=== PATIENT | male | born 1960 | race Caucasian/White ===

== ENCOUNTER 2017-05-19 07:07 | Emergency (ER) | payer OTHER ==
[~2017-05-19] VITALS: Ht 175.3 cm; Wt 87.1 kg
--- OUTSIDE RECORDS SUMMARY | ~2017-05-19 | XMS | Clinical Summary ---
Demographics + + + | Address | [address] | | | [place] [address] | + + + | Home Phone | | + + + | Preferred Language | Unknown | + + + | Marital Status | | + + + | Synagogue Affiliation | Unknown | + + + [address] | | #[place] | [address] | +------+ + + + +-------+ Care Team Providers + +------+-------+ | Care Roving Changer Name | Role | Phone | + +------+-------+ | Mila Majano | PP | tel | + +------+-------+ Source Comments JUANITA is fully live on both [facility] Amb[facility] and [facility] InPatient.[facility] Allergies Not on File Current [...]
--- OUTSIDE RECORDS SUMMARY | ~2017-05-19 | XMS | Clinical Summary ---
Demographics + + + | Address | [address] | | | [place] [address] | + + + | Home Phone | | + + + | Preferred Language | Unknown | + + + | Marital Status | | + + + | Orthodox Affiliation | Unknown | + + + [...] [address] | | #[place] | [address] | +------+ + + + +-------+ Care Team Providers + +------+-------+ | Care Jewel Bearing Facer Name | Role | Phone | + +------+-------+ | Mila Majano | PP | tel | + +------+-------+ Source Comments JUANITA is fully live on both [facility] Ambulatory and [facility] InPatient.[facility] Allergies Not on File Current Medications Not [...]
[~2017-05-19 07:07] MED LIST: AMBIEN10 MG PO; ASPIR 8181 MG PO; CLOPIDOGREL75 MG PO; CYCLOBENZAPRINE10 MG PO; CYMBALTA30 MG PO; DILAUDID4 MG PO; DOXAZOSIN MESYLA8 MG PO; ESCITALOPRAM OXA5 MG PO; FINASTERIDE5 MG PO; FLEXERIL10 MG PO; FLOMAX0.4 MG PO; GABAPENTIN600 MG PO; HYDROCODON-ACE1 EAC8 PO; LIPITOR40 MG PO; LISINOPRIL5 MG PO; MORPHINE SULFAT15 M1 PO; MORPHINE SULFAT15 MG PO; MS CONTIN15 MG PO; NORCO 10-325 T1 EACH PO; NORCO 5-325 TA1 EACH PO; OMEPRAZOLE MAGN20 MG PO; OMEPRAZOLE20 MG PO; OXYCODONE HCL5 MG PO; PERCOCET 5-3251 EACH PO; PHENAZOPYRIDIN200 MG PO; SENNA-DOCUSATE1 EAC1 PO; TAMSULOSIN HCL0.4 MG PO; TRAMADOL HCL50 MG PO; VOLTAREN100 GM TOP; ZOLPIDEM TARTRA10 MG PO
--- NOTE | 2017-05-23 17:04 | EKG ---
[facility] [address] [facility] [place] [address] Signed Normal sinus rhythm Left axis deviation Abnormal ECG When compared with ECG of 16-JUN-2016 08:02, No significant change was found Confirmed by MATT BAER MD ([id number]) on 05/23/2017 5:04:13 PM Electronically Signed By: MATT BAER MD 05/23/17 1704 PATIENT NAME: GUNNER TATE JR Electrocardiogram DATE OF : 60 PHYSICIAN: MATT BAER MD REPORT #: [id number] REPORT IS CONFIDENTIAL AND NOT TO BE RELEASED WITHOUT AUTHORIZATION
[2017-07-06] MEDS ORDERED: ROBAXIN-750750 MG PO (13:14)
[2017-07-06] MEDS ORDERED: LISINOPRIL10 MG PO (13:23)
== END 2017-05-19 13:00 | disposition home or self-care (01) ==
LOC: ED 07:07
DX: G45.9 Transient cerebral ischemic attack, unspecified (principal); E16.2 Hypoglycemia, unspecified; Z87.442 Personal history of urinary calculi; Z87.891 Personal history of nicotine dependence; Z90.49 Acquired absence of other specified parts of digestive tract; Z98.890 Other specified postprocedural states; Z98.84 Bariatric surgery status; Z88.0 Allergy status to penicillin; Z88.1 Allergy status to other antibiotic agents; Z79.899 Other long term (current) drug therapy
CPT/HCPCS: 70450; 70496; 70498; 80053; 85025; 85379; 85610; 93005; 93010; 99284; Q9967

== ENCOUNTER 2017-06-15 14:48 | Emergency (ER) | payer OTHER ==
[~2017-06-15] VITALS: Ht 175.3 cm; Wt 87.1 kg
[2017-06-15] MEDS ORDERED: ASPIRIN81 MG PO (15:54)
--- OUTSIDE RECORDS SUMMARY | 2017-06-15 16:51 | XMS | Clinical Summary ---
Demographics + + + | Address | [address] | | | [place] [address] | + + + | Home Phone | | + + + | Preferred Language | Unknown | + + + | Marital Status | | + + + | Scientologist Affiliation | Unknown | + + + | Race | White | + + + | Ethnic Group | Not or | + + + Author + + + | Author | [facility] | + + + | Organization | [facility] | + + + | Address | Unknown | + + + | Phone | Unavailable | + + + Support +------+ + + + +-------+ | Name | Relationship | Address | Phone | +------+ + + + +-------+ ECON | [address] | | #[place] | [address] | +------+ + + + +-------+ Care Team Providers + +------+ + | Care Sales And Marketing Engineer Name | Role | Phone | + +------+ + | Mila Majano PA | PP | | + +------+ + Source Comments JUANITA is fully live on both [facility] Ambulatory and [facility] InPatient.[facility] Allergies Not on File Current Medications Not on file Active Problems Not on file Social History + +-------+ +--------+------+ | Tobacco Use | Types | Packs/Day | Years | Date | | | | | Used | | + +-------+ +--------+------+ | Never Assessed | | | | | + +-------+ +--------+------+ + + + | Sex Assigned at | Date Recorded | | | | + + + | Not on file | | + + + Plan of Treatment + + + + + | Health Maintenance | Due Date | Last Done | Comments | + + + + + | INFLUENZA VACCINE | | | | | (FLU SHOT) | 7 | | | + + + + + Results Not on filefrom Last 3 Months"
--- OUTSIDE RECORDS SUMMARY | 2017-06-15 17:48 | XMS | Clinical Summary ---
Demographics + + + | Address | [address] | | | [place] [address] | + + + | Home Phone | | + + + | Preferred Language | Unknown | + + + | Marital Status | | + + + | Restorationism Affiliation | Unknown | + + + [...] [address] | | #[place] | [address] | +------+ + + + +-------+ Care Team Providers + +------+ + | Care Type Rolling Machine Operator Name | Role | Phone | + +------+ + | Mila Majano PA | PP | | + +------+ + Source Comments JUANITA is fully live on both [facility] Ambulatory and [facility] InPatient.[facility] & [facility] Allergies Not on File Current [...]
[2017-06-15] MEDS ORDERED: PHENERGAN12.5 MG PR (19:01)
[2017-07-06] MEDS ORDERED: ROBAXIN-750750 MG PO (13:14)
[2017-07-06] MEDS ORDERED: LISINOPRIL10 MG PO (13:23)
== END 2017-06-15 19:10 | disposition home or self-care (01) ==
LOC: ED 14:48
DX: N13.2 Hydronephrosis with renal and ureteral calculous obstruction (principal); I10 Essential (primary) hypertension; Z88.0 Allergy status to penicillin; Z88.1 Allergy status to other antibiotic agents; Z79.82 Long term (current) use of aspirin; Z79.899 Other long term (current) drug therapy
CPT/HCPCS: 74176; 80053; 81001; 85025; 96361; 96374; 96375; 99284; J1170; J1885; J2405; J3010; J7030

== ENCOUNTER 2019-01-24 07:25 | Day surgery (SDC) | payer OTHER ==
[~2019-01-24] VITALS: Ht 175.3 cm; Wt 66.2 kg
--- NOTE | ~2019-01-24 | OR ---
[facility] [address], [place] [address] Draft DATE OF OPERATION: 01/24/2019 SURGEON: Navneet Smtih MD PREOPERATIVE DIAGNOSES: 1. Chronic abdominal pain and chronic pain syndrome. 2. Last colonoscopy in 2008. POSTOPERATIVE DIAGNOSIS: Diverticular changes in sigmoid, otherwise normal. No evidence of polyps. PROCEDURE PERFORMED: Total colonoscopy to cecum. ANESTHESIA: Intravenous sedation, propofol infusion, Apoorva Bella CRNA. INDICATION: A 59-year-old white man is a patient of NITESH Wood. The patient underwent bariatric operation number of years ago and although he lost a fair amount of weight. He has had chronic pain problems for many years. This includes lumbar back pain problems as well as abdominal pain problems. He has undergone repair of an internal hernia associated with his bariatric operation in 2013. He last underwent colonoscopy in 2008 showed a hyperplastic polyp. As it has been 10 years since his last colonoscopy, he has been recommended to undergo colonoscopy at this point. The risk of bleeding, infection, and perforation were reviewed with him. He understands and wished to proceed with colonoscopy. FINDINGS: The prep was good. Complete colonoscopy was undertaken to the cecum. There were numerous diverticula of the sigmoid. No sign of polyps, colitis, or other abnormality. DESCRIPTION OF PROCEDURE: The patient was brought to the endoscopy suite and placed in lateral decubitus position given intravenous sedation with propofol infusional technique by the nurse complaints coordinator, Apoorva Bella CRNA. After satisfactory sedation, digital rectal examination was performed, which was normal. An Olympus video colonoscope was passed in the rectum and manipulated throughout the colon ultimately intubating the cecum itself. Ileocecal valve and appendiceal orifice were normal. Scope was withdrawn with examination throughout showed no sign of abnormality other than diverticular changes in the sigmoid. PATIENT NAME: GUNNER TATE JR OPERATIVE REPORT DATE OF : 60 REPORT #: [id number] PHYSICIAN: NAVNEET SMITH MD PCP: ASIA LOCKETT MD REPORT IS CONFIDENTIAL AND NOT TO BE RELEASED WITHOUT AUTHORIZATION [facility] [address], [place] [address] [address] Retroflexed view of the rectum was normal. Scope was removed and the patient was taken to recovery room in good condition. CONCLUDING DIAGNOSIS: Diverticular changes in the sigmoid and left colon. PLAN: Recommend repeat colonoscopy in 10 years, sooner if clinically indicated. He will return to the ongoing care of NITESH Wood. MD GOKUL Rapp/MODL /[id number] cc: NITESH Wood Copies: ~ PATIENT NAME: GUNNER TATE JR OPERATIVE REPORT DATE OF : 60 REPORT #: [id number] PHYSICIAN: NAVNEET SMITH MD PCP: ASIA LOCKETT MD REPORT IS CONFIDENTIAL AND NOT TO BE RELEASED WITHOUT AUTHORIZATION
[~2019-01-24 07:25] MED LIST changes: +ASPIRIN81 MG PO; +LISINOPRIL10 MG PO; +PHENERGAN12.5 MG PR; +ROBAXIN-750750 MG PO
[2019-01-24] MEDS ORDERED: BUSPIRONE HCL5 MG PO (07:46)
[2019-01-24] MEDS ORDERED: BACLOFEN10 MG PO (07:48)
--- NOTE | 2019-01-24 09:13 | NUR ---
01/24/19 09 Misti Villa 0901 PT ARRIVED IN PACU SLEEPY WITH NO C/O/S. ABD SOFT. 0913 RESTING. REU.
== END 2019-01-24 09:40 | disposition home or self-care (01) ==
LOC: OPS 07:25 → DS 07:25 → OPS 08:30
PROVIDERS: Surgery
PROC: 0DJD8ZZ Inspection of Lower Intestinal Tract, Via Natural or Artificial Opening Endoscopic (ICD-10-PCS; principal; 2019-01-24 08:30)
DX: K57.30 Diverticulosis of large intestine without perforation or abscess without bleeding (principal); R10.9 Unspecified abdominal pain; G89.4 Chronic pain syndrome; F11.20 Opioid dependence, uncomplicated; R63.4 Abnormal weight loss; K21.9 Gastro-esophageal reflux disease without esophagitis; Z90.49 Acquired absence of other specified parts of digestive tract; Z98.890 Other specified postprocedural states; Z98.84 Bariatric surgery status; Z87.442 Personal history of urinary calculi; Z88.0 Allergy status to penicillin; Z88.1 Allergy status to other antibiotic agents; Z79.899 Other long term (current) drug therapy; Z79.1 Long term (current) use of non-steroidal anti-inflammatories (NSAID)
CPT/HCPCS: J2250; J2704; J3010; J7120

== ENCOUNTER 2019-03-21 23:27 | Emergency (ER) | payer OTHER ==
[~2019-03-21] VITALS: Ht 175.3 cm; Wt 66.2 kg
--- OUTSIDE RECORDS SUMMARY | ~2019-03-21 | XMS | Encounter Summary ---
Demographics + + + | Address | [address] | | | [place] [address] | + + + | Home Phone | | + + + | Preferred Language | Unknown | + + + | Marital Status | | + + + | Pentecostalism Affiliation | Unknown | + + + | Race | Unknown | + + + | Ethnic Group | Unknown | + + + Author + + + | Author | [facility] | | | and [place] | + + + | Organization | [facility] | | | and [place] | + + + | Address | Unknown | + + + | Phone | Unavailable | + + + Support + + + + + | Name | Relationship | Address | Phone | + + + + + | Maeve Glass | ECON | [address] | | | | | [place] | | | | | [address] | | + + + + + Care Team Providers + +------+ + | Care Pathologist Name | Role | Phone | + +------+ + | Toi Leung MD | PCP | | + +------+ + Reason for Referral Evaluate & Treat (Routine) +--------+ + + + + + | Status | Reason | Specialty | Diagnoses / | Referred By | Referred To | | | | | Procedures | Contact | Contact | +--------+ + + + + + | Closed | Specialty | Gastroenterol | Diagnoses | | [facility], | | | Services | ogy / | Abnormal CT | [place], | [place], | | | Required | Radiology | of liver | [place], | STRATEGIC PLANNING SPECIALIST [address] | | | | | Narcotic | STRATEGIC PLANNING SPECIALIST [address] | [place], [place] | | | | | bowel | [place] | [address] [place] | | | | | syndrome due | [address] [place] | [place], [place] | | | | | to | [place], [place] | [address] Phone: | | | | | therapeutic | [address] | [phone] | | | | | use | Phone: | Fax: | | | | | Procedures | [phone] | [phone] | | | | | [place] BIOPSY | Fax: | | | | | | LIVER NEEDLE | [phone] | | | | | | | | | | | | | PERCUTANEOUS | | | | | | | VA SONO | | | | | | | GUIDE NEEDLE | | | | | | | BIOPSY US, | | | | | | | ABDOMEN | | | | | | | LIMITED | | | +--------+ + + + + + Reason for Visit + + + | Reason | Comments | + + + | Abdominal Pain | | + + + | Gastroesophageal | | | Reflux | | + + + Evaluate & Treat (Routine) +--------+--------+ + + + + | Status | Reason | Specialty | Diagnoses / | Referred By | Referred To | | | | | Procedures | Contact | Contact | +--------+--------+ + + + + | Closed | | Gastroenterol | Diagnoses | | [facility] | | | | ogy | POSSIBLE | [place], | Gastroenterol | | | | | DIVERTICULIT | Mila K, | ogy [address] | | | | | IS | PA-C [id number] | | | | | ABDOMINAL | [address] | [address] [place] | | | | | PAIN | [address] | [place], [place] | | | | | HEPATIC | [place], | [address] | | | | | [place] | [place] | Phone: | | | | | Procedures | [address] | [phone] | | | | | OFFICE | Phone: | Fax: | | | | | CONSULT | [phone] | [phone] | | | | | | Fax: | | | | | | | [phone] | | +--------+--------+ + + + + Encounter Details +--------+---------+ + + + | Date | Type | Department | Care Team | Description | +--------+---------+ + + + | 01/31/ | Office | [facility] | [facility], | Abnormal CT of liver | | 2014 | Visit | GASTROENTEROLOGY | SHANIQUA Osborne [address] | (Primary Dx); | | | | [address] | [place] [place] | Narcotic bowel | | | | [address] [place], [place] | [place] | syndrome due to | | | | [address] | [address] | therapeutic use | | | | [phone] | | | +--------+---------+ + + + Social History + + + +--------+ + | Tobacco Use | Types | Packs/Day | Years | Date | | | | | Used | | + + + +--------+ + | Former Smoker | Cigarettes | | | Quit: 01/30/1989 | + + + +--------+ + + +---+---+---+ | Smokeless Tobacco: | | | | | Never Used | | | | + +---+---+---+ + + +---------+ + | Alcohol Use | Drinks/Week | oz/Week | Comments | + + +---------+ + | Yes | | | Rare | + + +---------+ + + + + | Sex Assigned at | Date Recorded | | | | + + + | Not on file | | + + + + + + + | Job Start Date | Occupation | Industry | + + + + | Not on file | Not on file | Not on file | + + + + + + + + | Travel History | Travel Start | Travel End | + + + + + + | No recent travel history available. | + + documented as of this encounter Last Filed Vital Signs + + + + + | Vital Sign | Reading | Time Taken | Comments | + + + + + | Blood Pressure | 134/84 | 01/31/2014 7:56 AM | | | | | PDT | | + + + + + | Pulse | 80 | 01/31/2014 7:56 AM | | | | | PDT | | + + + + + | Temperature | 36.4 C (97.5 F) | 01/31/2014 7:56 AM | | | | | PDT | | + + + + + | Respiratory Rate | 16 | 01/31/2014 7:56 AM | | | | | PDT | | + + + + + | Oxygen Saturation | - | - | | + + + + + | Inhaled Oxygen | - | - | | | Concentration | | | | + + + + + | Weight | 87.1 kg (192 lb) | 01/31/2014 7:56 AM | | | | | PDT | | + + + + + | Height | 176.5 cm (5' 9.5") | 01/31/2014 7:56 AM | | | | | PDT | | + + + + + | Body Mass Index | 27.95 | 01/31/2014 7:56 AM | | | | | PDT | | + + + + + documented in this encounter Progress Notes [place] Cook ARNP - 01/31/2014 8:21 AM PDTFormatting of this note might be differe nt from the original. Jero Glass Jr. is a 54 y.o. male referred by Toi Leung for evaluation and treatment of abnormal liver imaging. History of present illness: Patient notes that 3 months ago he started to have pain in LLQ. Has history of diverticulit is. Was treated for diverticulitis with minimal improvement in LLQ pain. LLQ pain continues to come and go. Pain comes daily. Complains of bloating and gas. Takes stool softeners daily. He can still have days without BM. Denies straining with BM. Eileen cooley has also tried Miralax without significant relief in the bowel pattern. Complains of dysphagia. States his mouth and throat get dry and he has a difficult time swa llowing. Denies the sensation of food getting stuck in epigastric area. He has had to force food back up from throat. He has history of Raad-en-Y. Has a history of chronic kidney stones. He gets the sensation that there is a large kidney stone stuck in bladder. He is scheduled to see Dr Bassett on 02/08/2014. He admits to weight loss of about 40 lbs prior to bowel surgery 12/2013. Just traveled to [place], otherwise denies any travel for over 30 years. . Allergies Allergen Reactions Penicillins Hives and Rash Azithromycin Nausea And Vomiting Past Medical History Diagnosis Date Chronic pain Diverticulosis GERD (gastroesophageal reflux disease) Borderline glaucoma Renal calculi recurrent Anxiety stress induced Wu's esophagus chronic Diabetes (HCC) resolved after weight loss from gastric bypass Past Surgical History Procedure Date Laparotomy 12/26/2012 reduction and repair of internal hernia [facility] Dr. Lundberg Gastric bypass surgery Egd and colonoscopy 12/31/2010 Diagnosis: 1. 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 Sigmoid diverticulosis, mild with mild proctitis. [facility] Dr. 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 Nephrolithiasis [facility] [place] Colonoscopy Family History Problem Relation Age of Onset Heart disease Father History Social History Marital Status: Spouse Name: N/A Number of Children: 2 Years of Education: N/A Occupational History Not on file. Social History Main Topics Smoking status: Former Smoker Types: Cigarettes Quit date: 01/30/1989 Smokeless tobacco: Never Used Alcohol Use: Yes Comment: Rare Drug Use: No Sexually Active: Not on file Other Topics Concern Not on file Social History Narrative No narrative on file Review of systems: Constitutional: Complains of weight gain. Denies fevers, chills, or unintentional weight l oss. Eyes:Denies using glaucoma eye drops. Denies dry, burning, painful eyes Respiratory:Denies shortness of breath, cough or wheezing. Gastrointestinal: Complains of constipation, diarrhea, abdominal pain, and dysphagia. Jose es bloody or black stools, hematemesis, nausea or vomiting, hemorrhoids, or heartburn. Skin: Complains of skin rash. Neurological: Complains of numbness and tingling, and muscle weakness. Denies memory diffi culties, paralysis, seizures, or frequent bothersome headaches. ENT:Denies hearing loss, hearing aids, hearing ringing or buzzing in ears, constantly runny nose, nasal obstruction, hayfever, dentures, or hoarseness. Cardiovascular:Denies chest pain, palpitations, or swelling to legs : Complains of painful urination, urine incontinence, frequent nocturnal urination. Jose es bloody urine or impotence. Musculoskeletal: Complains of painful back and joints. Denies swollen joints. Psychiatric: Complains of depression. Denies anxiety. Endocrine:Denies enlarged thyroid Heme/lymph:Denies anemia or enlarged lymph glands. Physical exam: General: well developed, well nourished, in no acute distress. Head: normocephalic and atraumatic Eyes: Sclera clear Mouth: MMM Lungs: Clear to auscultate bilaterally and throughout Heart: regular rate and rhythm Abdomen: Soft, diffusely tender to palpation, non distended, bowel tones positive times 4 quadra nts, negative Suárez's sign, negative rebound tenderness, no guarding, no hepatosplenomegaly palpated. Msk: symmetrical with no deformity, with normal posture and gait, normal strength. Extremities: no clubbing, cyanosis, edema, or deformity noted Neurologic: no focal deficits, cranial nerves II-XII grossly intact Skin: intact without lesions or rashes. Psych: alert and cooperative; normal mood and affect; normal attention span and concentration. Abstract on 01/30/2014 Component Date Value Range Status Colonoscopy Impression, External 12/31/2010 Diagnosis: 1. Gastric pouch remnant with mo ld inflammation and mild distal esophagitis 2. Sigmoid diverticulosis, mild with mild procti tis. Final Creatinine, External 12/21/2013 0.77 0.7 - 1.33 Final eGFR, External 12/21/2013 >60 60 - 71240 Final ALT, External 12/21/2013 66* 7 - 52 Edited AST, External 12/21/2013 61* 13 - 39 Final WBC, External 12/21/2013 6.0 4.5 - 11 Final HGB, External 12/21/2013 13.8 13.5 - 18 Final HCT, External 12/21/2013 40.8* 41 - 50 Final PLT, External 12/21/2013 295 140 - 440 Final Hepatitis A IGM 12/21/2013 Negative Final Hepatitis B Surface Ag, External 12/21/2013 Negative Final HEP B CORE IgM 12/21/2013 Negative Final HCV Ab 12/21/2013 Negative Final RBC 12/21/2013 4.00* 4.30 - 5.70 10*6/uL Final MCV 12/21/2013 101.8* 81.0 - 99.0 fL Final RDW 12/21/2013 13.7 Final MCH 12/21/2013 35.0* 27.0 - 33.0 pg Final MCHC 12/21/2013 34.0 Final NEUTROPHILS % 12/21/2013 45.0 Final LYMPHOCYTES % 12/21/2013 33.0 Final MONOCYTES % 12/21/2013 4.0 Final EOSINOPHILS % 12/21/2013 17.0* 0.0 - 6.0 % Final BASOPHILS % 12/21/2013 1.0 Final 1,25 DIHYDROXY VITAMIN D 12/21/2013 30 Final NA 12/21/2013 142 Final K 12/21/2013 4.4 Final CL 12/21/2013 105 Final CO2 12/21/2013 30 Final ANION GAP 12/21/2013 11 Final GLUCOSE 12/21/2013 84 Final BUN 12/21/2013 13 Final BUN/Creatinine Ratio 12/21/2013 16.9 Final CALCIUM 12/21/2013 9.4 Final ALK PHOS 12/21/2013 67 Final BILIRUBIN TOTAL 12/21/2013 0.3 Final Total protein 12/21/2013 6.5 Final ALBUMIN 12/21/2013 4.5 Final Globulin 12/21/2013 2.0 Final Albumin/Globulin Ratio 12/21/2013 2.3 Final FOLATE INTERPRETATION 12/21/2013 16.24 Final VITAMIN B-12 12/21/2013 546 Final Abdominal ultrasound 12/29/2013: Impression: Liver granuloma but otherwise normal appearance. EGD and colonoscopy 01/01/2011: Postoperative diagnosis: 1. Gastric pouch remnant with mold inflammation and mild distal esophagitis. 2. Sigmoid diverticulosis, mild with mild proctitis. CT abdomen pelvis 12/16/2013: No evidence of obstructive uropathy. Many bilateral kidney stones are present, however, sm all amount of focal fluid in the left pelvis, without evident cause on the CT scan. Assessment: 1. 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 Ordering additional labs to check for possible cause for liver granuloma. Recommend TB skin test to be done by PCP or health department. 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 Will try Amitiza and help with bowel pattern. Patient may need EGD and colonoscopy for further evaluation of LLQ pain and dysphagia, Will discuss during follow up of liver biopsy. Spent approximately 60 minutes with patient with over half in patient education regarding p ossible causes of liver granuloma and plan to evaluate. Will follow up with results. Patient is to call with any question or concerns. Any fevers, chills, chest pain, SOB or other serious symptoms patient is to call the office or go to ER . Cc: Toi Leung This note was dictated using voice recognition software. Please contact me if there are a ny questions regarding its content. documented in t his encounter Plan of Treatment + + +--------+ + + | Name | Type | Priori | Associated Diagnoses | Order Schedule | | | | ty | | | + + +--------+ + + | Angiotensin I | Lab | Routin | Abnormal CT of | 1 Occurrences | | Converting Enzyme | | e | liver | starting 01/31/2014 | | | | | | until 01/31/2015 | + + +--------+ + + | HIV 1 AND 2 Ab | Lab | Routin | Abnormal CT of | 1 Occurrences | | Screen (Reflexive) | | e | liver | starting 01/31/2014 | | | | | | until 01/31/2015 | + + +--------+ + + | Rapid Plasma Reagin, | Lab | Routin | Abnormal CT of | 1 Occurrences | | Qual | | e | liver | starting 01/31/2014 | | | | | | until 01/31/2015 | + + +--------+ + + | Culture, Fungus, | Microbiolog | Routin | Abnormal CT of | 1 Occurrences | | Blood or Bone Marrow | y | e | liver | starting 01/31/2014 | | | | | | until 01/31/2015 | + + +--------+ + + | Culture, AFB, Blood | Microbiolog | Routin | Abnormal CT of | 1 Occurrences | | | y | e | liver | starting 01/31/2014 | | | | | | until 01/31/2015 | + + +--------+ + + | Siva-Gorman Virus | Lab | Routin | Abnormal CT of | 1 Occurrences | | Ab, IgG and IgM | | e | liver | starting 01/31/2014 | | | | | | until 01/31/2015 | + + +--------+ + + | Cytomegalovirus Ab, | Lab | Routin | Abnormal CT of | 1 Occurrences | | IgG and IgM | | e | liver | starting 01/31/2014 | | | | | | until 01/31/2015 | + + +--------+ + + | Toxoplasma gondii | Lab | Routin | Abnormal CT of | 1 Occurrences | | Ab, IgG, IgM | | e | liver | starting 01/31/2014 | | | | | | until 01/31/2015 | + + +--------+ + + | Antinuclear Ab, | Lab | Routin | Abnormal CT of | 1 Occurrences | | Titer + Pattern | | e | liver | starting 01/31/2014 | | | | | | until 05/31/2014 | + + +--------+ + + | Mitochondrial | Lab | Routin | Abnormal CT of | 1 Occurrences | | antibody | | e | liver | starting 01/31/2014 | | | | | | until 05/31/2014 | + + +--------+ + + | Smooth Muscle Ab | Lab | Routin | Abnormal CT of | 1 Occurrences | | | | e | liver | starting 01/31/2014 | | | | | | until 05/31/2014 | + + +--------+ + + | Protime INR | Lab | Routin | Abnormal CT of | 1 Occurrences | | | | e | liver | starting 01/31/2014 | | | | | | until 05/31/2014 | + + +--------+ + + | CBC with | Lab | Routin | Abnormal CT of | 1 Occurrences | | Differential | | e | liver | starting 01/31/2014 | | | | | | until 05/31/2014 | + + +--------+ + + | Comprehensive | Lab | Routin | Abnormal CT of | 1 Occurrences | | Metabolic Panel | | e | liver | starting 01/31/2014 | | | | | | until 05/31/2014 | + + +--------+ + + | Iron and Transferrin | Lab | Routin | Abnormal CT of | 1 Occurrences | | | | e | liver | starting 01/31/2014 | | | | | | until 05/31/2014 | + + +--------+ + + | Ferritin | Lab | Routin | Abnormal CT of | 1 Occurrences | | | | e | liver | starting 01/31/2014 | | | | | | until 05/31/2014 | + + +--------+ + + | Ceruloplasmin | Lab | Routin | Abnormal CT of | 1 Occurrences | | | | e | liver | starting 01/31/2014 | | | | | | until 05/31/2014 | + + +--------+ + + + + +--------+ + + | Name | Type | Priori | Associated Diagnoses | Order Schedule | | | | ty | | | + + +--------+ + + | Ambulatory referral | Outpatient | Routin | Abnormal CT of | Expected: 02/03/2014 | | to Gastroenterology | Referral | e | liver Narcotic | (Justin), | | ([facility]) | | | bowel syndrome due | Expires: 01/31/2015 | | | | | to therapeutic use | | + + +--------+ + + documented as of this encounter Results US Guided Liver Biopsy (02/17/2014 11:27 AM PDT) + + | Specimen | + + | | + + + + + | Narrative | Performed At | + + + | ULTRASOUND GUIDED RANDOM LIVER CORE BIOPSY WITH MODERATE SEDATION | [facility] | | 02/17/2014 9:00 AM CLINICAL HISTORY: Liver granuloma, elevated | LAB | | liver function tests COMPARISON: RIGHT UPPER QUADRANT ULTRASOUND | | | DECEMBER 29, 2013, CT ABDOMEN DECEMBER 16, 2013 PROCEDURE: After | | | explaining the potential risks and benefits of the procedure to the | | | patient, verbal and written consent were obtained. With the patient | | | in the supine position, moderate sedation was administered per | | | institutional protocol. Ultrasound was utilized to identify a | | | suitable site for percutaneous liver biopsy in the right upper, | | | lateral abdomen. The overlying skin was prepped and draped in | | | sterile fashion, and approximately 10 cc buffered 1% Xylocaine | | | utilized for local anesthesia with ultrasound guidance. A small skin | | | nestor was made to accommodate the 17-gauge introducer needle, which | | | was advanced into the liver without difficulty under direct | | | ultrasound visualization. Three 2-cm liver core biopsies were | | | performed through the introducer with an 18-gauge [employer] biopsy | | | gun. Two specimens were placed in formalin and sent for histologic | | | analysis, well a third specimen was placed in a sterile container for | | | microbiologic analysis requested by the attending provider. The | | | introducer was removed after ensuring absence of back bleeding, and | | | hemostasis achieved with manual compression. The patient tolerated | | | the procedure well, and there were no immediate complications. They | | | were transferred to recovery in stable condition. Follow-up | | | sonography of the liver approximately one hour after the procedure | | | demonstrated no new hepatic parenchymal abnormality or perihepatic | | | fluid to suggest the presence of biopsy-related hemorrhage. These | | | findings were communicated to the same day surgery nurse caring for | | | the patient. IMPRESSION - 1. ULTRASOUND GUIDED RANDOM LIVER | | | CORE BIOPSY WITH MODERATE SEDATION, DESCRIBED. Dictated and | | | Signed by: Sina Kraft MD Electronically signed: 02/17/2014 12:01 | | | PM | | + + + + + | Procedure Note | + + | Ubaldo, Rad Results In - 02/17/2014 12:05 PM PDT ULTRASOUND GUIDED RANDOM LIVER CORE | | BIOPSY WITH MODERATE SEDATION 02/17/20149:00 AMCLINICAL HISTORY: Liver granuloma, | | elevated liver function testsCOMPARISON: RIGHT UPPER QUADRANT ULTRASOUND DECEMBER 29, | | 2013, CT ABDOMEN 2013PROCEDURE: After explaining the potential risks and | | benefits of the procedure tothe patient, verbal and written consent were obtained. With | | the patient in thesupine position, moderate sedation was administered per institutional | | protocol. Ultrasound was utilized to identify a suitable site for percutaneous | | liverbiopsy in the right upper, lateral abdomen. The overlying skin was prepped | | anddraped in sterile fashion, and approximately 10 cc buffered 1% Xylocaineutilized for | | local anesthesia with ultrasound guidance. A small skin nestor wasmade to accommodate the | | 17-gauge introducer needle, which was advanced into theliver without difficulty under | | direct ultrasound visualization. Three 2-cmliver core biopsies were performed through | | the introducer with an 18-gaugeBi[employer]ince biopsy gun. Two specimens were placed in | | formalin and sent forhistologic analysis, well a third specimen was placed in a sterile | | container formicrobiologic analysis requested by the attending provider. The introducer | | wasremoved after ensuring absence of back bleeding, and hemostasis achieved withmanual | | compression. The patient tolerated the procedure well, and there were noimmediate | | complications. They were transferred to recovery in stable condition.Follow-up | | sonography of the liver approximately one hour after the proceduredemonstrated no new | | hepatic parenchymal abnormality or perihepatic fluid tosuggest the presence of | | biopsy-related hemorrhage. These findings werecommunicated to the same day surgery | | nurse caring for the patient.IMPRESSION -1. ULTRASOUND GUIDED RANDOM LIVER CORE BIOPSY | | WITH MODERATE SEDATION, ASDESCRIBED.Dictated and Signed by: Sina Kraft MD | | Electronically signed: 02/17/2014 12:01 PM | | | |Follow-up sonography of the liver approximately one hour after the procedure | |demonstrated no new hepatic parenchymal abnormality or perihepatic fluid to | |suggest the presence of biopsy-related hemorrhage. These findings were | |communicated to the same day surgery nurse caring for the patient. | | | |IMPRESSION - | |1. ULTRASOUND GUIDED RANDOM LIVER CORE BIOPSY WITH MODERATE SEDATION, | |DESCRIBED. | | | |Dictated and Signed by: Sina Kraft MD | | Electronically signed: 02/17/2014 12:01 PM | + + + +---------+ + + | Performing | Address | City/State/Zipcode | Phone Number | | Organization | | | | + +---------+ + + | [facility] | | | [phone] | + +---------+ + + | [facility] | | | [phone] | + +---------+ + + XR Chest PA and Lateral (01/31/2014 9:21 AM PDT) + + | Specimen | + + | | + + + + + | Narrative | Performed At | + + + | EXAM: XR CHEST PA AND LATERAL dated 01/31/2014 9:21 AM HISTORY: | [facility] | | liver granuloma, rule out pulmonary cause (such as TB) Comparison: | LAB | | None. TECHNIQUE: Frontal and lateral views of the chest. | | | FINDINGS: The lungs are symmetrically aerated. They are clear. | | | There are no pleural effusions. There is no pneumothorax. The | | | cardiac and mediastinal contours are not enlarged. The visible | | | osseous structures are unremarkable. Spine related catheter is | | | seen posteriorly. IMPRESSION - Negative two-view chest | | | radiograph. Dictated and Signed by: Fernie Cam MD | | | Electronically signed: 01/31/2014 10:20 AM | | + + + + + | Procedure Note | + + | Ubaldo, Rad Results In - 01/31/2014 10:23 AM PDT EXAM: XR CHEST PA AND LATERAL dated | | 01/31/2014 9:21 AMHISTORY: liver granuloma, rule out pulmonary cause (such as | | TB)Comparison: None.TECHNIQUE: Frontal and lateral views of the chest.FINDINGS:The lungs | | are symmetrically aerated. They are clear. There are no pleuraleffusions. There is | | no pneumothorax. The cardiac and mediastinal contours arenot enlarged. The visible | | osseous structures are unremarkable. Spine relatedcatheter is seen | | posteriorly.IMPRESSION -Negative two-view chest radiograph. Dictated and Signed by: | | Fernie Cam MD Electronically signed: 01/31/2014 10:20 AM | |FINDINGS: | |The lungs are symmetrically aerated. They are clear. There are no pleural | |effusions. There is no pneumothorax. The cardiac and mediastinal contours are | |not enlarged. The visible osseous structures are unremarkable. Spine related | |catheter is seen posteriorly. | | | |IMPRESSION - | | | |Negative two-view chest radiograph. 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
--- OUTSIDE RECORDS SUMMARY | ~2019-03-21 | XMS | Encounter Summary ---
Demographics + + + | Address | [address] | | | [place] [address] | + + + | Home Phone | | + + + | Preferred Language | Unknown | + + + | Marital Status | | + + + | Episcopal Affiliation | Unknown | + + + | Race | White | + + + | Ethnic Group | Not or | + + + Author + + + | Author | [facility] | + + + | Organization | [facility] | + + + | Address | Unknown | + + + | Phone | Unavailable | + + + Support + + + + + | Name | Relationship | Address | Phone | + + + + + | Maeve Glass | ECON | [address] | | | | | #[place] | | | | | [address] | | + + + + + Care Team Providers + +------+ + | Care Manager Oracle Retail Name | Role | Phone | + +------+ + | Mila Majano | PCP | | + +------+ + Encounter Details +--------+ + + + + | Date | Type | Department | Care Team | Description | +--------+ + + + + | 03/09/ | Document-Sc | UNKNOWN DEPARTMENT | Unknown . | | | 2012 | anned | [address] | | | | | | [address] | | | | | | [place], [place] | | | | | | [address] | | | +--------+ + + + + Social History + +-------+ +--------+------+ | Tobacco [...] + + documented as of this encounter Plan of Treatment Not on filedocumented as of this encounter Procedures + +--------+ + + + | Procedure Name | Priori | Date/Time | Associated Diagnosis | Comments | | | ty | | | | + +--------+ + + + | RADIOLOGY | | 03/09/2013 | | Results for this | | | | 12:00 AM | | procedure are in the | | | | PST | | results section. | + +--------+ + + + | RADIOLOGY | | 03/09/2013 | | Results for this | | | | 12:00 AM | | procedure are in the | | | | PST | | results section. | + +--------+ + + + documented in this encounter Results RADIOLOGY (03/09/2013 12:00 AM PST) + + + | Narrative | Performed At | + + + | | | | | | + + + + + | Procedure Note | + + | Pierce Parkinson - 05/09/2014 2:59 PM PST | + + RADIOLOGY (03/09/2013 12:00 AM PST) + + + | Narrative | Performed At | + + + | | | | | | + + + + + | Procedure Note | + + | Pierce Parkinson - 04/18/2014 10:00 AM PST | + + documented in this encounter Visit Diagnoses Not on filedocumented in this encounter"
--- OUTSIDE RECORDS SUMMARY | ~2019-03-21 | XMS | Encounter Summary ---
Demographics + + + | Address | [address] | | | [place] [address] | + + + | Home Phone | | + + + | Preferred Language | Unknown | + + + | Marital Status | | + + + | Spiritism Affiliation | Unknown | + + + | Race | Unknown | + + + | Ethnic Group | Unknown | + + + Author + + + | Author | [facility] | | | and [place] | + + + | Organization | [facility] | | | and [place] | + + + | Address | Unknown | + + + | Phone | Unavailable | + + + Support + + + + + | Name | Relationship | Address | Phone | + + + + + | Maeve Glass | ECON | [address] | | | | | [place] | | | | | [address] | | + + + + + Care Team Providers + +------+ + | Care Weave Room Supervisor Name | Role | Phone | + +------+ + | Mila Majano PA-C | PCP | | + +------+ + Encounter Details +--------+ + + + + | Date | Type | Department | Care Team | Description | +--------+ + + + + | 04/04/ | Hospital | [facility] | Cezar Salcido MD | Fever (Primary Dx) | | 2014 | Encounter | [facility] | [address] [facility] | | | | | [address] [place] | [place], [place] | | | | | [place], [place] | [address] | | | | | [address] | [phone] | | | | | [phone] | | | +--------+ + + + + Social History + + [...] + + documented as of this encounter Functional Status + + + + | Functional Status | Response | Date of Assessment | + + + + | Are you deaf or do you have serious | No | 03/25/2014 | | difficulty hearing? | | | + + + + | Are you blind or do you have serious | No | 03/25/2014 | | difficulty seeing, even when wearing | | | | glasses? | | | + + + + | Do you have serious difficulty walking or | No | 03/25/2014 | | climbing stairs? (5 years old or older) | | | + + + + | Do you have difficulty dressing or bathing? | No | 03/25/2014 | | (5 years old or older) | | | + + + + | Because of a physical, mental, or emotional | No | 03/25/2014 | | condition, do you have difficulty doing | | | | errands alone such as visiting a doctor's | | | | office or shopping? [15 years old or | | | | older)] | | | + + + + + + + + | Cognitive Status | Response | Date of Assessment | + + + + | Because of a physical, mental, or emotional | No | 03/25/2014 | | condition, do you have serious difficulty | | | | concentrating, remembering, or making | | | | decisions? (5 years old or older) | | | + + + + documented as of this encounter Medications at Time of Discharge + + + +---------+ + + | Medication | Sig | Dispensed | Refills | Start | End Date | | | | | | Date | | + + + +---------+ + + | B Complex-C (SUPER | Take 1 tablet by | | 0 | | | | B COMPLEX PO) | mouth Daily. | | | | | + + + +---------+ + + | Cholecalciferol | Take by mouth | | 0 | | | | (VITAMIN D3) 3000 | Daily. | | | | | | UNITS TABS | | | | | | + + + +---------+ + + | ferrous sulfate | Take 325 mg by mouth | | 0 | | | | 325 mg tablet | daily (with | | | | | | | breakfast). | | | | | + + + +---------+ + + | | Take 1-2 tablets by | 42 | 0 | 03/29/ | | | HYDROcodone-acetamin | mouth every 4 hours | tablet | | 14 | | | ophen (NORCO) 5-325 | as needed for Pain. | | | | | | mg per tablet | | | | | | + + + +---------+ + + | Multiple | Take 1 tablet by | | 0 | | | | Vitamins-Minerals | mouth Daily. | | | | | | (MULTIVITAMIN PO) | | | | | | + + + +---------+ + + | Potassium | Take 1 tablet by | | 0 | | | | Gluconate 595 MG | mouth Daily. | | | | | | CAPS | | | | | | + + + +---------+ + + | tamsulosin | Take 0.4 mg by mouth | | 0 | | | | (FLOMAX) 0.4 mg CAPS | daily (after | | | | | | | breakfast). | | | | | + + + +---------+ + + | tocopherol | Take 1,000 Units by | | 0 | | | | (VITAMIN E) 400 | mouth Daily. | | | | | | units capsule | | | | | | + + + +---------+ + + | zolpidem (AMBIEN) | Take 10 mg by mouth | | 0 | | | | 10 mg tablet | nightly as needed. | | | | | + + + +---------+ + + | aspirin 81 mg EC | Take 81 mg by mouth | | 0 | | | | tablet | Daily. | | | | 9 | + + + +---------+ + + | cyclobenzaprine | Take 10 mg by mouth | | 0 | | | | (FLEXERIL) 10 mg | 3 times daily as | | | | 9 | | tablet | needed. | | | | | + + + +---------+ + + | DULoxetine | Take 30 mg by mouth | | 0 | | | | (CYMBALTA) 30 mg | Daily. | | | | 9 | | capsule | | | | | | + + + +---------+ + + | morphine (MSIR) 30 | Take 30 mg by mouth | | 0 | | | | MG tablet | every 6 hours as | | | | 9 | | | needed. | | | | | + + + +---------+ + + | omeprazole | Take 20 mg by mouth | | 0 | | | | (PRILOSEC) 20 mg | every morning | | | | 9 | | capsule | (before breakfast). | | | | | + + + +---------+ + + documented as of this encounter Plan of Treatment Not on filedocumented as of this encounter Procedures + +--------+ + + + | Procedure Name | Priori | Date/Time | Associated Diagnosis | Comments | | | ty | | | | + +--------+ + + + | CBC WITH | Routin | 04/04/2014 | Fever | Results for this | | DIFFERENTIAL | e | 10:04 AM | | procedure are in the | | | | PST | | results section. | + +--------+ + + + documented in this encounter Results CBC with Differential (04/04/2014 10:04 AM PST) + + + + + + | Component | Value | Ref Range | Performed | Pathologist | | | | | At | Signature | + + + + + + | WBC | 13.3 (H) | 4.0 - 11.0 K/uL | [facility] | | | | | | [facility] | | | | | | [facility]ORY | | + + + + + + | RBC | 3.64 (L) | 4.30 - 5.70 | [facility] | | | | | M/uL | [facility] | | | | | | [facility] | | | | | | [facility] - | | | | | | LABORATORY | | + + + + + + | Hemoglobin | 12.4 (L) | 13.5 - 18.0 | [facility] | | | | | g/dL | [facility] | | | | | | [facility] | | | | | | [facility] - | | | | | | LABORATORY | | + + + + + + | Hematocrit | 36.4 (L) | 40.0 - 51.0 % | [facility] | | | | | | [facility] | | | | | | [facility] | | | | | [facility] - | | | | | | LAB[facility]ATORY | | + + + + + + | MCV | 99.9 | 83.0 - 101.0 fL | [facility] | | | | | | [facility] | | | [facility] | | [facility] | | | | [facility] - | | | | | | LABORATORY | | + + + + + + | MCH | 34.0 | 28.0 - 35.0 pg | [facility] | | | | | | [facility] | | | | | | [facility] | | | | | [facility] - | | | | | | LAB[facility]ATORY | | + + + + + + | MCHC | 34.0 | 32.0 - 36.0 | [facility] | | | | | g/dL | [facility] | | | | | | [facility] | | [facility] | | | [facility] - | | | | | | LAB[facility]ATORY | | + + + + + + | RDW-CV | 13.2 | <15.0 % | [facility] | | | | | | [facility] | [facility] | [facility] | | [facility] - | | | | | | LAB[facility]ATORY | | + + + + + + | Platelet | 287 | 140 - 440 K/uL | [facility] | | | Count | | | [facility] | | [facility] | | [facility] | | [facility] | [facility] - | | | | | | LAB[facility]ATORY | | + + + + + + | MPV | 6.8 | fL | [facility] | | | | | | [facility] | [facility] | [facility] | [facility] | | | | [facility] - | | | | | | LAB[facility]ATORY | | + + + + + + | % | 84.2 (H) | 45.0 - 82.0 % | [facility] | | | Neutrophils | | | [facility] | | | | | | [facility] | | | | | | [facility] - | | | | | | LABORATORY | | + + + + + + | % | 9.5 (L) | 20.0 - 45.0 % | [facility] | | | Lymphocytes | | | [facility] | | | | | | [facility] | | | | | | [facility] - | | | | | | LAB[facility]ATORY | | + + + + + + | % Monocytes | 4.7 | 4.0 - 12.0 % | [facility] | | | | | | [facility] | | | | | | [facility] | | | | | | [facility] - | | | | | | LABORATORY | | + + + + + + | % | 0.9 | 0.0 - 5.0 % | [facility] | | | Eosinophils | | | [facility] | | | | | | [facility] | | | | | | [facility] - | | | | | | LABORATORY | | + + + + + + | % Basophils | 0.7 | 0.0 - 1.0 % | [facility] | | | | | | [facility] | | | | | | [facility] | | | | | | [facility] - | | | | | | LABORATORY | | + + + + + + | Absolute | 11.20 (H) | 1.80 - 8.50 | [facility] | | | Neutrophils | | K/uL | [facility] | | | | | | [facility] | | | | | | [facility] - | | | | | | LABORATORY | | + + + + + + | Absolute | 1.30 | 0.60 - 3.20 | [facility] | | | Lymphocytes | | K/uL | [facility] | | | | | | [facility] | | | | | | [facility] - | | | | | | LABORATORY | | + + + + + + | Absolute | 0.60 | 0.00 - 1.00 | [facility] | | | Monocytes | | K/uL | [facility] | | | | | | [facility] | | | | | | [facility] - | | | | | | LABORATORY | | + + + + + + | Absolute | 0.10 | 0.00 - 0.40 | [facility] | | | Eosinophils | | K/uL | [facility] | | | | | | [facility] | | | | | | [facility] - | | | | | | LABORATORY | | + + + + + + | Absolute | 0.10 | 0.00 - 0.10 | [facility] | | | Basophils | | K/uL | [facility] | | | | | | [facility] | | | | | | [facility] - | | | | | | LABORATORY | | + + + + + + + + | Specimen | + + | Blood | + + + + + + + | Performing | Address | City/State/Zipcode | Phone Number | | Organization | | | | + + + + + | [facility] | [address] | [place], [place] | [phone] | | [facility] | | [address] | | | - LABORATORY | | | | + + + + + | [facility] | [address] | [place], [place] | | | [facility] | | [address] | | | - LABORATORY | | | | + + + + + documented in this encounter Visit Diagnoses + + | Diagnosis | + + | Fever - Primary Fever, unspecified | + + documented in this encounter"
--- OUTSIDE RECORDS SUMMARY | ~2019-03-21 | XMS | Clinical Summary ---
Demographics + + + | Address | [address] | | | [place] [address] | + + + | Home Phone | | + + + | Preferred Language | Unknown | + + + | Marital Status | | + + + | Catholic Affiliation | Unknown | + + + | Race | Unknown | + + + | Ethnic Group | Unknown | + + + Author + + + | Author | [facility] | | | and [place] | + + + | Organization | [facility] | | | and [place] | + + + | Address | Unknown | + + + | Phone | Unavailable | + + + Support + + + + + | Name | Relationship | Address | Phone | + + + + + | Maeve Glass | ECON | [address] | | | | | [place] | | | | | [address] | | + + + + + Care Team Providers + +------+ + | Care Head Inspector And Center Marker Name | Role | Phone | + +------+ + | Kenroy Escamilla PCP | | + +------+ + Allergies + + + + + + | Active Allergy | Reactions | Severity | Noted | Comments | | | | | Date | | + + + + + + | Adhesive & Tape | Other (See Comments) | Low | 02/17/20 | Burned skin | | | | | 14 | | + + + + + + | Azithromycin | Nausea And Vomiting | Low | 01/31/20 | | | | | | 14 | | + + + + + + | Erythromycin | Diarrhea | Low | 02/17/20 | | | | | | 14 | | + + + + + + | Penicillins | Hives, Rash | Medium | 01/31/20 | | | | | | 14 | | + + + + + + Medications + + + +---------+------+------+-------+ | Medication | Sig | Dispensed | Refills | Star | End | Statu | | | | | | t | Date | s | | | | | | Date | | | + + + +---------+------+------+-------+ | zolpidem (AMBIEN) | Take 10 mg by mouth | | 0 | | | Activ | | 10 mg tablet | nightly as needed. | | | | | e | + + + +---------+------+------+-------+ | tamsulosin | Take 0.4 mg by mouth | | 0 | | | Activ | | (FLOMAX) 0.4 mg CAPS | daily (after | | | | | e | | | breakfast). | | | | | | + + + +---------+------+------+-------+ | Multiple | Take 1 tablet by | | 0 | | | Activ | | Vitamins-Minerals | mouth Daily. | | | | | e | | (MULTIVITAMIN PO) | | | | | | | + + + +---------+------+------+-------+ | tocopherol | Take 1,000 Units by | | 0 | | | Activ | | (VITAMIN E) 400 | mouth Daily. | | | | | e | | units capsule | | | | | | | + + + +---------+------+------+-------+ | ferrous sulfate | Take 325 mg by mouth | | 0 | | | Activ | | 325 mg tablet | daily (with | | | | | e | | | breakfast). | | | | | | + + + +---------+------+------+-------+ | B Complex-C (SUPER | Take 1 tablet by | | 0 | | | Activ | | B COMPLEX PO) | mouth Daily. | | | | | e | + + + +---------+------+------+-------+ | Potassium | Take 1 tablet by | | 0 | | | Activ | | Gluconate 595 MG | mouth Daily. | | | | | e | | CAPS | | | | | | | + + + +---------+------+------+-------+ | Cholecalciferol | Take by mouth | | 0 | | | Activ | | (VITAMIN D3) 3000 | Daily. | | | | | e | | UNITS TABS | | | | | | | + + + +---------+------+------+-------+ | | Take 1-2 tablets by | 42 | 0 | 11/2 | | Activ | | HYDROcodone-acetamin | mouth every 4 hours | tablet | | 6/20 | | e | | ophen (NORCO) 5-325 | as needed for Pain. | | | 14 | | | | mg per tablet | | | | | | | + + + +---------+------+------+-------+ | | Take by mouth as | | 0 | | | Activ | | ASPIRIN-ACETAMINOPHE | needed. Excedrine | | | | | e | | N-CAFFEINE PO | | | | | | | + + + +---------+------+------+-------+ | baclofen | Take 10 mg by mouth | | 0 | | | Activ | | (LIORESAL) 10 mg | 3 times daily. | | | | | e | | tablet | | | | | | | + + + +---------+------+------+-------+ | | Take 1 tablet by | | 0 | | | Activ | | diphenhydrAMINE-acet | mouth Daily as | | | | | e | | aminophen (TYLENOL | needed. | | | | | | | PM) 25-500 MG TABS | | | | | | | + + + +---------+------+------+-------+ | docusate sodium | Take 100 mg by mouth | | 0 | | | Activ | | (COLACE) 100 mg | nightly. Two | | | | | e | | capsule | tablets daily | | | | | | + + + +---------+------+------+-------+ | fluticasone | 1 spray by Nasal | | 0 | | | Activ | | (FLONASE) 50 | route as needed. | | | | | e | | mcg/nasal spray | | | | | | | + + + +---------+------+------+-------+ | busPIRone (BUSPAR) | Take 5 mg by mouth 2 | | 0 | | | Activ | | 5 mg tablet | times daily. | | | | | e | + + + +---------+------+------+-------+ | omeprazole | Take 40 mg by mouth | | 0 | | | Activ | | (PRILOSEC) 40 MG | every morning | | | | | e | | capsule | (before breakfast). | | | | | | + + + +---------+------+------+-------+ | lisinopril | Take 10 mg by mouth | | 0 | | | Activ | | (PRINIVIL, ZESTRIL) | Daily. | | | | | e | | 20 mg tablet | | | | | | | + + + +---------+------+------+-------+ | gabapentin | Take 1,200 mg by | | 0 | | | Activ | | (NEURONTIN) 600 MG | mouth 2 times daily. | | | | | e | | tablet | | | | | | | + + + +---------+------+------+-------+ | morphine (MS | Take 15 mg by mouth | | 0 | | | Activ | | CONTIN) 15 mg ER | 2 times daily. | | | | | e | | tablet | | | | | | | + + + +---------+------+------+-------+ | Blood Glucose | | | 0 | 05/2 | | Activ | | Monitoring Suppl | | | | 0/20 | | e | | (FREESTYLE LITE) | | | | 19 | | | | KELIN | | | | | | | + + + +---------+------+------+-------+ | FREESTYLE LITE | | | 0 | 05/2 | | Activ | | strip | | | | 0/20 | | e | | | | | | 19 | | | + + + +---------+------+------+-------+ | FREEYLE LANCETS | | | 0 | 05/ | | Activ | | MISC | | | | 0/20 | | e | | | | | | 19 | | | + + + +---------+------+------+-------+ Active Problems + + + | Problem | Noted Date | + + + | Nausea | 07/01/2017 | + + + | Inguinal pain | 09/05/2016 | + + + | Essential hypertension with goal blood pressure less than 140/90 | 11/23/2015 | + + + | Postural dizziness with presyncope | 11/23/2015 | + + + | Precordial pain | 11/23/2015 | + + + | Vasovagal syncope | 11/20/2015 | + + + + + | Overview: Last Assessment & Plan: No syncopal events since | | last visitHe was admitted to [facility] for [facility]- underwent echo, | | stress test and monitoring- did not show any abnormalitiesHis | | symptoms appear vasovagal syncope/ POTSHis symptoms also could be | | related to polypharmacy- pain medications- he will discuss with | | his PMD regarding changing or adjusting his medications11/24/2015- | | Echo normal LV systolic functionEvent monitoring - no sig | | arrhythmias noted 11/24/2015- Stress MPI- no ischemiaDiscussed | | adequate hydration, salt tablets, BP monitoring at home, fall | | precautions, compression stockings, foot elevationAlso discussed | | diet, exercise, lifestyle changesDiscussed with him about CAD- | | risks factors for CAD- also discussed with him about role of | | stress test and coronary angiogram in management of CADHe will | | follow up in 6 months- | + + + + + | Wu's esophagus | 03/26/2014 | + + + | S/P gastric bypass | 03/26/2014 | + + + | Backache | 07/24/2005 | + + + | Depressive disorder, not elsewhere classified | 07/24/2005 | + + + | Morbid obesity | 07/24/2005 | + + + | Pure hypercholesterolemia | 07/24/2005 | + + + | Sleep apnea | 07/24/2005 | + + + + + | Overview: using CPAP | + + + + + | SOB (shortness of breath) on exertion | 07/24/2005 | + + + | Stress incontinence, male | 07/24/2005 | + + + | Type II or unspecified type diabetes mellitus without mention of | 07/24/2005 | | complication, not stated as uncontrolled | | + + + Encounters +--------+ + + + + | Date | Type | Specialty | Care Team | Description | +--------+ + + + + | 01/19/ | Office | Gastroenterology | [facility], | Abdominal pain, | | 2019 | Visit | | SHANIQUA Osborne | generalized (Primary | | | | | | Dx); S/P gastric | | | | | | bypass | +--------+ + + + + | 01/13/ | Abstract | Gastroenterology | Provider, | | | 2019 | | | Natty, | | +--------+ + + + + from Last 3 Months Family History + + +---------+ + | Medical History | Relation | Name | Comments | + + +---------+ + | Elevated lipids | Father | Jero | | + + +---------+ + | Heart disease | Father | Jero | | + + +---------+ + | Hypertension | Father | Jero | | + + +---------+ + | Obesity | Father | Jero | | + + +---------+ + | Stroke | Father | Jero | | + + +---------+ + | Heart attack | Paternal | | | | | Grandmoth | | | | | er | | | + + +---------+ + | Hypertension | Paternal | | | | | Grandmoth | | | | | er | | | + + +---------+ + + +---------+ + + | Relation | Name | Status | Comments | + +---------+ + + | Father | Jero | | | + +---------+ + + | Mother | | Alive | | + +---------+ + + | Paternal Grandmother | | | | + +---------+ + + Social History + + + +--------+ + | Tobacco Use | Types | Packs/Day | Years | Date | | | | | Used | | + + + +--------+ + | Former Smoker | Cigarettes | 1 | 15 | Quit: 01/30/1989 | + + + +--------+ + + +---+---+---+ | Smokeless Tobacco: | | | | | Never Used | | | | + +---+---+---+ + + +---------+ + | Alcohol Use | Drinks/Week | oz/Week | Comments | + + +---------+ + | Not Currently | | | | + + +---------+ + + + [...] recent travel history available. | + + Last Filed Vital Signs + + + + + | Vital Sign | Reading | Time Taken | Comments | + + + + + | Blood Pressure | 100/64 | 01/19/2019 8:34 AM | | | | | PDT | | + + + + + | Pulse | 105 | 01/19/2019 8:34 AM | | | | | PDT | | + + + + + | Temperature | 36.6 C (97.8 F) | 11/24/2015 12:35 PM | | | | | PDT | | + + + + + | Respiratory Rate | 6 | 01/19/2019 8:34 AM | | | | | PDT | | + + + + + | Oxygen Saturation | 96% | 03/29/2014 12:00 PM | | | | | PST | | + + + + + | Inhaled Oxygen | - | - | | | Concentration | | | | + + + + + | Weight | 69.8 kg (153 lb 14.1 | 01/19/2019 8:34 AM | | | | oz) | PDT | | + + + + + | Height | 175.3 cm (5' 9") | 01/19/2019 8:34 AM | | | | | PDT | | + + + + + | Body Mass Index | 22.72 | 01/19/2019 8:34 AM | | | | | PDT | | + + + + + Plan of Treatment + + + + + | Health Maintenance | Due Date | Last Done | Comments | + + + + + | Vaccine: | | | | | Pneumococcal 19-64 | 6 | | | | (1 of 1 - PPSV23) | | | | + + + + + | Diabetic Eye Exam | | | | | | 8 | | | + + + + + | Diabetic Foot Exam | | | | | | 8 | | | + + + + + | Hemoglobin A1c | | | | | Screening | 8 | | | + + + + + | Vaccine: Zoster (1 | | | | | of 2) | 0 | | | + + + + + | Statin Therapy | | | | | (optimal intensity) | 9 | | | + + + + + | Vaccine: Influenza | | 02/01/2018, 01/15/2018, | | | (#1) | 9 | 04/13/2017, Additional history | | | | | exists | | + + + + + | Colorectal Cancer | | 12/31/2010, 12/31/2010 | | | Screening | 1 | | | | (Colonoscopy) | | | | + + + + + | Vaccine: | | 04/13/2017 | | | Dtap/Tdap/Td (2 - | 7 | | | | Td) | | | | + + + + + | Hepatitis C | Completed | 12/21/2013 | | | Screening | | | | + + + + + Results Not on filefrom Last 3 Months Insurance +-------+--------+ +--------+ + +------+ | Payer | Benefi | Subscriber | Effect | Phone | Address | Type | | | t Plan | ID | michael | | | | | | / | | Dates | | | | | | Group | | | | | | +-------+--------+ +--------+ + +------+ | [employer] | [employer] | [id number] | | [phone] | [address] | PPO | | | [place] | | [phone] | | | | [place] | | esent | | [place], | | | | [place] | | | | [place] [address] | | +-------+--------+ +--------+ + +------+ + +--------+ +--------+ + + | Guarantor Name | Accoun | Relation to | Date | Phone | Billing Address | | | t Type | Patient | of | | | | | | | | | | + +--------+ +--------+ + + | QuanJero | Person | Self | [birth year] | [address] | | | al/[place] | | 1960 | [phone] | [address] [place], | | | gian | | | [address] (Home) | [place] [address] | | | | | | [phone] | | | | | | | 0 (Work) | | + +--------+ +--------+ + + Advance Directives + + + + + | Type | Date Recorded | Patient | Explanation | | | | Packer | | + + + + + | Power of | | | | | Personal Property Assessor | | | | + + + + + | Advance | 01/31/2014 9:04 | | | | Directive | AM | | | + + + + + + + + + + | Code Status | Date | Date | Comments | | | Activated | Inactivated | | + + + + + | Full Code | 03/25/2014 | 03/29/2014 | | | | 5:36 PM | 3:17 PM | | + + + + +
--- OUTSIDE RECORDS SUMMARY | ~2019-03-21 | XMS | Encounter Summary ---
Demographics + + + | Address | [address] | | | [place] [address] | + + + | Home Phone | | + + + | Preferred Language | Unknown | + + + | Marital Status | | + + + | Jewish Affiliation | Unknown | + + + | Race | Unknown | + + + | Ethnic Group | Unknown | + + + Author + + + | Author | [facility] | | | and [place] | + + + | Organization | [facility] | | | and [...] [place] | | | | | [id number] | | + + + + + Care Team Providers + +------+ + | Care Staff Electrical Engineer Name | Role | Phone | + +------+ + | Mila Majano PA-C PCP | | + +------+ + Encounter Details +--------+ + + + + | Date | Type | Department | Care Team | Description | +--------+ + + + + | 01/13/ | Abstract | [facility] | Provider, | | | 2019 | | GASTROENTEROLOGY | MD [address] | | | | | [address] | [place]. | | | | | [address] | [place] [address] | | | | | [phone] | | | | | | [phone] | | | +--------+ + + + + Social History + + + +--------+ + | Tobacco Use | Types | Packs/Day | Years | Date | | | | | Used | | + + + +--------+ + | Never Smoker | Cigarettes | | | Quit: [...] | + +--------+ + + + | EXTERNAL LAB: HUNG | Routin | 08/20/2018 | | Results for this | | | e | | | procedure are in the | | | | | | results section. | + +--------+ + + + | EXTERNAL LAB: | Routin | 08/20/2018 | | Results for this | | GLUCOSE | e | | | procedure are in the | | | | | | results section. | + +--------+ + + + | EXTERNAL LAB: ALT | Routin | 08/20/2018 | | Results for this | | | e | | | procedure are in the | | | | | | results section. | + +--------+ + + + | EXTERNAL LAB: AST | Routin | 08/20/2018 | | Results for this | | | e | | | procedure are in the | | | | | | results section. | + +--------+ + + + | EXTERNAL LAB: | Routin | 08/20/2018 | | Results for this | | ALKALINE PHOSPHATASE | e | | | procedure are in the | | | | | | results section. | + +--------+ + + + | EXTERNAL LAB: | Routin | 08/20/2018 | | Results for this | | BILIRUBIN, TOTAL | e | | | procedure are in the | | | | | | results section. | + +--------+ + + + | EXTERNAL LAB: | Routin | 08/20/2018 | | Results for this | | ALBUMIN | e | | | procedure are in the | | | | | | results section. | + +--------+ + + + | EXTERNAL LAB: | Routin | 08/20/2018 | | Results for this | | PROTEIN, TOTAL | e | | | procedure are in the | | | | | | results section. | + +--------+ + + + | EXTERNAL LAB: | Routin | 08/20/2018 | | Results for this | | CALCIUM | e | | | procedure are in the | | | | | | results section. | + +--------+ + + + | EXTERNAL LAB: CARBON | Routin | 08/20/2018 | | Results for this | | DIOXIDE | e | | | procedure are in the | | | | | | results section. | + +--------+ + + + | EXTERNAL LAB: | Routin | 08/20/2018 | | Results for this | | CHLORIDE | e | | | procedure are in the | | | | | | results section. | + +--------+ + + + | EXTERNAL LAB: | Routin | 08/20/2018 | | Results for this | | POTASSIUM | e | | | procedure are in the | | | | | | results section. | + +--------+ + + + | EXTERNAL LAB: SODIUM | Routin | 08/20/2018 | | Results for this | | | e | | | procedure are in the | | | | | | results section. | + +--------+ + + + | EXTERNAL LAB: | Routin | 08/20/2018 | | Results for this | | URINALYSIS | e | | | procedure are in the | | | | | | results section. | + +--------+ + + + | EXTERNAL LAB: CBC | Routin | 08/20/2018 | | Results for this | | | e | | | procedure are in the | | | | | | results section. | + +--------+ + + + | EXTERNAL LAB: TSH | Routin | 08/20/2018 | | Results for this | | | e | | | procedure are in the | | | | | | results section. | + +--------+ + + + | EXTERNAL LAB: | Routin | 08/20/2018 | | Results for this | | TRIGLYCERIDES | e | | | procedure are in the | | | | | | results section. | + +--------+ + + + | EXTERNAL LAB: | Routin | 08/20/2018 | | Results for this | | CHOLESTEROL, HDL | e | | | procedure are in the | | | | | | results section. | + +--------+ + + + | EXTERNAL LAB: | Routin | 08/20/2018 | | Results for this | | CHOLESTEROL, TOTAL | e | | | procedure are in the | | | | | | results section. | + +--------+ + + + | EXTERNAL LAB: | Routin | 08/20/2018 | | Results for this | | CHOLESTEROL, LDL | e | | | procedure are in the | | | | | | results section. | + +--------+ + + + | EXTERNAL LAB: EGFR | Routin | 08/20/2018 | | Results for this | | | e | | | procedure are in the | | | | | | results section. | + +--------+ + + + | EXTERNAL LAB: | Routin | 08/20/2018 | | Results for this | | CREATININE | e | | | procedure are in the | | | | | | results section. | + +--------+ + + + | LIPID PANEL | Routin | 08/20/2018 | | Results for this | | | e | | | procedure are in the | | | | | | results section. | + +--------+ + + + | URINALYSIS, REFLEX | Routin | 08/20/2018 | | Results for this | | MICROSCOPIC AND/OR | e | | | procedure are in the | | CULTURE | | | | results section. | + +--------+ + + + | CBC WITH | Routin | 08/20/2018 | | Results for this | | DIFFERENTIAL | e | | | procedure are in the | | | | | | results section. | + +--------+ + + + | COMPREHENSIVE | Routin | 08/20/2018 | | Results for this | | METABOLIC PANEL | e | | | procedure are in the | | | | | | results section. | + +--------+ + + + documented in this encounter Results Urinalysis, Reflex Microscopic and/or Culture (08/20/2018) + + + + + + | Component | Value | Ref Range | Performed | Pathologist | | | | | At | Signature | + + + + + + | COLLECTION | Clean Catch | | | | | METHOD 1 | | | | | + + + + + + | Color | Yellow | | | | + + + + + + | Clarity | Clear | | | | + + + + + + | Bilirubin, | Negative | Negative | | | | Urine | | | | | + + + + + + | Nitrite, | Negative | Negative | | | | Urine | | | | | + + + + + + | Urobilinoge | Normal | < 0.2 mg/dL, | | | | n, Urine | | 1.0 mg/dL, 4.0 | | | | | | mg/dL, Normal, | | | | | | 1.0 E.U./dL, | | | | | | 0.2 E.U./dL, | | | | | | 0.2 mg/dL, | | | | | | Negative, 1 | | | | | | mg/dL, <2.0 | | | | | | mg/dL | | | + + + + + + | CASTS | 1+ | | | | + + + + + + | WBC | 2 | 0 - 4 | | | + + + + + + | Squamous | 1+ | | | | | epithelial, | | | | | | UA, POC | | | | | + + + + + + | CRYSTAL UA | Negative | | | | + + + + + + | BACTERIA UA | Negative | Negative /HPF | | | + + + + + + + + | Specimen | + + | Urine | + + External Lab: Urinalysis (08/20/2018) + + + + + + | Component | Value | Ref Range | Performed | Pathologist | | | | | At | Signature | + + + + + + | UA Blood, | Negative | | EXTERNAL | | | External | | | LAB | | + + + + + + | UA Glucose, | Normal | | EXTERNAL | | | External | | | LAB | | + + + + + + | UA Ketones, | Trace | | EXTERNAL | | | External | | | LAB | | + + + + + + | UA Ph, | 5 | 5 - 9 | EXTERNAL | | | External | | | LAB | | + + + + + + | UA | Negative | | EXTERNAL | | | Proteins, | | | LAB | | | External | | | | | + + + + + + | UA RBC, | 2 | 0 - 4 | EXTERNAL | | | External | | | LAB | | + + + + + + | UA Specific | 1.020 | 1.005 - 1.03 | EXTERNAL | | | [place], | | | LAB | | | External | | | | | + + + + + + | UA | Negative | | EXTERNAL | | | Leukocyte | | | LAB | | | Esterase, | | | | | | External | | | | | + + + + + + + +---------+ + + | Performing | Address | City/State/Zipcode | Phone Number | | Organization | | | | + +---------+ + + | EXTERNAL LAB | | | | + +---------+ + + Lipid Panel (08/20/2018) + +---------+ + + + | Component | Value | Ref Range | Performed | Pathologist | | | | | At | Signature | + +---------+ + + + | VLDL | 45 (A) | 4 - 40 | | | | Cholesterol | | | | | | [place] | | | | | + +---------+ + + + | Chol/HDL | 4.0 | 0.0 - 5.0 | | | | Ratio | | | | | + +---------+ + + + | Non HDL | 136 (A) | 0 - 130 | | | | Chol. | | | | | | (LDL+VLDL) | | | | | + +---------+ + + + + + | Specimen | + + | Blood | + + External Lab: Triglycerides (08/20/2018) + +---------+ + + + | Component | Value | Ref Range | Performed | Pathologist | | | | | At | Signature | + +---------+ + + + | Triglycerid | 226 (A) | 30 - 150 | EXTERNAL | | | es, | | | LAB | | | External | | | | | + +---------+ + + + + + | Specimen | + + | Blood | + + + +---------+ + + | Performing | Address | City/State/Zipcode | Phone Number | | Organization | | | | + +---------+ + + | EXTERNAL LAB | | | | + +---------+ + + External Lab: Cholesterol, HDL (08/20/2018) + +-------+ + + + | Component | Value | Ref Range | Performed | Pathologist | | | | | At | Signature | + +-------+ + + + | HDL | 44.9 | 40 - 99,999 | EXTERNAL | | | Cholesterol | | mg/dl | LAB | | | , External | | | | | + +-------+ + + + + + | Specimen | + + | Blood | + + + +---------+ + + | Performing | Address | City/State/Zipcode | Phone Number | | Organization | | | | + +---------+ + + | EXTERNAL LAB | | | | + +---------+ + + External Lab: Cholesterol, Total (08/20/2018) + +-------+ + + + | Component | Value | Ref Range | Performed | Pathologist | | | | | At | Signature | + +-------+ + + + | Cholesterol | 181 | 0 - 200 mg/dl | EXTERNAL | | | , Total, | | | LAB | | | External | | | | | + +-------+ + + + + + | Specimen | + + | Blood | + + + +---------+ + + | Performing | Address | City/State/Zipcode | Phone Number | | Organization | | | | + +---------+ + + | EXTERNAL LAB | | | | + +---------+ + + External Lab: Cholesterol, LDL (08/20/2018) + +-------+ + + + | Component | Value | Ref Range | Performed | Pathologist | | | | | At | Signature | + +-------+ + + + | LDL | 91 | 0 - 100 | EXTERNAL | | | Cholesterol | | | LAB | | | , Direct, | | | | | | External | | | | | + +-------+ + + + + + | Specimen | + + | Blood | + + + +---------+ + + | Performing | Address | City/State/Zipcode | Phone Number | | Organization | | | | + +---------+ + + | EXTERNAL LAB | | | | + +---------+ + + CBC with Differential (08/20/2018) + +--------+ + + + | Component | Value | Ref Range | Performed | Pathologist | | | | | At | Signature | + +--------+ + + + | MCH | 38 (A) | 27 - 33 | | | + +--------+ + + + | MCHC | 34 | 30 - 36 | | | + +--------+ + + + | BF % | 0 | 0 - 2 % | | | | Basophils | | | | | + +--------+ + + + + + | Specimen | + + | Blood | + + External Lab: CBC (08/20/2018) + + + + + + | Component | Value | Ref Range | Performed | Pathologist | | | | | At | Signature | + + + + + + | WBC, | 4.9 | 4.5 - 11 | EXTERNAL | | | External | | | LAB | | + + + + + + | HGB, | 13.6 | 13.5 - 18 | EXTERNAL | | | External | | | LAB | | + + + + + + | HCT, | 40.4 (A) | 41 - 50 | EXTERNAL | | | External | | | LAB | | + + + + + + | PLT, | 300 | 140 - 440 | EXTERNAL | | | External | | | LAB | | + + + + + + | Neutrophils | 49.9 | 39 - 80 | EXTERNAL | | | %, | | | LAB | | | External | | | | | + + + + + + | Lymphocytes | 40 | 24 - 44 | EXTERNAL | | | %, | | | LAB | | | External | | | | | + + + + + + | Monocytes | 6.7 | 0 - 12 | EXTERNAL | | | %, External | | | LAB | | + + + + + + | Eosinophils | 3 | 0 - 6 | EXTERNAL | | | %, | | | LAB | | | External | | | | | + + + + + + | RBC, | 3.61 (A) | 4.3 - 5.7 | EXTERNAL | | | External | | | LAB | | + + + + + + | MCV, | 112 (A) | 81 - 99 | EXTERNAL | | | External | | | LAB | | + + + + + + | RDW, | 14.3 | 10.5 - 15 | EXTERNAL | | | External | | | LAB | | + + + + + + + +---------+ + + | Performing | Address | City/State/Zipcode | Phone Number | | Organization | | | | + +---------+ + + | EXTERNAL LAB | | | | + +---------+ + + External Lab: TSH (08/20/2018) + +-------+ + + + | Component | Value | Ref Range | Performed | Pathologist | | | | | At | Signature | + +-------+ + + + | TSH, | 1.13 | 0.27 - 4.2 | EXTERNAL | | | External | | | LAB | | + +-------+ + + + + + | Specimen | + + | Blood | + + + +---------+ + + | Performing | Address | City/State/Zipcode | Phone Number | | Organization | | | | + +---------+ + + | EXTERNAL LAB | | | | + +---------+ + + Comprehensive Metabolic Panel (08/20/2018) + +-------+ + + + | Component | Value | Ref Range | Performed | Pathologist | | | | | At | Signature | + +-------+ + + + | Anion Gap | 14 | 7 - 21 mmol/L | | | + +-------+ + + + | BUN/Creatin | 12.2 | 6 - 28.6 | | | | ine Ratio | | | | | + +-------+ + + + | Globulin | 2.3 | 1.8 - 3.5 | | | + +-------+ + + + | Albumin/Mary | 1.8 | 1.1 - 2.4 | | | | bulin Ratio | | | | | + +-------+ + + + + + | Specimen | + + | Blood | + + External Lab: BUN (08/20/2018) + +-------+ + + + | Component | Value | Ref Range | Performed | Pathologist | | | | | At | Signature | + +-------+ + + + | BUN, | 11 | 6 - 23 | EXTERNAL | | | External | | | LAB | | + +-------+ + + + + +---------+ + + | Performing | Address | City/State/Zipcode | Phone Number | | Organization | | | | + +---------+ + + | EXTERNAL LAB | | | | + +---------+ + + External Lab: Glucose (08/20/2018) + +-------+ + + + | Component | Value | Ref Range | Performed | Pathologist | | | | | At | Signature | + +-------+ + + + | Glucose, | 93 | 70 - 100 | EXTERNAL | | | External | | | LAB | | + +-------+ + + + + +---------+ + + | Performing | Address | City/State/Zipcode | Phone Number | | Organization | | | | + +---------+ + + | EXTERNAL LAB | | | | + +---------+ + + External Lab: ALT (08/20/2018) + +-------+ + + + | Component | Value | Ref Range | Performed | Pathologist | | | | | At | Signature | + +-------+ + + + | ALT, | 9 | 7 - 52 | EXTERNAL | | | External | | | LAB | | + +-------+ + + + + +---------+ + + | Performing | Address | City/State/Zipcode | Phone Number | | Organization | | | | + +---------+ + + | EXTERNAL LAB | | | | + +---------+ + + External Lab: AST (08/20/2018) + +--------+ + + + | Component | Value | Ref Range | Performed | Pathologist | | | | | At | Signature | + +--------+ + + + | [place], | 11 (A) | 13 - 39 | EXTERNAL | | | External | | | LAB | | + +--------+ + + + + +---------+ + + | Performing | Address | City/State/Zipcode | Phone Number | | Organization | | | | + +---------+ + + | EXTERNAL LAB | | | | + +---------+ + + External Lab: Alkaline Phosphatase (08/20/2018) + +-------+ + + + | Component | Value | Ref Range | Performed | Pathologist | | | | | At | Signature | + +-------+ + + + | ALP, | 65 | 31 - 120 | EXTERNAL | | | External | | | LAB | | + +-------+ + + + + +---------+ + + | Performing | Address | City/State/Zipcode | Phone Number | | Organization | | | | + +---------+ + + | EXTERNAL LAB | | | | + +---------+ + + External Lab: Bilirubin, Total (08/20/2018) + +-------+ + + + | Component | Value | Ref Range | Performed | Pathologist | | | | | At | Signature | + +-------+ + + + | Bilirubin, | 0.5 | 0 - 1.2 | EXTERNAL | | | Total, | | | LAB | | | External | | | | | + +-------+ + + + + +---------+ + + | Performing | Address | City/State/Zipcode | Phone Number | | Organization | | | | + +---------+ + + | EXTERNAL LAB | | | | + +---------+ + + External Lab: Albumin (08/20/2018) + +-------+ + + + | Component | Value | Ref Range | Performed | Pathologist | | | | | At | Signature | + +-------+ + + + | Albumin, | 4.2 | 3.5 - 5 | EXTERNAL | | | External | | | LAB | | + +-------+ + + + + +---------+ + + | Performing | Address | City/State/Zipcode | Phone Number | | Organization | | | | + +---------+ + + | EXTERNAL LAB | | | | + +---------+ + + External Lab: Protein, Total (08/20/2018) + +-------+ + + + | Component | Value | Ref Range | Performed | Pathologist | | | | | At | Signature | + +-------+ + + + | Protein, | 6.5 | 6 - 8.3 | EXTERNAL | | | Total, | | | LAB | | | External | | | | | + +-------+ + + + + +---------+ + + | Performing | Address | City/State/Zipcode | Phone Number | | Organization | | | | + +---------+ + + | EXTERNAL LAB | | | | + +---------+ + + External Lab: Calcium (08/20/2018) + +-------+ + + + | Component | Value | Ref Range | Performed | Pathologist | | | | | At | Signature | + +-------+ + + + | Calcium, | 9 | 8.5 - 10.3 | EXTERNAL | | | External | | | LAB | | + +-------+ + + + + +---------+ + + | Performing | Address | City/State/Zipcode | Phone Number | | Organization | | | | + +---------+ + + | EXTERNAL LAB | | | | + +---------+ + + External Lab: Carbon Dioxide (08/20/2018) + +-------+ + + + | Component | Value | Ref Range | Performed | Pathologist | | | | | At | Signature | + +-------+ + + + | Carbon | 22 | 19 - 31 | EXTERNAL | | | Dioxide, | | | LAB | | | External | | | | | + +-------+ + + + + +---------+ + + | Performing | Address | City/State/Zipcode | Phone Number | | Organization | | | | + +---------+ + + | EXTERNAL LAB | | | | + +---------+ + + External Lab: Chloride (08/20/2018) + +-------+ + + + | Component | Value | Ref Range | Performed | Pathologist | | | | | At | Signature | + +-------+ + + + | Chloride, | 108 | 95 - 112 | EXTERNAL | | | External | | | LAB | | + +-------+ + + + + +---------+ + + | Performing | Address | City/State/Zipcode | Phone Number | | Organization | | | | + +---------+ + + | EXTERNAL LAB | | | | + +---------+ + + External Lab: Potassium (08/20/2018) + +-------+ + + + | Component | Value | Ref Range | Performed | Pathologist | | | | | At | Signature | + +-------+ + + + | Potassium, | 4 | 3.6 - 5.1 | EXTERNAL | | | External | | | LAB | | + +-------+ + + + + +---------+ + + | Performing | Address | City/State/Zipcode | Phone Number | | Organization | | | | + +---------+ + + | EXTERNAL LAB | | | | + +---------+ + + External Lab: Sodium (08/20/2018) + +-------+ + + + | Component | Value | Ref Range | Performed | Pathologist | | | | | At | Signature | + +-------+ + + + | Sodium, | 140 | 132 - 143 | EXTERNAL | | | External | | | LAB | | + +-------+ + + + + +---------+ + + | Performing | Address | City/State/Zipcode | Phone Number | | Organization | | | | + +---------+ + + | EXTERNAL LAB | | | | + +---------+ + + External Lab: eGFR (08/20/2018) + +-------+ + + + | Component | Value | Ref Range | Performed | Pathologist | | | | | At | Signature | + +-------+ + + + | eGFR, | >60 | 60 - 99,999 | EXTERNAL | | | External | | | LAB | | + +-------+ + + + + + | Specimen | + + | Blood | + + + +---------+ + + | Performing | Address | City/State/Zipcode | Phone Number | | Organization | | | | + +---------+ + + | EXTERNAL LAB | | | | + +---------+ + + External Lab: Creatinine (08/20/2018) + +-------+ + + + | Component | Value | Ref Range | Performed | Pathologist | | | | | At | Signature | + +-------+ + + + | Creatinine, | 0.9 | 0.7 - 1.33 | EXTERNAL | | | External | | | LAB | | + +-------+ + + + + + | Specimen | + + | Blood | + + + +---------+ + + | Performing | Address | City/State/Zipcode | Phone Number | | Organization | | | | + +---------+ + + | EXTERNAL LAB | | | | + +---------+ + + documented in this encounter Visit Diagnoses Not on filedocumented in this encounter"
--- OUTSIDE RECORDS SUMMARY | ~2019-03-21 | XMS | Encounter Summary ---
Demographics + + + | Address | [address] | | | [place] [address] | + + + | Home Phone | | + + + | Preferred Language | Unknown | + + + | Marital Status | | + + + | Temple Affiliation | Unknown | + + + | Race | Unknown | + + + | Ethnic Group | Unknown | + + + Author + + + | Author | [facility] | | | and [place] | + + + | Organization | [facility] | | | and [...] [place] | | | | | [address] | | + + + + + Care Team Providers + +------+ + | Care Switch Repairer Name | Role | Phone | + +------+ + | Mila Majano PA-C | PCP | | + +------+ + Reason for Visit Auth/Cert +--------+--------+ + + + + | Status | Reason | Specialty | Diagnoses / | Referred By | Referred To | | | | | Procedures | Contact | Contact | +--------+--------+ + + + + | Closed | | | Diagnoses | | [facility] | | | | | SBO (small | | Surgical [address] | | | | | bowel | | [address] | | | | | obstruction) | | [place], | | | | | ([facility]) SBO | | [place] [address] | | | | | (small bowel | | Phone: | | | | | | | [phone] | | | | | obstruction) | | Fax: | | | | | ([facility]) | | [phone] | | | | | SBO (small | | | | | | | bowel | | | | | | | obstruction) | | | | | | | ([facility]) | | | | | | | [560.9] | | | | | | | Procedures | | | | | | | EXPLORATORY | | | | | | | LAPAROTOMY | | | +--------+--------+ + + + + Encounter Details +--------+ + + + + | Date | Type | Department | Care Team | Description | +--------+ + + + + | 03/26/ | Anesthesia | [facility] | Swapnil Casiano, | Wu's esophagus | | 2013 | Event | [facility] | MD [address] | (Primary Dx); S/P | | | | [address] | [place], [place] | gastric bypass | | | | [place], [place] | [address] | | | | | [address] | | | | | | [phone] | | | +--------+ + + + + Anesthesia Record + + + + + | Procedure Name | Responsible | Anesthesia Start | Anesthesia Stop Time | | | Anesthesiologist | Time | | + + + + + | EXPLORATORY | | 03/26/14 1004 | 03/26/14 1129 | | LAPAROTOMY [1197] w | | | | | lysis of adhesions | | | | | (N/A Abdomen) | | | | + + + + + +----+---+ + + | Da | T | Event | Comment | | te | i | | | | | m | | | | | e | | | +----+---+ + + | 11 | 0 | An Checkout | Pre-use anesthesia machine/equipment checkout. | | /2 | 9 | | | | 3/ | 5 | | | | 20 | 5 | | | | 14 | | | | +----+---+ + + | | 1 | An Start | Reassessment prior to anesthesia induction/procedure. | | | 0 | | | | | 0 | | | | | 4 | | | +----+---+ + + | | 1 | | | | | 0 | | | | | 0 | | | | | 5 | | | +----+---+ + + | | 1 | AN | Per surgeon request | | | 0 | Antibiotic | | | | 1 | declined | | | | 3 | | | +----+---+ + + | | 1 | Preoxygenat | | | | 0 | ed | | | | 1 | | | | | 5 | | | +----+---+ + + | | 1 | An | | | | 0 | Induction | | | | 1 | | | | | 7 | | | +----+---+ + + | | 1 | An RSI | | | | 0 | | | | | 1 | | | | | 7 | | | +----+---+ + + | | 1 | An | | | | 0 | Intubation | | | | 1 | | | | | 8 | | | +----+---+ + + | | 1 | Quick Note | NGT hooked up to low suction. | | | 0 | | | | | 2 | | | | | 4 | | | +----+---+ + + | | 1 | [place] | | | | 0 | 43-degrees | | | | 3 | | | | | 0 | | | +----+---+ + + | | 1 | [place] off | | | | 1 | | | | | 0 | | | | | 8 | | | +----+---+ + + | | 1 | Breathing | | | | 1 | Spontaneous | | | | 0 | ly | | | | 8 | | | +----+---+ + + | | 1 | Oropharynx | | | | 1 | Suctioned | | | | 0 | | | | | 8 | | | +----+---+ + + | | 1 | Moving | | | | 1 | Purposefull | | | | 2 | y | | | | 0 | | | +----+---+ + + | | 1 | Extubated | | | | 1 | Awake | | | | 2 | | | | | 0 | | | +----+---+ + + | | 1 | An Stop | Patient handed off to recovery nurse. | | | 2 | | | | | 9 | | | +----+---+ + + +------+ | Meds | +------+ + + + | Name | Total | + + + | midazolam | 2 mg | + + + | fentaNYL | 150 mcg | + + + | lidocaine 2% (PF) | 50 mg | + + + | propofol | 170 mg | + + + | dexamethasone | 10 mg | + + + | ondansetron | 4 mg | + + + | neostigmine | 4 mg | + + + | glycopyrrolate | 0.7 mg | + + + | rocuronium | 70 mg | + + + | clindamycin 900 mg | 900 mg | + + + | LR (Infusion) | 1,700 mL | + + + + + | Name | + + | N2O Flow Rate (L/Min) | + + | O2 Flow Rate (L/Min) | + + | Insp O2 | + + | Exp HÉCTOR | + + | Air Flow Rate (L/Min) | + + + + | No blood administrations on file. | + + +--------+ + + + | Type | Details | Placement | Removal | +--------+ + + + | [READ | 03/25/14; 1355; Hematology, | 03/25/14 1355 by | 07/26/181642 by | | ONLY] | Chemistry; 07/26/18 | Candida Dubon RN | User Epic | | | (Removed/Completed by utility); | | | | [facility] | 1643 (Removed/Completed by | | | | eral | utility) | | | | IV - | | | | | Single | | | | | Lumen | | | | | | | | | +--------+ + + + | NG/OG | 03/25/14; 1530; [place] sump, | 03/25/14 1530 by | 03/26/14 1107 by | | | nasoenteric decompression tube; | Candida Dubon RN | Swapnil Casiano MD | | | 14; right nostril; stomach; | | | | | gastric decompression, treatment | | | | | of obstruction; signs/symptoms of | | | | | discomfort, tubing intact, | | | | | physician notified; the initial | | | | | tube was not able to advance | | | | | through the sphincter of the | | | | | stomach, 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 Salcido | | | | | notificed, he ordered to keep the | | | | | tube in as far as it would | | | | | advance and connect to low | | | | | intermittent suction. This tube | | | | | was removed by Claudine, inserted | | | | | by Slim Rowe, S.N.; 03/26/14; | | | | | 1107 | | | +--------+ + + + | Airway | Placement Date: 03/26/14; | 03/26/14 1018 by | 03/26/14 1120 by | | | Placement Time: 1018; Mask | Swapnil Casiano MD | Swapnil Casiano MD | | | Ventilation: N/A (RSI w/ | | | | | Cricoid); Airway Grade: I; With: | | | | | CP; Successful Technique: Mac; | | | | | Laryngoscope Blade Size: 3; | | | | | Attempts: 1; Airway Type: | | | | | endotracheal, cuffed; Size: 6.5; | | | | | Position: Right; Airway Tube | | | | | Secured At: 0.23 m (9.06"); Tube | | | | | Reference Point: lip, secure and | | | | | patent; Trauma: none; Placement | | | | | Check: verified by capnography; | | | | | Placed By: Anesthesiologist; | | | | | Removal Date: 03/26/14; Removal | | | | | Time: 1120 | | | +--------+ + + + | Read | 03/26/14; 1039; abdomen; 07/27/18 | 03/26/14 1039 by | 07/27/18 1342 by | | only - | (Completed/Removed by Utility); | Matthew Daniel RN | User Epic | | | 1342 (Completed/Removed by | | | | [facility] | Utility) | | | | on | | | | +--------+ + + + documented in this encounter Social History + + + +--------+ + [...] Not on filedocumented as of this encounter Visit Diagnoses Not on filedocumented in this encounter Administered Medications + +--------+ +--------+------+------+ | Medication Order | MAR | Action | Dose | Rate | Site | | | Action | Date | | | | + +--------+ +--------+------+------+ | clindamycin in dextrose | Given | 03/26/20 | 900 mg | | | | (CLEOCIN) IVPB Intravenous, | | 14 10:27 | | | | | Administer over 60 Minutes, PRN, | | AM PST | | | | | Starting 03/26/14 at 1027, | | | | | | | Anesthesia Intra-op | | | | | | + +--------+ +--------+------+------+ +---+---+ | | | +---+---+ + +-------+ +-------+---+---+ | dexamethasone (DECADRON) 10 | Given | 03/26/20 | 10 mg | | | | mg/mL injection Intravenous, | | 14 10:27 | | | | | PRN, Starting 03/26/14 at | | AM PST | | | | | 1027, Anesthesia Intra-op | | | | | | + +-------+ +-------+---+---+ +---+---+ | | | +---+---+ + +-------+ +--------+---+---+ | fentaNYL injection PRN, Pain, | Given | 03/26/20 | 50 mcg | | | | Starting 03/26/14 at 1017, | | 14 10:38 | | | | | Anesthesia Intra-op | | AM PST | | | | + +-------+ +--------+---+---+ +-------+ +---------+---+---+ | Given | 03/26/20 | 100 mcg | | | | | 14 10:17 | | | | | | AM PST | | | | +-------+ +---------+---+---+ +---+---+ | | | +---+---+ + +-------+ +--------+---+---+ | glycopyrrolate (ROBALEKUL) | Given | 03/26/20 | 0.7 mg | | | | injection PRN, Secretions, | | 14 11:05 | | | | | Starting 03/26/14 at 1105, | | AM PST | | | | | Anesthesia Intra-op | | | | | | + +-------+ +--------+---+---+ +---+---+ | | | +---+---+ + +---------+ +----+---+---+ | lactated ringers (LR) infusion | New Bag | 03/26/20 | mL | | | | Intravenous, CONTINUOUS PRN, | | 14 10:52 | | | | | Starting 03/26/14 at 1009, | | AM PST | | | | | Anesthesia Intra-op | | | | | | + +---------+ +----+---+---+ +---------+ +----+---+---+ | New Bag | 03/26/20 | mL | | | | | 14 10:09 | | | | | | AM PST | | | | +---------+ +----+---+---+ +---+---+ | | | +---+---+ + +-------+ +-------+---+---+ | lidocaine (PF) 2% injection | Given | 03/26/20 | 50 mg | | | | PRN, Starting 03/26/14 at | | 14 10:17 | | | | | 1017, Anesthesia Intra-op | | AM PST | | | | + +-------+ +-------+---+---+ +---+---+ | | | +---+---+ + +-------+ +------+---+---+ | midazolam (VERSED) 1 mg/mL | Given | 03/26/20 | 2 mg | | | | injection Intravenous, PRN, | | 14 10:09 | | | | | Anxiety, Starting 03/26/14 at | | AM PST | | | | | 1009, Anesthesia Intra-op | | | | | | + +-------+ +------+---+---+ +---+---+ | | | +---+---+ + +-------+ +------+---+---+ | neostigmine (PROSTIGMIN) 1 | Given | 03/26/20 | 4 mg | | | | mg/mL injection PRN, Starting | | 14 11:05 | | | | | 03/26/14 at 1105, Anesthesia | | AM PST | | | | | Intra-op | | | | | | + +-------+ +------+---+---+ +---+---+ | | | +---+---+ + +-------+ +------+---+---+ | ondansetron (ZOFRAN) injection | Given | 03/26/20 | 4 mg | | | | PRN, Nausea, Vomiting, Starting | | 14 10:27 | | | | | 03/26/14 at 1027, Anesthesia | | AM PST | | | | | Intra-op | | | | | | + +-------+ +------+---+---+ +---+---+ | | | +---+---+ + +-------+ +--------+---+---+ | propofol (DIPRIVAN) injection | Given | 03/26/20 | 170 mg | | | | PRN, Starting 03/26/14 at | | 14 10:17 | | | | | 1017, Anesthesia Intra-op | | AM PST | | | | + +-------+ +--------+---+---+ +---+---+ | | | +---+---+ + +-------+ +-------+---+---+ | rocuronium (ZEMURON) injection | Given | 03/26/20 | 10 mg | | | | Intravenous, PRN, Starting Sun | | 14 10:37 | | | | | 03/26/14 at 1017, Anesthesia | | AM PST | | | | | Intra-op | | | | | | + +-------+ +-------+---+---+ +-------+ +-------+---+---+ | Given | 03/26/20 | 60 mg | | | | | 14 10:17 | | | | | | AM PST | | | | +-------+ +-------+---+---+ +---+---+ | | | +---+---+ documented in this encounter
--- OUTSIDE RECORDS SUMMARY | ~2019-03-21 | XMS | Encounter Summary ---
Demographics + + + | Address | [address] | | | [place] [address] | + + + | Home Phone | | + + + | Preferred Language | Unknown | + + + | Marital Status | | + + + | Yarsanism Affiliation | Unknown | + + + | Race | Unknown | + + + | Ethnic Group | Unknown | + + + Author + + + | Author | [facility] | | | and [place] | + + + | Organization | [facility] | | | and [place] | + + + | Address | Unknown | + + + | Phone | Unavailable | + + + Support + + + + + | Name | Relationship | Address | Phone | + + + + + | Maeve Quan | ECON | [address] | | | | | [place] | | | | | [address] | | + + + + + Care Team Providers + +------+ + | Care Router Setter Name | Role | Phone | + +------+ + | Mila Majano PA-C | PCP | | + +------+ + Reason for Visit + + + | Reason | Comments | + + + | Follow-up | liver biopsy | + + + Evaluate & Treat [...] | | | | | HEPATIC | [place], | [address] | | | | | [place] | [place] | Phone: | | | | | Procedures | [address] | [phone] | | | | | OFFICE | Phone: | Fax: | | | | | CONSULT | [phone] | [phone] | | | | | | Fax: | | | | | | | [phone] | | +--------+--------+ + + + + Encounter Details +--------+---------+ + + + | Date | Type | Department | Care Team | Description | +--------+---------+ + + + | 03/06/ | Office | [facility] [place] | [place], | Liver lesion | | 2013 | Visit | GASTROENTEROLOGY | [address] | (Primary Dx) | | | | [address] | [place] | | | | | [address] [place], [place] | [place], [place] | | | | | [address] | [address] | | | | | [phone] | | | +--------+---------+ + + + [...] + + + | Blood Pressure | 114/78 | 03/06/2014 9:40 AM | | | | | PST | | + + + + + | Pulse | 74 | 03/06/2014 9:40 AM | | | | | PST | | + + + + + | Temperature | 36.5 C (97.7 F) | 03/06/2014 9:40 AM | | | | | PST | | + + + + + | Respiratory Rate | 14 | 03/06/2014 9:40 AM | | | | | PST | | + + + + + | Oxygen Saturation | - | - | | + + + + + | Inhaled Oxygen | - | - | | | Concentration | | | | + + + + + | Weight | 85.3 kg (188 lb) | 03/06/2014 9:40 AM | | | | | PST | | + + + + + | Height | 175.3 cm (5' 9") | 03/06/2014 9:40 AM | | | | | PST | | + + + + + | Body Mass Index | 27.76 | 03/06/2014 9:40 AM | | | | | PST | | + + + + + documented in this encounter Progress Notes India Cook ARNP - 03/06/2014 10:17 AM PSTFormatting of this note might be differe nt from the original. Jero Glass Jr. is a 54 y.o. male here for followup liver biopsy and labs for pascual er granulomas. History of present illness: Complains of generalized soreness. He is here for the results of labs and pathology. Denies ascites, jaundice, hematemesis, peripheral edema, sleep changes, or confusion. Allergies Allergen Reactions Penicillins Hives and Rash Adhesive & Tape Other (See Comments) Burned skin Azithromycin Nausea And Vomiting Erythromycin Diarrhea Past Medical History Diagnosis Date Chronic pain Diverticulosis GERD (gastroesophageal reflux disease) Borderline glaucoma Renal calculi recurrent Anxiety stress induced Wu's esophagus chronic Diabetes (HCC) resolved after weight loss from gastric bypass Past Surgical History Procedure Date Laparotomy 12/26/2012 reduction and repair of internal hernia [facility] Dr. Lundberg Gastric bypass surgery Egd and colonoscopy 12/31/2010 Diagnosis: 1. 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 Sigmoid diverticulosis, mild with mild proctitis. [place] ~ Dr. 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 Nephrolithiasis [facility] ~ [place] Colonoscopy Liver biopsy 02/17/14 [facility] Family History Problem Relation Age of Onset [...] No narrative on file Review of systems: Constitutional:Denies any fevers, chills, or unintentional weight loss. Respiratory:Denies shortness of breath, cough or wheezing. Gastrointestinal:Negative except as stated above. Cardiovascular:Denies chest pain, palpitations, or swelling to legs Physical exam: General: Alert and oriented, NAD Eyes: Sclera clear Mouth: Mucous membranes moist Extremities: No clubbing or edema Skin: Warm, dry, intact. No rashes noted Neuro: Cranial nerves 2-12 grossly intact. Psych: Appropriate mood and affect. Laboratory 02/13/2014: Iron panel within normal limits Comprehensive metabolic panel within normal limits Toxoplasmosis IgG and IgM negative VALARIE 1:40 VALARIE <1:20 ASMA <1:20 EBV IgG >750 EBV IgM <10.0 CMV IgG > 6.0 CMV IgM 0.2 HIV nonreactive WBC 5.7 Hemoglobin 13.6 Hematocrit 39.4 Platelets 218,000 INR 1.0 Angiotensin converting enzyme 69 Plogy 02/17/2014 Liver biopsy: - Portal tracts with focal slight chronic inflammation without significant interface activi ty. - Negative for significantly increased portal fibrosis. - Negative for significant steatosis. - Negative for significant granuloma formation. - Focal slight reactive bile duct epithelium and focal slight portal bile duct proliferatio n. - Iron stain highlights trace stainable hepatocyte iron. Chest Xray 01/31/2014: IMPRESSION - Negative two-view chest radiograph. Assessment 1. Liver lesion Appears to be granuloma. Plan: Discussed results of liver biopsy and laboratory results. Advised there is no evidence of any infectious cause for liver granuloma. Recommend followup abdominal ultrasound in 12 months to re-evaluate granuloma found in live r. Patient is to call with any question or concerns. Any fevers, chills, chest pain, SOB or o ther serious symptoms patient is to call the office or go to ER Cc: Mila June This note was dictated using voice recognition software. Please contact me if there are an y questions regarding its content. documented in t his encounter Plan of Treatment Not on filedocumented as of this encounter Visit Diagnoses + + | Diagnosis | + + | Liver lesion - Primary Other specified disorders of liver | + + documented in this encounter
--- OUTSIDE RECORDS SUMMARY | ~2019-03-21 | XMS | Encounter Summary ---
Demographics + + + | Address | [address] | | | [place] [address] | + + + | Home Phone | | + + + | Preferred Language | Unknown | + + + | Marital Status | | + + + | Uatsdin Affiliation | Unknown | + + + | Race | Unknown | + + + | Ethnic Group | Unknown | + + + Author + + + | Author | [facility] | | | and [place] | + + + | Organization | [facility] | | | [...] [place] | | | | | [address] | | + + + + + Care Team Providers + +------+ + | Care Material Planning Analyst Name | Role | Phone | + [...] Specialty | Gastroenterol | Diagnoses | | [facility], | | | Services | ogy / | Abnormal CT | [place], | [place], | | | Required | Radiology | of liver | [place], | MANAGER CL[employer]ICAL [employer]ARCH [address] | | | | | Narcotic | MANAGER CL[employer]ICAL [employer]EARCH [address] | [place], [place] | | | | | bowel | [place] | [address] [place] | | | | | syndrome due | [address] [place] | [place], [place] | | | | | to | [place], [place] | [address] Phone: | | | | | therapeutic | [address] | [phone] | | | | | use | Phone: | Fax: | | | | | Procedures | [phone] | [phone] | | | | | ME BIOPSY | Fax: | | | | | | LIVER NEEDLE | [phone] | | | | | | | | | | | | | PERCUTANEOUS | | | | | | | [place] | | | | | | [...] | | | HEPATIC | [place], | [address] | | | | | [place] | [place] | Phone: | | | | | Procedures | [address] | [phone] | | | | | OFFICE | Phone: | Fax: | | | | | CONSULT | [phone] | [phone] | | | | | | Fax: | | | | | | | [phone] | | +--------+--------+ + + + + Encounter Details +--------+---------+ + + + | Date | Type | Department | Care Team | Description | +--------+---------+ + + + | 01/31/ | Office | [facility] | [facility], | Abnormal CT of liver | | 2014 | Visit | GASTROENTEROLOGY | [address] | (Primary Dx); | | | | [address] | [place] | Narcotic bowel | | | | [address] [place], [place] | [place] | syndrome due to | | | | [address] | [address] | therapeutic use | | | | [phone] | | | +--------+---------+ + + + [...] to bowel surgery 12/2013. Just traveled to [place], otherwise denies any travel for over 30 [...] 12/26/2012 reduction and repair of internal hernia [facility] Dr. Lundberg Gastric bypass surgery Egd and colonoscopy 12/31/2010 Diagnosis: 1. 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 Sigmoid diverticulosis, mild with mild proctitis. [facility] Dr. 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 Ordering additional labs to check for possible cause for liver granuloma. Recommend TB skin test to be done by PCP or health department. 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 Will try Amitiza and help with bowel [...] | liver Narcotic | (Justin), | | ([facility]) | | | bowel syndrome due [...] performed through the introducer with an 18-gauge [employer] biopsy | | | gun. 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
--- OUTSIDE RECORDS SUMMARY | ~2019-03-21 | XMS | Encounter Summary ---
Demographics + + + | Address | [address] | | | [place] [address] | + + + | Home Phone | | + + + | Preferred Language | Unknown | + + + | Marital Status | | + + + | Quaker Affiliation | Unknown | + + + | Race | White | + + + | Ethnic Group | Not or | + + + Author + + + | Author | [facility] | + + + | Organization | [facility] | + + + | Address | Unknown | + + + | Phone | Unavailable | + + + Support + + + + + | Name | Relationship | Address | Phone | + + + + + | Maeve Glass | ECON | [address] | | | | | #[place] | | | | | [address] | | + + + + + Care Team Providers + +------+ + | Care Power Screwdriver Operator Name | Role | Phone | + +------+ + | Mila Majano | PCP | | + +------+ + Encounter Details +--------+ + + + + | Date | Type | Department | Care Team | Description | +--------+ + + + + | 12/15/ | Document-Sc | UNKNOWN DEPARTMENT | Unknown . | | | 2012 | anned | [address] | | | | | | [address] | | | | | | [place], [place] | | | | | | [address] | | | +--------+ + + + [...] + + + | RADIOLOGY | | 12/15/2012 | | Results for this | | | | 12:00 AM | | procedure are in the | | | | PDT | | results section. | + +--------+ + + + | RADIOLOGY | | 12/15/2012 | | Results for this | | | | 12:00 AM | | procedure are in the | | | | PDT | | results section. | + +--------+ + + + documented in this encounter Results RADIOLOGY (12/15/2012 12:00 AM PDT) + + + | Narrative | Performed At | + + + | | | | | | + + + + + | Procedure Note | + + | Pierce Parkinson - 05/09/2014 2:59 PM PST | + + RADIOLOGY (12/15/2012 12:00 AM PDT) + + + | Narrative | Performed At | + + + | | | | | | + + + + + | Procedure Note | + + | Pierce Parkinson - 04/18/2014 10:00 AM PST | + + documented in this encounter Visit Diagnoses Not on filedocumented in this encounter"
--- OUTSIDE RECORDS SUMMARY | ~2019-03-21 | XMS | Clinical Summary ---
Demographics + + + | Address | [address] | | | [address] | | | [place] [address] | + + + | Home Phone | | + + + | Preferred Language | Unknown | + + + | Marital Status | | + + + | Restorationism Affiliation | Unknown | + + + | Race | Unknown | + + + | Ethnic Group | Unknown | + + + Author + + + | Author | [facility] (Historical as of | | | 12-18-18) | + + + | Organization | [facility] (Historical as of | | | 12-18-18) | + + + | Address | Unknown | + + + | Phone | Unavailable | + + + Support + + + + + | Name | Relationship | Address | Phone | + + + + + | Maeve Glass | ECON | [place] | | | | | [address] | | + + + + + | Aquiles Miranda | ECON | Unknown | + | + + + + + | Maeve Glass | ECON | Unknown | + | + + + + + Care Team Providers + +------+ + | Care Cold Food Packer Name | Role | Phone | + +------+ + | Mila Majano PA-C | PP | | + +------+ + Allergies + + + + + + | Active Allergy | Reactions | Severity | Noted | Comments | | | | | Date | | + + + + + + | Erythromycin | Diarrhea, Nausea and | Low | 11/20/19 | | | | Vomiting | | 16 | | + + + + + + | Erythromycin | Diarrhea | Low | 11/23/19 | | | | | | 16 | | + + + + + + | Penicillins | Hives, Rash | High | 11/20/19 | | | | | | 16 | | + + + + + + | Penicillins | Rash | Medium | 11/23/19 | | | | | | 16 | | + + + + + + Current Medications + + +-------+---------+------+------+-------+ | Prescription | Sig. | Disp. | Refills | Star | End | Statu | | | | | | t | Date | s | | | | | | Date | | | + + +-------+---------+------+------+-------+ | tamsulosin | Take 0.4 mg by mouth | | | | | Activ | | (FLOMAX) 0.4 MG | After dinner. | | | | | e | | capsule | | | | | | | + + +-------+---------+------+------+-------+ | omeprazole | Take 20 mg by mouth | | | | | Activ | | (PRILOSEC) 20 MG | every morning before | | | | | e | | capsule | breakfast. | | | | | | + + +-------+---------+------+------+-------+ | aspirin 81 MG | Take 81 mg by mouth | | | | | Activ | | tablet | daily. | | | | | e | + + +-------+---------+------+------+-------+ | zolpidem (AMBIEN) | Take 10 mg by mouth | | | | | Activ | | 10 MG tablet | nightly as needed | | | | | e | | | for Sleep. | | | | | | + + +-------+---------+------+------+-------+ | cyclobenzaprine | Take 10 mg by mouth | | | | | Activ | | (FLEXERIL) 10 MG | 3 (three) times | | | | | e | | tablet | daily as needed for | | | | | | | | Muscle spasms. | | | | | | + + +-------+---------+------+------+-------+ | morphine (MSIR) 15 | Take 15 mg by mouth | | | | | Activ | | MG tablet | 2 (two) times daily. | | | | | e | + + +-------+---------+------+------+-------+ | docusate sodium | Take 100 mg by mouth | | | | | Activ | | (COLACE) 100 MG | daily. | | | | | e | | capsule | | | | | | | + + +-------+---------+------+------+-------+ | acetaminophen | Take 500 mg by mouth | | | | | Activ | | (TYLENOL) 500 MG | every 6 (six) hours | | | | | e | | tablet | as needed for Pain. | | | | | | + + +-------+---------+------+------+-------+ | traMADol (ULTRAM) | Take 50 mg by mouth | | | | | Activ | | 50 MG tablet | as needed for Pain. | | | | | e | + + +-------+---------+------+------+-------+ | | Take 1 tablet by | | | | | Activ | | HYDROcodone-acetamin | mouth as needed for | | | | | e | | ophen (NORCO) 10-325 | Pain. | | | | | | | MG per tablet | | | | | | | + + +-------+---------+------+------+-------+ | gabapentin | Take 900 mg by mouth | | | | | Activ | | (NEURONTIN) 600 MG | daily. Indications: | | | | | e | | tabletIndications: | Neuropathic Pain | | | | | | | Neuropathic Pain | | | | | | | + + +-------+---------+------+------+-------+ Active Problems + + + | Problem | Noted Date | + + + | Precordial pain | 11/23/2015 | + + + | Postural dizziness with presyncope | 11/23/2015 | + + + | SOB (shortness of breath) on exertion | 11/23/2015 | + + + | Essential hypertension with goal blood pressure less than 140/90 | 11/23/2015 | + + + | Vasovagal syncope | 11/20/2015 | + + + + + | Last Assessment & Plan: No syncopal events since last visitHe | | was admitted to [facility] for chest pain- underwent echo, stress test | | and monitoring- did not show any abnormalitiesHis symptoms | | appear vasovagal syncope/ POTSHis symptoms also could be related | | to polypharmacy- pain medications- he will discuss with his PMD | | regarding changing or adjusting his medications11/24/2015- Echo | | normal LV systolic functionEvent monitoring - no sig arrhythmias | | noted 11/24/2015- Stress MPI- no ischemiaDiscussed adequate | | hydration, salt tablets, BP monitoring at home, fall precautions, | | compression stockings, foot elevationAlso discussed diet, | | exercise, lifestyle changesDiscussed with him about CAD- risks | | factors for CAD- also discussed with him about role of stress | | test and coronary angiogram in management of CADHe will follow up | | in 6 months- | + + Social History + +-------+ +--------+------+ | Tobacco Use | Types | Packs/Day | Years | Date | | | | | Used | | + +-------+ +--------+------+ | Never Smoker | | | | | + +-------+ +--------+------+ + +---+---+---+ | Smokeless Tobacco: | | | | | Never Used | | | | + +---+---+---+ + + +---------+ + | Alcohol Use | Drinks/We | oz/Week | Comments | | | ek | | | + + +---------+ + | No | 0 | 0.0 | | | | Standard | | | | | drinks or | | | | | | | | | | equivalen | | | | | t | | | + + +---------+ + + + + | Sex Assigned at | Date Recorded | | | | + + + | Not on file | | + + + Last Filed Vital Signs + + + + | Vital Sign | Reading | Time Taken | + + + + | Blood Pressure | 114/60 | 12/25/2015 3:27 PM PDT | + + + + | Pulse | 97 | 12/25/2015 3:27 PM PDT | + + + + | Temperature | 36.6 C (97.8 F) | 11/24/2015 7:31 AM PDT | + + + + | Respiratory Rate | 20 | 12/25/2015 3:27 PM PDT | + + + + | Oxygen Saturation | 98% | 12/25/2015 3:27 PM PDT | + + + + | Inhaled Oxygen | - | - | | Concentration | | | + + + + | Weight | 93.9 kg (207 lb) | 12/25/2015 3:27 PM PDT | + + + + | Height | 175.3 cm (5' 9") | 12/25/2015 3:27 PM PDT | + + + + | Body Mass Index | 30.57 | 12/25/2015 3:27 PM PDT | + + + + Plan of Treatment + + + + + | Health Maintenance | Due Date | Last Done | Comments | + + + + + | Vaccine: | | | | | Dtap/Tdap/Td (1 - | 9 | | | | Tdap) | | | | + + + + + | Colon Cancer | | | | | Screening | 0 | | | | (Colonoscopy) | | | | + + + + + | Vaccine: Zoster (1 | | | | | of 2) | 0 | | | + + + + + | Vaccine: Influenza | | | | | (#1) | 9 | | | + + + + + Results Not on filefrom Last 3 Months Insurance + +--------+ +------+-------+---------+ | Payer | Benefi | Subscriber | Type | Phone | Address | | | t Plan | ID | | | | | | / | | | | | | | Group | | | | | + +--------+ +------+-------+---------+ | [employer] | FC-NET | [id number] | | | | | | WORK | | | | | + +--------+ +------+-------+---------+ | [employer] | [employer]DS | [id number] | | | | | | HEALTH | | | | | | | PLAN | | | | | + +--------+ +------+-------+---------+ + +--------+ +--------+ + + | Guarantor Name | Accoun | Relation to | Date | Phone | Billing Address | | | t Type | Patient | of | | | | | | | | | | + +--------+ +--------+ + + | GUNNER GLASS | Person | Self [birth year] Home: | [address] | | | [place] | | 1960 | [phone] | [address] [place], | | | [place] | | | [phone] | [place] [address] | + +--------+ +--------+ + +
--- OUTSIDE RECORDS SUMMARY | ~2019-03-21 | XMS | Encounter Summary ---
Demographics + + + | Address | [address] | | | [place] [address] | + + + | Home Phone | | + + + | Preferred Language | Unknown | + + + | Marital Status | | + + + | Taoist Affiliation | Unknown | + + + | Race | White | + + + | Ethnic Group | Not or | + + + Author + + + | Author | [facility] | + + + | Organization | [facility] | + + + | Address | Unknown | + + + | Phone | Unavailable | + + + Support + + + + + | Name | Relationship | Address | Phone | + + + + + | Maeve Glass | ECON | [address] | | | | | #[place] | | | | | [address] | | + + + + + Care Team Providers + +------+ + | Care Complaint Evaluation Officer Name | Role | Phone | + +------+ + | Mila Majano | PCP | | + +------+ + Encounter Details +--------+ + + + + | Date | Type | Department | Care Team | Description | +--------+ + + + + | 03/09/ | Document-Sc | UNKNOWN DEPARTMENT | Unknown . | | | 2012 | anned | [address] | | | | | | [address] | | | | | | [place], [place] | | | | | | [address] | | | +--------+ + + + [...]
--- OUTSIDE RECORDS SUMMARY | ~2019-03-21 | XMS | Encounter Summary ---
Demographics + + + | Address | [address] | | | [place] [address] | + + + | Home Phone | | + + + | Preferred Language | Unknown | + + + | Marital Status | | + + + | Advent Affiliation | Unknown | + + + | Race | Unknown | + + + | Ethnic Group | Unknown | + + + Author + + + | Author | [facility] | | | and [place] | + + + | Organization | [facility] | | [...] [place] | | | | | [address] | | + + + + + Care Team Providers + +------+ + | Care Hand Embroiderer Name | Role | Phone | + +------+ + PCP | Unavailable | + +------+ + Encounter Details +--------+ + + + + | Date | Type | Department | Care Team | Description | +--------+ + + + + | 04/10/ | Hospital | [facility] | Jero Morales | | | 2005 | Encounter | MED CTR SLEEP | MD [address] | | | | | [address] | [address] [place] | | | | | [place], [place] | [place] [address] | | | | | [address] | [phone] | | | | | [phone] | | | +--------+ + + + [...]
--- OUTSIDE RECORDS SUMMARY | ~2019-03-21 | XMS | Encounter Summary ---
Demographics + + + | Address | [address] | | | [place] [address] | + + + | Home Phone | | + + + | Preferred Language | Unknown | + + + | Marital Status | | + + + | Presybeterian Affiliation | Unknown | + + + | Race | Unknown | + + + | Ethnic Group | Unknown | + + + Author + + + | Author | [facility] | | | and [place] | + + + | Organization | [facility] | | | [...] [place] | | | | | [address] | | + + + + + Care Team Providers + +------+ + | Care Llama Farmer Name | Role | Phone | + +------+ + | Mila Majano PA-C | PCP | | + +------+ + Reason for Visit +--------+ + | Reason | Comments | +--------+ + | Other | | +--------+ + Encounter Details +--------+ + + + + | Date | Type | Department | Care Team | Description | +--------+ + + + + | 03/21/ | Telephone | [facility] | [place], | Other | | 2015 | | GASTROENTEROLOGY | [address] | | | | | [address] | [place], [address] | | | | | [address], [place] | [place], [place] | | | | | [address] | [address] | | | | | [phone] | | | +--------+ + + + [...] as of this encounter Plan of Treatment + +---------+--------+ + + | Name | Type | Priori | Associated Diagnoses | Order Schedule | | | | ty | | | + +---------+--------+ + + | US Abdomen Limited | Imaging | Routin | Liver lesion | Expected: | | | | e | | 03/21/2015, Expires: | | | | | | 03/20/2016 | + +---------+--------+ + + documented as of this encounter Visit Diagnoses + + | Diagnosis | + + | Liver lesion - Primary Other specified disorders of liver | + + documented in this encounter"
--- OUTSIDE RECORDS SUMMARY | ~2019-03-21 | XMS | Encounter Summary ---
Demographics + + + | Address | [address] | | | [place] [address] | + + + | Home Phone | | + + + | Preferred Language | Unknown | + + + | Marital Status | | + + + | Uatsdin Affiliation | Unknown | + + + | Race | Unknown | + + + | Ethnic Group | Unknown | + + + Author + + + | Author | [facility] | | | and [place] | + + + | Organization | [facility] | | | and [...] [place] | | | | | [address] | | + + + + + Care Team Providers + +------+ + | Care Sales Floor Team Member Name | Role | Phone | + +------+ + PCP | Unavailable | + +------+ + Encounter Details +--------+ + + + + | Date | Type | Department | Care Team | Description | +--------+ + + + + | 04/09/ | Hospital | [facility] | Mani Banks | | | 2009 | Encounter | MED CTR XRAY [address] | | | | | [place] | [address] [place] | | | | | [place] [address] | [address] | | | | | [phone] | | | +--------+ + + + [...]
--- OUTSIDE RECORDS SUMMARY | ~2019-03-21 | XMS | Encounter Summary ---
Demographics + + + | Address | [address] | | | [place] [address] | + + + | Home Phone | | + + + | Preferred Language | Unknown | + + + | Marital Status | | + + + | Hindu Affiliation | Unknown | + + + | Race | Unknown | + + + | Ethnic Group | Unknown | + + + Author + + + | Author | [facility] | | | and [place] | + + + | Organization | [facility] | | [...] [place] | | | | | [address] | | + + + + + Care Team Providers + +------+ + | Care Casting Machine Operator Name | Role | Phone | + +------+ + | Mila Majano PA-C PCP | | + +------+ + Encounter Details +--------+ + + + + | Date | Type | Department | Care Team | Description | +--------+ + + + + | 06/16/ | Orders Only | [facility] | Ivan Savanah Bhakta, | | | 2016 | | CONVERSION 888 | MD [address] | | | | | [address] | [address] [place], [place] | | | | | [place], [place] | [address] | | | | | [address] | | | | | | [phone] | | | +--------+ + + + [...] | + +--------+ + + + | ECHO INTERPRETATION | Routin | 06/16/2016 | | Results for this | | OF OUTSIDE FILMS | e | 5:05 PM | | procedure are in the | | | | PST | | results section. | + +--------+ + + + documented in this encounter Results ECHO Interpretation of Outside Films (06/16/2016 5:05 PM PST) + + | Specimen | + + | | + + + + + | Impressions | Performed At | + + + | 1. Overall left ventricular systolic function is normal with, an EF | | | between 60 - 65 %. 2. The right ventricle is normal in size and | | | function. 3. No significant valvular abnormality. | | + + + + + + | Narrative | Performed At | + + + | Patient Name: GUNNER GLASS Date of : 1960 | | | Performing Physician: ISRAEL BENEDICT MD | | | | | | INDICATIONS TIA CONCLUSIONS 1. Overall | | | left ventricular systolic function is normal with, an EF between 60 - | | | 65 %. 2. The right ventricle is normal in size and function. 3. No | | | significant valvular abnormality. FINDINGS -------- ECG rhythm: | | | Sinus rhythm. Study: A 2-dimensional transthoracic echocardiogram | | | with m-mode, spectral and color flow Doppler with strain imaging was | | | perfomed. Study: This was a technically adequate study. Left | | | Ventricle: Overall left ventricular systolic function is normal with, | | | an EF between 60 - 65 %. Left Ventricle: The left ventricle cavity | | | size is normal. Left Ventricle: Left ventricular wall thickness is | | | normal. Left Ventricle: The diastolic filling pattern is normal for | | | the age of the patient. Right Ventricle: The right ventricle is | | | normal in size and function. Left Atrium: The left atrium is normal | | | in size. Right Atrium: The right atrium is normal in size. Aortic | | | Valve: The aortic valve is trileaflet, and appears anatomically | | | normal. No aortic stenosis or regurgitation. Aortic Valve: There is | | | mild aortic valve sclerosis without stenosis. 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 Mitral Valve: Mild | | | mitral regurgitation is present. Mitral Valve: Mild prolapse of the | | | posterior mitral valve leaflet. Tricuspid Valve: The tricuspid valve | | | appears structurally normal. Tricuspid Valve: Mild tricuspid | | | regurgitation present. Tricuspid Valve: There is no evidence of | | | pulmonary hypertension. Tricuspid Valve: The right ventricular | | | systolic pressure (pulmonary artery systolic pressure), as measured by | | | Doppler, is 27.50mmHg. Pulmonic Valve: Pulmonic valve appears | | | structurally normal. Pulmonic Valve: Trace pulmonic regurgitation. | | | Pericardium: There is no pericardial effusion. IVC/Hepatic Veins: | | | The inferior vena cava is normal in size and collapses > 50 % with | | | sniff, indicating normal central venous pressures. Aorta: The aortic | | | root, ascending aorta and aortic arch are normal. MEASUREMENTS | | | Ao asc: 3.12 cm Ao Diam: 3.09 cm Ao sinus: | | | 3.[address] junct: 3.06 cm LA Diam: 3.70 cm EDV(Teich): | | | 113.79 ml IVSd: 0.83 cm LVIDd: 4.91 cm LVPWd: 0.94 cm | | | LVOT Area: 4.21 cm2 LVOT Diam: 2.31 cm %FS: 38.09 % | | | EF(Teich): 68.11 % ESV(Teich): 36.28 ml LVIDs: 3.04 cm | | | SV(Teich): 77.51 ml RVIDd: 2.43 cm LVEF MOD A2C: 57.92 % | | | SV MOD A2C: 43.52 ml LVEF MOD A4C: 57.38 % SV MOD A4C: | | | 64.92 ml EF Biplane: 57.50 % LVEDV MOD BP: 92.57 ml LVESV MOD | | | BP: 39.33 ml LVEDV MOD A2C: 75.12 ml LVLd A2C: 8.27 cm | | | LVEDV MOD A4C: 113.14 ml LVLd A4C: 8.49 cm LVESV MOD A2C: | | | 31.60 ml LVLs A2C: 6.73 cm LVESV MOD A4C: 48.21 ml LVLs A4C: | | | 6.93 cm LAESV(A-L): 49.59 ml LAESV Index (A-L): 23.96 ml/m2 | | | LAAs A2C: 19.09 cm2 LAESV A-L A2C: 63.58 ml LALs A2C: | | | 4.86 cm LAAs A4C: 14.87 cm2 LAESV A-L A4C: 38.64 ml LALs A4C: | | | 4.86 cm RAAs: 11.54 cm2 RAESV A-L: 24.72 ml RAESV MOD: | | | 23.48 ml RALs: 4.57 cm Ao Diam: 3.09 cm LA Diam: 3.87 cm | | | LA/Ao: 1.25 AV maxP.13 mmHg AV meanP.15 mmHg AV | | | Vmax: 1.23 m/s AV Vmean: 0.83 m/s AV VTI: 28.28 cm KARRI | | | Vmax: 3.19 cm2 KARRI (VTI): 2.91 cm2 AVAI Vmax: 0.00 cm2/m2 | | | AVAI (VTI): 0.00 cm2/m2 LVOT maxP.52 mmHg LVOT meanPG: | | | 1.73 mmHg LVSI Dopp: 39.87 ml/m2 LVSV Dopp: 82.54 ml LVOT | | | Vmax: 0.93 m/s LVOT Vmean: 0.61 m/s LVOT VTI: 19.56 cm MV | | | A Jaydon: 0.87 m/s MV DecT: 151.89 ms MV E Jaydon: 1.16 m/s MV | | | E/A Ratio: 1.33 MV PHT: 44.05 ms MVA By PHT: 4.99 cm2 | | | Septal e': 0.09 m/s Septal E/e': 12.60 Lateral e': 0.10 m/s | | | Lateral E/e': 11.23 RAP: 5 mmHg RVSP: 27.49 mmHg TR | | | maxP.49 mmHg TR Vmax: 2.37 m/s Environmental Educator: | | | Authenticated by: ISRAEL BENEDICT MD Report Date/Time: 06-16-2016 | | | 21:17:56 | | + + + + ----+ | Procedure Note | + ----+ | [facility] Rad Conversion - 12/23/2018 5:43 PM PDT Patient Name: Prosper GLASS of | | : 1960 Performing Physician: ISRAEL BENEDICT, | | INDICATIONS T | | [place] CONCLUSIONS 1. Overall left ventricular systolic function is normal with, | | an EF between 60 - 65 %.2. The right ventricle is normal in size and function. 3. No | | significant valvular abnormality. FINDINGS--------ECG rhythm: Sinus rhythm.Study: A | | 2-dimensional transthoracic echocardiogram with m-mode, spectral and color flow Doppler | | with strain imaging was perfomed.Study: This was a technically adequate study.Left | | Ventricle: Overall left ventricular systolic function is normal with, an EF between 60 - | | 65 %.Left Ventricle: The left ventricle cavity size is normal.Left Ventricle: Left | | ventricular wall thickness is normal.Left Ventricle: The diastolic filling pattern is | | normal for the age of the patient.Right Ventricle: The right ventricle is normal in size | | and function.Left Atrium: The left atrium is normal in size.Right Atrium: The right | | atrium is normal in size.Aortic Valve: The aortic valve is trileaflet, and appears | | anatomically normal. No aortic stenosis or regurgitation.Aortic Valve: There is mild | | aortic valve sclerosis without stenosis.Mitral Valve: Mitral valve is thickened with | | myxomatous degeneration.Mitral Valve: Mild mitral regurgitation is present.Mitral Valve: | | Mild prolapse of the posterior mitral valve leaflet.Tricuspid Valve: The tricuspid | | valve appears structurally normal.Tricuspid Valve: Mild tricuspid regurgitation | | present.Tricuspid Valve: There is no evidence of pulmonary hypertension.Tricuspid Valve: | | The right ventricular systolic pressure (pulmonary artery systolic pressure), as | | measured by Doppler, is 27.50mmHg.Pulmonic Valve: Pulmonic valve appears structurally | | normal.Pulmonic Valve: Trace pulmonic regurgitation.Pericardium: There is no | | pericardial effusion.IVC/Hepatic Veins: The inferior vena cava is normal in size and | | collapses > 50 % with sniff, indicating normal central venous pressures.Aorta: The | | aortic root, ascending aorta and aortic arch are normal. MEASUREMENTS Ao | | asc: 3.12 cmAo Diam: 3.09 cmAo sinus: 3.[address] junct: 3.06 cmLA Diam: 3.70 | | cmEDV(Teich): 113.79 mlIVSd: 0.83 cmLVIDd: 4.91 cmLVPWd: 0.94 cmLVOT Area: | | 4.21 [id number] Diam: 2.31 cm%FS: 38.09 %EF(Teich): 68.11 %ESV(Teich): 36.28 | | mlLVIDs: 3.04 cmSV(Teich): 77.51 mlRVIDd: 2.43 cmLVEF MOD A2C: 57.92 %SV MOD | | A2C: 43.52 mlLVEF MOD A4C: 57.38 %SV MOD A4C: 64.92 mlEF Biplane: 57.50 %LVEDV | | MOD BP: 92.57 mlLVESV MOD BP: 39.33 mlLVEDV MOD A2C: 75.12 mlLVLd A2C: 8.27 | | cmLVEDV MOD A4C: 113.14 mlLVLd A4C: 8.49 cmLVESV MOD A2C: 31.60 mlLVLs A2C: 6.73 | | cmLVESV MOD A4C: 48.21 mlLVLs A4C: 6.93 cmLAESV(A-L): 49.59 mlLAESV Index (A-L): | | 23.96 ml/m2LAAs A2C: 19.09 [id number] A-L A2C: 63.58 mlLALs A2C: 4.86 cmLAAs A4C: | | 14.87 [id number] A-L A4C: 38.64 mlLALs A4C: 4.86 cmRAAs: 11.54 [id number] A-L: | | 24.72 mlRAESV MOD: 23.48 mlRALs: 4.57 cmAo Diam: 3.09 cmLA Diam: 3.87 cmLA/Ao: | | 1.25AV maxP.13 mmHgAV meanP.15 mmHgAV Vmax: 1.23 m/Leo Vmean: 0.83 | | m/Leo VTI: 28.28 cmAVA Vmax: 3.19 cm2AVA (VTI): 2.91 [id number] Vmax: 0.00 | | cm2/m2AVAI (VTI): 0.00 cm2/m2LVOT maxP.52 mmHgLVOT meanP.73 mmHgLVSI Dopp: | | 39.87 ml/m2LVSV Dopp: 82.54 mlLVOT Vmax: 0.93 m/sLVOT Vmean: 0.61 m/sLVOT VTI: | | 19.56 cmMV A Jaydon: 0.87 m/sMV DecT: 151.89 msMV E Jaydon: 1.16 m/sMV E/A Ratio: | | 1.33MV PHT: 44.05 msMVA By PHT: 4.99 ry3Hruddh e': 0.09 m/sSeptal E/e': | | 12.60Lateral e': 0.10 m/sLateral E/e': 11.23RAP: 5 mmHgRVSP: 27.49 mmHgTR maxPG: | | 22.49 mmHgTR Vmax: 2.37 m/s Environmental Educator: DHAuthenticated by: ISRAEL BENEDICT, | | MDReport Date/Time: 06-16-2016 21:17:56 IMPRESSION: 1. Overall left ventricular systolic | | function is normal with, an EF between 60 - 65 %.2. The right ventricle is normal in | | size and function. 3. No significant valvular abnormality. | |Ao sinus: 3.37 cm | |Ao st junct: 3.06 cm | |LA Diam: 3.70 cm | |EDV(Teich): 113.79 ml | |IVSd: 0.83 cm | |LVIDd: 4.91 cm | |LVPWd: 0.94 cm | |LVOT Area: 4.21 cm2 | |LVOT Diam: 2.31 cm | |%FS: 38.09 % | |EF(Teich): 68.11 % | |ESV(Teich): 36.28 ml | |LVIDs: 3.04 cm | |SV(Teich): 77.51 ml | |RVIDd: 2.43 cm | |LVEF MOD A2C: 57.92 % | |SV MOD A2C: 43.52 ml | |LVEF MOD A4C: 57.38 % | |SV MOD A4C: 64.92 ml | |EF Biplane: 57.50 % | |LVEDV MOD BP: 92.57 ml | |LVESV MOD BP: 39.33 ml | |LVEDV MOD A2C: 75.12 ml | |LVLd A2C: 8.27 cm | |LVEDV MOD A4C: 113.14 ml | |LVLd A4C: 8.49 cm | |LVESV MOD A2C: 31.60 ml | |LVLs A2C: 6.73 cm | |LVESV MOD A4C: 48.21 ml | |LVLs A4C: 6.93 cm | |LAESV(A-L): 49.59 ml | |LAESV Index (A-L): 23.96 ml/m2 | |LAAs A2C: 19.09 cm2 | |LAESV A-L A2C: 63.58 ml | |LALs A2C: 4.86 cm | |LAAs A4C: 14.87 cm2 | |LAESV A-L A4C: 38.64 ml | |LALs A4C: 4.86 cm | |RAAs: 11.54 cm2 | |RAESV A-L: 24.72 ml | |RAESV MOD: 23.48 ml | |RALs: 4.57 cm | |Ao Diam: 3.09 cm | |LA Diam: 3.87 cm | |LA/Ao: 1.25 | |AV maxP.13 mmHg | |AV meanP.15 mmHg | |AV Vmax: 1.23 m/s | |AV Vmean: 0.83 m/s | |AV VTI: 28.28 cm | |KARRI Vmax: 3.19 cm2 | |KARRI (VTI): 2.91 cm2 | |AVAI Vmax: 0.00 cm2/m2 | |AVAI (VTI): 0.00 cm2/m2 | |LVOT maxP.52 mmHg | |LVOT meanP.73 mmHg | |LVSI Dopp: 39.87 ml/m2 | |LVSV Dopp: 82.54 ml | |LVOT Vmax: 0.93 m/s | |LVOT Vmean: 0.61 m/s | |LVOT VTI: 19.56 cm | |MV A Jaydon: 0.87 m/s | |MV DecT: 151.89 ms | |MV E Jaydon: 1.16 m/s | |MV E/A Ratio: 1.33 | |MV PHT: 44.05 ms | |MVA By PHT: 4.99 cm2 | |Septal e': 0.09 m/s | |Septal E/e': 12.60 | |Lateral e': 0.10 m/s | |Lateral E/e': 11.23 | |RAP: 5 mmHg | |RVSP: 27.49 mmHg | |TR maxP.49 mmHg | |TR Vmax: 2.37 m/s | | | |Environmental Educator: | |Authenticated by: ISRAEL BENEDICT MD | |Report Date/Time: 06-16-2016 21:17:56 | | | |IMPRESSION: | |1. Overall left ventricular systolic function is normal with, an EF between 60 - 65 %. | |2. The right ventricle is normal in size and function. 3. No significant valvular abnormali ty. | + ----+ documented in this encounter Visit Diagnoses Not on filedocumented in this encounter"
--- OUTSIDE RECORDS SUMMARY | ~2019-03-21 | XMS | Encounter Summary ---
Demographics + + + | Address | [address] | | | [place] [address] | + + + | Home Phone | | + + + | Preferred Language | Unknown | + + + | Marital Status | | + + + | Yazdanism Affiliation | Unknown | + + + | Race | Unknown | + + + | Ethnic Group | Unknown | + + + Author + + + | Author | [facility] | | | and [place] | + + + | Organization | [facility] | | | [...] [place] | | | | | [address] | | + + + + + Care Team Providers + +------+ + | Care Mission Systems Engineer Name | Role | Phone | [...] | | | | | HEPATIC | [place], | [address] | | | | | [place] | [place] | Phone: | | | | | Procedures | [id number] | [phone] | | | | | OFFICE | Phone: | Fax: | | | | | CONSULT | [phone] | [phone] | | | | | | Fax: | | | | | | | [phone] | | +--------+--------+ + + + + [...] | [address] | [place] | | | | | [address] [place], [place] | [place], [place] | | | | | [address] | [address] | | | | | [phone] | | | +--------+---------+ + + + [...] reduction and repair of internal hernia [facility] Dr. Lundberg Gastric bypass surgery Egd and colonoscopy 12/31/2010 Diagnosis: 1. 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 Sigmoid diverticulosis, mild with mild proctitis. [place] ~ Dr. 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 Nephrolithiasis [facility] ~ June Colonoscopy Liver biopsy 02/17/14 [facility] Family History Problem Relation Age of Onset [...]
--- OUTSIDE RECORDS SUMMARY | ~2019-03-21 | XMS | Encounter Summary ---
Demographics + + + | Address | [address] | | | [place] [address] | + + + | Home Phone | | + + + | Preferred Language | Unknown | + + + | Marital Status | | + + + | Sabianism Affiliation | Unknown | + + + | Race | Unknown | + + + | Ethnic Group | Unknown | + + + Author + + + | Author | [facility] | | | and [place] | + + + | Organization | [facility] | | | [...] [place] | | | | | [address] | | + + + + + Care Team Providers + +------+ + | Care Ems Instructor Name | Role | Phone | + [...] + + + + | 04/09/ | Telephone | [facility] [place] | [place], | Other | | 2015 | | GASTROENTEROLOGY | SH[address]QUA [address] | | | | | [address] | [place], [address] | | | | | [address] [place], [place] | [place], [place] | | | | | [address] | [address] | | | | | [phone] | | | +--------+ + + + [...]
--- OUTSIDE RECORDS SUMMARY | ~2019-03-21 | XMS | Encounter Summary ---
Demographics + + + | Address | [address] | | | [place] [address] | + + + | Home Phone | | + + + | Preferred Language | Unknown | + + + | Marital Status | | + + + | Taoism Affiliation | Unknown | + + + | Race | Unknown | + + + | Ethnic Group | Unknown | + + + Author + + + | Author | [facility] | | | and [place] | + + + | Organization | [facility] | | | [...] [place] | | | | | [address] | | + + + + + Care Team Providers + +------+ + | Care Middleware Solutions Architect Name | Role | Phone | + [...] | | | bowel | | [address] | | | | | obstruction) | | [place], | | | | | ([facility]) SBO | | [place] [address] | | | | | (small bowel | | Phone: | | | | | | | [phone] | | | | | obstruction) | | Fax: | | | | | ([facility]) | | [phone] | | | | | SBO (small | | | | | | | bowel | | | | | | | obstruction) | | | | | | | ([facility]) | | | | | | | [...] S/P | | | | [address] | [place], [place] | gastric bypass | | | | [place], [place] | [address] | | | | | [address] | | | | | | [phone] | | | +--------+ + + + [...] +----+---+ + + | | 1 | [place] | | | | 0 | 43-degrees | | | | 3 | | | | | 0 | | | +----+---+ + + | | 1 | [place] off | | | | 1 | [...] (Removed/Completed by utility); | | | | [facility] | 1643 (Removed/Completed by | | | | eral | utility) | | | | IV - | | | | | Single | | | | | Lumen | | | | | | | | | +--------+ + + + | NG/OG | 03/25/14; 1530; [place] sump, | 03/25/14 1530 by | 03/26/14 [...]
--- OUTSIDE RECORDS SUMMARY | ~2019-03-21 | XMS | Encounter Summary ---
Demographics + + + | Address | [address] | | | [place] [address] | + + + | Home Phone | | + + + | Preferred Language | Unknown | + + + | Marital Status | | + + + | Gnosticist Affiliation | Unknown | + + + [...] [place] | | | | | [address] | | + + + + + Care Team Providers + +------+ + | Care Folder Machine Name | Role | Phone | + [...] | [address] | [place], [address] | | | | | [address] [place], [place] | [place], [place] | | | | | [address] | [address] | | | | | [phone] | | | +--------+ + + + [...]
--- OUTSIDE RECORDS SUMMARY | ~2019-03-21 | XMS | Encounter Summary ---
Demographics + + + | Address | [address] | | | [place] [address] | + + + | Home Phone | | + + + | Preferred Language | Unknown | + + + | Marital Status | | + + + | Buddhist Affiliation | Unknown | + + + | Race | Unknown | + + + | Ethnic Group | Unknown | + + + Author + + + | Author | [facility] | | | and [place] | + + + | Organization | [facility] | | [...] [place] | | | | | [address] | | + + + + + Care Team Providers + +------+ + | Care Service Technician Copier Name | Role | Phone | + +------+ + | Mila Majano PA-C | PCP | | + +------+ + Encounter Details +--------+ + + + + | Date | Type | Department | Care Team | Description | +--------+ + + + + | 11/22/ | Hospital | [facility] | Justine Samuel MD | Chest pain radiating | | 2016 - | Encounter | [facility] | [address] | to jaw | | | | CLINICAL DECISION | [place] [address] | | | 11/23/ | | [address] | [phone] | | | 2015 | | [place], [place] | | | | | | [address] | | | | | | [phone] | | | +--------+ + + + [...] + + + | Blood Pressure | 130/77 | 11/24/2015 12:35 PM | | | | | PDT | | + + + + + | Pulse | 68 | 11/24/2015 12:35 PM | | | | | PDT | | + + + + + | Temperature | 36.6 C (97.8 F) | 11/24/2015 12:35 PM | | | | | PDT | | + + + + + | Respiratory Rate | 16 | 11/24/2015 12:35 PM | | | | | PDT | | + + + + + | Oxygen Saturation | - | - | | + + + + + | Inhaled Oxygen | - | - | | | Concentration | | | | + + + + + | Weight | 93 kg (205 lb) | 11/24/2015 12:35 PM | | | | | PDT | | + + + + + | Height | 175.3 cm (5' 9") | 11/24/2015 12:35 PM | | | | | PDT | | + + + + + | Body Mass Index | 30.27 | 11/24/2015 12:35 PM | | | | | PDT | | + + + + + documented in this encounter Functional Status + + + [...] + + documented as of this encounter Discharge Summaries Ajit Hidalgo MD - 11/24/2015 12:59 PM PDTFormatting of this note might be different fr om the original. Discharge Summaries by Ajit Hidalgo MD at 11/24/15 8233 Author: Ajit Hidalgo MD Service: Hospitalist Author Type: Physician Filed: 11/24/15 0277 Date of Service: 11/24/15 0675 Status: Signed Coconut Candy Maker: Ajit Hidalgo MD (Physician) Related Notes: Original Note by Ajit Hidalgo MD (Physician) filed at 11/24/15 1311 [facility] Service: Hospitalist Discharge Summary Date of Admission: 11/23/2015 Date of Discharge: 11/24/15 Discharge Provider: Ajit Hidalgo MD Treatment Team: Consulting Physician: Laury Ibrahim MD Admitting Provider: Justine Samuel MD Discharge Diagnoses: Principal Problem: Precordial pain Active Problems: Postural dizziness with presyncope SOB (shortness of breath) on exertion Essential hypertension with goal blood pressure less than 140/90 Resolved Problems: * No resolved hospital problems. * Final Diagnoses: Chest pain ruled out for acute coronary syndrome Procedures: * No surgery found * Significant Diagnostic Studies: Xr Chest Pa And Lateral 11/23/2015 1. Intraspinal neurostimulator lead in the lower thoracic spinal canal. 2. T he remainder of the examination is unremarkable. Nm Myocardial Perfusion Spect (stress And Rest) 11/24/2015 1. No evidence of reversible ischemia seen. 2. No wall motion abnormality not ed. 3. Left ventricular volume, ejection fraction and study quality parameters as noted in the findings. Echo Cardiac Adult Complete 11/24/2015 1. Essentially normal study. BRIEF HISTORY OF PRESENTATION: DISCHARGE DIAGNOSES 1. Chest pain, ruled out for acute coronary syndrome. 2. History of presyncope, normal transthoracic echocardiogram. 3. History of chronic pain, on chronic opioids. HOSPITAL COURSE Mr. Glass is a 55-year-old male with a past medical history of gastric bypass, chronic filippo n, chronic opioids. He has a prior history of presyncope and has been followed by Dr. Fuad rodarte and scheduled for outpatient Holter monitor and transthoracic echocardiogram. He present ed to the emergency department on November 22 with complaints of chest discomfort, substernal, accompanied with some dizziness. He was admitted. Initial EKG did not show any ischemic aura nges. Cardiac enzymes were within normal limits. He was monitored then underwent nuclear med icine stress test which did not show any evidence of reversible ischemia nor did it show any wall motion abnormalities. Further workup did include a transthoracic echocardiogram with no structural heart disease noted. The rest of his hospitalization was uneventful. He was chest pain free and it was fel t the patient could be discharged home. It is unclear the causes of his discomfort though if the patient was ruled out for acute coronary syndrome with serial cardiac enzymes, EKG and nuclear medicine stress test. He is scheduled to follow up with Dr. Dash early next week for Holter monitor which he is encouraged to do so. He was instructed to return back to the emergency department if he develops worsening chest pain, shortness of breath, or dyspnea. Jero Glass is a 55 y.o. male who Past Medical History Diagnosis Date Kidney stones Past Surgical History Procedure Laterality Date Cholecystectomy Stomach surgery Appendectomy Gastric bypass Back surgery Allergies Allergen Reactions Penicillins Rash Erythromycin Diarrhea Prescriptions prior to admission Medication Sig Dispense Refill Last Dose acetaminophen (TYLENOL) 500 MG tablet Take 500 mg by mouth every 6 (six) hours as neede d for Pain. 11/22/2015 at Unknown time aspirin 81 MG tablet Take 81 mg by mouth daily. 11/23/2015 at 0500 cyclobenzaprine (FLEXERIL) 10 MG tablet Take 10 mg by mouth daily. 11/22/2015 at Unkno wn time docusate sodium (COLACE) 100 MG capsule Take 100 mg by mouth 2 (two) times daily. 11/02 at Unknown time gabapentin (NEURONTIN) 600 MG tablet Take 900 mg by mouth daily. Indications: Neuropath ic Pain 11/23/2015 at 0500 HYDROcodone-acetaminophen (NORCO) 10-325 MG per tablet Take 2 tablets by mouth every 6 (six) hours as needed for Pain. 2-3 tab 11/22/2015 at Unknown time lisinopril (ZESTRIL) 10 MG tablet Take 10 mg by mouth daily. 11/23/2015 at 0500 morphine (MS CONTIN) 15 MG 12 hr tablet Take 15 mg by mouth 2 (two) times daily. 11/22 at 0500 omeprazole (PRILOSEC) 20 MG capsule Take 20 mg by mouth every morning before breakfast. 11/23/2015 at 0500 tamsulosin (FLOMAX) 0.4 MG capsule Take 0.4 mg by mouth After dinner. 11/23/2015 at 5 00 traMADol (ULTRAM) 50 MG tablet Take 50 mg by mouth every 8 (eight) hours as needed for Pain. 1-2 tab 11/22/2015 at Unknown time zolpidem (AMBIEN) 10 MG tablet Take 10 mg by mouth nightly as needed for Sleep. 2015 at Unknown time DISCHARGE EXAM Vital Signs: BP 130/77 mmHg | Pulse 68 | Temp(Src) 97.8 F (36.6 C) (Oral) | Resp 16 | Ht 1.753 m (5' 9") | Wt 92.987 kg (205 lb) | BMI 30.26 kg/m2 | SpO2 96% Temp: [97.7 F (36.5 C)-97.9 F (36.6 C)] 97.8 F (36.6 C) (11/23 730) BP: (116-130)/(67-79) 130/77 mmHg (11/23 730) Heart Rate: [57-72] 68 (11/23 730) Resp: [16] 16 (11/23 730) SpO2: [95 %-98 %] 96 % (11/23 730) Height: [175.3 cm (5' 9")] 175.3 cm (5' 9") (11/22 1520) Weight: [92.987 kg (205 lb)] 92.987 kg (205 lb) (11/22 1520) BMI (Calculated): [30.3] 30.3 (11/22 1520) Physical Exam Constitutional: He is oriented to person, place, and time. He appears well-developed and we ll-nourished. No distress. Patient awake, alert, nontoxic-appearing Neck: No JVD present. No carotid bruits Cardiovascular: Normal rate and regular rhythm. No murmur heard. Pulmonary/Chest: Effort normal and breath sounds normal. Abdomina/Gl: Soft. He exhibits no distension. Neurological: He is alert and oriented to person, place, and time. Skin: He is not diaphoretic. Psychiatric: He has a normal mood and affect. His behavior is normal. Nursing note and vitals reviewed. DATA CBC: Lab Results Component Value Date WBC 5.05 11/24/2015 RBC 3.89* 11/24/2015 HGB 13.7 11/24/2015 HCT 40.8 11/24/2015 MCV 104.9* 11/24/2015 MCH 35.3* 11/24/2015 MCHC 33.7 11/24/2015 RDW 49.0 11/24/2015 PLT 190 11/24/2015 MPV 7.6 11/24/2015 DIFFTYPE AUTOMATED 11/24/2015 Platelets: Lab Results Component Value Date PLT 190 11/24/2015 Hemoglobin/Hematocrit: Lab Results Component Value Date HGB 13.7 11/24/2015 HCT 40.8 11/24/2015 Last 3 Troponin: Lab Results Component Value Date TROPONINI <0.020 11/23/2015 TROPONINI <0.020 11/23/2015 Disposition: Home Condition: Stable Code Status: Full Code No discharge procedures on file. Follow up: Pepe Dash MD [address] [place] [id number] In 1 week Follow-up echocardiogram, nuclear medicine stress test, syncope Medication List CONTINUE taking these medications acetaminophen 500 MG tablet Refills: 0 Commonly known as: TYLENOL aspirin 81 MG tablet Refills: 0 cyclobenzaprine 10 MG tablet Refills: 0 Commonly known as: FLEXERIL docusate sodium 100 MG capsule Refills: 0 Commonly known as: COLACE gabapentin 600 MG tablet Refills: 0 Commonly known as: NEURONTIN HYDROcodone-acetaminophen 10-325 MG per tablet Refills: 0 Commonly known as: NORCO lisinopril 10 MG tablet Refills: 0 Commonly known as: ZESTRIL morphine 15 MG 12 hr tablet Refills: 0 Commonly known as: MS CONTIN omeprazole 20 MG capsule Refills: 0 Commonly known as: PRILOSEC tamsulosin 0.4 MG capsule Refills: 0 Commonly known as: FLOMAX traMADol 50 MG tablet Refills: 0 Commonly known as: ULTRAM zolpidem 10 MG tablet Refills: 0 Commonly known as: AMBIEN Discharge took 35 minutes, to include final examination, discussion of admission, and prep aration of prescriptions, instructions for on-going care, follow-up and documentation of dis charge summary. Ajit Hidalgo MD 11/24/2015 documented in this encounter Medications at Time of Discharge [...] tablets by | 42 | 0 | 03/29/20 | | | HYDROcodone-acetamin | mouth every [...] + + documented as of this encounter Progress Notes Conversion Transaction, Provider Unknown - 11/24/2015 2:25 PM PDTFormatting of this note m ight be different from the original. Nurse Progress Note by Shanita Burch RN at 11/24/15 1425 Author: Shanita Burch RN Service: (none) Author Type: Registered Nurse Filed: 11/24/15 1428 Date of Service: 11/24/151424 Status: Signed Coconut Candy Maker: Shanita Burch RN (Registered Nurse) Discharge instructions given to the patient. Advised to follow up with PCP. No new Rx given at this time. All belongings went home with the patient, refused wheelchair out. onver alberto Transaction, Provider Unknown - 11/24/2015 12:37 PM PDT Nurse Progress Note by Shanita Burch RN at 11/24/15 1237 Author: Shanita Burch RN Service: (none) Author Type: Registered Nurse Filed: 11/24/15 1238 Date of Service: 11/24/15 1237 Status: Signed Coconut Candy Maker: Shanita Burch RN (Registered Nurse) Patient back from stress test, clear tray ordered. Patient complaining of a headache, pain medication given per the MAR. onver alberto Transaction, Provider Unknown - 11/24/2015 11:42 AM PDT Nurse Progress Note by Shanita Burch RN at 11/24/15 1142 Author: Shanita Burch RN Service: (none) Author Type: Registered Nurse Filed: 11/24/15 1143 Date of Service: 11/24/15 1142 Status: Signed Coconut Candy Maker: Shanita Burch RN (Registered Nurse) Patient still down at stress test at this time. onver alberto Transaction, Provider Unknown - 11/24/2015 9:39 AM PDT Nurse Progress Note by Shanita Burch RN at 11/24/1539 Author: Shanita Burch RN Service: (none) Author Type: Registered Nurse Filed: 11/24/15939 Date of Service: 11/24/15938 Status: Signed Coconut Candy Maker: Shanita Burch RN (Registered Nurse) Patient resting in bed at this time, denies chest pain.Onlt complaining of his chronic back pain and a headache at this time. Will continue to monitor. onver alberto Transaction, Provider Unknown - 11/23/2015 3:45 PM PDT Nurse Progress Note by Sally Hester RN at 11/23/15 1542 Author: Sally Hester RN Service: (none) Author Type: Registered Nurse Filed: 11/23/15 1547 Date of Service: 11/23/151544 Status: Signed Coconut Candy Maker: Sally Hester RN (Registered Nurse) Dr Lizzie rubiod with return call. Informed him that the DEHYDROGENATION CONVERTER HELPER list was inaccurate and that pt takes 900mg of gabapentin 1x daily in the morning. He declined to increase dose to pt's norm al dose. Stated that he didn't feel that it was a good dose for pt. Pt aware. onver alberto Transaction, Provider Unknown - 11/23/2015 3:10 PM PDT Nurse Progress Note by Sally Hester RN at 11/23/15 5880 Author: Sally Hester RN Service: (none) Author Type: Registered Nurse Filed: 11/23/15 1516 Date of Service: 11/23/151509 Status: Signed Coconut Candy Maker: Sally Hester RN (Registered Nurse) Pt transferred from ED 106 to CDU 1120 via w/c per this RN. Bedside report received from Sony chavira ED RN. Family member at bedside. Call light within reach. docume nted in this encounter Plan of Treatment Not on filedocumented as of this encounter Procedures + +--------+ + + + | Procedure Name | Priori | Date/Time | Associated Diagnosis | Comments | | | ty | | | | + +--------+ + + + | NM MYOCARDIAL | Routin | 11/24/2015 | | Results for this | | PERFUSION MULT SPECT | e | 12:19 PM | | procedure are in the | | | | PDT | | results section. | + +--------+ + + + | ECHO COMPLETE | Routin | 11/24/2015 | | Results for this | | | e | 9:00 AM | | procedure are in the | | | | PDT | | results section. | + +--------+ + + + | EXTERNAL LAB: CBC | Routin | 11/24/2015 | | Results for this | | | e | 5:43 AM | | procedure are in the | | | | PDT | | results section. | + +--------+ + + + | TSH | Routin | 11/24/2015 | | Results for this | | | e | 5:43 AM | | procedure are in the | | | | PDT | | results section. | + +--------+ + + + | PHOSPHORUS | Routin | 11/24/2015 | | Results for this | | | e | 5:43 AM | | procedure are in the | | | | PDT | | results section. | + +--------+ + + + | MAGNESIUM | Routin | 11/24/2015 | | Results for this | | | e | 5:43 AM | | procedure are in the | | | | PDT | | results section. | + +--------+ + + + | BASIC METABOLIC | Routin | 11/24/2015 | | Results for this | | PANEL | e | 5:43 AM | | procedure are in the | | | | PDT | | results section. | + +--------+ + + + | TROPONIN I | Routin | 11/23/2015 | | Results for this | | | e | 11:55 PM | | procedure are in the | | | | PDT | | results section. | + +--------+ + + + | CK-MB | Routin | 11/23/2015 | | Results for this | | | e | 11:55 PM | | procedure are in the | | | | PDT | | results section. | + +--------+ + + + | CK TOTAL | Routin | 11/23/2015 | | Results for this | | | e | 11:55 PM | | procedure are in the | | | | PDT | | results section. | + +--------+ + + + | TROPONIN I | Routin | 11/23/2015 | | Results for this | | | e | 5:42 PM | | procedure are in the | | | | PDT | | results section. | + +--------+ + + + | CK-MB | Routin | 11/23/2015 | | Results for this | | | e | 5:42 PM | | procedure are in the | | | | PDT | | results section. | + +--------+ + + + | CK TOTAL | Routin | 11/23/2015 | | Results for this | | | e | 5:42 PM | | procedure are in the | | | | PDT | | results section. | + +--------+ + + + | XR CHEST 2 VIEWS | Routin | 11/23/2015 | | Results for this | | | e | 11:54 AM | | procedure are in the | | | | PDT | | results section. | + +--------+ + + + | HISTORICAL LAB PANEL | Routin | 11/23/2015 | | Results for this | | RESULT | e | 11:44 AM | | procedure are in the | | | | PDT | | results section. | + +--------+ + + + documented in this encounter Results NM Myocardial Perfusion Mult SPECT (11/24/2015 12:19 PM PDT) + + | Specimen | + + | | + + + + + | Impressions | Performed At | + + + | 1. No evidence of reversible ischemia seen. 2. No wall motion | | | abnormality noted. 3. Left ventricular volume, ejection fraction | | | and study quality parameters as noted in the findings. | | | | | + + + + + + | Narrative | Performed At | + + + | [facility] MS MYOCARDIAL PERFUSION SPECT - STRESS AND | | | REST 11/24/2015 12:19 PM History: 55 years. Male. Chest | | | pain. Comparison: None. Technique: Rest imaging performed | | | after intravenous injection of 10.3 mCi of technetium 99m Cardiolite. | | | Subsequently 0.4 mg of Lexiscan was administered intravenously. Stress | | | imaging was then performed after intravenous injection of 42 mCi of | | | technetium 99m Cardiolite. Resting heart rate 59 bpm. Maximal heart | | | rate 105 bpm. 63% of the maximal age predicted heart rate achieved | | | STRESS TEST RESPONSES: Work level of maximum METS was 1.00. Resting | | | blood pressure was 102/65 mmHg. Peak exercise blood pressure was | | | 118/59 mmHg. Arrhythmia: None. Chest pain: None. ST changes: None. | | | LEFT VENTRICULAR PERFUSION: No significant reversible perfusion | | | defect seen to suggest reversible ischemia. LEFT VENTRICULAR WALL | | | MOTION: No wall motion abnormality seen. LEFT VENTRICULAR | | | VOLUMES: The stress end-diastolic volume is 99 ml. The stress | | | end-systolic volume is 39 ml. The stress ejection fraction is 60%. | | | The rest end-diastolic volume is 87 ml. The rest end-systolic volume | | | is 39 ml. The rest ejection fraction is 55%. Transient ischemic | | | dilatation ( TID.): 1.1. | | + + + + + | Procedure Note | + + | Ubaldo, Rad Conversion - 12/16/2018 12:27 PM PDT [facility] MYOCARDIAL | | PERFUSION SPECT - STRESS AND REST11/24/2015 12:19 PM History: 55 years. Male. Chest | | pain. Comparison: None. Technique: Rest imaging performed after intravenous injection of | | 10.3 mCi of technetium 99m Cardiolite. Subsequently 0.4 mg of Lexiscan was administered | | intravenously. Stress imaging was then performed after intravenous injection of 42 mCi | | of technetium 99m Cardiolite. Resting heart rate 59 bpm. Maximal heart rate 105 bpm. 63% | | of the maximal age predicted heart rate achieved STRESS TEST RESPONSES:Work level of | | maximum METS was 1.00.Resting blood pressure was 102/65 mmHg.Peak exercise blood | | pressure was 118/59 mmHg.Arrhythmia: None.Chest pain: None.ST changes: None. LEFT | | VENTRICULAR PERFUSION: No significant reversible perfusion defect seen to suggest | | reversible ischemia. LEFT VENTRICULAR WALL MOTION: No wall motion abnormality seen. LEFT | | VENTRICULAR VOLUMES:The stress end-diastolic volume is 99 ml.The stress end-systolic | | volume is 39 ml.The stress ejection fraction is 60%.The rest end-diastolic volume is 87 | | ml.The rest end-systolic volume is 39 ml.The rest ejection fraction is 55%. Transient | | ischemic dilatation ( TID.): 1.1. IMPRESSION: 1. No evidence of reversible ischemia | | seen.2. No wall motion abnormality noted.3. Left ventricular volume, ejection fraction | | and study quality parameters as noted in the findings. | |ST changes: None. | | | | | |LEFT VENTRICULAR PERFUSION: No significant reversible perfusion defect seen to suggest reve rsible ischemia. | | | |LEFT VENTRICULAR WALL MOTION: No wall motion abnormality seen. | | | |LEFT VENTRICULAR VOLUMES: | |The stress end-diastolic volume is 99 ml. | |The stress end-systolic volume is 39 ml. | |The stress ejection fraction is 60%. | |The rest end-diastolic volume is 87 ml. | |The rest end-systolic volume is 39 ml. | |The rest ejection fraction is 55%. | | | |Transient ischemic dilatation ( TID.): 1.1. | | | | | |IMPRESSION: | |1. No evidence of reversible ischemia seen. | |2. No wall motion abnormality noted. | |3. Left ventricular volume, ejection fraction and study quality parameters as noted in th e findings. | | | | | + + ECHO Complete (11/24/2015 9:00 AM PDT) + + | Specimen | + + | | + + + + + | Impressions | Performed At | + + + | 1. Essentially normal study. | | + + + + + + | Narrative | Performed At | + + + | Patient Name: JERO GLASS Date of : 1960 | | | Performing Physician: Abiodun Howell | | | MD | | | ------REPORT ADDENDED------ INDICATIONS Chest pain | | | CONCLUSIONS 1. Essentially normal study. FINDINGS | | | -------- ECG rhythm: Sinus rhythm. Study: A 2-dimensional | | | transthoracic echocardiogram with m-mode, spectral and color flow | | | Doppler was perfomed. Study: This was a technically adequate study. | | | Left Ventricle: Overall left ventricular systolic function is normal | | | with, an EF between 60 - 65 %. Left Ventricle: There is mild | | | concentric left ventricular hypertrophy. Left Ventricle: No regional | | | wall motion abnormalities. Left Ventricle: Pseudonormal LV diastolic | | | filling pattern, consistent with elevated LA pressure and moderate | | | dysfunction (Grade II). Right Ventricle: The right ventricle is | | | normal in size and function. Left Atrium: The left atrium is normal | | | in size. Right Atrium: The right atrium is normal in size. Aortic | | | Valve: The aortic valve is trileaflet, and appears anatomically | | | normal. No aortic stenosis or regurgitation. Mitral Valve: The mitral | | | valve is normal. Mitral Valve: Mild mitral regurgitation is present. | | | Tricuspid Valve: The tricuspid valve appears structurally normal. | | | Tricuspid Valve: Mild tricuspid regurgitation present. Tricuspid | | | Valve: The right ventricular systolic pressure (pulmonary artery | | | systolic pressure), as measured by Doppler, is 24.03mmHg. Pulmonic | | | Valve: The pulmonic valve is normal. Pulmonic Valve: Trace pulmonic | | | regurgitation. Pericardium: There is no pericardial effusion. | | | IVC/Hepatic Veins: The inferior vena cava is normal in size and | | | collapses > 50 % with sniff, indicating normal central venous | | | pressures. Aorta: The aortic root, ascending aorta and aortic arch | | | are normal. MEASUREMENTS Ao asc: 3.34 cm Ao | | | Diam: 3.11 cm IVC: 1.29 cm LA Diam: 3.75 cm LA Major: | | | 4.21 cm EDV(Teich): 89.12 ml IVSd: 1.12 cm LVIDd: 4.43 cm | | | LVPWd: 1.15 cm LVOT Diam: 2.15 cm %FS: 32.45 % EF(Teich): | | | 60.96 % ESV(Teich): 34.79 ml IVSs: 1.49 cm LVIDs: 2.99 | | | cm LVPWs: 1.52 cm SV(Teich): 54.33 ml RA Major: 4.79 cm | | | RVIDd: 2.39 cm LAESV(A-L): 37.67 ml LAESV Index (A-L): | | | 18.02 ml/m2 LAAs A2C: 11.02 cm2 LAESV MOD A2C: 29.21 ml LALs | | | A2C: 3.40 cm LAAs A4C: 13.71 cm2 LAESV MOD A4C: 33.93 ml | | | LALs A4C: 4.34 cm HR: 68 BPM AV maxP.89 mmHg AV | | | meanP.15 mmHg AV Vmax: 1.10 m/s AV Vmean: 0.85 m/s AV | | | VTI: 24.62 cm KARRI Vmax: 2.66 cm2 KARRI (VTI): 2.45 cm2 AVAI | | | Vmax: 0.00 cm2/m2 AVAI (VTI): 0.00 cm2/m2 LVCI Dopp: 1.84 | | | l/minm2 LVCO Dopp: 3.84 l/min HR: 63.75 BPM LVOT maxPG: | | | 2.60 mmHg LVOT meanP.19 mmHg LVSI Dopp: 28.88 ml/m2 LVSV | | | Dopp: 60.37 ml LVOT Vmax: 0.80 m/s LVOT Vmean: 0.50 m/s | | | LVOT VTI: 16.53 cm MV A Jaydon: 0.61 m/s MV DecT: 226.65 ms | | | MV E Jaydon: 0.89 m/s MV E/A Ratio: 1.45 E/E' Av.30 E' | | | Av.07 m/s E/E' Lat: 10.13 E/E' Sept: 12.77 E' Lat: | | | 0.08 m/s E' Sept: 0.07 m/s MV PHT: 69.00 ms MVA By PHT: | | | 3.18 cm2 MV A Dur: 173.01 ms P Vein A: 0.23 m/s P Vein A Dur: | | | 103.80 ms P Vein D: 0.48 m/s P Vein S/D Ratio: 1.10 P | | | Vein S: 0.53 m/s HR: 61.92 BPM PV maxP.89 mmHg PV | | | meanP.23 mmHg PV Vmax: 0.68 m/s PV Vmean: 0.53 m/s PV | | | VTI: 17.38 cm PV maxP.45 mmHg PV Vmax: 1.36 m/s RAP: | | | 5 mmHg RVSP: 24.03 mmHg TR maxP.03 mmHg TR Vmax: | | | 2.18 m/s TV A Jaydon: 0.44 m/s TV Dec Parke: 2.25 m/s2 TV Dec | | | Time: 263.18 ms TV E Jaydon: 0.59 m/s TV E/A Ratio: 1.34 | | | Heat Treat Furnace Operator: Authenticated by: Abiodun Howell MD Report | | | Date/Time: 11-24-2015 10:47:53 | | + + + + + | Procedure Note | + + | Jae Conner Conversion - 12/16/2018 12:27 PM PDT Patient Name: Prosper GLASS of | | : 1960 Performing Physician: Abiodun Howell | | MD ------REPORT | | ADDENDED------INDICATIONS Chest pain CONCLUSIONS 1. Essentially | | normal study. FINDINGS--------ECG rhythm: Sinus rhythm.Study: A 2-dimensional | | transthoracic echocardiogram with m-mode, spectral and color flow Doppler was | | perfomed.Study: This was a technically adequate study.Left Ventricle: Overall left | | ventricular systolic function is normal with, an EF between 60 - 65 %.Left Ventricle: | | There is mild concentric left ventricular hypertrophy.Left Ventricle: No regional wall | | motion abnormalities.Left Ventricle: Pseudonormal LV diastolic filling pattern, | | consistent with elevated LA pressure and moderate dysfunction (Grade II).Right | | Ventricle: The right ventricle is normal in size and function.Left Atrium: The left | | atrium is normal in size.Right Atrium: The right atrium is normal in size.Aortic Valve: | | The aortic valve is trileaflet, and appears anatomically normal. No aortic stenosis or | | regurgitation.Mitral Valve: The mitral valve is normal.Mitral Valve: Mild mitral | | regurgitation is present.Tricuspid Valve: The tricuspid valve appears structurally | | normal.Tricuspid Valve: Mild tricuspid regurgitation present.Tricuspid Valve: The right | | ventricular systolic pressure (pulmonary artery systolic pressure), as measured by | | Doppler, is 24.03mmHg.Pulmonic Valve: The pulmonic valve is normal.Pulmonic Valve: Trace | | pulmonic regurgitation.Pericardium: There is no pericardial effusion.IVC/Hepatic | | Veins: The inferior vena cava is normal in size and collapses > 50 % with sniff, | | indicating normal central venous pressures.Aorta: The aortic root, ascending aorta and | | aortic arch are normal. MEASUREMENTS Ao asc: 3.34 cmAo Diam: 3.11 cmIVC: | | 1.29 cmLA Diam: 3.75 cmLA Major: 4.21 cmEDV(Teich): 89.12 mlIVSd: 1.12 | | cmLVIDd: 4.43 cmLVPWd: 1.15 cmLVOT Diam: 2.15 cm%FS: 32.45 %EF(Teich): 60.96 | | %ESV(Teich): 34.79 mlIVSs: 1.49 cmLVIDs: 2.99 cmLVPWs: 1.52 cmSV(Teich): 54.33 | | mlRA Major: 4.79 cmRVIDd: 2.39 cmLAESV(A-L): 37.67 mlLAESV Index (A-L): 18.02 | | ml/m2LAAs A2C: 11.02 [id number] MOD A2C: 29.21 mlLALs A2C: 3.40 cmLAAs A4C: 13.71 | | [id number] MOD A4C: 33.93 mlLALs A4C: 4.34 cmHR: 68 BPMAV maxP.89 mmHgAV | | meanP.15 mmHgAV Vmax: 1.10 m/Leo Vmean: 0.85 m/Leo VTI: 24.62 cmAVA Vmax: | | 2.66 cm2AVA (VTI): 2.45 [id number] Vmax: 0.00 cm2/m2AVAI (VTI): 0.00 cm2/m2LVCI Dopp: | | 1.84 l/[id number] Dopp: 3.84 l/minHR: 63.75 BPMLVOT maxP.60 mmHgLVOT meanPG: | | 1.19 mmHgLVSI Dopp: 28.88 ml/m2LVSV Dopp: 60.37 mlLVOT Vmax: 0.80 m/sLVOT | | Vmean: 0.50 m/sLVOT VTI: 16.53 cmMV A Jaydon: 0.61 m/sMV DecT: 226.65 msMV E Jaydon: | | 0.89 m/sMV E/A Ratio: 1.45E/E' Av.30E' Av.07 m/sE/E' Lat: 10.13E/E' | | Sept: 12.77E' Lat: 0.08 m/sE' Sept: 0.07 m/sMV PHT: 69.00 msMVA By PHT: 3.18 | | cm2MV A Dur: 173.01 msP Vein A: 0.23 m/sP Vein A Dur: 103.80 msP Vein D: 0.48 | | m/sP Vein S/D Ratio: 1.10P Vein S: 0.53 m/sHR: 61.92 BPMPV maxP.89 mmHgPV | | meanP.23 mmHgPV Vmax: 0.68 m/sPV Vmean: 0.53 m/sPV VTI: 17.38 cmPV maxPG: | | 7.45 mmHgPV Vmax: 1.36 m/sRAP: 5 mmHgRVSP: 24.03 mmHgTR maxP.03 mmHgTR | | Vmax: 2.18 m/sTV A Jaydon: 0.44 m/sTV Dec Parke: 2.25 m/s2TV Dec Time: 263.18 msTV | | E Jaydon: 0.59 m/sTV E/A Ratio: 1.34 Heat Treat Furnace Operator: Eulalioticated by: Abiodun | | Dante MDReport Date/Time: 11-24-2015 10:47:53 IMPRESSION: 1. Essentially normal study. | | | |Ao asc: 3.34 cm | |Ao Diam: 3.11 cm | |IVC: 1.29 cm | |LA Diam: 3.75 cm | |LA Major: 4.21 cm | |EDV(Teich): 89.12 ml | |IVSd: 1.12 cm | |LVIDd: 4.43 cm | |LVPWd: 1.15 cm | |LVOT Diam: 2.15 cm | |%FS: 32.45 % | |EF(Teich): 60.96 % | |ESV(Teich): 34.79 ml | |IVSs: 1.49 cm | |LVIDs: 2.99 cm | |LVPWs: 1.52 cm | |SV(Teich): 54.33 ml | |RA Major: 4.79 cm | |RVIDd: 2.39 cm | |LAESV(A-L): 37.67 ml | |LAESV Index (A-L): 18.02 ml/m2 | |LAAs A2C: 11.02 cm2 | |LAESV MOD A2C: 29.21 ml | |LALs A2C: 3.40 cm | |LAAs A4C: 13.71 cm2 | |LAESV MOD A4C: 33.93 ml | |LALs A4C: 4.34 cm | |HR: 68 BPM | |AV maxP.89 mmHg | |AV meanP.15 mmHg | |AV Vmax: 1.10 m/s | |AV Vmean: 0.85 m/s | |AV VTI: 24.62 cm | |KARRI Vmax: 2.66 cm2 | |KARRI (VTI): 2.45 cm2 | |AVAI Vmax: 0.00 cm2/m2 | |AVAI (VTI): 0.00 cm2/m2 | |LVCI Dopp: 1.84 l/minm2 | |LVCO Dopp: 3.84 l/min | |HR: 63.75 BPM | |LVOT maxP.60 mmHg | |LVOT meanP.19 mmHg | |LVSI Dopp: 28.88 ml/m2 | |LVSV Dopp: 60.37 ml | |LVOT Vmax: 0.80 m/s | |LVOT Vmean: 0.50 m/s | |LVOT VTI: 16.53 cm | |MV A Jaydon: 0.61 m/s | |MV DecT: 226.65 ms | |MV E Jaydon: 0.89 m/s | |MV E/A Ratio: 1.45 | |E/E' Av.30 | |E' Av.07 m/s | |E/E' Lat: 10.13 | |E/E' Sept: 12.77 | |E' Lat: 0.08 m/s | |E' Sept: 0.07 m/s | |MV PHT: 69.00 ms | |MVA By PHT: 3.18 cm2 | |MV A Dur: 173.01 ms | |P Vein A: 0.23 m/s | |P Vein A Dur: 103.80 ms | |P Vein D: 0.48 m/s | |P Vein S/D Ratio: 1.10 | |P Vein S: 0.53 m/s | |HR: 61.92 BPM | |PV maxP.89 mmHg | |PV meanP.23 mmHg | |PV Vmax: 0.68 m/s | |PV Vmean: 0.53 m/s | |PV VTI: 17.38 cm | |PV maxP.45 mmHg | |PV Vmax: 1.36 m/s | |RAP: 5 mmHg | |RVSP: 24.03 mmHg | |TR maxP.03 mmHg | |TR Vmax: 2.18 m/s | |TV A Jaydon: 0.44 m/s | |TV Dec Parke: 2.25 m/s2 | |TV Dec Time: 263.18 ms | |TV E Jaydon: 0.59 m/s | |TV E/A Ratio: 1.34 | | | |Heat Treat Furnace Operator: | |Authenticated by: Abiodun Howell MD | |Report Date/Time: 11-24-2015 10:47:53 | | | |IMPRESSION: | |1. Essentially normal study. | + + External Lab: [facility] (11/24/2015 5:43 AM PDT) + + + + + + | Component | Value | Ref Range | Performed | Pathologist | | | | | At | Signature | + + + + + + | WBC | 5.05Comment: Testing | 3.80 - 11.00 | EXTERNAL | | | | performed at [facility], [address] | K/uL | LAB | | | | [address], | | | | | | [place] [address] | | | | + + + + + + | RED CELL | 3.89 (L)Comment: Testing | 4.20 - 5.70 | EXTERNAL | | | COUNT | performed at [facility], [address] | M/uL | LAB | | | | [address], | | | | | | [place] [address] | | | | + + + + + + | Hgb | 13.7Comment: Testing | 13.2 - 17.0 | EXTERNAL | | | | performed at [facility], [address] | g/dL | LAB | | | | [address], | | | | | | [place] [address] | | | | + + + + + + | Hematocrit, | 40.8Comment: Testing | 39.0 - 50.0 % | EXTERNAL | | | POC | performed at [facility], [address] | | LAB | | | | [address], | | | | | | [place] [address] | | | | + + + + + + | MCV | 104.9 (H)Comment: | 80.0 - 100.0 fl | EXTERNAL | | | | Testing performed at | | LAB | | | | [facility], [address] | | | | | | [place] | | | | | | [address] | | | | + + + + + + | MCH | 35.3 (H)Comment: Testing | 27.0 - 34.0 pg | EXTERNAL | | | | performed at [facility], [address] | | LAB | | | | [address], | | | | | | [place] [address] | | | | + + + + + + | MCHC | 33.7Comment: Testing | 32.0 - 35.5 | EXTERNAL | | | | performed at [facility], [address] | g/dL | LAB | | | | [address], | | | | | | [place] [address] | | | | + + + + + + | RDW-CV | 49.0Comment: Testing | 37 - 53 fl | EXTERNAL | | | | performed at [facility], [address] | | LAB | | | | [address], | | | | | | [place] [address] | | | | + + + + + + | Platelet | 190Comment: Testing | 150 - 400 K/uL | EXTERNAL | | | Count | performed at [facility], [address] | | LAB | | | Plasma | [address], | | | | | | [place] [address] | | | | + + + + + + | MPV | 7.6Comment: Testing | fl | EXTERNAL | | | | performed at [facility], [address] | | LAB | | | | [address], | | | | | | [place] [address] | | | | + + + + + + | Differentia | AUTOMATEDComment: | | EXTERNAL | | | l Type | Testing performed at | | LAB | | | | [facility], [address] | | | | | | [place] | | | | | | [address] | | | | + + + + + + | % Segmented | 68.32Comment: Testing | % | EXTERNAL | | | | performed at [facility], [address] | | LAB | | | Neutrophils | [address], | | | | | | [place] [address] | | | | + + + + + + | % | 21.91Comment: Testing | % | EXTERNAL | | | Lymphocytes | performed at [facility], [address] | | LAB | | | | [address], | | | | | | [place] [address] | | | | + + + + + + | % Monocytes | 6.74Comment: Testing | % | EXTERNAL | | | | performed at [facility], [address] | | LAB | | | | [address], | | | | | | [place] [address] | | | | + + + + + + | % | 2.76Comment: Testing | % | EXTERNAL | | | Eosinophils | performed at [facility], [address] | | LAB | | | [address], | | | | | | [place] [address] | | | | + + + + + + | % Basophils | 0.27Comment: Testing | % | EXTERNAL | | | | performed at [facility], [address] | | LAB | | | | [address], | | | | | | [place] [address] | | | | + + + + + + | Absolute | 3.45Comment: Testing | 1.90 - 7.40 | EXTERNAL | | | Segmented | performed at [facility], [address] | K/uL | LAB | | | Neutrophils | [address], | | | | | | [place] [address] | | | | + + + + + + | Absolute | 1.11Comment: Testing | 1.00 - 3.90 | EXTERNAL | | | Lymphocytes | performed at [facility], [address] | K/uL | LAB | | | | [address], | | | | | | [place] [address] | | | | + + + + + + | Absolute | 0.34Comment: Testing | 0.00 - 0.80 | EXTERNAL | | | Monocytes | performed at [facility], [address] | K/uL | LAB | | | | [address], | | | | | | [place] [address] | | | | + + + + + + | Absolute | 0.14Comment: Testing | 0.00 - 0.50 | EXTERNAL | | | Eosinophils | performed at [facility], [address] | K/uL | LAB | | | | [address], | | | | | | [place] [address] | | | | + + + + + + | Absolute | 0.01Comment: Testing | 0.00 - 0.10 | EXTERNAL | | | Basophils | performed at [facility], [address] | K/uL | LAB | | | | [address], | | | | | | [place] [address] | | | | + + + + + + + + | Specimen | + + | Blood specimen | | (specimen) | + + + +---------+ + + | Performing | Address | City/State/Zipcode | Phone Number | | Organization | | | | + +---------+ + + | EXTERNAL LAB | | | | + +---------+ + + TSH (11/24/2015 5:43 AM PDT) + + + + + + | Component | Value | Ref Range | Performed | Pathologist | | | | | At | Signature | + + + + + + | TSI | 1.00Comment: Testing | 0.45 - 5.10 | EXTERNAL | | | | performed at [facility], [address] | uIU/mL | LAB | | | | [address], | | | | | | [place] [address] | | | | + + + + + + + + | Specimen | + + | Blood specimen | | (specimen) | + + + +---------+ + + | Performing | Address | City/State/Zipcode | Phone Number | | Organization | | | | + +---------+ + + | EXTERNAL LAB | | | | + +---------+ + + Phosphorus (11/24/2015 5:43 AM PDT) + + + + + + | Component | Value | Ref Range | Performed | Pathologist | | | | | At | Signature | + + + + + + | PHOSPHORUS | 2.4Comment: Testing | 2.3 - 4.8 mg/dL | EXTERNAL | | | | performed at [facility], [address] | | LAB | | | | [address], | | | | | | [place] [address] | | | | + + + + + + + + | Specimen | + + | Blood specimen | | (specimen) | + + + +---------+ + + | Performing | Address | City/State/Zipcode | Phone Number | | Organization | | | | + +---------+ + + | EXTERNAL LAB | | | | + +---------+ + + Magnesium (11/24/2015 5:43 AM PDT) + + + + + + | Component | Value | Ref Range | Performed | Pathologist | | | | | At | Signature | + + + + + + | Magnesium | 1.8Comment: Testing | 1.7 - 2.4 mg/dL | EXTERNAL | | | | performed at [facility], [address] | | LAB | | | | [address], | | | | | | [place] [address] | | | | + + + + + + + + | Specimen | + + | Blood specimen | | (specimen) | + + + +---------+ + + | Performing | Address | City/State/Zipcode | Phone Number | | Organization | | | | + +---------+ + + | EXTERNAL LAB | | | | + +---------+ + + Basic Metabolic Panel (11/24/2015 5:43 AM PDT) + + + + + + | Component | Value | Ref Range | Performed | Pathologist | | | | | At | Signature | + + + + + + | Na | 141Comment: Testing | 135 - 145 | EXTERNAL | | | | performed at [facility], [address] | mmol/L | LAB | | | | [address], | | | | | | [place] [address] | | | | + + + + + + | K | 3.9Comment: Testing | 3.5 - 4.9 | EXTERNAL | | | | performed at [facility], [address] | mmol/L | LAB | | | | [address], | | | | | | [place] [address] | | | | + + + + + + | Cl | 108Comment: Testing | 99 - 109 mmol/L | EXTERNAL | | | | performed at [facility], [address] | | LAB | | | | [address], | | | | | | [place] [address] | | | | + + + + + + | CO2 | 26Comment: Testing | 23 - 32 mmol/L | EXTERNAL | | | | performed at [facility], [address] | | LAB | | | | [address], | | | | | | [place] [address] | | | | + + + + + + | Anion Gap | 11Comment: Testing | 5 - 20 mmol/L | EXTERNAL | | | | performed at [facility], [address] | | LAB | | | | [address], | | | | | | [place] [address] | | | | + + + + + + | Glucose, | 94Comment: Testing | 65 - 99 mg/dL | EXTERNAL | | | Fasting | performed at [facility], [address] | | LAB | | | | [address], | | | | | | [place] [address] | | | | + + + + + + | BUN | 13Comment: Testing | 8 - 25 mg/dL | EXTERNAL | | | | performed at [facility], [address] | | LAB | | | | [address], | | | | | | [place] [address] | | | | + + + + + + | Creatinine | 0.7Comment: Testing | 0.70 - 1.30 | EXTERNAL | | | | performed at [facility], [address] | mg/dL | LAB | | | | [address], | | | | | | [place] [address] | | | | + + + + + + | BUN/Creatin | 19Comment: Testing | | EXTERNAL | | | ine Ratio | performed at [facility], [address] | | LAB | | | | [address], | | | | | | [place] [address] | | | | + + + + + + | Calcium | 9.3Comment: Testing | 8.5 - 10.5 | EXTERNAL | | | | performed at [facility], [address] | mg/dL | LAB | | | | [address], | | | | | | [place] [address] | | | | + + + + + + | Estimated | >60Comment: GFR <60: | mL/min/1.73m2 | EXTERNAL | | | GFR | CHRONIC KIDNEY DISEASE, | | LAB | | | | IF FOUND OVER A 3 MONTH | | | | | | PERIOD.GFR <15: KIDNEY | | | | | | FAILURE.FOR | | | | | | AMERICANS, MULTIPLY THE | | | | | | CALCULATED GFR BY | | | | | | 1.210.Testing performed | | | | | | at [facility], [address] | | | | | | [address], | | | | | | [place] [address] | | | | + + + + + + + + | Specimen | + + | Blood specimen | | (specimen) | + + + +---------+ + + | Performing | Address | City/State/Zipcode | Phone Number | | Organization | | | | + +---------+ + + | EXTERNAL LAB | | | | + +---------+ + + CK-MB (11/23/2015 11:55 PM PDT) + + + + + -+ | Component | Value | Ref Range | Performed | Pathologist | | | | | At | Signature | + + + + + -+ | CK-MB | 0.8Comment: Testing | 0.5 - 3.6 ng/mL | EXTERNAL | | | | performed at [facility] | | [place] | | | | [address];[place], [place] | | | | | | [address] | | | | + + + + + -+ | CK-MB Index | 1.0Comment: CK INDEX | | EXTERNAL | | | | INTERPRETATION: | | LAB | | | | MMB ng/mL | | | | | | | | | | | |CK INDEX INTERPRETATION: | | | | | | MMB ng/mL | | | | | | | | | | + + + + + -+ + + | Specimen | + + | | + + + +---------+ + + | Performing | Address | City/State/Zipcode | Phone Number | | Organization | | | | + +---------+ + + | EXTERNAL LAB | | | | + +---------+ + + Troponin I (11/23/2015 11:55 PM PDT) + + + + + + | Component | Value | Ref Range | Performed | Pathologist | | | | | At | Signature | + + + + + + | Troponin I, | <0.020Comment: 0.00 to | 0.00 - 0.10 | EXTERNAL | | | Qual | 0.10 CONSISTENT WITH | ng/mL | LAB | | | | NORMAL POPULATION0.11 | | | | | | to 0.60 CONSISTENT | | | | | | WITH INCREASED RISK FOR | | | | | | ADVERSE OUTCOMES> 0.60 | | | | | | CONSISTENT | | | | | | WITH WHO CRITERIA FOR | | | | | | ACUTE [place] Testing | | | | | | performed at [facility] | | | | | | [facility];[place], [place] | | | | | | [address] | | | | + + + + + + + + | Specimen | + + | Blood specimen | | (specimen) | + + + +---------+ + + | Performing | Address | City/State/Zipcode | Phone Number | | Organization | | | | + +---------+ + + | EXTERNAL LAB | | | | + +---------+ + + CK Total (11/23/2015 11:55 PM PDT) + + + + + + | Component | Value | Ref Range | Performed | Pathologist | | | | | At | Signature | + + + + + + | CK, Total | 80Comment: Testing | 55 - 400 U/L | EXTERNAL | | | | performed at [facility] | | LAB | | | | [address];[place], [place] | | | | | | [address] | | | | + + + + + + + + | Specimen | + + | Blood specimen | | (specimen) | + + + +---------+ + + | Performing | Address | City/State/Zipcode | Phone Number | | Organization | | | | + +---------+ + + | EXTERNAL LAB | | | | + +---------+ + + CK-MB (11/23/2015 5:42 PM PDT) + + + + + -+ | Component | Value | Ref Range | Performed | Pathologist | | | | | At | Signature | + + + + + -+ | CK-MB | 0.7Comment: Testing | 0.5 - 3.6 ng/mL | EXTERNAL | | | | performed at [facility] | | LAB | | | | [address];[place], [place] | | | | | | [address] | | | | + + + + + -+ | CK-MB Index | 0.8Comment: CK INDEX | | EXTERNAL | | | | INTERPRETATION: | | LAB | | | | MMB ng/mL | | | | | | | | | | | |CK INDEX INTERPRETATION: | | | | | | MMB ng/mL | | | | | | | | | | + + + + + -+ + + | Specimen | + + | | + + + +---------+ + + | Performing | Address | City/State/Zipcode | Phone Number | | Organization | | | | + +---------+ + + | EXTERNAL LAB | | | | + +---------+ + + Troponin I (11/23/2015 5:42 PM PDT) + + + + + + | Component | Value | Ref Range | Performed | Pathologist | | | | | At | Signature | + + + + + + | Troponin I, | <0.020Comment: 0.00 to | 0.00 - 0.10 | EXTERNAL | | | Qual | 0.10 CONSISTENT WITH | ng/mL | LAB | | | | NORMAL POPULATION0.11 | | | | | | to 0.60 CONSISTENT | | | | | | WITH INCREASED RISK FOR | | | | | | ADVERSE OUTCOMES> 0.60 | | | | | | CONSISTENT | | | | | | WITH WHO CRITERIA FOR | | | | | | ACUTE [place] Testing | | | | | | performed at [facility] | | | | | | [address] [facility];[place], [place] | | | | | | [address] | | | | + + + + + + + + | Specimen | + + | Blood specimen | | (specimen) | + + + +---------+ + + | Performing | Address | City/State/Zipcode | Phone Number | | Organization | | | | + +---------+ + + | EXTERNAL LAB | | | | + +---------+ + + CK Total (11/23/2015 5:42 PM PDT) + + + + + + | Component | Value | Ref Range | Performed | Pathologist | | | | | At | Signature | + + + + + + | CK, Total | 92Comment: Testing | 55 - 400 U/L | EXTERNAL | | | | performed at [facility] | | LAB | | | | [address];[place], [place] | | | | | | [address] | | | | + + + + + + + + | Specimen | + + | Blood specimen | | (specimen) | + + + +---------+ + + | Performing | Address | City/State/Zipcode | Phone Number | | Organization | | | | + +---------+ + + | EXTERNAL LAB | | | | + +---------+ + + XR Chest 2 Vws (11/23/2015 11:54 AM PDT) + + | Specimen | + + | | + + + + + | Impressions | Performed At | + + + | 1. Intraspinal neurostimulator lead in the lower thoracic spinal | | | canal. 2. The remainder of the examination is unremarkable. | | | | | + + + + + + | Narrative | Performed At | + + + | JERO SPANN CHEST 2 VIEW FRONTAL AND LATERAL 11/23/2015 | | | 11:54 AM History: 55 years. Male. Acute chest pain, | | | presenting to the emergency room. Technique: PA and lateral views | | | of the chest. Comparison: No prior chest radiography at this | | | facility.. Findings: The lung kearney and pleural spaces are clear. | | | The cardiac volume is normal. The pulmonary vasculature is | | | unremarkable. Lungs are fully inflated. No hilar or mediastinal | | | abnormalities. The thoracic aorta is normal, without dilatation or | | | calcification. An intraspinal metallic stimulator lead is | | | visualized in the lower thoracic spinal canal,. The thoracic | | | vertebral bodies are normal in height, without compression fracture or | | | degenerative changes. The overall bone density is normal. No | | | focal osteolytic or osteoblastic defect visualized. | | + + + + + | Procedure Note | + + | Ubaldo, Rad Conversion - 12/16/2018 12:27 PM PDT JERO JERONIMO CHEST 2 VIEW | | FRONTAL AND LATERAL11/23/2015 11:54 AM History: 55 years. Male. Acute chest pain, | | presenting to the emergency room. Technique: PA and lateral views of the | | chest.Comparison: No prior chest radiography at this facility.. Findings: The lung | | kearney and pleural spaces are clear. The cardiac volume is normal. The pulmonary | | vasculature is unremarkable. Lungs are fully inflated. No hilar or mediastinal | | abnormalities. The thoracic aorta is normal, without dilatation or calcification. An | | intraspinal metallic stimulator lead is visualized in the lower thoracic spinal canal,. | | The thoracic vertebral bodies are normal in height, without compression fracture or | | degenerative changes. The overall bone density is normal. No focal osteolytic or | | osteoblastic defect visualized. IMPRESSION: 1. Intraspinal neurostimulator lead in the | | lower thoracic spinal canal.2. The remainder of the examination is unremarkable. | | | |osteolytic or osteoblastic defect visualized. | | | |IMPRESSION: | |1. Intraspinal neurostimulator lead in the lower thoracic spinal canal. | |2. The remainder of the examination is unremarkable. | | | | | + + HISTORICAL LAB PANEL RESULT (11/23/2015 11:44 AM PDT) + + + + + -+ | Component | Value | Ref Range | Performed | Pathologist | | | | | At | Signature | + + + + + -+ | WBC | 5.98Comment: Testing | 3.80 - 11.00 | EXTERNAL | | | | performed at [facility] | [address] | LAB | | | | [address];[place] | | | | | | [address] | | | | + + + + + -+ | RED CELL | 3.81 (L)Comment: Testing | 4.20 - 5.70 | EXTERNAL | | | COUNT | performed at [facility] | M/uL | LAB | | | | [address];[place] | | | | | | [address] | | | | + + + + + -+ | Hgb | 13.6Comment: Testing | 13.2 - 17.0 | EXTERNAL | | | | performed at [facility] | g/dL | LAB | | | | [address];[place] | | | | | | [address] | | | | + + + + + -+ | Hematocrit, | 39.3Comment: Testing | 39.0 - 50.0 % | EXTERNAL | | | POC | performed at [facility] | | LAB | | | | [address];[place] | | | | | | [address] | | | | + + + + + -+ | MCV | 103.0 (H)Comment: | 80.0 - 100.0 fl | EXTERNAL | | | | Testing performed at | | LAB | | | | [facility] | | | | | | [address];[place] [address] | | | | + + + + + -+ | MCH | 35.6 (H)Comment: Testing | 27.0 - 34.0 pg | EXTERNAL | | | | performed at [facility] [place] | | LAB | | | | [address];[place] | | | | | | [address] | | | | + + + + + -+ | MCHC | 34.6Comment: Testing | 32.0 - 35.5 | EXTERNAL | | | | performed at [facility] | g/dL | LAB | | | | [address];[place] | | | | | | [address] | | | | + + + + + -+ | RDW-CV | 49.0Comment: Testing | 37 - 53 fl | EXTERNAL | | | | performed at [facility] [place] | | LAB | | | | [address];[place] | | | | | | [address] | | | | + + + + + -+ | Platelet | 202Comment: Testing | 150 - 400 K/uL | EXTERNAL | | | Count | performed at [facility] | | LAB | | | Plasma | [address];[place] | | | | | | [address] | | | | + + + + + -+ | MPV | 7.1Comment: Testing | fl | EXTERNAL | | | | performed at [facility] [place] | | LAB | | | | [address];[place] | | | | | | [address] | | | | + + + + + -+ | Differentia | AUTOMATEDComment: | | EXTERNAL | | | l Type | Testing performed at | | LAB | | | | [facility] [place];[place] [address] | | | | + + + + + -+ | % Segmented | 55.17Comment: Testing | % | EXTERNAL | | | | performed at [facility] [place] | | LAB | | | Neutrophils | [address];[place] | | | | | | [address] | | | | + + + + + -+ | % | 32.89Comment: Testing | % | EXTERNAL | | | Lymphocytes | performed at [facility] [place] | | LAB | | | | [address];[place] | | | | | | [address] | | | | + + + + + -+ | % Monocytes | 8.55Comment: Testing | % | EXTERNAL | | | | performed at [facility] [place] | | LAB | | | | [address];[place] | | | | | | [address] | | | | + + + + + -+ | % | 3.04Comment: Testing | % | EXTERNAL | | | Eosinophils | performed at [facility] [place] | | LAB | | | | [address];[place] | | | | | | [address] | | | | + + + + + -+ | % Basophils | 0.35Comment: Testing | % | EXTERNAL | | | | performed at [facility] [place] | | LAB | | | | [address];[place] | | | | | | [address] | | | | + + + + + -+ | Absolute | 3.30Comment: Testing | 1.90 - 7.40 | EXTERNAL | | | Segmented | performed at [facility] [place] | K/uL | LAB | | | Neutrophils | [address];[place] | | | | | | [address] | | | | + + + + + -+ | Absolute | 1.97Comment: Testing | 1.00 - 3.90 | EXTERNAL | | | Lymphocytes | performed at [facility] [place] | K/uL | LAB | | | | [address];[place] | | | | | | [address] | | | | + + + + + -+ | Absolute | 0.51Comment: Testing | 0.00 - 0.80 | EXTERNAL | | | Monocytes | performed at [facility] | K/uL | LAB | | | | [address];[place] | | | | | | [address] | | | | + + + + + -+ | Absolute | 0.18Comment: Testing | 0.00 - 0.50 | EXTERNAL | | | Eosinophils | performed at [facility] | K/uL | LAB | | | | [address];[place] | | | | | | [address] | | | | + + + + + -+ | Absolute | 0.02Comment: Testing | 0.00 - 0.10 | EXTERNAL | | | Basophils | performed at [facility] | K/uL | LAB | | | | [address];[place] | | | | | | [address] | | | | + + + + + -+ | Na | 141Comment: Testing | 135 - 145 | EXTERNAL | | | | performed at [facility] | mmol/L | LAB | | | | [address];[place] | | | | | | [address] | | | | + + + + + -+ | K | 3.8Comment: Testing | 3.5 - 4.9 | EXTERNAL | | | | performed at [facility] | mmol/L | LAB | | | | [address];[place] | | | | | | [address] | | | | + + + + + -+ | Cl | 110 (H)Comment: Testing | 99 - 109 mmol/L | EXTERNAL | | | | performed at [facility] | | LAB | | | | [address];[place] | | | | | | [address] | | | | + + + + + -+ | CO2 | 26Comment: Testing | 23 - 32 mmol/L | EXTERNAL | | | | performed at [facility] | | LAB | | | | [address];[place] | | | | | | [address] | | | | + + + + + -+ | Anion Gap | 9Comment: Testing | 5 - 20 mmol/L | EXTERNAL | | | | performed at [facility] | | LAB | | | | [address];[place] | | | | | | [address] | | | | + + + + + -+ | Glucose, | 120 (H)Comment: Testing | 65 - 99 mg/dL | EXTERNAL | | | Fasting | performed at [facility] | | LAB | | | | [address];[place] | | | | | | [address] | | | | + + + + + -+ | BUN | 14Comment: Testing | 8 - 25 mg/dL | EXTERNAL | | | | performed at [facility] | | LAB | | | | [address];[place] | | | | | | [address] | | | | + + + + + -+ | Creatinine | 0.79Comment: Testing | 0.70 - 1.30 | EXTERNAL | | | | performed at [facility] | mg/dL | LAB | | | | [address];[place] | | | | | | [address] | | | | + + + + + -+ | BUN/Creatin | 18Comment: Testing | | EXTERNAL | | | ine Ratio | performed at [facility] | | LAB | | | | [address];[place] | | | | | | [address] | | | | + + + + + -+ | Calcium | 8.5Comment: Testing | 8.5 - 10.5 | EXTERNAL | | | | performed at [facility] | mg/dL | LAB | | | | [address];[place] | | | | | | [address] | | | | + + + + + -+ | Protein, | 6.6Comment: Testing | 6.3 - 8.2 g/dL | EXTERNAL | | | Total | performed at [facility] | | LAB | | | | [address];[place] | | | | | | [address] | | | | + + + + + -+ | Albumin | 3.8Comment: Testing | 3.6 - 5.0 g/dL | EXTERNAL | | | | performed at [facility];[address] | | LAB | | | | [address];[place] | | | | | | [address] | | | | + + + + + -+ | Globulin | 2.8Comment: Testing | 1.3 - 4.9 g/dL | EXTERNAL | | | | performed at [facility] | | LAB | | | | [address];[place] | | | | | | [address] | | | | + + + + + -+ | A/G Ratio | 1.4Comment: Testing | 1.0 - 2.4 | EXTERNAL | | | | performed at [facility] | | LAB | | | | [address];[place] | | | | | | [address] | | | | + + + + + -+ | Bilirubin | 0.6Comment: Testing | 0.1 - 1.5 mg/dL | EXTERNAL | | | Total | performed at [facility] | | LAB | | | | [address];[place] | | | | | | [address] | | | | + + + + + -+ | ALP, | 75Comment: Testing | 35 - 115 U/L | EXTERNAL | | | External | performed at [facility] | | LAB | | | | [address];[place] | | | | | | [address] | | | | + + + + + -+ | AST | 10Comment: Testing | 10 - 45 U/L | EXTERNAL | | | | performed at [facility] | | LAB | | | | [address];[place] | | | | | | [address] | | | | + + + + + -+ | ALT | 15Comment: Testing | 10 - 65 U/L | EXTERNAL | | | | performed at [facility] | | LAB | | | | [address];[place] | | | | | | [address] | | | | + + + + + -+ | Estimated | >60Comment: GFR <60: | mL/min/1.73m2 | EXTERNAL | | | GFR | CHRONIC KIDNEY DISEASE, | | LAB | | | | IF FOUND OVER A 3 MONTH | | | | | | PERIOD.GFR <15: KIDNEY | | | | | | FAILURE.FOR | | | | | | AMERICANS, MULTIPLY THE | | | | | | CALCULATED GFR BY | | | | | | 1.210.Testing performed | | | | | | at [facility] | | | | | [address];[place] [address] | | | | + + + + + -+ | CK, Total | 110Comment: Testing | 55 - 400 U/L | EXTERNAL | | | | performed at [facility] | | LAB | | | | [address];[place] | | | | | | [address] | | | | + + + + + -+ | INR | 1.0Comment: REFERENCE | | EXTERNAL | | | | RANGE:0.9 - 1.2 | | LAB | | | | NON-ANTICOAGULATED2.0 | | | | | | - 3.0 ALL OTHER | | | | | | THERAPEUTIC | | | | | | INDICATIONS2.5 - 3.5 | | | | | | MECHANICAL HEART VALVES, | | | | | | RECURRENT OR SYSTEMIC | | | | | | EMBOLISMTesting | | | | | | performed at [facility] | | | | | | [address];[place] | | | | | | [address] | | | | + + + + + -+ | aPTT, | 27Comment: Testing | 23 - 32 seconds | EXTERNAL | | | Patient | performed at [facility] | | LAB | | | | [address];[place] | | | | | | [address] | | | | + + + + + -+ | CK-MB | 0.8Comment: Testing | 0.5 - 3.6 ng/mL | EXTERNAL | | | | performed at [facility];[address] | | LAB | | | | [address];[place] | | | | | | [address] | | | | + + + + + -+ | CK-MB Index | 0.7Comment: CK INDEX | | EXTERNAL | | | | INTERPRETATION: | | LAB | | | | MMB ng/mL | | | | | | | | | | | |CK INDEX INTERPRETATION: | | | | | | MMB ng/mL | | | | | | | | | | + + + + + -+ + + | Specimen | + + | | + + + +---------+ + + | Performing | Address | City/State/Zipcode | Phone Number | | Organization | | | | + +---------+ + + | EXTERNAL LAB | | | | + +---------+ + + documented in this encounter Visit Diagnoses + + | Diagnosis | + + | Chest pain radiating to jaw Chest pain, unspecified | + + documented in this encounter
--- OUTSIDE RECORDS SUMMARY | ~2019-03-21 | XMS | Encounter Summary ---
Demographics + + + | Address | [address] | | | [place] [address] | + + + | Home Phone | | + + + | Preferred Language | Unknown | + + + | Marital Status | | + + + | Methodist Affiliation | Unknown | + + + | Race | Unknown | + + + | Ethnic Group | Unknown | + + + Author + + + | Author | [facility] | | | and [place] | + + + | Organization | [facility] | | [...] [place] | | | | | [address] | | + + + + + Care Team Providers + +------+ + | Care Bar Useful Or Busser Name | Role | Phone | + +------+ + | Mila Majano PA-C | PCP | | + +------+ + Reason for Visit +--------+ + | Reason | Comments | +--------+ + | Other | | +--------+ + Encounter Details +--------+ + + + + | Date | Type | Department | Care Team | Description | +--------+ + + + + | 02/21/ | Telephone | [facility] | [place], | Other | | 2013 | | GASTROENTEROLOGY | [address] | | | | | [address] | [place] | | | | | [address] [place], [place] | [place], [place] | | | | | [address] | [address] | | | | | [phone] | | | +--------+ + + + [...]
--- OUTSIDE RECORDS SUMMARY | ~2019-03-21 | XMS | Encounter Summary ---
Demographics + + + | Address | [address] | | | [place] [address] | + + + | Home Phone | | + + + | Preferred Language | Unknown | + + + | Marital Status | | + + + | Hindu Affiliation | Unknown | + + + | Race | White | + + + | Ethnic Group | Not or | + + + Author + + + | Author | [facility] | + + + | Organization | [facility] | + + + | Address | Unknown | + + + | Phone | Unavailable | + + + Support + + + + + | Name | Relationship | Address | Phone | + + + + + | Maeve Glass | ECON | [address] | | | | | #[place] | | | | | [address] | | + + + + + Care Team Providers + +------+ + | Care Boardinghouse Keeper Name | Role | Phone | + +------+ + | Mila Majano | PCP | | + +------+ + Encounter Details +--------+ + + + + | Date | Type | Department | Care Team | Description | +--------+ + + + + | 12/15/ | Document-Sc | UNKNOWN DEPARTMENT | Unknown . | | | 2012 | anned | [address] | | | | | | [address] | | | | | | [place], [place] | | | | | | [address] | | | +--------+ + + + [...]
--- OUTSIDE RECORDS SUMMARY | ~2019-03-21 | XMS | Encounter Summary ---
Demographics + + + | Address | [address] | | | [place] [address] | + + + | Home Phone | | + + + | Preferred Language | Unknown | + + + | Marital Status | | + + + | Jain Affiliation | Unknown | + + + | Race | Unknown | + + + | Ethnic Group | Unknown | + + + Author + + + | Author | [facility] | | | and [place] | + + + | Organization | [facility] | | | [...] [place] | | | | | [address] | | + + + + + Care Team Providers + +------+ + | Care Kickboxing Instructor Name | Role | Phone | + +------+ + PCP | Unavailable | + +------+ + Encounter Details +--------+ + + + + | Date | Type | Department | Care Team | Description | +--------+ + + + + | 06/06/ | Hospital | [facility] | | | | 2005 | Encounter | [facility] | | | | | | [address] | | | | | | [place] | | | | | | [address] | | | | | | [phone] | | | +--------+ + + + [...]
--- OUTSIDE RECORDS SUMMARY | ~2019-03-21 | XMS | Encounter Summary ---
Demographics + + + | Address | [address] | | | [place] [address] | + + + | Home Phone | | + + + | Preferred Language | Unknown | + + + | Marital Status | | + + + | Sikhism Affiliation | Unknown | + + + | Race | Unknown | + + + | Ethnic Group | Unknown | + + + Author + + + | Author | [facility] | | | and [place] | + + + | Organization | [facility] | | | and [place] | + [...] [place] | | | | | [address] | | + + + + + Care Team Providers + +------+ + | Care Mechanical Engineering Officer Name | Role | Phone | [...] | | | | [address] [facility] | [place]. | | | | | [address] | [place] [address] | | | | | [address] | | | | | | [phone] | | | +--------+ + + + [...] - 1.03 | EXTERNAL | | | [place], | | | LAB | | | [...]
--- OUTSIDE RECORDS SUMMARY | ~2019-03-21 | XMS | Encounter Summary ---
Demographics + + + | Address | [address] | | | [place] [address] | + + + | Home Phone | | + + + | Preferred Language | Unknown | + + + | Marital Status | | + + + | Church Affiliation | Unknown | + + + | Race | Unknown | + + + | Ethnic Group | Unknown | + + + Author + + + | Author | [facility] | | | and [place] | + + + | Organization | [facility] | | | [...] [place] | | | | | [address] | | + + + + + Care Team Providers + +------+ + | Care Stone Carver Name | Role | Phone | + +------+ + PCP | Unavailable | + +------+ + Encounter Details +--------+ + + + + | Date | Type | Department | Care Team | Description | +--------+ + + + + | 04/10/ | Hospital | [facility] | Jero Morales | | | 2005 | Encounter | MED CTR SLEEP | [place] [address] | | | | | [place] [address] | [address] [place] | | | | | [place], [place] | [place] [address] | | | | | [address] | [phone] | | | | | [phone] | | | +--------+ + + + [...]
--- OUTSIDE RECORDS SUMMARY | ~2019-03-21 | XMS | Encounter Summary ---
Demographics + + + | Address | [address] | | | [place] [address] | + + + | Home Phone | | + + + | Preferred Language | Unknown | + + + | Marital Status | | + + + | Quaker Affiliation | Unknown | + + + | Race | Unknown | + + + | Ethnic Group | Unknown | + + + Author + + + | Author | [facility] | | | and [place] | + + + | Organization | [facility] | | | and [...] [place] | | | | | [address] | | + + + + + Care Team Providers + +------+ + | Care Intern Brand Name | Role | Phone | + [...] | | | [address] | [address] [place], [place] | | | | | [place], [place] | [address] | | | | | [address] | | | | | | [phone] | | | +--------+ + + + [...] | maxP.49 mmHg TR Vmax: 2.37 m/s Industry Consultant: | | | Authenticated by: ISRAEL BENEDICT [...] cmLVPWd: 0.94 cmLVOT Area: | | 4.21 am5UFBY Diam: 2.31 cm%FS: 38.09 %EF(Teich): 68.11 %ESV(Teich): [...] (A-L): | | 23.96 ml/m2LAAs A2C: 19.09 vc0GBCPF A-L A2C: 63.58 mlLALs A2C: 4.86 cmLAAs A4C: | | 14.87 fs0HXNRT A-L A4C: 38.64 mlLALs A4C: 4.86 cmRAAs: 11.54 ch2OGQSZ A-L: | | 24.72 mlRAESV MOD: 23.48 mlRALs: 4.57 cmAo Diam: 3.09 cmLA Diam: 3.87 cmLA/Ao: | | 1.25AV maxP.13 mmHgAV meanP.15 mmHgAV Vmax: 1.23 m/Leo Vmean: 0.83 | | m/Leo VTI: 28.28 cmAVA Vmax: 3.19 cm2AVA (VTI): 2.91 tp4SYGO Vmax: 0.00 | | cm2/m2AVAI (VTI): 0.00 cm2/m2LVOT maxP.52 mmHgLVOT meanP.73 mmHgLVSI Dopp: | | 39.87 ml/m2LVSV Dopp: 82.54 mlLVOT Vmax: 0.93 m/sLVOT Vmean: 0.61 m/sLVOT VTI: | | 19.56 cmMV A Jay[place]: 0.87 m/sMV DecT: 151.89 msMV E [place]: 1.16 m/sMV E/A Ratio: | | 1.33MV PHT: 44.05 msMVA By PHT: 4.99 tu5Njlghr e': 0.09 m/sSeptal E/e': | | 12.60Lateral e': 0.10 m/sLateral E/e': 11.23RAP: 5 mmHgRVSP: 27.49 mmHgTR maxPG: | | 22.49 mmHgTR Vmax: 2.37 m/s Industry Consultant: DHAuthenticated by: ISRAEL BENEDICT, | | MDReport [...] |TR Vmax: 2.37 m/s | | | |Industry Consultant: | |Authenticated by: ISRAEL BENEDICT MD | [...]
--- OUTSIDE RECORDS SUMMARY | ~2019-03-21 | XMS | Encounter Summary ---
Demographics + + + | Address | [address] | | | [place] [address] | + + + | Home Phone | | + + + | Preferred Language | Unknown | + + + | Marital Status | | + + + | Uatsdin Affiliation | Unknown | + + + | Race | Unknown | + + + | Ethnic Group | Unknown | + + + Author + + + | Author | [facility] | | | and [place] | + + + | Organization | [facility] | | | [...] [place] | | | | | [address] | | + + + + + Care Team Providers + +------+ + | Care Talent Acquisition Director Name | Role | Phone | + [...] Closed | | | Diagnoses | | | | | | | U/S LIVER | | | | | | | BIOPSY | | | | | | | Procedures | | | | | | | DI: OTHER | | | +--------+--------+ + + + + Encounter Details +--------+ + + + + | Date | Type | Department | Care Team | Description | +--------+ + + + + | 02/17/ | Hospital | [facility] | Sina Kraft MD | Abnormal CT of liver | | 2013 | Encounter | MED CTR [facility] PRE OP | [address] | | | | | [address] | [place] | | | | | [place] [address] | [address] | | | | | [phone] | [phone] | | | | | | | [...] + + + | Blood Pressure | 112/82 | 02/17/2014 11:30 AM | | | | | PDT | | + + + + + | Pulse | 73 | 02/17/2014 11:30 AM | | | | | PDT | | + + + + + | Temperature | 36.9 C (98.4 F) | 02/17/2014 8:09 AM | | | | | PDT | | + + + + + | Respiratory Rate | 15 | 02/17/2014 11:30 AM | | | | | PDT | | + + + + + | Oxygen Saturation | 95% | 02/17/2014 11:30 AM | | | | | PDT | | + + + + + | Inhaled Oxygen | - | - | | | Concentration | | | | + + + + + | Weight | 83.5 kg (184 lb) | 02/17/2014 8:09 AM | | | | | PDT | | + + + + + | Height | 175.3 cm (5' 9") | 02/17/2014 8:09 AM | | | | | PDT | | + + + + + | Body Mass Index | 27.17 | 02/17/2014 8:09 AM | | | | | PDT | | + + + + + documented in this encounter Discharge Instructions Instructions Sabrina Haque RN - 02/17/2014 Liver Biopsy Beforeyour liver biopsy, ask your doctor any questions you have. During a liver biopsy, your doctor inserts a needle throughyour skin (percutaneous) and i nto your liver. He or she removes asmall sample of liver tissue and sends itto a lab to be examined. Your health care provider will give you an ultrasound of your lower chest and upper abdomin al area to help find the best site for your biopsy. Getting Ready Be sure to have any blood tests that your doctor orders. Stop taking aspirin and other medications as directed. Do not eat or drink anything after midnight before your biopsy. Arrange for someone to drive you home after your biopsy. During the Procedure After changing into a hospital gown, you lie on your back or your left side. Part of you r body is draped. Your health care provider checks your blood pressure, pulse, breathing, and temperature. Your health care provider may give youa sedative through an IV (intravenous) line, but usually he or she will give you a local anesthetic in the skin around the biopsy site. He or she inserts a small syringe through a tiny incision in your abdominal wall. A small sample of liver tissue is taken out. While this is done, you will be told to hol d your breath. The needle is removed. A health care provider placesa bandage over the incision site. He or she may ask you t o lie for a while on your right side. A pillow or special sandbag may be used to apply press ure to the incision site. You will be monitored for a few hours after your biopsy. When to Call Your Doctor Call your doctor right away if you have any of the following: Severe pain near the biopsy site or in your abdomen or chest Fainting or feeling lightheaded Trouble breathing Fever Bleeding from the incision site Rectal bleeding After the Procedure Have someone drive you home after your liver biopsy. You may feel some pain near the biopsy site or in your right shoulder (as a result of referral pain). Get plenty of rest. Avoid al cohol, aspirin, heavy lifting, and exercise for a few days. Follow your doctor s advice. Getting Your Results Getting your biopsy results may take a few days. When the results are ready, your doctorw ill discuss them with you. [id number] [facility], [address] [place] [address], [place] [address]. All rights reserve d. This information is not intended as a substitute for professional medical care. Always fo llow your healthcare professional's instructions. documented in this encounter Medications at Time of Discharge + + + +---------+--------+ + | Medication | Sig | Dispensed | Refills | Start | End Date | | | | | | Date | | + + + +---------+--------+ + | B Complex-C (SUPER | Take 1 tablet by | | 0 | | | | B COMPLEX PO) | mouth Daily. | | | | | + + + +---------+--------+ + | Cholecalciferol | Take by mouth | | 0 | | | | (VITAMIN D3) 3000 | Daily. | | | | | | UNITS TABS | | | | | | + + + +---------+--------+ + | ferrous sulfate | Take 325 mg by mouth | | 0 | | | | 325 mg tablet | daily (with | | | | | | | breakfast). | | | | | + + + +---------+--------+ + | Multiple | Take 1 tablet by | | 0 | | | | Vitamins-Minerals | mouth Daily. | | | | | | (MULTIVITAMIN PO) | | | | | | + + + +---------+--------+ + | Potassium | Take 1 tablet by | | 0 | | | | Gluconate 595 MG | mouth Daily. | | | | | | CAPS | | | | | | + + + +---------+--------+ + | tamsulosin | Take 0.4 mg by mouth | | 0 | | | | (FLOMAX) 0.4 mg CAPS | daily (after | | | | | | | breakfast). | | | | | + + + +---------+--------+ + | tocopherol | Take 1,000 Units by | | 0 | | | | (VITAMIN E) 400 | mouth Daily. | | | | | | units capsule | | | | | | + + + +---------+--------+ + | zolpidem (AMBIEN) | Take 10 mg by mouth | | 0 | | | | 10 mg tablet | nightly as needed. | | | | | + + + +---------+--------+ + | aspirin 81 mg EC | Take 81 mg by mouth | | 0 | | | | tablet | Daily. | | | | 9 | + + + +---------+--------+ + | cyclobenzaprine | Take 10 mg by mouth | | 0 | | | | (FLEXERIL) 10 mg | 3 times daily as | | | | 9 | | tablet | needed. | | | | | + + + +---------+--------+ + | DULoxetine | Take 30 mg by mouth | | 0 | | | | (CYMBALTA) 30 mg | Daily. | | | | 9 | | capsule | | | | | | + + + +---------+--------+ + | morphine (MSIR) 30 | Take 30 mg by mouth | | 0 | | | | MG tablet | every 6 hours as | | | | 9 | | | needed. | | | | | + + + +---------+--------+ + | omeprazole | Take 20 mg by mouth | | 0 | | | | (PRILOSEC) 20 mg | every morning | | | | 9 | | capsule | (before breakfast). | | | | | + + + +---------+--------+ + documented as of this encounter Plan of Treatment Not on filedocumented as of this encounter Procedures + +--------+ + + + | Procedure Name | Priori | Date/Time | Associated Diagnosis | Comments | | | ty | | | | + +--------+ + + + | DI: OTHER | | 02/17/2014 | U/S LIVER BIOPSY | | | | | 5:00 PM | | | | | | PDT | | | + +--------+ + + + | US GUIDED LIVER | Routin | 02/17/2014 | Abnormal CT of | Results for this | | BIOPSY | e | 11:27 AM | liver | procedure are in the | | | | PDT | | results section. | + +--------+ + + + | CULTURE, FUNGUS, | Routin | 02/17/2014 | | Results for this | | SMEAR | e | 10:19 AM | | procedure are in the | | | | PDT | | results section. | + +--------+ + + + | CULTURE, AFB SMEAR | Routin | 02/17/2014 | | Results for this | | | e | 10:19 AM | | procedure are in the | | | | PDT | | results section. | + +--------+ + + + documented in this encounter Results US Guided Liver Biopsy [...] performed through the introducer with an 18-gauge Biopince biopsy | | | gun. Two specimens [...] function testsCOMPARISON: RIGHT UPPER QUADRANT ULTRASOUND DECEMBER 29 | | 2013, CT ABDOMEN 2013PROCEDURE: After [...] through | | the introducer with an 18-gaugeScicastspince biopsy gun. Two specimens were placed in [...] + | MISCELLANEOUS LAB | | | [phone] | + +---------+ + + | MISCELANIOUS LAB | | | [phone] | + +---------+ + + Culture, Fungus, Smear (02/17/2014 10:19 AM PDT) + + + + + + | Component | Value | Ref Range | Performed | Pathologist | | | | | At | Signature | + + + + + + | FUNGAL | See CommentsComment: | | REFERENCE | | | CULTURE | Accession No. | | [facility] | | | RESULT | | | | | | | [id number] | | | | | | Source | | | | | | LiverFungus | | | | | | Stain | | | | | | No Yeast or | | | | | | Fungus seenResult | | | | | | | | | | | | No Yeast or | | | | | | Fungus isolated | | | | + + + + + + | Report | Report Status | | REFERENCE | | | Status | Final | | [facility] | | | | 03/20/2014Comment: | | | | | | Testing Performed: | | | | | | [facility] | | | | | | [facility], [address] | | | | | | [address] [place] [address] | | | | + + + + + + + + | Specimen | + + | Soft tissue sample | | (specimen) - Liver | + + + + + | Narrative | Performed At | + + + | Please specify site/laterality >Random liver biopsy | REFERENCE LAB | | | [facility] | + + + + + + + + | Performing | Address | City/State/Zipcode | Phone Number | | Organization | | | | + + + + + | [facility] | [address] | [place] [address] | [phone] | + + + + + Culture, AFB Smear (02/17/2014 10:19 AM PDT) + + + + + + | Component | Value | Ref Range | Performed | Pathologist | | | | | At | Signature | + + + + + + | Culture | No Acid Fast Bacilli | | [facility] | | | | isolated. | | [facility] | | | | | | MEDICAL | | | | | | CENTER - | | | | | | LABORATORY | | + + + + + + | AFB Stain | No Acid Fast Bacilli | | [facility] | | | | seen on direct | | [facility] | | | | smear.Comment: Both | | MEDICAL | | | | Fluorescent and [facility] | | CENTER - | | | | stains. | | LABORATORY | | + + + + + + + + | Specimen | + + | Tissue - Specimen | | from liver | | (specimen) | + + + + + | Narrative | Performed At | + + + | 04/17 No AFB at 8 weeks. [place] | [facility] | | | [facility] | | | [facility] | | | - LABORATORY | + + + + + + + + | Performing | Address | City/State/Zipcode | Phone Number | | Organization | | | | + + + + + | [facility] | [address] | [place] | [phone] | | [facility] | | [address] | | | - LABORATORY | | | | + + + + + | [facility] | [address] | [place] | | | [facility] | | [address] | | | - LABORATORY | | | | + + + + + documented in this encounter Visit Diagnoses + + | Diagnosis | + + | Abnormal CT of liver Nonspecific abnormal results of liver function study | + + documented in this encounter Administered Medications + +--------+ +---------+------+------+ | Medication Order | MAR | Action | Dose | Rate | Site | | | Action | Date | | | | + +--------+ +---------+------+------+ | fentaNYL injection PRN, Pain, | Given | 02/18/20 | 100 mcg | | | | Starting 02/17/14 at 0939 | | 14 9:39 | | | | | | | AM PDT | | | | + +--------+ +---------+------+------+ +---+---+ | | | +---+---+ + +-------+ +------+---+---+ | midazolam (VERSED) 1 mg/mL | Given | 02/18/20 | 1 mg | | | | injection PRN, Anxiety, Starting | | 14 9:45 | | | | | 02/17/14 at 0939 | | AM PDT | | | | + +-------+ +------+---+---+ +-------+ +------+---+---+ | Given | 02/18/20 | 1 mg | | | | | 14 9:39 | | | | | | AM PDT | | | | +-------+ +------+---+---+ +---+---+ | | | +---+---+ + +---------+ +---+ +---+ | sodium chloride 0.9% (NS) | New Bag | 02/18/20 | | 50 mL/hr | | | infusion at 50 mL/hr, | | 14 9:00 | | | | | Intravenous, CONTINUOUS, Starting | | AM PDT | | | | | 02/17/14 at 0845, OK to use | | | | | | | implantable port., Pre-op | | | | | | + +---------+ +---+ +---+ +---+---+ | | | +---+---+ documented in this encounter
--- OUTSIDE RECORDS SUMMARY | ~2019-03-21 | XMS | Encounter Summary ---
Demographics + + + | Address | [address] | | | [place] [address] | + + + | Home Phone | | + + + | Preferred Language | Unknown | + + + | Marital Status | | + + + | Latter Day Affiliation | Unknown | + + + | Race | Unknown | + + + | Ethnic Group | Unknown | + + + Author + + + | Author | [facility] | | | and [place] | + + + | Organization | [facility] | | | [...] [place] | | | | | [address] | | + + + + + Care Team Providers + +------+ + | Care Web Production Manager Name | Role | Phone | + +------+ + PCP | Unavailable | + +------+ + Encounter Details +--------+ + + + + | Date | Type | Department | Care Team | Description | +--------+ + + + + | 04/11/ | Hospital | [facility] | Jero Morales | | | 2005 | Encounter | MED CTR SLEEP | [place] [address] | | | | | [place] [address] | [address] [place] | | | | | [place], [place] | [place] [address] | | | | | [address] | [phone] | | | | | [phone] | | | +--------+ + + + [...]
--- OUTSIDE RECORDS SUMMARY | ~2019-03-21 | XMS | Encounter Summary ---
Demographics + + + | Address | [address] | | | [place] [address] | + + + | Home Phone | | + + + | Preferred Language | Unknown | + + + | Marital Status | | + + + | Sabianist Affiliation | Unknown | + + + | Race | Unknown | + + + | Ethnic Group | Unknown | + + + Author + + + | Author | [facility] | | | and [place] | + + + | Organization | [facility] | | | [...] [place] | | | | | [address] | | + + + + + Care Team Providers + +------+ + | Care Commercial Real Estate Attorney Name | Role | Phone | + [...] | [address] | [place] | | | | | [address] [place], [place] | [place], [place] | | | | | [address] | [address] | | | | | [phone] | | | +--------+ + + + [...]
--- OUTSIDE RECORDS SUMMARY | ~2019-03-21 | XMS | Encounter Summary ---
Demographics + + + | Address | [address] | | | [place] [address] | + + + | Home Phone | | + + + | Preferred Language | Unknown | + + + | Marital Status | | + + + | Presybeterian Affiliation | Unknown | + + + | Race | Unknown | + + + | Ethnic Group | Unknown | + + + Author + + + | Author | [facility] | | | and [place] | + + + | Organization | [facility] | | | and [place] | + + + | Address | Unknown | + + + | Phone | Unavailable | + + + Support + + + + + | Name | Relationship | Address | Phone | + + + + + | Maeve Glass | ECON | [address] | | | | | [place] | | | | | [address] | | + + + + + Care Team Providers + +------+ + | Care Machine Ii Cutter Name | Role | Phone | + +------+ + | Toi Leung MD | PCP | | + +------+ + Encounter Details +--------+ + + + + | Date | Type | Department | Care Team | Description | +--------+ + + + + | 01/31/ | Hospital | [facility] | [facility], | Abnormal CT of liver | | 2014 | Encounter | MED CTR XRAY [address] | [place], EQUIPMENT SPECIALIST [address] | | | | | [place] | [place] | | | | | [place] [address] | [place], [place] | | | | | [phone] | [address] | | | | | | | [...] | + + + +---------+--------+ + | gabapentin | Take 1,200 mg by | | 0 | | | | (NEURONTIN) 600 MG | mouth 3 times daily. | | | | 4 | | tablet | | | | | | + + + +---------+--------+ + | | Take 1 tablet by | | 0 | | | | HYDROcodone-acetamin | mouth every 6 hours | | | | 4 | | ophen (NORCO) 5-325 | as needed. | | | | | | mg [...] | + + + +---------+--------+ + | oxyCODONE | Take 5 mg by mouth | | 0 | | | | (ROXICODONE) 5 mg | every 8 hours as | | | | 4 | | tablet | needed. | | [...] +--------+ + + + | XR CHEST PA AND | Routin | 01/31/2014 | Abnormal CT of | Results for this | | LATERAL | e | 9:21 AM | liver | procedure are in the | | | | PDT | | results section. | + +--------+ + + + documented in this encounter Results XR Chest PA and Lateral (01/31/2014 9:21 [...] + | MISCELLANEOUS LAB | | | [phone] | + +---------+ + + | MISCELANIOUS LAB | | | [phone] | + +---------+ + + documented in this encounter Visit Diagnoses + + | Diagnosis | + + | Abnormal CT of liver Nonspecific abnormal results of liver function study | + + documented in this encounter"
--- OUTSIDE RECORDS SUMMARY | ~2019-03-21 | XMS | Encounter Summary ---
Demographics + + + | Address | [address] | | | [place] [address] | + + + | Home Phone | | + + + | Preferred Language | Unknown | + + + | Marital Status | | + + + | Voodoo Affiliation | Unknown | + + + [...] [address] | | | | | [place] | | | | | [address] | | + + + + + Care Team Providers + +------+ + | Care Academic Support Specialist Name | Role | Phone | + +------+ + | Kenroy Escamilla PCP | | + +------+ + Reason for Visit + + + | Reason | Comments | + + + | New Patient | | + + + | Dysphagia | | + + + | Weight Loss | | + + + Evaluate & Treat (Routine) +--------+--------+ + + + + | Status | Reason | Specialty | Diagnoses / | Referred By | Referred To | | | | | Procedures | Contact | Contact | +--------+--------+ + + + + | Closed | | Gastroenterol | Diagnoses | Andi, | [facility] | | | | ogy | Dysphagia, | Kenroy G | Gastroenterol | | | | | unspecified | [address] | [address] | | | | | | [address] | [address] | | | | | | [place], | [address] | | | | | | [place] [address] | [place] | | | | | | Phone: | [phone] | | | | | | [phone] | Phone: | | | | | | Fax: | [phone] | | | | | | [phone] | Fax: | | | | | | | [phone] | +--------+--------+ + + + + Encounter Details +--------+---------+ + + + | Date | Type | Department | Care Team | Description | +--------+---------+ + + + | 01/19/ | Office | [facility] | [place], | Abdominal pain, | | 2019 | Visit | GASTROENTEROLOGY | SHANIQUA Osborne [address] | generalized (Primary | | | | [address] | [place], [address] | Dx); S/P gastric | | | | [address] [place], [place] | [place], [place] | bypass | | | | [address] | [id number] | | | | | [phone] | | | +--------+---------+ + + + [...] + + + + | Temperature | - | - | | + [...] + documented as of this encounter [employer] [place] Smith ARNP - 01/19/2019 9:00 AM PDTFormatting of this note might be differe nt from the original. PATIENT NAME: Jero Glass Jr. : 1960: AGE: 59 y.o. REFERRED BY: In System Provider Not PRIMARY CARE: Kenroy Escamilla Subjective: CHIEF COMPLAINT: Jero Glass Jr. is a 59 y.o. male referred by Kenroy Escamilla for evaluation and treatment of abdominal discomfort. HISTORY OF PRESENT ILLNESS: Patient states that he has an issue of chronic kidney stones. Patient states that about 1 month ago. He states that he felt like his esophagus tightened up and he was not able to eat. It has been an intolerable pain 2 times. He went to the ED du ring these times. He states that after he eats, he can have episodes where he About 5 years ago, he states that he was in increased pain. He was found to have a "twisted intestines." He has history of fermín en y in 2005. It was done in [place]. He has not been seen back the since. He has had EGD done by surgeon and is scheduled for colonoscopy in [facility], [place] MEDICAL, SURGICAL, AND PERSONAL HISTORY: BP 100/64 | Pulse 105 | Resp (!) 6 | Ht 1.753 m (5' 9") | Wt 69.8 kg (153 lb 14.1 oz) | BMI 22.72 kg/m Allergies Allergen Reactions Penicillins Hives and Rash Adhesive & Tape Other (See Comments) Burned skin Azithromycin Nausea And Vomiting Erythromycin Diarrhea Past Medical History: Diagnosis Date Abdominal pain Anxiety stress induced Backache 07/24/2005 Wu's esophagus chronic Borderline glaucoma Chronic pain Depressive disorder, not elsewhere classified 07/24/2005 Diabetes (HCC) resolved after weight loss from gastric bypass Diverticulosis Dysphagia Enthesopathy Essential hypertension with goal blood pressure less than 140/90 11/23/2015 GERD (gastroesophageal reflux disease) H/O gastric bypass Heart murmur All the time Herniated lumbar intervertebral disc History of diabetes mellitus resolved since weight loss Hx of sinus tachycardia Kidney stones Morbid obesity (HCC) 07/24/2005 Narcolepsy Nephrolithiasis Osteoporosis Osteoporosis Postural dizziness with presyncope 11/23/2015 Precordial pain 11/23/2015 Pure hypercholesterolemia 07/24/2005 Renal calculi recurrent S/P gastric bypass 03/26/2014 Sleep apnea 07/24/2005 using CPAP Small bowel obstruction (HCC) x2 SOB (shortness of breath) on exertion 07/24/2005 Spondylolisthesis, lumbosacral region Stress incontinence, male 07/24/2005 Tendonitis Transient ischemic attack Tremor Type II or unspecified type diabetes mellitus without mention of complication, not stat ed as uncontrolled 07/24/2005 Vasovagal syncope 11/20/2015 Last Assessment & Plan: No syncopal events since last visit He was admitted to [facility] for c hest pain- underwent echo, stress test and monitoring- did not show any abnormalities His sy mptoms appear vasovagal syncope/ POTS His symptoms also could be related to polypharmacy- pa in medications- he will discuss with his PMD regarding changing or adjusting his medications 11/24/2015- Echo normal LV systoli Past Surgical History: Procedure Laterality Date APPENDECTOMY 1988 BACK SURGERY x2 CHOLECYSTECTOMY 2005 COLON SURGERY 2012 COLONOSCOPY EGD AND COLONOSCOPY 12/31/2010 Diagnosis: 1. 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 Sigmoid diverticulosis, mild with mild proctitis. [facility] Dr. Torrez GASTRIC BYPASS SURGERY 2006 Implantation nerve stimulator 10/2013 LAPAROTOMY 12/26/2012 reduction and repair of internal hernia [facility] Dr. Lundberg LAPAROTOMY 03/26/2014 EXPLORATORY LAPAROTOMY [1197] w lysis of adhesions; Laterality: N/A; Surgeon: Cezar coates MD; Location: [facility] MAIN OR LIVER BIOPSY 02/17/14 [facility] OTHER SURGICAL HISTORY EXPLORATORY LAPAROTOMY W/ BOWEL RESECTION - x2 bowel obstruction OTHER SURGICAL HISTORY SPINAL CORD STIMULATOR IMPLANT POLYPECTOMY Diverticulosis ROTATOR CUFF REPAIR Left x2 SMALL INTESTINE SURGERY 2013 SPINAL FUSION 06/2012 with hardware placement STOMACH SURGERY TONSILLECTOMY AND ADENOIDECTOMY 1986 TUMOR EXCISION Right inferior abdominal wall tumor US abdominal Limited 12/29/2013 Impression: Liver granuloma but otherwise normal appearance. Nephrolithiasis [facility] ~ June Family History Problem Relation Age of Onset Heart disease Father Hypertension Father Elevated lipids Father Obesity Father Stroke Father Heart attack Paternal Grandmother Hypertension Paternal Grandmother Social History Socioeconomic History Marital status: Spouse name: Not on file Number of children: 2 Years of education: Not on file Highest education level: Not on file Social Needs Financial resource strain: Not on file Food insecurity - worry: Not on file Food insecurity - inability: Not on file Transportation needs - medical: Not on file Transportation needs - non-medical: Not on file Occupational History Not on file Tobacco Use Smoking status: Former Smoker Packs/day: 1.00 Years: 15.00 Pack years: 15.00 Types: Cigarettes Last attempt to quit: 01/30/1989 Years since quittin.9 Smokeless tobacco: Never Used Substance and Sexual Activity Alcohol use: Not Currently Drug use: Never Comment: Drug use: No Sexual activity: Not on file Other Topics Concern Not on file Social History Narrative Merged History Encounter Review of Systems Constitutional: Negative for diaphoresis, fatigue, fever and unexpected weight change. HENT: Negative for congestion, hearing loss, mouth sores, rhinorrhea and trouble swallowing . Eyes: Negative for redness and visual disturbance. Respiratory: Negative for cough, choking, chest tightness, shortness of breath and wheezing . Cardiovascular: Negative for chest pain, palpitations and leg swelling. Gastrointestinal: Positive for abdominal pain and constipation. Negative for abdominal dist ention, anal bleeding, blood in stool, diarrhea, nausea, rectal pain and vomiting. Complains of hemorrhoids and heartburn. Endocrine: Denies enlarged thyroid Genitourinary: Negative for dysuria, flank pain and frequency. Musculoskeletal: Negative for arthralgias, back pain and joint swelling. Skin: Negative for color change and rash. Neurological: Negative for seizures, syncope, weakness, numbness and headaches. Hematological: Does not bruise/bleed easily. Denies anemia or enlarged lymph glands. Psychiatric/Behavioral: Negative for dysphoric mood. The patient is not nervous/anxious. Objective: Physical Exam Constitutional: He is oriented to person, place, and time. He appears well-developed and we ll-nourished. No distress. HENT: Head: Normocephalic and atraumatic. Eyes: No scleral icterus. Musculoskeletal: Normal range of motion. He exhibits no edema or deformity. Neurological: He is alert and oriented to person, place, and time. Skin: Skin is warm and dry. No rash noted. Psychiatric: He has a normal mood and affect. His speech is normal and behavior is normal. Nursing note and vitals reviewed. Abstract on 01/13/2019 Component Date Value Ref Range Status Creatinine, External 08/20/2018 0.9 0.7 - 1.33 Final eGFR, External 08/20/2018 >60 60 - 99,999 Final Sodium, External 08/20/2018 140 132 - 143 Final Potassium, External 08/20/2018 4 3.6 - 5.1 Final Chloride, External 08/20/2018 108 95 - 112 Final Carbon Dioxide, External 08/20/2018 22 19 - 31 Final Calcium, External 08/20/2018 9 8.5 - 10.3 Final Protein, Total, External 08/20/2018 6.5 6 - 8.3 Final Albumin, External 08/20/2018 4.2 3.5 - 5 Final Bilirubin, Total, External 08/20/2018 0.5 0 - 1.2 Final ALP, External 08/20/2018 65 31 - 120 Final AST, External 08/20/2018 11* 13 - 39 Final ALT, External 08/20/2018 9 7 - 52 Final Glucose, External 08/20/2018 93 70 - 100 Final BUN, External 08/20/2018 11 6 - 23 Final Anion Gap 08/20/2018 14 7 - 21 mmol/L Final BUN/Creatinine Ratio 08/20/2018 12.2 6 - 28.6 Final Globulin 08/20/2018 2.3 1.8 - 3.5 Final Albumin/Globulin Ratio 08/20/2018 1.8 1.1 - 2.4 Final TSH, External 08/20/2018 1.13 0.27 - 4.2 Final WBC, External 08/20/2018 4.9 4.5 - 11 Final HGB, External 08/20/2018 13.6 13.5 - 18 Final HCT, External 08/20/2018 40.4* 41 - 50 Final PLT, External 08/20/2018 300 140 - 440 Final Neutrophils %, External 08/20/2018 49.9 39 - 80 Final Lymphocytes %, External 08/20/2018 40 24 - 44 Final Monocytes %, External 08/20/2018 6.7 0 - 12 Final Eosinophils %, External 08/20/2018 3 0 - 6 Final RBC, External 08/20/2018 3.61* 4.3 - 5.7 Final MCV, External 08/20/2018 112* 81 - 99 Final RDW, External 08/20/2018 14.3 10.5 - 15 Final MCH 08/20/2018 38* 27 - 33 Final MCHC 08/20/2018 34 30 - 36 Final BF % Basophils 08/20/2018 0 0 - 2 % Final LDL Cholesterol, Direct, External 08/20/2018 91 0 - 100 Final Cholesterol, Total, External 08/20/2018 181 0 - 200 mg/dl Final HDL Cholesterol, External 08/20/2018 44.9 40 - 99,999 mg/dl Final Triglycerides, External 08/20/2018 226* 30 - 150 Final VLDL Cholesterol Bennett 08/20/2018 45* 4 - 40 Final Chol/HDL Ratio 08/20/2018 4.0 0.0 - 5.0 Final Non HDL Chol. (LDL+VLDL) 08/20/2018 136* 0 - 130 Final UA Blood, External 08/20/2018 Negative Final UA Glucose, External 08/20/2018 Normal Final UA Ketones, External 08/20/2018 Trace Final UA Ph, External 08/20/2018 5 5 - 9 Final UA Proteins, External 08/20/2018 Negative Final UA RBC, External 08/20/2018 2 0 - 4 Final UA Specific [place], External 08/20/2018 1.020 1.005 - 1.03 Final UA Leukocyte Esterase, External 08/20/2018 Negative Final COLLECTION METHOD 1 08/20/2018 Clean Catch Final Color 08/20/2018 Yellow Final Clarity 08/20/2018 Clear Final Bilirubin, Urine 08/20/2018 Negative Negative Final Nitrite, Urine 08/20/2018 Negative Negative Final Urobilinogen, Urine 08/20/2018 Normal < 0.2 mg/dL, 1.0 mg/dL, 4.0 mg/dL, Normal, 1.0 E .U./dL, 0.2 E.U./dL, 0.2 mg/dL, Negative, 1 mg/dL, <2.0 mg/dL Final CASTS 08/20/2018 1+ Final WBC 08/20/2018 2 0 - 4 Final Squamous epithelial, UA, POC 08/20/2018 1+ Final CRYSTAL UA 08/20/2018 Negative Final BACTERIA UA 08/20/2018 Negative Negative /HPF Final Assessment: 1. Abdominal pain, generalized 2. S/P gastric bypass Plan: Encouraged patient to follow up in [place] where he had his bariatric surgery. Patient and agree to plan. Referral will need to come from Kenroy Escamilla. Patient is to call with any question or concerns. Any fevers, chills, chest pain, SOB or o ther serious symptoms patient is to call the office or go to ER CC: Kenroy Escamilla This note was dictated using voice recognition software. Please contact me if there are an y questions regarding its content.Electronically signed by SHANIQUA Barrios at 01/19 7:37 PM PDTdocumented in this encounter Plan of Treatment Not on filedocumented as of this encounter Visit Diagnoses + + | Diagnosis | + + | Abdominal pain, generalized - Primary | + + | S/P gastric bypass Bariatric surgery status | + + documented in this encounter
--- OUTSIDE RECORDS SUMMARY | ~2019-03-21 | XMS | Encounter Summary ---
Demographics + + + | Address | [address] | | | [place] [address] | + + + | Home Phone | | + + + | Preferred Language | Unknown | + + + | Marital Status | | + + + | Zoroastrianism Affiliation | Unknown | + + + | Race | Unknown | + + + | Ethnic Group | Unknown | + + + Author + + + | Author | [facility] | | | and [place] | + + + | Organization | [facility] | | | [...] [place] | | | | | [id number] | | + + + + + Care Team Providers + +------+ + | Care Direct Marketing Analyst Name | Role | Phone | + +------+ + | Mila Majano PA-C | PCP | | + +------+ + Reason for Visit + + + | Reason | Comments | + + + | Abdominal Pain | | | (Severe) | | + + + Auth/Cert +--------+--------+ + + + + | [...] | | | bowel | | [address] | | | | | obstruction) | | [place], | | | | | ([facility]) SBO | | [place] [address] | | | | | (small bowel | | Phone: | | | | | | | [phone] | | | | | obstruction) | | Fax: | | | | | ([facility]) | | [phone] | | | | | SBO (small | | | | | | | bowel | | | | | | | obstruction) | | | | | | | (HCC) | | | | | | | [...] | +--------+ + + + + | 03/25/ | Hospital | [facility] | Kenroy Anthony | SBO (small bowel | | 2014 - | Encounter | [facility] | Jaya Alanis MD | obstruction) (HCC) | | | | [address] | [address] | (Primary Dx) | | 03/29/ | | [place] [address] | [place] | | | 2013 | | [phone] | [address] | | | | | | | | | | | | Cezar Salcido MD | | | | | | [address] | | | | | | [place], [place] | | | | | | [address] | | | | | | [phone] | | | | | | | [...] + + + | Blood Pressure | 140/83 | 03/29/2014 12:00 PM | | | | | PST | | + + + + + | Pulse | 83 | 03/29/2014 12:00 PM | | | | | PST | | + + + + + | Temperature | 35.7 C (96.3 F) | 03/29/2014 12:00 PM | | | | | PST | | + + + + + | Respiratory Rate | 18 | 03/29/2014 12:00 PM | | | | | PST | | + + + + + | Oxygen Saturation | 96% | 03/29/2014 12:00 PM | | | | | PST | | + + + + + | Inhaled Oxygen | - | - | | | Concentration | | | | + + + + + | Weight | 84.9 kg (187 lb 2.7 | 03/25/2014 5:37 PM | | | | oz) | PST | | + + + + + | Height | 175.3 cm (5' 9") | 03/25/2014 5:37 PM | | | | | PST | | + + + + + | Body Mass Index | 27.64 | 03/25/2014 5:37 PM | | | | | PST [...] documented as of this encounter Discharge Summaries Cezar Salcido MD - 03/29/2014 7:22 AM PST Physician Discharge Summary Patient ID: Jero Glass Jr. [id number] 54 y.o. 1960 Admit date: 03/25/2014 Discharge date and time: No discharge date for patient encounter. Admitting Physician: Cezar Salcido MD Discharge Physician: Same Admission Diagnoses: SBO (small bowel obstruction) (HCC) [560.9] SBO (small bowel obstruction) (HCC) [560.9] (SBO (small bowel obstruction) (HCC) [560.9]) Discharge Diagnoses: Same Admission Condition: fair Discharged Condition: good Indication for Admission: SBO Hospital Course: The patient was admitted from the ER with an NG tube and IV fluids. Overni ght his pain did not resolve and was taken to the OR on hospital day #1. Post-op he had an N GT for one day and removed. He was started on Clear liquids on POD #2, advanced to fulls on POD #3. He had no fevers during his stay. Pain controlled with a dilaudid BRACELET FORM COVERER then home MS Cuong gaona regimen. Consults: none Significant Diagnostic Studies: Treatments: surgery: Ex lap, DARLIN Disposition: home Patient Instructions: Discharge Medications As of 03/29/2014 7:22 New Medications Details HYDROcodone-acetaminophen 5-325 mg per tablet Take 1-2 tablets by mouth every 4 hours as needed for Pain. aka: NORCO Unchanged Medications Details aspirin 81 mg EC tablet Take 81 mg by mouth Daily. cyclobenzaprine 10 mg tablet Take 10 mg by mouth 3 times daily as needed. aka: FLEXERIL CYMBALTA 30 mg capsule Generic drug: DULoxetine Take 30 mg by mouth Daily. ferrous sulfate 325 mg tablet Take 325 mg by mouth daily (with breakfast). FLOMAX 0.4 mg Caps Generic drug: tamsulosin Take 0.4 mg by mouth as needed. morphine 30 MG tablet Take 30 mg by mouth every 6 hours as needed. aka: MSIR MULTIVITAMIN PO Take 1 tablet by mouth Daily. omeprazole 20 mg capsule Take 20 mg by mouth every morning (before breakfast). aka: priLOSEC Potassium Gluconate 595 MG Caps Take 1 tablet by mouth Daily. SUPER B COMPLEX PO Take 1 tablet by mouth Daily. tocopherol 400 units capsule Take 1,000 Units by mouth Daily. aka: VITAMIN E Vitamin D3 3000 UNITS Tabs Take 1,000 tablets by mouth Daily. zolpidem 10 mg tablet Take 10 mg by mouth nightly as needed. aka: AMBIEN Activity: activity as tolerated, no lifting, Driving, or Strenuous exercise for 4 weeks and no driving while on analgesics Diet: regular diet Wound Care: keep wound clean and dry Follow-up with Dr. Salcido in 10 days. Signed: Cezar Salcido MD 03/29/2014 7:22 documented in this enco unter Discharge Instructions Instructions Cezar Salcido MD - 03/29/2014Keep incision clean and dry You may shower. NO baths/swimming/hot tubs No lifting more than 20 lbs for 4 weeks No driving while on pain meds Use a stool softener while on pain meds documented in this encounter Medications at Time [...] tablets by | 42 | 0 | //20 | | | HYDROcodone-acetamin | mouth every [...] by mouth | | 0 | | 09/18/201 | | (CYMBALTA) 30 mg | Daily. [...] documented as of this encounter Progress Notes Patricia Samaniego RN - 03/29/2014 9:27 AM PSTPt requested to be dis-connected from PC A whole he took a shower, Abd incision and IV site was covered. Patient REFUSED to be recon nected to BRACELET FORM COVERER after shower, stating " I am going home today, I already talked to the doctor, and that thing didn't work anyway". Pt did request MS contin and 2 NORCO PO for pain manag ement. Pt denies nausea, states abd tender R>L. BT+ x4, catarino intact no drainage noted. HRR, LS clear, pt shallow breathes, IS encouraged, splinting education given....Electronica lly signed by Patricia Samaniego RN at 03/29/2014 9:32 AM Cezar Campbell MD - 014 7:25 AM PST [facility] General Surgery Hospital Day: 5 DATE/TIME: 03/29/2014 7:25 54 y.o. year old male POD #3 ASSESSMENT AND PLAN: 1. Tolerated clears, advance to fulls 2. Hydrocodone for breakthrough pain 3. D/C home SUBJECTIVE/ROS: Jero Glass Jr. is now Hospital Day: 5 for SBO. Pain is adequately controlled. P atient is passing flatus. He does not complain of nausea. Currently tolerating a clear li quid diet. CURRENT INFUSIONS HYDROmorphone in saline 30 mg (03/27/14 194) sodium chloride 0.9% with KCl 20 mEq/L 125 mL/hr at 03/29/14 0100 CURRENT MEDICATIONS clindamycin (CLEOCIN) IV 900 mg Intravenous Prior to Incision DULoxetine 60 mg Oral Daily finasteride 5 mg Oral Daily morphine 30 mg Oral Q12H pantoprazole 40 mg Intravenous Daily tamsulosin 0.4 mg Oral Daily I personally reviewed the above medications. OBJECTIVE: Temp: 36.9 C (98.4 F) BP: 131/81 mmHg Pulse: 91 Resp: 16 SpO2: 96 % on Min/Max Temp past 24 hours:Temp Av.5 C (97.7 F) Min: 36.3 C (97.3 F) Max: 3 6.9 C (98.4 F) Intake/Output Summary (Last 24 hours) at 03/29/14 3908 Last data filed at 03/29/14 0455 Gross per 24 hour Intake 3588 ml Output 4125 ml Net -537 ml Wt. Admission: Weight: 83.915 kg (185 lb) Wt. Current: Weight: 84.9 kg (187 lb 2.7 oz) General: alert, appears stated age, cooperative and no distress Heart: Regular rate and rhythm, S1S2 present or without murmur or extra heart sounds Lungs: clear Abdomen: Soft, non-distended. Mild incisional tenderness Incision: C/D/I, no erythema Chemistry: Hematology: Electronically Signed by: Cezar Salcido MD, 03/29/2014 7:25 [facility] Katelyn Smith RN - 03/05 8:50 AM PSTDiet was changed to clear liquid diet. Ambulated in hallway with SB Mark. He also took shower. Back in bed and BRACELET FORM COVERER restarted. Electronically signed by: Katelyn Cardoso RN 03/28/2014 14:26 Cezar Campbell MD - 03/05 8:34 AM PST [facility] General Surgery Hospital Day: 4 DATE/TIME: 03/28/2014 8:34 54 y.o. year old male POD #2 ASSESSMENT AND PLAN: 1. Clear liquids 2. On home MS Contin and dilaudid for breakthrough 3. Ambulate 4. Pulmonary hygiene 5. Potential D/C home tomorrow if pain controlled orally and tolerates diet SUBJECTIVE/ROS: Jero Glass . is now POD #2 s/p Ex Lap, DARLIN. Pain is adequately controlled. Donald woodall is passing flatus. He does not complain of nausea. Denies SOB/CP. CURRENT INFUSIONS HYDROmorphone in saline 30 mg (03/27/141943) sodium chloride 0.9% with KCl 20 mEq/L 125 mL/hr at 03/27/140 CURRENT MEDICATIONS clindamycin (CLEOCIN) IV 900 mg Intravenous Prior to Incision DULoxetine 60 mg Oral Daily finasteride 5 mg Oral Daily morphine 30 mg Oral Q12H pantoprazole 40 mg Intravenous Daily tamsulosin 0.4 mg Oral Daily I personally reviewed the above medications. OBJECTIVE: Temp: 36.5 C (97.7 F) BP: 140/82 mmHg Pulse: 72 Resp: 16 SpO2: 95 % on Min/Max Temp past 24 hours:Temp Av.4 C (97.6 F) Min: 36.1 C (97 F) Max: 36. 9 C (98.4 F) Intake/Output Summary (Last 24 hours) at 03/28/14 0834 Last data filed at 03/28/14 0508 Gross per 24 hour Intake 1392 ml Output 2450 ml Net -1058 ml Wt. Admission: Weight: 83.915 kg (185 lb) Wt. Current: Weight: 84.9 kg (187 lb 2.7 oz) General: alert, appears stated age, cooperative and no distress Heart: Regular rate and rhythm, S1S2 present or without murmur or extra heart sounds Lungs: clear Abdomen: Soft, non-distended. Incisional and RLQ tenderness to moderate palpation Incision: C/D/I, no erythema. Chemistry: Hematology: Electronically Signed by: Cezar Salcido MD, 03/28/2014 8:34 [facility] eidCezar MD - 8:54 AM PST [facility] General Surgery Hospital Day: 3 POD #1 DATE/TIME: 03/27/2014 8:54 54 y.o. year old male hospitalized with SBO which is gradually improving ASSESSMENT AND PLAN: 1. Await return of bowel function 2. Pain control with BRACELET FORM COVERER 3. Ambulate 4. Pulmonary hygiene SUBJECTIVE/ROS: Jero Glass Jr. is now POD #1. Pain is adequately controlled with a dilaudid BRACELET FORM COVERER. Patient is not passing flatus. He does not complain of nausea. CURRENT INFUSIONS HYDROmorphone in saline 0.4 mg (03/26/14 1417) sodium chloride 0.9% with KCl 20 mEq/L 125 mL/hr at 03/27/14 0548 CURRENT MEDICATIONS clindamycin (CLEOCIN) IV 900 mg Intravenous Prior to Incision DULoxetine 60 mg Oral Daily finasteride 5 mg Oral Daily pantoprazole 40 mg Intravenous Daily tamsulosin 0.4 mg Oral Daily I personally reviewed the above medications. OBJECTIVE: Temp: 36.3 C (97.3 F) BP: 140/79 mmHg Pulse: 73 Resp: 16 SpO2: 99 % on Min/Max Temp past 24 hours:Temp Av.3 C (97.3 F) Min: 35.8 C (96.4 F) Max: 3 6.6 C (97.9 F) Intake/Output Summary (Last 24 hours) at 03/27/14 0854 Last data filed at 03/27/14 0546 Gross per 24 hour Intake 3254 ml Output 1860 ml Net 1394 ml Wt. Admission: Weight: 83.915 kg (185 lb) Wt. Current: Weight: 84.9 kg (187 lb 2.7 oz) General: alert, appears stated age, cooperative and no distress Heart: Regular rate and rhythm, S1S2 present or without murmur or extra heart sounds Lungs: clear Abdomen: Very soft, non-distended. Appropriate incisional tenderness Incision: dressing in place, no soilage Chemistry: Hematology: Electronically Signed by: Cezar Salcido MD, 03/27/2014 8:54 [facility] eid, Cezar Flores MD - 9:30 AM PST [facility] General Surgery Hospital Day: 2 DATE/TIME: 03/26/2014 9:30 54 y.o. year old male hospitalized with SBO which is unchanged ASSESSMENT AND PLAN: 1. SBO. Pain persists and no flatus. No resolution of symptoms with trial bowel rest and NG T. Recommended Ex Lap with DARLIN. He agrees 2. Risks discussed: bleeding, infection, possible bowel resection, anastomotic leak, injury to other abdominal organs, MO, DVT or . 3. Surgery this morning. SUBJECTIVE/ROS: Jero Glass Jr. is now Hospital Day: 2 for SBO. Pain is not adequately controlled . 6-02/10 with IV dilaudid. Still in the RLQ. Patient is not passing flatus. He does not c omplain of nausea. NGT is painful. CURRENT INFUSIONS sodium chloride 0.9% with KCl 20 mEq/L 125 mL/hr at 03/26/14 0112 CURRENT MEDICATIONS DULoxetine 30 mg Oral Daily [COMPLETED] HYDROmorphone (DILAUDID) injection 1 mg Intravenous Once [COMPLETED] ondansetron 4 mg Intravenous Once pantoprazole 40 mg Intravenous Daily [COMPLETED] sodium chloride 0.9% 500 mL Intravenous Once tamsulosin 0.4 mg Oral Daily I personally reviewed the above medications. OBJECTIVE: Temp: 35.7 C (96.3 F) BP: 131/83 mmHg Pulse: 68 Resp: 16 SpO2: 95 % on Min/Max Temp past 24 hours:Temp Av.2 C (97.2 F) Min: 35.5 C (95.9 F) Max: 3 7 C (98.6 F) Intake/Output Summary (Last 24 hours) at 03/26/14 0930 Last data filed at 03/26/14 0700 Gross per 24 hour Intake 1577 ml Output 1057 ml Net 520 ml Wt. Admission: Weight: 83.915 kg (185 lb) Wt. Current: Weight: 84.9 kg (187 lb 2.7 oz) General: alert, appears stated age, cooperative and no distress Heart: Regular rate and rhythm, S1S2 present or without murmur or extra heart sounds Lungs: clear Abdomen: Soft, mildly distended. RLQ focal pain without peritoneal signs. Chemistry: Lab Results Component Value Date NA 141 03/26/2014 K 4.2 03/26/2014 CO2 31 03/26/2014 BUN 10 03/26/2014 CREA 0.62 03/26/2014 GLU 88 03/26/2014 Hematology: Lab Results Component Value Date HGB 12.6 03/26/2014 HCT 36.4 03/26/2014 WBC 6.7 03/26/2014 Electronically Signed by: Cezar Salcido MD, 03/26/2014 9:30 [facility] Dawn Bernabe RN - 8:21 AM PSTPt insistent on having NG tube removed. Dr Salcido contacted, discussed p t's wishes and amount of drainage obtained from NG since admit. Orders rec'd for abd xrays. Pt notified of 's orders A M PSTdocumented in this encounter Plan of Treatment Not on filedocumented as of this encounter Procedures + +--------+ + + + | Procedure Name | Priori | Date/Time | Associated Diagnosis | Comments | | | ty | | | | + +--------+ + + + | EXPLORATORY | | 03/26/2014 | SBO (small bowel | | | LAPAROTOMY | | 9:56 AM | obstruction) (HCC) | | | | | PST | | | + +--------+ + + + | CBC WITH | Routin | 03/26/2014 | | Results for this | | DIFFERENTIAL | e | 6:43 AM | | procedure are in the | | | | PST | | results section. | + +--------+ + + + | BASIC METABOLIC | Routin | 03/26/2014 | | Results for this | | PANEL | e | 6:43 AM | | procedure are in the | | | | PST | | results section. | + +--------+ + + + | XR ABDOMEN AP | STAT | 03/25/2014 | | Results for this | | | | 4:06 PM | | procedure are in the | | | | PST | | results section. | + +--------+ + + + | CT ABDOMEN PELVIS W | STAT | 03/25/2014 | | Results for this | | CONTRAST | | 2:26 PM | | procedure are in the | | | | PST | | results section. | + +--------+ + + + | CBC WITH | STAT | 03/25/2014 | | Results for this | | DIFFERENTIAL | | 2:01 PM | | procedure are in the | | | | PST | | results section. | + +--------+ + + + | LIPASE | STAT | 03/25/2014 | | Results for this | | | | 2:01 PM | | procedure are in the | | | | PST | | results section. | + +--------+ + + + | COMPREHENSIVE | STAT | 03/25/2014 | | Results for this | | METABOLIC PANEL | | 2:01 PM | | procedure are in the | | | | PST | | results section. | + +--------+ + + + documented in this encounter Results CBC with Differential (03/26/2014 6:43 AM PST) + + + + + + | Component | Value | Ref Range | Performed | Pathologist | | | | | At | Signature | + + + + + + | WBC | 6.7 | 4.0 - 11.0 K/uL | [facility] | | | | | | [facility] | | [facility] | [facility] | | | | | [facility] - | | | | | | [facility]ATORY | | + + + + + + | RBC | 3.66 (L) | 4.30 - 5.70 | [facility] | | | | | M/uL | [facility] | | | | | [facility] | | | | | | [facility] - | | | | | | LABORATORY | | + + + + + + | Hemoglobin | 12.6 (L) | 13.5 - 18.0 | [facility] | | | | | g/dL | [facility] | | | | | | [facility] - | | | | | | [facility]ATORY | | + + + + + + | Hematocrit | 36.4 (L) | 40.0 - 51.0 % | [facility] | | | | | | [facility] | | | | | | [facility] | | | | | | [facility] - | | | | | | LAB[facility]ATORY | | + + + + + + | MCV | 99.6 | 83.0 - 101.0 fL | [facility] | | | | | | [facility] | | | | | | [facility] | | | | | | [facility] - | | | | | | LAB[facility]ATORY | | + + + + + + | MCH | 34.5 | 28.0 - 35.0 pg | [facility] | | | | | | [facility] | | | | | | [facility] | | | | | | [facility] - | | | | | | LABORATORY | | + + + + + + | MCHC | 34.6 | 32.0 - 36.0 | [facility] | | | | | g/dL | [facility] | | | | | | [facility] | | | | | | [facility] - | | | | | | LABORATORY | | + + + + + + | RDW-CV | 13.3 | <15.0 % | [facility] | | | | | | [facility] | | | | | | [facility] | | | | | | [facility] - | | | | | | LABORATORY | | + + + + + + | Platelet | 233 | 140 - 440 K/uL | [facility] | | | Count | | | [facility] | | | | | | [facility] | | | | | | [facility] - | | | | | | LABORATORY | | + + + + + + | MPV | 6.5 | fL | [facility] | | | | | | [facility] | | | | | | [facility] | | | | | | [facility] - | | | | | | LAB[facility]ATORY | | + + + + + + | % | 63.1 | 45.0 - 82.0 % | [facility] | | | Neutrophils | | | [facility] | | | | | | [facility] | | | | | | [facility] - | | | | | | LABORATORY | | + + + + + + | % | 25.4 | 20.0 - 45.0 % | [facility] | | | Lymphocytes | | | [facility] | | | | | | [facility] | | | | | | [facility] - | | | | | | LABORATORY | | + + + + + + | % Monocytes | 7.7 | 4.0 - 12.0 % | [facility] | | | | | | [facility] | | | | | | [facility] | | | | | | [facility] - | | | | | | LABORATORY | | + + + + + + | % | 3.2 | 0.0 - 5.0 % | [facility] | | | Eosinophils | | | [facility] | | | | | | [facility] | | | | | | [facility] - | | | | | | LABORATORY | | + + + + + + | % Basophils | 0.6 | 0.0 - 1.0 % | [facility] | | | | | | [facility] | | | | | | [facility] | | | | | | [facility] - | | | | | | LABORATORY | | + + + + + + | Absolute | 4.20 | 1.80 - 8.50 | [facility] | | | Neutrophils | | K/uL | [facility] | | | | | | [facility] | | | | | | [facility] - | | | | | | LABORATORY | | + + + + + + | Absolute | 1.70 | 0.60 - 3.20 | [facility] | | | Lymphocytes | | K/uL | [facility] | | | | | | [facility] | | | | | | [facility] - | | | | | | LABORATORY | | + + + + + + | Absolute | 0.50 | 0.00 - 1.00 | [facility] | | | Monocytes | | K/uL | [facility] | | | | | | [facility] | | | | | | [facility] - | | | | | | LABORATORY | | + + + + + + | Absolute | 0.20 | 0.00 - 0.40 | [facility] | | | Eosinophils | | K/uL | [facility] | | | | | | [facility] | | | | | | [facility] - | | | | | | LABORATORY | | + + + + + + | Absolute | 0.00 | 0.00 - 0.10 | [facility] | | | Basophils | | K/uL | [facility] | | | | | | [facility] [...] | + + + + + | [facility] | [address] | [place] | [phone] | | [facility] | | [address] | | | - LABORATORY | | | | + + + + + | [facility] | [address] | [place] | | | [facility] | | [address] | | | - LABORATORY | | | | + + + + + Basic Metabolic Panel (03/26/2014 6:43 AM PST) + + + + + + | Component | Value | Ref Range | Performed | Pathologist | | | | | At | Signature | + + + + + + | Na | 141 | 136 - 149 | [facility] | | | | | mmol/L | [facility] | | | | | | [facility] | | | | | | [facility] - | | | | | | LABORATORY | | + + + + + + | K | 4.2 | 3.5 - 5.1 | [facility] | | | | | mmol/L | [facility] | | | | | | [facility] | | | | | | [facility] - | | | | | | LABORATORY | | + + + + + + | Cl | 107 | 98 - 109 mmol/L | [facility] | | | | | | [facility] | | | | | | [facility] | | | | | | [facility] - | | | | | | LABORATORY | | + + + + + + | CO2 | 31 | 24 - 31 mmol/L | [facility] | | | | | | [facility] | | | | | | [facility] | | | | | | [facility] - | | | | | | LABORATORY | | + + + + + + | Anion Gap | 3 | 3 - 16 mmol/L | [facility] | | | | | | [facility] | | | [facility] | | [facility] | | | | | | [facility] - | | | | | | LABORATORY | | + + + + + + | Glucose | 88 | 70 - 109 mg/dL | [facility] | | | | | | [facility] | | | | | | [facility] | | | | | | [facility] - | | | | | | LABORATORY | | + + + + + + | BUN | 10 | 7 - 18 mg/dL | [facility] | | | | | | [facility] | | | | | | [facility] | | | | | | CENTER - | | | | | | LABORATORY | | + + + + + + | Creatinine | 0.62 | 0.60 - 1.30 | [facility] | | | | | mg/dL | [facility] | | | | | | [facility]ICAL | | | | | | CENTER - | | | | | | LABORATORY | | + + + + + + | eGFR if not | >60Comment: GLOMERULAR | >=60 | [facility] | | | | FILTRATION | mL/min/1.73m2 | [facility] | | | [facility]INEAN | RATE,ESTIMATED | | MEDICAL | | | | mL/min/1.33f6Ggea than | | CENTER - | | | | 60 Chronic kidney | | LABORATORY | | | | disease,if found over a | | | | | | 3-month period.Less than | | | | | | 15 Kidney failureFor | | | | | | | | | | | | Americans,multiply the | | | | | | calculated GFR by 1.21. | | | | | | | | | | + + + + + + | Calcium | 8.4 | 8.3 - 10.5 | [facility] | | | | | mg/dL | [facility] | | | | | | MEDICAL | | | | | | CENTER - | | | | | | LABORATORY | | + + + + + + | BUN/Creatin | 16.1 | | [facility] | | | ine Ratio | | | [facility] | | | | | | MEDICAL [...] | + + + + + | [facility] | [address] | [place], [place] | [phone] | | [facility] | | [address] | | | - LABORATORY | | | | + + + + + | [facility] | [address] | [place], [place] | | | [facility] | | [address] | | | - LABORATORY | | | | + + + + + XR Abdomen AP (03/25/2014 4:06 PM PST) + + | Specimen | + + | | + + + + + | Narrative | Performed At | + + + | ONE VIEW ABDOMEN: 03/25/2014 4:05 PM CLINICAL HISTORY: tube | [facility] | | placement COMPARISON: None FINDINGS: AP view of the upper | LAB | | abdomen shows a nasogastric tube with its tip at the gastroesophageal | | | junction. Surgical clips are present in the left upper quadrant and | | | also in the gallbladder fossa. Multiple mildly dilated gas-filled | | | loops of bowel in the left upper quadrant. Right colonic gas is also | | | seen. No free air. Spinal neurostimulator is present with power | | | pack on the right. Multiple calcifications over the right renal | | | shadow. Lumbar fusion surgery. IMPRESSION - 1. Nasogastric tube | | | has its tip at the gastroesophageal junction. 2. Abnormal but | | | nonspecific bowel gas pattern, with multiple mildly dilated loops of | | | gas-filled bowel in the left abdomen and normal colonic stool gas | | | pattern. Dictated and Signed by: Ben Escamilla MD | | | Electronically signed: 03/26/2014 2:07 PM | | + + + + + | Procedure Note | + + | Ubaldo, Rad Results In - 03/26/2014 2:10 PM PST ONE VIEW ABDOMEN: 03/25/2014 4:05 PM | | | | CLINICAL HISTORY: tube placement | | | | COMPARISON: None | | | | FINDINGS: AP view of the upper abdomen shows a nasogastric tube with its tip at | | the gastroesophageal junction. Surgical clips are present in the left upper | | quadrant and also in the gallbladder fossa. Multiple mildly dilated gas-filled | | loops of bowel in the left upper quadrant. Right colonic gas is also seen. No | | free air. | | | | Spinal neurostimulator is present with power pack on the right. Multiple | | calcifications over the right renal shadow. Lumbar fusion surgery. | | | | IMPRESSION - | | 1. Nasogastric tube has its tip at the gastroesophageal junction. | | | | 2. Abnormal but nonspecific bowel gas pattern, with multiple mildly dilated | | loops of gas-filled bowel in the left abdomen and normal colonic stool gas | | pattern. | | | | Dictated and Signed by: Ben Escamilla MD | | Electronically signed: 03/26/2014 2:07 PM | + + + +---------+ + + | Performing | Address | City/State/Zipcode | Phone Number | | Organization | | | | + +---------+ + + | [facility] | | | [phone] | + +---------+ + + | [facility] | | | [phone] | + +---------+ + + CT Abdomen Pelvis w Contrast (03/25/2014 2:26 PM PST) + + | Specimen | + + | | + + + + + | Narrative | Performed At | + + + | CT ABDOMEN AND PELVIS WITH CONTRAST: 03/25/2014 2:17 PM | [facility] | | CLINICAL HISTORY: ABDOMINAL PAIN (SEVERE) COMPARISON: | LAB | | 12/16/2013 TECHNIQUE: Axial images are performed through the | | | abdomen and pelvis following the uneventful intravenous | | | administration of 90 mL Omnipaque 350 contrast. No oral contrast. | | | Coronal and sagittal reformations are also performed. FINDINGS: | | | No abnormalities in the lung bases. No pleural effusion. Small | | | calcification in the mid right lobe of the liver. No other hepatic | | | abnormality. Gallbladder is surgically absent. Pancreas spleen and | | | adrenal glands are normal. Kidneys are normal in size and contour. | | | No enhancing renal mass. No hydronephrosis. Multiple bilateral renal | | | stones. Largest in the right lower pole at 15 mm. These are similar | | | to prior. No hydronephrosis. Aorta and inferior vena cava are within | | | normal limits. Multiple surgical clips at the gastric fundus level | | | suggesting prior gastric bypass. Proximal small bowel is of normal | | | caliber. In the mid small bowel multiple mildly dilated (up to 2.8 | | | cm) loops of predominantly gas-filled small bowel. Gradual transition | | | to more normal distal ileal loops and a normal ileocecal junction. | | | This is actually a stable pattern for this patient, with similar | | | appearance on prior exam. Colon shows normal caliber and stool | | | content. No appendix is seen. No mesenteric inflammatory change. No | | | abdominal or pelvic free fluid or free air. No pneumatosis. | | | Urinary bladder is normal. Prostate and seminal vesicles are within | | | normal limits. Right paramedian upper abdominal ventral hernia. The | | | sidewall of the transverse colon is adjacent to this shallow hernia. | | | No sign of obstruction. Prior L4-S1 posterior pedicle screw and | | | interbody fusion. No acute bony abnormality. Intraspinous neural | | | stimulator entering at T9. IMPRESSION - 1. Postop gastric | | | bypass surgery, with mildly dilated mid small bowel loops. Bowel | | | proximal and distal to this region is within normal limits and this is | | | a similar appearance to a prior study from 12/16/2013. This suggests | | | that this may be a normal pattern for this patient rather than active | | | obstruction 2. Multiple bilateral nonobstructing renal stones | | | including a 15 mm stone in the right lower pole. 3. Prior | | | cholecystectomy and lumbar fusion surgeries. Intraspinous neural | | | stimulator. Comment: Results of this exam, without significant | | | discordance, were provided by the after-hours radiology service on | | | completion of the study. Study results were also discussed with the | | | patient's attending clinical staff after final interpretation. | | | Dictated and Signed by: Ben Escamilla MD Electronically signed: | | | 03/26/2014 1:04 PM | | + + + + + | Procedure Note | + + | Ubaldo, Rad Results In - 03/26/2014 1:[address] ABDOMEN AND PELVIS WITH CONTRAST: | | 03/25/2014 2:17 PM CLINICAL HISTORY: ABDOMINAL PAIN (SEVERE) COMPARISON: 12/16/2013 | | TECHNIQUE: Axial images are performed through the abdomen and pelvis followingthe | | uneventful intravenous administration of 90 mL Omnipaque 350 contrast. Nooral contrast. | | Coronal and sagittal reformations are also performed. FINDINGS: No abnormalities in | | the lung bases. No pleural effusion.Small calcification in the mid right lobe of the | | liver. No other hepaticabnormality. Gallbladder is surgically absent. Pancreas spleen | | and adrenalglands are normal.Kidneys are normal in size and contour. No enhancing renal | | mass. Nohydronephrosis. Multiple bilateral renal stones. Largest in the right lower | | poleat 15 mm. These are similar to prior. No hydronephrosis.Aorta and inferior vena cava | | are within normal limits.Multiple surgical clips at the gastric fundus level suggesting | | prior gastricbypass. Proximal small bowel is of normal caliber. In the mid small | | bowelmultiple mildly dilated (up to 2.8 cm) loops of predominantly gas-filled | | smallbowel. Gradual transition to more normal distal ileal loops and a normalileocecal | | junction. This is actually a stable pattern for this patient, withsimilar appearance on | | prior exam. Colon shows normal caliber and stool content.No appendix is seen. No | | mesenteric inflammatory change. No abdominal or pelvicfree fluid or free air. No | | pneumatosis.Urinary bladder is normal. Prostate and seminal vesicles are within | | normallimits. Right paramedian upper abdominal ventral hernia. The sidewall of | | thetransverse colon is adjacent to this shallow hernia. No sign of obstruction.Prior | | L4-S1 posterior pedicle screw and interbody fusion. No acute bonyabnormality. | | Intraspinous neural stimulator entering at T9. IMPRESSION - 1. Postop gastric bypass | | surgery, with mildly dilated mid small bowel loops.Bowel proximal and distal to this | | region is within normal limits and this is asimilar appearance to a prior study from | | 12/16/2013. This suggests that this maybe a normal pattern for this patient rather than | | active obstruction2. Multiple bilateral nonobstructing renal stones including a 15 mm | | stone in theright lower pole.3. Prior cholecystectomy and lumbar fusion surgeries. | | Intraspinous neuralstimulator.Comment: Results of this exam, without significant | | discordance, were provided bythe after-hours radiology service on completion of the | | study. Study results werealso discussed with the patient's attending clinical staff | | after finalinterpretation.Dictated and Signed by: Ben Escamilla MD Electronically | | signed: 03/26/2014 1:04 PM | | | |Prior L4-S1 posterior pedicle screw and interbody fusion. No acute bony | |abnormality. Intraspinous neural stimulator entering at T9. | | | | | |IMPRESSION - | |1. Postop gastric bypass surgery, with mildly dilated mid small bowel loops. | |Bowel proximal and distal to this region is within normal limits and this is a | |similar appearance to a prior study from 12/16/2013. This suggests that this may | |be a normal pattern for this patient rather than active obstruction | | | |2. Multiple bilateral nonobstructing renal stones including a 15 mm stone in the | |right lower pole. | | | |3. Prior cholecystectomy and lumbar fusion surgeries. Intraspinous neural | |stimulator. | | | |Comment: Results of this exam, without significant discordance, were provided by | |the after-hours radiology service on completion of the study. Study results were | |also discussed with the patient's attending clinical staff after final | |interpretation. | | | |Dictated and Signed by: Ben Escamilla MD | | Electronically signed: 03/26/2014 1:04 PM | + + + +---------+ + + | Performing | Address | City/State/Zipcode | Phone Number | | Organization | | | | + +---------+ + + | [facility] | | | [phone] | + +---------+ + + | [facility] | | | [phone] | + +---------+ + + Lipase (03/25/2014 2:01 PM PST) + +-------+ + + + | Component | Value | Ref Range | Performed | Pathologist | | | | | At | Signature | + +-------+ + + + | Lipase | 20 | 0 - 60 U/L | [facility] | | | | | [facility] | | [facility] | | | | | [facility] - | | | | | | LAB[facility]ATORY | | + +-------+ + + + + + | Specimen | + + | Blood | + + + + + + + | Performing | Address | City/State/Zipcode | Phone Number | | Organization | | | | + + + + + | [facility] | [address] | [place], [place] | [phone] | | [facility] | | [address] | | | - LABORATORY | | | | + + + + + | [facility] | [address] | [place], [place] | | | [facility] | | [address] | | | - LABORATORY | | | | + + + + + Comprehensive Metabolic Panel (03/25/2014 2:01 PM PST) + + + + + + | Component | Value | Ref Range | Performed | Pathologist | | | | | At | Signature | + + + + + + | Na | 140 | 136 - 149 | [facility] | | | | | mmol/L | [facility] | | | | | | [facility] | | | | | | [facility] - | | | | | | LABORATORY | | + + + + + + | K | 3.7 | 3.5 - 5.1 | [facility] | | | | | mmol/L | [facility] | | | | | | [facility] | | | | | | [facility] - | | | | | | LABORATORY | | + + + + + + | Cl | 106 | 98 - 109 mmol/L | [facility] | | | | [facility] | | | | | | [facility] - | | | | | | LAB[facility]ATORY | | + + + + + + | CO2 | 28 | 24 - 31 mmol/L | [facility] | | | | | [facility] | | | | | | [facility] | | | | | | [facility] - | | | | | | LABORATORY | | + + + + + + | Anion Gap | 6 | 3 - 16 mmol/L | [facility] | | | | | | [facility] | | | | | | [facility] | | | | | | [facility] - | | | | | | LABORATORY | | + + + + + + | Glucose | 89 | 70 - 109 mg/dL | [facility] | | | | | | [facility] | | | | | | [facility] | | | | | | [facility] - | | | | | | LABORATORY | | + + + + + + | BUN | 12 | 7 - 18 mg/dL | [facility] | | | | | | [facility] | | | | | | [facility] | | | | | | [facility] - | | | | | | LABORATORY | | + + + + + + | Creatinine | 0.64 | 0.60 - 1.30 | [facility] | | | | | mg/dL | [facility] | | | | | | [facility] | | | | | | C[facility] - | | | | | | LABORATORY | | + + + + + + | eGFR if not | >60Comment: GLOMERULAR | >=60 | [facility] | | | | FILTRATION | mL/min/1.73m2 | [facility] | | | GUINEAN | RATE,ESTIMATED | | MEDICAL | | | | mL/min/1.43e3Kagi than | | CENTER - | | | | 60 Chronic kidney | | LABORATORY | | | | disease,if found over a | | | | | | 3-month period.Less than | | | | | | 15 Kidney failureFor | | | | | | | | | | | | Americans,multiply the | | | | | | calculated GFR by 1.21. | | | | | | | | | | + + + + + + | Calcium | 8.7 | 8.3 - 10.5 | [facility] | | | | | mg/dL | [facility] | | | | | | [facility] | | | | | | [facility] - | | | | | | LABORATORY | | + + + + + + | Albumin | 3.8 | 3.2 - 5.0 g/dL | [facility] | | | | | | [facility] | | | | | | [facility] | | | | | | [facility] - | | | | | | LABORATORY | | + + + + + + | Bilirubin | 0.4 | 0.1 - 1.5 mg/dL | [facility] | | | Total | | | [facility] | | | | | | [facility] | | | | | | [facility] - | | | | | | LABORATORY | | + + + + + + | Total | 5.9 (L) | 6.0 - 7.8 g/dL | [facility] | | | Protein | | | [facility] | | | | | | [facility] | | | | | | [facility] - | | | | | | LABORATORY | | + + + + + + | AST | 18 | 10 - 42 U/L | [facility] | | | | | | [facility] | | | | | | [facility] | | | | | | [facility] - | | | | | | LABORATORY | | + + + + + + | ALT | 19 | 6 - 45 U/L | [facility] | | | | | | [facility] | | | | | | [facility] | | | | | | [facility] - | | | | | | LABORATORY | | + + + + + + | Alkaline | 49 | 40 - 110 U/L | [facility] | | | Phosphatase | | | [facility] | | | | | | [facility] | | | | | | C[facility] - | | | | | | LABORATORY | | + + + + + + | Globulin | 2.1 | g/dL | [facility] | | | | | | [facility] | | | | | | [facility] | | | | | | [facility] - | | | | | | LABORATORY | | + + + + + + | Albumin/Mary | 1.8 | | [facility] | | | bulin Ratio | | | [facility] | | | | | | [facility] | | | | | | C[facility] - | | | | | | LABORATORY | | + + + + + + | BUN/Creatin | 18.8 | | [facility] | | | ine Ratio | | | [facility] | | | | | | [facility] [...] | + + + + + | [facility] | [address] | [place], [place] | [phone] | | [facility] | | [address] | | | - LABORATORY | | | | + + + + + | [facility] | [address] | [place], [place] | | | [facility] | | [address] | | | - LABORATORY | | | | + + + + + CBC with Differential (03/25/2014 2:01 PM PST) + + + + + + | Component | Value | Ref Range | Performed | Pathologist | | | | | At | Signature | + + + + + + | WBC | 6.2 | 4.0 - 11.0 K/uL | [facility] | | | | | [facility] | | | | | | [facility] | | | | | | [facility] - | | | | | | LABORATORY | | + + + + + + | RBC | 3.81 (L) | 4.30 - 5.70 | [facility] | | | | | M/uL | [facility] | | | | | | [facility] | | | | | | [facility] - | | | | | | LABORATORY | | + + + + + + | Hemoglobin | 12.9 (L) | 13.5 - 18.0 | [facility] | | | | | g/dL | [facility] | | | | | | [facility] | | | | | | [facility] - | | | | | | LABORATORY | | + + + + + + | Hematocrit | 38.0 (L) | 40.0 - 51.0 % | [facility] | | | | | | [facility] | | | | | | [facility] | | | | | | [facility] - | | | | | | LABORATORY | | + + + + + + | MCV | 99.8 | 83.0 - 101.0 fL | [facility] | | | | | | [facility] | [facility] | | | | | | [facility] - | | | | | | LABORATORY | | + + + + + + | MCH | 34.0 | 28.0 - 35.0 pg | [facility] | | | | | | [facility] | | | | | | [facility] | | | | | | [facility] - | | | | | | LABORATORY | | + + + + + + | MCHC | 34.1 | 32.0 - 36.0 | [facility] | | | | | g/dL | [facility] | | | | | | [facility] | | | | | | [facility] - | | | | | | LABORATORY | | + + + + + + | RDW-CV | 13.5 | <15.0 % | [facility] | | | | | | [facility] | | | | | | [facility] | | | | | | [facility] - | | | | | | LABORATORY | | + + + + + + | Platelet | 258 | 140 - 440 K/uL | [facility] | | | Count | | | [facility] | | | | | | [facility] | | | | | | [facility] - | | | | | | LABORATORY | | + + + + + + | MPV | 6.9 | fL | [facility] | | | | | | [facility] | | | | | | [facility] | | | | | | [facility] - | | | | | | LABORATORY | | + + + + + + | % | 53.5 | 45.0 - 82.0 % | [facility] | | | Neutrophils | | | [facility] | | | | | | [facility] | | | | | | [facility] - | | | | | | LABORATORY | | + + + + + + | % | 33.2 | 20.0 - 45.0 % | [facility] | | | Lymphocytes | | | [facility] | | | | | | [facility] | | | | | | C[facility] - | | | | | | LABORATORY | | + + + + + + | % Monocytes | 9.2 | 4.0 - 12.0 % | [facility] | | | | | | [facility] | | | | | | [facility] | | | | | | [facility] - | | | | | | LABORATORY | | + + + + + + | % | 2.9 | 0.0 - 5.0 % | [facility] | | | Eosinophils | | | [facility] | | | | | | [facility] | | | | | | C[facility] - | | | | | | LABORATORY | | + + + + + + | % Basophils | 1.2 (H) | 0.0 - 1.0 % | [facility] | | | | | | [facility] | | | | | | [facility] | | | | | | [facility] - | | | | | | LABORATORY | | + + + + + + | Absolute | 3.30 | 1.80 - 8.50 | [facility] | | | Neutrophils | | K/uL | [facility] | [facility] | | [facility] | | | | | | [facility] - | | | | | | LABORATORY | | + + + + + + | Absolute | 2.10 | 0.60 - 3.20 | [facility] | | | Lymphocytes | | K/uL | [facility] | [...] + + + + | Absolute | 0.20 | 0.00 - 0.40 | [facility] | | | Eosinophils | | K/uL | [facility] | | | | | | [facility] | | | | | | C[facility] - | | | | | | LABORATORY | | + + + + + + | Absolute | 0.10 | 0.00 - 0.10 | [facility] | | | Basophils | | K/uL | [facility] | | | | | | MEDICAL [...] | + + + + + | [facility] | [address] | [place] | [phone] | | [facility] | | [address] | | | - LABORATORY | | | | + + + + + | [facility] | [address] | [place] | | | [facility] | | [address] | | | - LABORATORY | | | | + + + + + documented in this encounter Visit Diagnoses + + | Diagnosis | + + | SBO (small bowel obstruction) (HCC) - Primary Unspecified intestinal obstruction | + + documented in this encounter Administered Medications + +--------+ +-------+------+------+ | Medication Order | MAR | Action | Dose | Rate | Site | | | Action | Date | | | | + +--------+ +-------+------+------+ | cyclobenzaprine (FLEXERIL) | Given | 03/29/20 | 10 mg | | | | tablet 10 mg 10 mg, Oral, 3 | | 14 12:54 | | | | | TIMES DAILY PRN, Muscle spasms, | | AM PST | | | | | Starting 03/25/14 at 1736 | | | | | | + +--------+ +-------+------+------+ +-------+ +-------+---+---+ | Given | 03/28/20 | 10 mg | | | | | 14 4:29 | | | | | | PM PST | | | | +-------+ +-------+---+---+ | Given | 03/25/20 | 10 mg | | | | | 14 8:46 | | | | | | PM PST | | | | +-------+ +-------+---+---+ +---+---+ | | | +---+---+ + +-------+ +-------+---+---+ | DULoxetine (CYMBALTA) DR | Given | 03/29/20 | 60 mg | | | | capsule 60 mg 60 mg, Oral, | | 14 9:18 | | | | | DAILY, First dose (after last | | AM PST | | | | | modification) on 03/27/14 at | | | | | | | 0900, Do not open capsule., | | | | | | + +-------+ +-------+---+---+ +-------+ +-------+---+---+ | Given | 03/28/20 | 60 mg | | | | | 14 8:43 | | | | | | AM PST | | | | +-------+ +-------+---+---+ | Given | 03/27/20 | 60 mg | | | | | 14 8:32 | | | | | | AM PST | | | | +-------+ +-------+---+---+ +---+---+ | | | +---+---+ + +-------+ +--------+---+---+ | fentaNYL injection 25 mcg 25 | Given | 03/26/20 | 25 mcg | | | | mcg, Intravenous, EVERY 5 MIN | | 14 12:20 | | | | | PRN, Pain, Starting 03/26/14 | | PM PST | | | | | at 1122, Maximum total dose 200 | | | | | | | mcg. PACU IV Narcotic Priority: | | | | | | | Only use fentanyl for immediate | | | | | | | post-op pain (one dose) or | | | | | | | breakthrough pain when any other | | | | | | | IV narcotics ordered have been | | | | | | | ineffective (if ordered). If | | | | | | | both morphine and hydromorphone | | | | | | | are ordered, use morphine first, | | | | | | | and use hydromporphone if | | | | | | | morphine ineffective., | | | | | | | Recovery/Phase I | | | | | | + +-------+ +--------+---+---+ +-------+ +--------+---+---+ | Given | 03/26/20 | 25 mcg | | | | | 14 12:15 | | | | | | PM PST | | | | +-------+ +--------+---+---+ | Given | 03/26/20 | 25 mcg | | | | | 14 12:10 | | | | | | PM PST | | | | +-------+ +--------+---+---+ +---+---+ | | | +---+---+ + +-------+ +------+---+---+ | finasteride (PROSCAR) tablet 5 | Given | 03/29/20 | 5 mg | | | | mg 5 mg, Oral, DAILY, First dose | | 14 9:19 | | | | | on 03/26/14 at 1800, | | AM PST | | | | | Hazardous agent: Use appropriate | | | | | | | precautions for handling and | | | | | | | disposal. Women of childbearing | | | | | | | age should not handle broken | | | | | | | tablets., | | | | | | + +-------+ +------+---+---+ +-------+ +------+---+---+ | Given | 03/28/20 | 5 mg | | | | | 14 8:43 | | | | | | AM PST | | | | +-------+ +------+---+---+ | Given | 03/27/20 | 5 mg | | | | | 14 8:32 | | | | | | AM PST | | | | +-------+ +------+---+---+ +---+---+ | | | +---+---+ + +-------+ +---------+---+---+ | HYDROcodone-acetaminophen | Given | 03/29/20 | 2 | | | | (NORCO) 5-325 mg per tablet 1-2 | | 14 1:02 | tablets | | | | tablet 1-2 tablet, Oral, EVERY 4 | | PM PST | | | | | HOURS PRN, Pain, Starting Wed | | | | | | | 03/29/14 at 0719 | | | | | | + +-------+ +---------+---+---+ +-------+ +---------+---+---+ | Given | 03/29/20 | 2 | | | | | 14 9:18 | tablets | | | | | AM PST | | | | +-------+ +---------+---+---+ +---+---+ | | | +---+---+ + +-------+ +--------+---+---+ | HYDROmorphone (DILAUDID) | Given | 03/26/20 | 0.5 mg | | | | injection 0.2-0.5 mg 0.2-0.5 mg, | | 14 12:17 | | | | | Intravenous, EVERY 10 MIN PRN, | | PM PST | | | | | Pain, Starting 03/26/14 at | | | | | | | 1122, Maximum total dose 4 mg. | | | | | | | PACU IV Narcotic Priority: Only | | | | | | | use fentanyl for immediate | | | | | | | post-op pain (one dose) or | | | | | | | breakthrough pain when any other | | | | | | | IV narcotics ordered have been | | | | | | | ineffective (if ordered). If | | | | | | | both morphine and hydromorphone | | | | | | | are ordered, use morphine first, | | | | | | | and use hydromporphone if | | | | | | | morphine ineffective., | | | | | | | Recovery/Phase I | | | | | | + +-------+ +--------+---+---+ +-------+ +--------+---+---+ | Given | 03/26/20 | 0.5 mg | | | | | 14 12:07 | | | | | | PM PST | | | | +-------+ +--------+---+---+ | Given | 03/26/20 | 0.5 mg | | | | | 14 11:57 | | | | | | AM PST | | | | +-------+ +--------+---+---+ +---+---+ | | | +---+---+ + +-------+ +------+---+---+ | HYDROmorphone (DILAUDID) | Given | 03/26/20 | 1 mg | | | | injection 0.25-1 mg 0.25-1 mg, | | 14 9:25 | | | | | Intravenous, EVERY 2 HOURS PRN, | | AM PST | | | | | Pain, Starting 03/25/14 at | | | | | | | 1736, Slow IV push, not faster | | | | | | | than 0.3 mg/minute. If | | | | | | | ineffective or not tolerated and | | | | | | | unable to take oral opioid - | | | | | | | contact ordering provider, | | | | | | + +-------+ +------+---+---+ +-------+ +------+---+---+ | Given | 03/26/20 | 1 mg | | | | | 14 7:11 | | | | | | AM PST | | | | +-------+ +------+---+---+ | Given | 03/26/20 | 1 mg | | | | | 14 3:22 | | | | | | AM PST | | | | +-------+ +------+---+---+ +---+---+ | | | +---+---+ + +-------+ +------+---+---+ | HYDROmorphone (PF) (DILAUDID) 1 | Given | 03/25/20 | 1 mg | | | | mg/mL injection 1 mg 1 mg, | | 14 1:55 | | | | | Intravenous, ONCE, 03/25/14 | | PM PST | | | | | at 1400, For 1 dose | | | | | | + +-------+ +------+---+---+ +---+---+ | | | +---+---+ + +------+ +------+---+---+ | HYDROmorphone (PF) (DILAUDID) 1 | Push | 03/25/20 | 1 mg | | | | mg/mL injection 1 mg 1 mg, | | 14 4:34 | | | | | Intravenous, EVERY 1 HOUR PRN, | | PM PST | | | | | Pain, Starting 03/25/14 at | | | | | | | 1515 | | | | | | + +------+ +------+---+---+ +-------+ +------+---+---+ | Given | 03/25/20 | 1 mg | | | | | 14 3:30 | | | | | | PM PST | | | | +-------+ +------+---+---+ +---+---+ | | | +---+---+ + +---------+ +-------+---+---+ | HYDROmorphone in saline | New Bag | 03/27/20 | 30 mg | | | | (DILAUDID) 1 mg/mL [employer] | | 14 7:44 | | | | | Intravenous, CONTINUOUS, Starting | | PM PST | | | | | 03/26/14 at 1145, for | | | | | | | adult patients LESS than 65 years | | | | | | | old and NO risk of sleep | | | | | | | apnea, Loading Dose(mg): 1, | | | | | | | Starting [employer]ER Dose(mg): 0.3, | | | | | | | Incremental Increase [employer] | | | | | | | Dose(mg): 0.1, Maximum [employer] | | | | | | | Dose(mg): 0.4, Lockout | | | | | | | Interval(min): 6, One Hour | | | | | | | Limit(mg): 3 | | | | | | + +---------+ +-------+---+---+ + + +--------+---+---+ | Rate/Dose Change | 03/26/20 | 0.4 mg | | | | | 14 2:17 | | | | | | PM PST | | | | + + +--------+---+---+ | New Bag | 03/26/20 | 30 mg | | | | | 14 1:07 | | | | | | PM PST | | | | + + +--------+---+---+ +---+---+ | | | +---+---+ + +-------+ +--------+---+---+ | iohexol (OMNIPAQUE 350) 350 | Given | 03/25/20 | 90 mLs | | | | mg/mL injection 90 mL 90 mL, | | 14 2:20 | | | | | Intravenous, ONCE PRN, Other, | | PM PST | | | | | Starting 03/25/14 at 1417, | | | | | | | For 1 dose, Cat Scanner | | | | | | + +-------+ +--------+---+---+ +---+---+ | | | +---+---+ + + + +-------+---+---+ | metoclopramide (REGLAN) 5 mg/mL | Given by | 03/26/20 | 10 mg | | | | injection 10 mg 10 mg, | Other | 14 1:15 | | | | | Intravenous, ONCE, 03/26/14 | | PM PST | | | | | at 1145, For 1 dose, | | | | | | | Recovery/Phase I | | | | | | + + + +-------+---+---+ +---+---+ | | | +---+---+ + +-------+ +-------+---+---+ | metoclopramide (REGLAN) 5 mg/mL | Given | 03/26/20 | 10 mg | | | | injection 10 mg 10 mg, | | 14 8:12 | | | | | Intravenous, EVERY 4 HOURS PRN, | | PM PST | | | | | Nausea, Vomiting, Starting Sun | | | | | | | 03/26/14 at 1119, Use if | | | | | | | ondansetron and prochlorperazine | | | | | | | ineffective after 30 minutes or | | | | | | | not ordered, | | | | | | + +-------+ +-------+---+---+ +---+---+ | | | +---+---+ + +-------+ +-------+---+---+ | morphine (MS CONTIN) ER tablet | Given | 03/29/20 | 30 mg | | | | 30 mg 30 mg, Oral, EVERY 12 | | 14 9:18 | | | | | HOURS (2 times per day), First | | AM PST | | | | | dose (after last reorder) on Mon | | | | | | | 03/27/14 at 1730, Do not cut or | | | | | | | crush., | | | | | | + +-------+ +-------+---+---+ +-------+ +-------+---+---+ | Given | 03/28/20 | 30 mg | | | | | 14 8:34 | | | | | | PM PST | | | | +-------+ +-------+---+---+ | Given | 03/28/20 | 30 mg | | | | | 14 8:43 | | | | | | AM PST | | | | +-------+ +-------+---+---+ +---+---+ | | | +---+---+ + +-------+ +------+---+---+ | ondansetron (ZOFRAN) injection | Given | 03/25/20 | 4 mg | | | | 4 mg 4 mg, Intravenous, ONCE, | | 14 1:54 | | | | | 03/25/14 at 1400, For 1 dose | | PM PST | | | | + +-------+ +------+---+---+ +---+---+ | | | +---+---+ + +-------+ +------+---+---+ | ondansetron (ZOFRAN) injection | Given | 03/26/20 | 4 mg | | | | 4 mg 4 mg, Intravenous, ONCE | | 14 11:49 | | | | | PRN, Nausea, Starting Sun | | AM PST | | | | | 03/26/14 at 1122, For 1 dose, | | | | | | | Recovery/Phase I | | | | | | + +-------+ +------+---+---+ +---+---+ | | | +---+---+ + +-------+ +-------+---+---+ | pantoprazole (PROTONIX) | Given | 03/29/20 | 40 mg | | | | injection 40 mg 40 mg, | | 14 9:19 | | | | | Intravenous, DAILY, First dose on | | AM PST | | | | | 03/26/14 at 0900, Mix each | | | | | | | 40mg vial with 10 mL NS to make 4 | | | | | | | mg/mL., | | | | | | + +-------+ +-------+---+---+ +-------+ +-------+---+---+ | Given | 03/28/20 | 40 mg | | | | | 14 8:44 | | | | | | AM PST | | | | +-------+ +-------+---+---+ | Given | 03/27/20 | 40 mg | | | | | 14 8:32 | | | | | | AM PST | | | | +-------+ +-------+---+---+ +---+---+ | | | +---+---+ + +---------+ +---------+-------+---+ | sodium chloride 0.9% (NS) bolus | New Bag | 03/25/20 | 500 mLs | 500 | | | 500 mL 500 mL, Intravenous, | | 14 2:30 | | mL/hr | | | Administer over 1 Hours, ONCE, | | PM PST | | | | | 03/25/14 at 1400, For 1 dose | | | | | | + +---------+ +---------+-------+---+ +---+---+ | | | +---+---+ + +---------+ +---+-------+---+ | sodium chloride 0.9% with KCl | New Bag | 03/29/20 | | 125 | | | 20 mEq/L (NS + KCL 20) infusion | | 14 1:00 | | mL/hr | | | at 40 mL/hr, Intravenous, | | AM PST | | | | | CONTINUOUS, Starting 03/25/14 | | | | | | | at 1800 | | | | | | + +---------+ +---+-------+---+ +---------+ +---+-------+---+ | New Bag | 03/28/20 | | 125 | | | | 14 4:28 | | mL/hr | | | | PM PST | | | | +---------+ +---+-------+---+ | New Bag | 03/27/20 | | 125 | | | | 14 10:50 | | mL/hr | | | | PM PST | | | | +---------+ +---+-------+---+ +---+---+ | | | +---+---+ + +-------+ +--------+---+---+ | tamsulosin (FLOMAX) capsule 0.4 | Given | 03/29/20 | 0.4 mg | | | | mg 0.4 mg, Oral, DAILY, First | | 14 9:19 | | | | | dose on 03/26/14 at 0900, Do | | AM PST | | | | | not open capsule., | | | | | | + +-------+ +--------+---+---+ +-------+ +--------+---+---+ | Given | 03/28/20 | 0.4 mg | | | | | 14 8:43 | | | | | | AM PST | | | | +-------+ +--------+---+---+ | Given | 03/27/20 | 0.4 mg | | | | | 14 8:32 | | | | | | AM PST | | | | +-------+ +--------+---+---+ +---+---+ | | | +---+---+ + +-------+ +-------+---+---+ | zolpidem (AMBIEN) tablet 10 mg | Given | 03/28/20 | 10 mg | | | | 10 mg, Oral, NIGHTLY PRN, | | 14 8:35 | | | | | Insomnia, Starting 03/25/14 | | PM PST | | | | | at 1736 | | | | | | + +-------+ +-------+---+---+ +-------+ +-------+---+---+ | Given | 11/20 | 10 mg | | | | | 14 7:46 | | | | | | PM PST | | | | +-------+ +-------+---+---+ | Given | 03/26/20 | 10 mg | | | | | 14 8:01 | | | | | | PM PST | | | | +-------+ +-------+---+---+ +---+---+ | | | +---+---+ documented in this encounter
--- OUTSIDE RECORDS SUMMARY | ~2019-03-21 | XMS | Encounter Summary ---
Demographics + + + | Address | [address] | | | [place] [address] | + + + | Home Phone | | + + + | Preferred Language | Unknown | + + + | Marital Status | | + + + | Sikh Affiliation | Unknown | + + + | Race | Unknown | + + + | Ethnic Group | Unknown | + + + Author + + + | Author | [facility] | | | and [place] | + + + | Organization | [facility] | | [...] [place] | | | | | [place] | | | | | [address] | | + + + + + Care Team Providers + +------+ + | Care Therapy Site Coordinator Name | Role | Phone | + +------+ + PCP | Unavailable | + +------+ + Encounter Details +--------+ + + + + | Date | Type | Department | Care Team | Description | +--------+ + + + + | 03/02/ | Hospital | [facility] | Ken Renny | Sprain Rotator Cuff | | 2006 | Encounter | CONVERSION [address] | MD Charles [address] | | | | | [place] | [place] | | | | | [place], [place] | [place], [place] | | | | | [address] | [address] | | | | | [phone] | [phone] | | | | | | | [...] + | Diagnosis | + + | Sprain rotator cuff Rotator cuff (capsule) sprain | + + documented in this encounter"
--- OUTSIDE RECORDS SUMMARY | ~2019-03-21 | XMS | Encounter Summary ---
Demographics + + + | Address | [address] | | | [place] [address] | + + + | Home Phone | | + + + | Preferred Language | Unknown | + + + | Marital Status | | + + + | Temple Affiliation | Unknown | + + + | Race | Unknown | + + + | Ethnic Group | Unknown | + + + Author + + + | Author | [facility] | | | and [place] | + + + | Organization | [facility] | | | [...] [place] | | | | | [address] | | + + + + + Care Team Providers + +------+ + | Care Corporate Director Talent Assessment Name | Role | Phone | + +------+ + PCP | Unavailable | + +------+ + Encounter Details +--------+ + + + + | Date | Type | Department | Care Team | Description | +--------+ + + + + | 06/06/ | Hospital | [facility] | | | | 2005 | Encounter | MED CTR EMERGENCY | | | | | | [address] | | | | | | [place] | | | | | | [address] | | | | | | [phone] | | | +--------+ + + + [...]
--- OUTSIDE RECORDS SUMMARY | ~2019-03-21 | XMS | Encounter Summary ---
Demographics + + + | Address | [address] | | | [place] [address] | + + + | Home Phone | | + + + | Preferred Language | Unknown | + + + | Marital Status | | + + + | Denominational Affiliation | Unknown | + + + | Race | Unknown | + + + | Ethnic Group | Unknown | + + + Author + + + | Author | [facility] | | | and [...] [place] | | | | | [address] | | + + + + + Care Team Providers + +------+ + | Care Steam And Power Superintendent Name | Role | Phone | + [...] | | | bowel | | [address] | | | | | obstruction) | | [place], | | | | | ([facility]) SBO | | [place] [address] | | | | | (small bowel | | Phone: | | | | | | | [phone] | | | | | obstruction) | | Fax: | | | | | ([facility]) | | [phone] | | | | | SBO (small [...] Description | +--------+---------+ + + + | 03/26/ | Surgery | [facility] | Cezar Salcido MD | EXPLORATORY | | 2013 | | MED CTR OR INTRA OP | [address] | LAPAROTOMY [[id number]] w | | | | [address] | [place], [place] | lysis of adhesions | | | | [place], [place] | [address] | | | | | [address] | [phone] | | | | | [phone] | | | +--------+---------+ + + + [...] Discharge Summary Patient ID: Jero Glass Jr. [id number] 54 y.o. 1960 Admit date: 03/25/2014 Discharge [...] his stay. Pain controlled with a dilaudid SERVICES MGR then home MS Cuong gaona regimen. Consults: [...] mg by mouth nightly as needed. aka: GRABIEL Activity: activity as tolerated, no lifting, Driving, [...] Patient REFUSED to be recon nected to SERVICES MGR after shower, stating " I am going [...] Campbell MD - 014 7:25 AM PST [facility] General Surgery Hospital Day: 5 DATE/TIME: 03/29/2014 [...] INFUSIONS HYDROmorphone in saline 30 mg (03/27/14 1944) sodium chloride 0.9% with KCl 20 mEq/L [...] Intake/Output Summary (Last 24 hours) at 03/29/14 0707 Last data filed at 03/29/14 0455 Gross [...] Signed by: Cezar Salcido MD, 03/29/2014 7:25 [facility] Katelyn Smith RN - 03/05 8:50 AM PSTDiet was changed to clear liquid diet. Ambulated in hallway with SB Mark. He also took shower. Back in bed and SERVICES MGR restarted. Electronically signed by: Katelyn Cardoso RN 03/28/2014 14:26 Cezar Campbell MD - 03/05 8:34 AM PST [facility] Surgery Hospital Day: 4 DATE/TIME: 03/28/2014 8:34 54 y.o. year old male POD #2 ASSESSMENT AND PLAN: 1. Clear liquids 2. On home MS Contin and dilaudid for breakthrough 3. Ambulate 4. Pulmonary hygiene 5. Potential D/C home tomorrow if pain controlled orally and tolerates diet SUBJECTIVE/ROS: Jero Glass Jr. is now POD #2 s/p Ex Lap, DARLIN. Pain is adequately controlled. Donald mariamtodd is passing flatus. He does not complain of nausea. Denies SOB/CP. CURRENT INFUSIONS HYDROmorphone in saline 30 mg (03/27/141943) sodium chloride 0.9% with KCl 20 mEq/L 125 mL/hr at 03/27/14 2250 CURRENT MEDICATIONS clindamycin (CLEOCIN) IV 900 mg [...] by: Cezar Salcido MD, 03/28/2014 8:34 [facility] eid, Cezar Flores MD - 8:54 AM PST [facility] General Surgery Hospital Day: 3 POD #1 DATE/TIME: 03/27/2014 8:54 54 y.o. year old male hospitalized with SBO which is gradually improving ASSESSMENT AND PLAN: 1. Await return of bowel function 2. Pain control with SERVICES MGR 3. Ambulate 4. Pulmonary hygiene SUBJECTIVE/ROS: Jero Bullock Quan Pearce. is now POD #1. Pain is adequately controlled with a dilaudid SERVICES MGR. Patient is not passing flatus. He does not complain of nausea. CURRENT INFUSIONS HYDROmorphone in saline 0.4 mg (03/26/14 8927) sodium chloride 0.9% with KCl 20 mEq/L [...] Intake/Output Summary (Last 24 hours) at 03/27/14 0660 Last data filed at 03/27/14 0546 Gross [...] by: Cezar Salcido MD, 03/27/2014 8:54 [facility] eCezar coates MD - 9:30 AM PST [facility] General Surgery Hospital Day: 2 DATE/TIME: 03/26/2014 9:30 54 y.o. year old male hospitalized with SBO which is unchanged ASSESSMENT AND PLAN: 1. SBO. Pain persists and no flatus. No resolution of symptoms with trial bowel rest and NG T. Recommended Ex Lap with DARLIN. He agrees 2. Risks discussed: bleeding, infection, possible bowel resection, anastomotic leak, injury to other abdominal organs, AL, DVT or . 3. Surgery this morning. SUBJECTIVE/ROS: Jero Bullock Quan Pearce. is now Hospital Day: 2 for SBO. Pain is not adequately controlled . 6-10 with IV dilaudid. Still in the RLQ. [...] Signed by: Cezar Salcido MD, 03/26/2014 9:30 [facility] Dawn Bernabe RN - 8:21 AM PSTPt [...] 6.7 | 4.0 - 11.0 K/uL | [facility] | | | | | | [facility] [...] + | [facility] | [address] | [place], [place] | [phone] | | [facility] | | [address] | | | - LABORATORY | | | | + + + + + | [facility] | [address] | [place], [place] | | | [facility] | | [address] | | | - LABORATORY | | [...] | | | | mmol/L | [facility] | | | | | | MEDICAL | | | | | | CENTER - | | | | | | LABORATORY | | + + + + + + | K | 4.2 | 3.5 - 5.1 | [facility] | | | | | mmol/L | [facility] | | | | [...] 10 | 7 - 18 mg/dL | [facility] | | | | | | [facility] | | | | | | MEDICAL | | | | | | CENTER - | | | | | | LABORATORY | | + + + + + + | Creatinine | 0.62 | 0.60 - 1.30 | [facility] | | | | | [...] mL/min/1.73m2 | [facility] | | | [place] | RATE,ESTIMATED | | MEDICAL | | | | mL/min/1.33b7Wimo than | | CENTER - | | [...] + | [facility] | [address] | [place] | [phone] | | [facility] | | [address] | | | - LABORATORY | | | | + + + + + | [facility] | [address] | [place], [place] | | | [facility] | | [address] | | | - LABORATORY | | [...] + | [facility] | | | [phone] | + +---------+ + + | [facility] | | | [phone] | + +---------+ + + CT Abdomen [...] + | [facility] | | | [phone] | + +---------+ + + | [facility] | | | [phone] | + +---------+ + + Lipase (03/25/2014 2:01 PM PST) + +-------+ + + + | Component | Value | Ref Range | Performed | Pathologist | | | | | At | Signature | + +-------+ + + + | Lipase | 20 | 0 - 60 U/L | [facility] | | | | | | [facility] | | | | | | [...] + | [facility] | [address] | [place] | [phone] | | [facility] | | [address] | | | - LABORATORY | | | | + + + + + | [facility] | [address] | [place] | | | [facility] | | [address] | | | - LABORATORY | | [...] | | | | mmol/L | [facility] | | | | | | MEDICAL | | | | | | CENTER - | | | | | | LABORATORY | | + + + + + + | K | 3.7 | 3.5 - 5.1 | [facility] | | | | | mmol/L | [facility] | | | | [...] 12 | 7 - 18 mg/dL | [facility] | | | | | | [facility] | | | | | | MEDICAL | | | | | | CENTER - | | | | | | LABORATORY | | + + + + + + | Creatinine | 0.64 | 0.60 - 1.30 | [facility] | | | | | mg/dL | [facility] | | | | | | MEDICAL | | | | | | CENTER - | | | | | | LABORATORY | | + + + + + + | eGFR if not | >60Comment: GLOMERULAR | >=60 | [facility] | | | | FILTRATION | mL/min/1.73m2 | [facility] | | | [place] | RATE,ESTIMATED | | MEDICAL | | | | mL/min/1.38x5Dngl than | | CENTER - | | [...] | | | | | mg/dL | [facility] | | | | | | MEDICAL [...] + | [facility] | [address] | [place] | [phone] | | [facility] | | [address] | | | - LABORATORY | | | | + + + + + | [facility] | [address] | [place] | | | [facility] | | [address] | | | - LABORATORY | | [...] | | | | M/uL | [facility] | | | | [...] + | [facility] | [address] | [place] | [phone] | | [facility] | | [address] | | | - LABORATORY | | | | + + + + + | [facility] | [address] | [place] | | | [facility] | | [address] | | | - LABORATORY | | | | + + + + + documented in this encounter Visit Diagnoses + + | Diagnosis | + + | SBO (small bowel obstruction) (HCC) Unspecified intestinal obstruction | + + documented in this encounter Administered Medications + +--------+ +------+------+ + | Medication Order | MAR | Action | Dose | Rate | Site | | | Action | Date | | | | + +--------+ +------+------+ + | ketamine 30 mg, morphine (PF) | Given | 03/26/20 | | | Surgical | | 10 mg, ketorolac (TORADOL) 30 mg | | 14 10:37 | | | Site | | in bupivacaine 0.25%-epinephrine | | AM PST | | | | | 1:200,000 70 mL OpTesia mixture | | | | | | | PRN, Starting 03/26/14 at | | | | | | | 1037, Intra-op | | | | | | + +--------+ +------+------+ + +---+---+ | | | +---+---+ documented in this encounter
--- OUTSIDE RECORDS SUMMARY | ~2019-03-21 | XMS | Encounter Summary ---
Demographics + + + | Address | [address] | | | [place] [address] | + + + | Home Phone | | + + + | Preferred Language | Unknown | + + + | Marital Status | | + + + | Latter Day Affiliation | Unknown | + + + | Race | Unknown | + + + | Ethnic Group | Unknown | + + + Author + + + | Author | [facility] | | | and [place] | + + + | Organization | [facility] | | | [...] [place] | | | | | [address] | | + + + + + Care Team Providers + +------+ + | Care Recreation Superintendent Name | Role | Phone | + +------+ + | Toi Leung MD | PCP | | + +------+ + Reason for Visit + + + | Reason | Comments | + + + | Appointment | liver biopsy | + + + Encounter Details +--------+ + + + + | Date | Type | Department | Care Team | Description | +--------+ + + + + | 01/31/ | Telephone | [facility] [place] | [facility], | Appointment (liver | | 2013 | | GASTROENTEROLOGY | [address] | biopsy) | | | | [address] | [place], [address] | | | | | [address] [place], [place] | [place] | | | | | [address] | [id number] | | | | | [phone] | | | +--------+ + + + [...]
--- OUTSIDE RECORDS SUMMARY | ~2019-03-21 | XMS | Encounter Summary ---
Demographics + + + | Address | [address] | | | [place] [address] | + + + | Home Phone | | + + + | Preferred Language | Unknown | + + + | Marital Status | | + + + | Confucianism Affiliation | Unknown | + + + | Race | Unknown | + + + | Ethnic Group | Unknown | + + + Author + + + | Author | [facility] | | | and [place] | + + + | Organization | [facility] | | | [...] [place] | | | | | [address] | | + + + + + Care Team Providers + +------+ + | Care Hand Leather Trimmer Name | Role | Phone | + +------+ + | Mila Majano PA-C PCP | | + +------+ + Encounter Details +--------+ + + + + | Date | Type | Department | Care Team | Description | +--------+ + + + + | 04/04/ | Hospital | [facility] | Cezar Salcido MD | Cough | | 2013 | Encounter | MED CTR XRAY [address] | [address] [facility] | | | | | [place] | [place], [place] | | | | | [place] [address] | [address] | | | | | [phone] | | | | | | | [...] tablets by | 42 | 0 | // | | | HYDROcodone-acetamin | mouth every [...] XR CHEST PA AND | Routin | 04/04/2014 | Cough | Results for this | | LATERAL | e | 10:19 AM | | procedure are in the | | | | PST | | results section. | + +--------+ + + + documented in this encounter Results XR Chest PA and Lateral (04/04/2014 10:19 AM PST) + + | Specimen | + + | | + + + + -------+ | Narrative | Performed At | + + -------+ | XR CHEST PA | [facility] | | AND LATERAL 04/04/2014 10:18 AM HISTORY: chest xray. COMPARISON: | LAB | | 01/31/2014, 06/06/2004. Findings:Heart size is within normal limits. | | | Aorta is normal. Mediastinum isunremarkable. Central pulmonary | | | vasculature is normal. The bilateral lungs areclear with no evidence | | | for pleural effusion or pneumothorax. There are no acuteosseous | | | abnormalities. There is a thoracic spinal stimulator device. | | | IMPRESSION -No acute findings. Dictated and Signed by: Calvin Lemus | | | Electronically signed: 04/04/2014 1:24 PM | | |clear with no evidence for pleural effusion or pneumothorax. There are no acute | | |osseous abnormalities. There is a thoracic spinal stimulator device. | | | | | |IMPRESSION - | | |No acute findings. | | | | | | | | |Dictated and Signed by: Calvin Lemus MD | | | Electronically signed: 04/04/2014 1:24 PM | | | | | + + -------+ + + | Procedure Note | + + | Ubaldo, Rad Results In - 04/04/2014 1:27 PM PST XR CHEST PA AND LATERAL 04/04/2014 10:18 | | AMHISTORY: chest xray.COMPARISON: 01/31/2014, 06/06/2004.Findings:Heart size is within | | normal limits. Aorta is normal. Mediastinum isunremarkable. Central pulmonary | | vasculature is normal. The bilateral lungs areclear with no evidence for pleural | | effusion or pneumothorax. There are no acuteosseous abnormalities. There is a thoracic | | spinal stimulator device.IMPRESSION -No acute findings. Dictated and Signed by: Calvin | | MD Allan Electronically signed: 04/04/2014 1:24 PM | |Heart size is within normal limits. Aorta is normal. Mediastinum is | |unremarkable. Central pulmonary vasculature is normal. The bilateral lungs are | |clear with no evidence for pleural effusion or pneumothorax. There are no acute | |osseous abnormalities. There is a thoracic spinal stimulator device. | | | |IMPRESSION - | |No acute findings. | | | | | |Dictated and Signed by: Calvin Lemus MD | | Electronically signed: 04/04/2014 1:24 PM | + + + +---------+ + + | Performing | Address | City/State/Zipcode | Phone Number | | Organization | | | | + +---------+ + + | [facility] | | | [phone] | + +---------+ + + | [facility] | | | [phone] | + +---------+ + + documented in this encounter Visit Diagnoses + + | Diagnosis | + + | Cough | + + documented in this encounter"
--- OUTSIDE RECORDS SUMMARY | ~2019-03-21 | XMS | Encounter Summary ---
Demographics + + + | Address | [address] | | | [place] [address] | + + + | Home Phone | | + + + | Preferred Language | Unknown | + + + | Marital Status | | + + + | Adventism Affiliation | Unknown | + + + | Race | Unknown | + + + | Ethnic Group | Unknown | + + + Author + + + | Author | [facility] | | | and [place] | + + + | Organization | [facility] | | | [...] [place] | | | | | [address] | | + + + + + Care Team Providers + +------+ + | Care Braille Duplicating Machine Operator Name | Role | Phone | + +------+ + PCP | Unavailable | + +------+ + Encounter Details +--------+ + + + + | Date | Type | Department | Care Team | Description | +--------+ + + + + | 04/09/ | Hospital | [facility] | Mani Banks | | | 2009 | Encounter | MED CTR XRAY [address] | [address] | | | | | [place] | [place] | | | | | [place] [address] | [address] | | | | | [phone] | | | +--------+ + + + [...]
--- OUTSIDE RECORDS SUMMARY | ~2019-03-21 | XMS | Encounter Summary ---
Demographics + + + | Address | [address] | | | [place] [address] | + + + | Home Phone | | + + + | Preferred Language | Unknown | + + + | Marital Status | | + + + | Synagogue Affiliation | Unknown | + + + | Race | Unknown | + + + | Ethnic Group | Unknown | + + + Author + + + | Author | [facility] | | | and [place] | + + + | Organization | [facility] | | | [...] [place] | | | | | [address] | | + + + + + Care Team Providers + +------+ + | Care Golf Club Head Inspector Name | Role | Phone | + [...] | [address] | [place], [address] | | | | | [address] [place], [place] | [place], [place] | | | | | [address] | [address] | | | | | [phone] | | | +--------+ + + + [...]
--- OUTSIDE RECORDS SUMMARY | ~2019-03-21 | XMS | Clinical Summary ---
Demographics + + + | Address | [address] | | | [place] [address] | + + + | Home Phone | | + + + | Preferred Language | Unknown | + + + | Marital Status | | + + + | Anabaptism Affiliation | Unknown | + + + [...] #[place] | | | | | [address] | | + + + + + Care Team Providers + +------+ + | Care Security Police Name | Role | Phone | + +------+ + | Mila Majano | PCP | | + +------+ + Source Comments JUANITA is fully live on both [facility] Ambulatory and [facility] InPatient.[facility] Allergies Not on File Medications Not on file Active Problems Not [...] | + + Last Filed Vital Signs Not on file Plan of Treatment + + + + + | Health Maintenance | Due Date | Last Done | Comments | + + + + + | Influenza (Flu) | | | | | vaccination (#1) | 9 | | | + + + + + | Pneumococcal | Aged Out | | No longer eligible | | vaccination | | | based on patient's | | | | | age to complete this | | | | | topic | + + + + + Results Not on filefrom Last 3 Months Insurance + +--------+ +--------+ + +------+ | Payer | Benefi | Subscriber | Effect | Phone | Address | Type | | | t Plan | ID | michael | | | | | | / | | Dates | | | | | | Group | | | | | | + +--------+ +--------+ + +------+ | [facility] | PHP | [phone] | 05/04/19 | [phone] | [address] | PPO | | | [address] | | 13-Pre | 0 | [address] | | | [address] | | sent | | [place], | | | | [place] | | | | [place] [address] | | + +--------+ +--------+ + +------+ + +--------+ +--------+ + + | Guarantor Name | Accoun | Relation to | Date | Phone | Billing Address | | | t Type | Patient | of | | | | | | | | | | + +--------+ +--------+ + + | Jero Glass | Person | Self | [birth year] | [address] | | | al/[place] | | 1960 | [phone] | #[place] | | | [place]ian | | | 1 (Home) | [address] | | | | | | [phone] | | | | | | | 0 (Work) | | + +--------+ +--------+ + +"
--- OUTSIDE RECORDS SUMMARY | ~2019-03-21 | XMS | Encounter Summary ---
Demographics + + + | Address | [address] | | | [place] [address] | + + + | Home Phone | | + + + | Preferred Language | Unknown | + + + | Marital Status | | + + + | Quaker Affiliation | Unknown | + + + | Race | Unknown | + + + | Ethnic Group | Unknown | + + + Author + + + | Author | [facility] | | | and [place] | + + + | Organization | [facility] | | [...] [place] | | | | | [address] | | + + + + + Care Team Providers + +------+ + | Care Assistant Clinical Nurse Manager Name | Role | Phone | + +------+ + | Mila Majano PA-C PCP | | + +------+ + Encounter Details +--------+ + + + + | Date | Type | Department | Care Team | Description | +--------+ + + + + | 04/04/ | Hospital | [facility] | Cezar Salcido MD | Cough | | 2013 | Encounter | MED CTR XRAY [address] | [address] [facility] | | | | | [place] | [place], [place] | | | | | [place] [address] | [address] | | | | | [phone] | [phone] | | | | | | | [...] + | MISCELLANEOUS LAB | | | [phone] | + +---------+ + + | MISCELANIOUS LAB | | | [phone] | + +---------+ + + documented in this encounter Visit Diagnoses + + | Diagnosis | + + | Cough | + + documented in this encounter"
--- OUTSIDE RECORDS SUMMARY | ~2019-03-21 | XMS | Clinical Summary ---
Demographics + + + | Address | [address] | | | [place] [address] | + + + | Home Phone [...] [place] | | | | | [address] | | + + + + + Care Team Providers + +------+ + | Care Electronics Manufacturer Name | Role | Phone | + [...] | | last visitHe was [facility]- underwent echo, | | [...] | 01/19/ | Office | Gastroenterology | [facility], | Abdominal pain, | | 2019 | [...] + +------+ | MODA | MODA | [id number] | | [phone] | [address] | [address] | | | [address] | | [phone] | [phone] | | | | [place] | | esent | | [place], | | | | [place] | | | | [place] [address] | | +-------+--------+ +--------+ + +------+ + [...] | | al/Aramis | | 1960 | [phone] | [address] [place], | | | gian | | | 5 (Home) | [place] [address] | | | | | | [phone] | | | | | | | 0 (Work) | | + +--------+ +--------+ + + Advance Directives + + + + + | Type | Date Recorded | Patient | Explanation | | | | Paper Cone Machine Tender | | + + + + + | Power of | | | | | Tax Examiner | | | | + + + [...]
--- OUTSIDE RECORDS SUMMARY | ~2019-03-21 | XMS | Encounter Summary ---
Demographics + + + | Address | [address] | | | [place] [address] | + + + | Home Phone | | + + + | Preferred Language | Unknown | + + + | Marital Status | | + + + | Scientology Affiliation | Unknown | + + + | Race | Unknown | + + + | Ethnic Group | Unknown | + + + Author + + + | Author | [facility] | | | and [place] | + + + | Organization | [facility] | | | [...] [place] | | | | | [address] | | + + + + + Care Team Providers + +------+ + | Care Data Entry Associate Name | Role | Phone | + [...] | | | | | | [place] [address] | [place] | | | | | | Phone: | [address] | | | | | | [phone] | Phone: | | | | | | Fax: | [phone] | | | | | | [phone] | Fax: | | | | | | | [phone] | +--------+--------+ + + + + Encounter [...] | [address] | [place], [address] | Dx); S/P gastric | | | | [address] [place], [place] | [place], [place] | bypass | | | | [address] | [id number] | | | | | [phone] | | | +--------+---------+ + + + [...] y in 2005. It was done in [place]. He has not been seen back the since. He has had EGD done by surgeon and is scheduled for colonoscopy in [facility], [place] MEDICAL, SURGICAL, AND PERSONAL HISTORY: BP [...] since last visit [facility]- underwent echo, stress [...] 2. Sigmoid diverticulosis, mild with mild proctitis. [facility] Dr. Torrez GASTRIC BYPASS SURGERY 2006 Implantation nerve stimulator 10/2013 LAPAROTOMY 12/26/2012 reduction and repair of internal hernia [facility] Dr. 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 Nephrolithiasis [facility] ~ June Family History Problem Relation [...] 2 0 - 4 Final UA Specific [place], External 08/20/2018 1.020 1.005 - 1.03 Final [...] Plan: Encouraged patient to follow up in [place] where he had his bariatric surgery. Patient [...]
--- OUTSIDE RECORDS SUMMARY | ~2019-03-21 | XMS | Encounter Summary ---
Demographics + + + | Address | [address] | | | [place] [address] | + + + | Home Phone | | + + + | Preferred Language | Unknown | + + + | Marital Status | | + + + | Episcopal Affiliation | Unknown | + + + | Race | Unknown | + + + | Ethnic Group | Unknown | + + + Author + + + | Author | [facility] | | | and [place] | + + + | Organization | [facility] | | | [...] [place] | | | | | [address] | | + + + + + Care Team Providers + +------+ + | Care Space Scheduler Name | Role | Phone | + [...] Description | +--------+---------+ + + + | 02/17/ | Surgery | [facility] | Sina Kraft MD | U/S LIVER BIOPSY | | 2013 | | MED CTR IR INTRA OP | [address] | | | | | [address] | [place] | | | | | [place] | [address] | | | | | [address] | [phone] | | | | | [phone] | | | +--------+---------+ + + + [...] your doctorw ill discuss them with you. 4652-8063 [facility], [address] [place] [address], [place] [address]. All rights reserve d. This information is [...] | + +--------+ + + + | HA BRYAN, | Routin | 02/17/2014 | | Results for this | | SMEAR | e | 10:19 AM | | procedure are in the | | | | PDT | | results section. | + +--------+ + + + | HUSSEIN BRYAN SMEAR | Routin | 02/17/2014 | | [...] through | | the introducer with an 18-gaugeJewel TonedpinIris Experience biopsy gun. Two specimens were placed in [...] + | MISCELLANEOUS LAB | | | [phone] | + +---------+ + + | MISCELANIOUS LAB | | | [phone] | + +---------+ + + Culture, Ha, Smear (02/17/2014 10:19 AM PDT) + + [...] | | | | | | | [id number] | | | | | | Source [...] Performed: | | | | | | [facility] | | | | | | [facility], [address] | | | | | | [address] [place], [place] [address] [address] | | | | + + + [...] PAML | [address] | [place] [address] | [phone] | + + + + + Culture, [...] Performed At | + + + | 12/15 No AFB at 8 weeks. [place] | [facility] | | | [facility] | | | [facility] | | | - LABORATORY | + + + + + + + + | Performing | Address | City/State/Zipcode | Phone Number | | Organization | | | | + + + + + | [facility] | [address] | [place] | [phone] | | [facility] | | [address] | | | - LABORATORY | | | | + + + + + | [facility] | [address] | [place] | | | [facility] | | [address] | | | - LABORATORY | | [...]
--- OUTSIDE RECORDS SUMMARY | ~2019-03-21 | XMS | Encounter Summary ---
Demographics + + + | Address | [address] | | | [place] [address] | + + + | Home Phone | | + + + | Preferred Language | Unknown | + + + | Marital Status | | + + + | Presybeterian Affiliation | Unknown | + + + | Race | Unknown | + + + | Ethnic Group | Unknown | + + + Author + + + | Author | [facility] | | | and [place] | + + + | Organization | [facility] | | | and [...] [place] | | | | | [address] | | + + + + + Care Team Providers + +------+ + | Care Senior Accounting Specialist Name | Role | Phone | [...] | Telephone | [facility] [place] | [facility], | Appointment (liver | | 2013 | | GASTROENTEROLOGY | SH[address]QUA [address] | biopsy) | | | | [address] | [place], [address] | | | | | [address] [place], [place] | [place] | | | | | [address] | [id number] | | | | | [phone] | | | +--------+ + + + [...]
--- OUTSIDE RECORDS SUMMARY | ~2019-03-21 | XMS | Encounter Summary ---
Demographics + + + | Address | [address] | | | [place] [address] | + + + | Home Phone | | + + + | Preferred Language | Unknown | + + + | Marital Status | | + + + | Mormonism Affiliation | Unknown | + + + | Race | Unknown | + + + | Ethnic Group | Unknown | + + + Author + + + | Author | [facility] | | | and [place] | + + + | Organization | [facility] | | | [...] [place] | | | | | [address] | | + + + + + Care Team Providers + +------+ + | Care It Communications Specialist Name | Role | Phone | + +------+ + | Toi Leung MD | PCP | | + +------+ + Encounter Details +--------+ + + + + | Date | Type | Department | Care Team | Description | +--------+ + + + + | 01/31/ | Hospital | [facility] | [facility], | Abnormal CT of liver | | 2014 | Encounter | MED CTR XRAY [address] | [place], [address] | | | | | [place] | [place] | | | | | [place] [address] | [place], [place] | | | | | [phone] | [address] | | | | | | | [...] + | MISCELLANEOUS LAB | | | [phone] | + +---------+ + + | MISCELANIOUS LAB | | | [phone] | + +---------+ + + documented in this encounter Visit Diagnoses + + | Diagnosis | + + | Abnormal CT of liver Nonspecific abnormal results of liver function study | + + documented in this encounter"
--- OUTSIDE RECORDS SUMMARY | ~2019-03-21 | XMS | Encounter Summary ---
Demographics + + + | Address | [address] | | | [place] [address] | + + + | Home Phone | | + + + | Preferred Language | Unknown | + + + | Marital Status | | + + + | Rastafari Affiliation | Unknown | + + + | Race | Unknown | + + + | Ethnic Group | Unknown | + + + Author + + + | Author | [facility] | | | and [place] | + + + | Organization | [facility] | | [...] [address] | | | | | [place] | | | | | [address] | | + + + + + Care Team Providers + +------+ + | Care Millwright Supervisor Name | Role | Phone | + +------+ + | Toi Leung MD | PCP | | + +------+ + Encounter Details +--------+ + + + + | Date | Type | Department | Care Team | Description | +--------+ + + + + | 01/30/ | Abstract | [facility] [place] | [facility], | | | 2013 | | GASTROENTEROLOGY | [address] | | | | | [address] | [place], [address] | | | | | [address] [place], [place] | [place], [place] | | | | | [address] | [address] | | | | | [phone] | | | +--------+ + + + + Social History + + + +--------+ + | Tobacco Use | Types | Packs/Day | Years | Date | | | | | Used | | + + + +--------+ + | Former Smoker | Cigarettes | | | Quit: 01/30/1989 | + + + +--------+ + + + +---------+ + | Alcohol Use [...] | + +--------+ + + + | METHYLMALONIC ACID, | Routin | 01/30/2014 | | Results for this | | QUANT | e | 11:44 AM | | procedure are in the | | | | PDT | | results section. | + +--------+ + + + | EXTERNAL LAB: VALERIE | Routin | 12/21/2013 | | Results for this | | | e | 1:00 AM | | procedure are in the | | | | PDT | | results section. | + +--------+ + + + | EXTERNAL LAB: AST | Routin | 12/21/2013 | | Results for this | | | e | 1:00 AM | | procedure are in the | | | | PDT | | results section. | + +--------+ + + + | EXTERNAL LAB: ALT | Routin | 12/21/2013 | | Results for this | | | e | 1:00 AM | | procedure are in the | | | | PDT | | results section. | + +--------+ + + + | EXTERNAL LAB: EGFR | Routin | 12/21/2013 | | Results for this | | | e | 1:00 AM | | procedure are in the | | | | PDT | | results section. | + +--------+ + + + | EXTERNAL LAB: | Routin | 12/21/2013 | | Results for this | | CREATININE | e | 1:00 AM | | procedure are in the | | | | PDT | | results section. | + +--------+ + + + | VITAMIN B12+FOLATE | Routin | 12/21/2013 | | Results for this | | | e | 1:00 AM | | procedure are in the | | | | PDT | | results section. | + +--------+ + + + | HEPATITIS A, B, C | Routin | 12/21/2013 | | Results for this | | PANEL, REFLEX | e | 1:00 AM | | procedure are in the | | | | PDT | | results section. | + +--------+ + + + | VITAMIN D, | Routin | 12/21/2013 | | Results for this | | 25-HYDROXY, | e | 1:00 AM | | procedure are in the | | FRACTIONATED (D2,D3) | | PDT | | results section. | + +--------+ + + + | CBC WITH | Routin | 12/21/2013 | | Results for this | | DIFFERENTIAL | e | 1:00 AM | | procedure are in the | | | | PDT | | results section. | + +--------+ + + + | COMPREHENSIVE | Routin | 12/21/2013 | | Results for this | | METABOLIC PANEL | e | 1:00 AM | | procedure are in the | | | | PDT | | results section. | + +--------+ + + + | EXTERNAL: | Routin | 12/31/2010 | | Results for this | | COLONOSCOPY | e | | | procedure are in the | | | | | | results section. | + +--------+ + + + documented in this encounter Results Methylmalonic Acid, Quant (01/30/2014 11:44 AM PDT) + + + | Impressions | Performed At | + + + | Entered in error - ANR | [facility] | | | [facility] | | | [facility] | | | - LABORATORY | + + + + + + + + | Performing | Address | City/State/Zipcode | Phone Number | | Organization | | | | + + + + + | [facility] | [address] | [place] | | | [facility] | | [address] | | | - LABORATORY | | | | + + + + + Vitamin B-12 and Folate (12/21/2013 1:00 AM PDT) + +-------+ + + + | Component | Value | Ref Range | Performed | Pathologist | | | | | At | Signature | + +-------+ + + + | FOLATE | 16.24 | | [facility] | | | INTERPRETAT | | | [facility] | | | [facility] | | | [facility] | | | | | | C[facility] - | | | | | | LABORATORY | | + +-------+ + + + | VITAMIN | 546 | pg/mL | [facility] | | | B-12 | | | [facility] | | | | | | MEDICAL | | | | | | CENTER - | | | | | | LABORATORY | | + +-------+ + + + + + | Specimen | + + | Blood specimen | | (specimen) | + + + + + + + | Performing | Address | City/State/Zipcode | Phone Number | | Organization | | | | + + + + + | [facility] | [address] | [place] | | | [facility] | | [address] | | | - LABORATORY | | | | + + + + + Comprehensive Metabolic Panel (12/21/2013 1:00 AM PDT) + +-------+ + + + | Component | Value | Ref Range | Performed | Pathologist | | | | | At | Signature | + +-------+ + + + | Na | 142 | mmol/L | [facility] | | | | | | [facility] | | | | | | [facility] | | | | | | [facility] - | | | | | | LABORATORY | | + +-------+ + + + | K | 4.4 | mmol/L | [facility] | | | | | | [facility] | | | | | | [facility] | | | | | | CENTER - | | | | | | LABORATORY | | + +-------+ + + + | Cl | 105 | mmol/L | [facility] | | | | | | [facility] | | | | | | MEDICAL | | | | | | CENTER - | | | | | | LABORATORY | | + +-------+ + + + | CO2 | 30 | mmol/L | [facility] | | | | | | [facility] | | | | | | MEDICAL | | | | | | CENTER - | | | | | | LABORATORY | | + +-------+ + + + | Anion Gap | 11 | mmol/L | [facility] | | | | | | [facility] | | | | | | [facility]ICAL | | | | | | CENTER - | | | | | | LABORATORY | | + +-------+ + + + | Glucose | 84 | mg/dL | [facility] | | | | | | [facility] | | | | | | MEDICAL | | | | | | CENTER - | | | | | | LABORATORY | | + +-------+ + + + | BUN | 13 | mg/dL | [facility] | | | | | | [facility] | | | | | | MEDICAL | | | | | | CENTER - | | | | | | LABORATORY | | + +-------+ + + + | BUN/Creatin | 16.9 | | [facility] | | | ine Ratio | | | [facility] | | | | | | MEDICAL | | | | | | CENTER - | | | | | | LABORATORY | | + +-------+ + + + | Calcium | 9.4 | mg/dL | [facility] | | | | | | [facility] | | | | | | [facility]ICAL | | | | | | CENTER - | | | | | | LABORATORY | | + +-------+ + + + | Alkaline | 67 | U/L | [facility] | | | Phosphatase | | | [facility] | | | | | | MEDICAL | | | | | | CENTER - | | | | | | LABORATORY | | + +-------+ + + + | Bilirubin | 0.3 | mg/dL | [facility] | | | Total | | | [facility] | | | | | | MEDICAL | | | | | | CENTER - | | | | | | LABORATORY | | + +-------+ + + + | Total | 6.5 | g/dL | [facility] | | | Protein | | | [facility] | | | | | | MEDICAL | | | | | | CENTER - | | | | | | LABORATORY | | + +-------+ + + + | Albumin | 4.5 | g/dL | [facility] | | | | | | [facility] | | | | | | MEDICAL | | | | | | CENTER - | | | | | | LABORATORY | | + +-------+ + + + | Globulin | 2.0 | | [facility] | | | | | | [facility] | | | | | | [facility]ICAL | | | | | | CENTER - | | | | | | LABORATORY | | + +-------+ + + + | Albumin/Mary | 2.3 | | [facility] | | | bulin Ratio | | | [facility] | | | | | | MEDICAL | | | | | | CENTER - | | | | | | LABORATORY | | + +-------+ + + + + + | Specimen | + + | Blood specimen | | (specimen) | + + + + + + + | Performing | Address | City/State/Zipcode | Phone Number | | Organization | | | | + + + + + | [facility] | [address] | [place] | | | [facility] | | [address] | | | - LABORATORY | | | | + + + + + Vitamin D, 25-Hydroxy, Fractionated (D2,D3) (12/21/2013 1:00 AM PDT) + +-------+ + + + | Component | Value | Ref Range | Performed | Pathologist | | | | | At | Signature | + +-------+ + + + | 1,25 | 30 | | | | | DIHYDROXY | | | | | | VITAMIN D | | | | | + +-------+ + + + + + | Specimen | + + | Blood specimen | | (specimen) | + + CBC with Differential (12/21/2013 1:00 AM PDT) + + + + + + | Component | Value | Ref Range | Performed | Pathologist | | | | | At | Signature | + + + + + + | RBC | 4.00 (A) | 4.30 - 5.70 | | | | | | 10*6/uL | | | + + + + + + | MCV | 101.8 (A) | 81.0 - 99.0 fL | | | + + + + + + | RDW-CV | 13.7 | % | | | + + + + + + | MCH | 35.0 (A) | 27.0 - 33.0 pg | | | + + + + + + | MCHC | 34.0 | % | | | + + + + + + | % Segmented | 45.0 | % | | | | | | | | | | Neutrophils | | | | | + + + + + + | % | 33.0 | % | | | | Lymphocytes | | | | | + + + + + + | % Monocytes | 4.0 | % | | | + + + + + + | % | 17.0 (A) | 0.0 - 6.0 % | | | | Eosinophils | | | | | + + + + + + | % Basophils | 1.0 | % | | | + + + + + + + + | Specimen | + + | Blood specimen | | (specimen) | + + Hepatitis A, B, C Panel, Reflex (12/21/2013 1:00 AM PDT) + + + + + + | Component | Value | Ref Range | Performed | Pathologist | | | | | At | Signature | + + + + + + | Hepatitis A | Negative | | | | | IGM | | | | | + + + + + + | Hepatitis B | Negative | | | | | Surface | | | | | | Ag, | | | | | | External | | | | | + + + + + + | HEP B CORE | Negative | | | | | IgM | | | | | + + + + + + | HCV Ab | Negative | | | | + + + + + + + + | Specimen | + + | Blood specimen | | (specimen) | + + External Lab: CBC (12/21/2013 1:00 AM PDT) + + + + + + | Component | Value | Ref Range | Performed | Pathologist | | | | | At | Signature | + + + + + + | WBC, | 6.0 | 4.5 - 11 | EXTERNAL | | | External | | | LAB | | + + + + + + | HGB, | 13.8 | 13.5 - 18 | EXTERNAL | | | External | | | LAB | | + + + + + + | HCT, | 40.8 (A) | 41 - 50 | EXTERNAL | | | External | | | LAB | | + + + + + + | PLT, | 295 | 140 - 440 | EXTERNAL | | | External | | | LAB | | + + + + + + + + | Resulting Agency Comment | + + | [facility] | + + + +---------+ + + | Performing | Address | City/State/Zipcode | Phone Number | | Organization | | | | + +---------+ + + | EXTERNAL LAB | | | | + +---------+ + + External Lab: DONOVAN (12/21/2013 1:00 AM PDT) + +--------+ + + + | Component | Value | Ref Range | Performed | Pathologist | | | | | At | Signature | + +--------+ + + + | AST, | 61 (A) | 13 - 39 | EXTERNAL | | | External | | | LAB | | + +--------+ + + + + + | Specimen | + + | Blood specimen | | (specimen) | + + + + | Resulting Agency Comment | + + | [facility] | + + + +---------+ + + | Performing | Address | City/State/Zipcode | Phone Number | | Organization | | | | + +---------+ + + | EXTERNAL LAB | | | | + +---------+ + + External Lab: ALT (12/21/2013 1:00 AM PDT) + +--------+ + + + | Component | Value | Ref Range | Performed | Pathologist | | | | | At | Signature | + +--------+ + + + | ALT, | 66 (A) | 7 - 52 | EXTERNAL | | | External | | | LAB | | + +--------+ + + + + + | Specimen | + + | Blood specimen | | (specimen) | + + + + | Resulting Agency Comment | + + | [facility] | + + + +---------+ + + | Performing | Address | City/State/Zipcode | Phone Number | | Organization | | | | + +---------+ + + | EXTERNAL LAB | | | | + +---------+ + + External Lab: eGFR (12/21/2013 1:00 AM PDT) + +-------+ + + + | Component | Value | Ref Range | Performed | Pathologist | | | | | At | Signature | + +-------+ + + + | eGFR, | >60 | 60 - 99,999 | EXTERNAL | | | External | | | LAB | | + +-------+ + + + | eGFR, | | | EXTERNAL | | | | | | LAB | | | Bhut[place], | | | | | | External | | | | | + +-------+ + + + + + | Specimen | + + | Blood specimen | | (specimen) | + + + + | Resulting Agency Comment | + + | [facility] | + + + +---------+ + + | Performing | Address | City/State/Zipcode | Phone Number | | Organization | | | | + +---------+ + + | EXTERNAL LAB | | | | + +---------+ + + External Lab: Creatinine (12/21/2013 1:00 AM PDT) + +-------+ + + + | Component | Value | Ref Range | Performed | Pathologist | | | | | At | Signature | + +-------+ + + + | Creatinine, | 0.77 | 0.7 - 1.33 | EXTERNAL | | | External | | | LAB | | + +-------+ + + + + + | Specimen | + + | Blood specimen | | (specimen) | + + + + | Resulting Agency Comment | + + | [facility] | + + + +---------+ + + | Performing | Address | City/State/Zipcode | Phone Number | | Organization | | | | + +---------+ + + | EXTERNAL LAB | | | | + +---------+ + + EXTERNAL: COLONOSCOPY (12/31/2010) + + + + + + | Component | Value | Ref Range | Performed | Pathologist | | | | | At | Signature | + + + + + + | Colonoscopy | Diagnosis: 1. Gastric | | | | | | pouch remnant with mold | | | | | Impression, | inflammation and mild | | | | | External | distal esophagitis 2. | | | | | | Sigmoid diverticulosis, | | | | | | mild with mild | | | | | | proctitis. | | | | + + + + + + documented in this encounter Visit Diagnoses Not on filedocumented in this encounter"
--- OUTSIDE RECORDS SUMMARY | ~2019-03-21 | XMS | Encounter Summary ---
Demographics + + + | Address | [address] | | | [place] [address] | + + + | Home Phone | | + + + | Preferred Language | Unknown | + + + | Marital Status | | + + + | Taoist Affiliation | Unknown | + + + | Race | Unknown | + + + | Ethnic Group | Unknown | + + + Author + + + | Author | [facility] | | | and [place] | + + + | Organization | [facility] | | | [...] [place] | | | | | [address] | | + + + + + Care Team Providers + +------+ + | Care Certified Ski Patroller Name | Role | Phone | + [...] + + | 02/17/ | Surgery | [facility] | Sina Kraft MD | U/S LIVER BIOPSY | | 2013 | | MED CTR IR INTRA OP | [address] | | | | | [address] | [place] | | | | | [place] | [address] | | | | | [address] | [phone] | | | | | [phone] | | | +--------+---------+ + + + [...] your doctorw ill discuss them with you. [id number] [facility], [address] [place] [address], [place] [address]. All rights reserve d. This information is [...] through | | the introducer with an 18-gaugeRivulet CommunicationspinIn [employer] biopsy gun. Two specimens were placed in [...] + | MISCELLANEOUS LAB | | | [phone] | + +---------+ + + | MISCELANIOUS LAB | | | [phone] | + +---------+ + + Culture, Ha, [...] | | | | | | | [id number] | | | | | | Source [...] Performed: | | | | | | [facility] | | | | | | [facility], [address] | | | | | | [address] [place], [place] [address] [address] | | | | + + + [...] [address] | [place] [address] | [phone] | + + + + + Culture, [...] weeks. [place] | [facility] | | | [facility] | | | [facility] | | | - LABORATORY | + + + + + + + + | Performing | Address | City/State/Zipcode | Phone Number | | Organization | | | | + + + + + | [facility] | [address] | [place] | [phone] | | [facility] | | [address] | | | - LABORATORY | | | | + + + + + | [facility] | [address] | [place] | | | [facility] | | [address] | | | - LABORATORY | | [...]
--- OUTSIDE RECORDS SUMMARY | ~2019-03-21 | XMS | Encounter Summary ---
Demographics + + + | Address | [address] | | | [place] [address] | + + + | Home Phone | | + + + | Preferred Language | Unknown | + + + | Marital Status | | + + + | Sabianism Affiliation | Unknown | + + + | Race | Unknown | + + + | Ethnic Group | Unknown | + + + Author + + + | Author | [facility] | | | and [place] | + + + | Organization | [facility] | | | [...] [place] | | | | | [address] | | + + + + + Care Team Providers + +------+ + | Care Video Game Engineer Name | Role | Phone | + +------+ + | Mila Majano PA-C | PCP | | + +------+ + Encounter Details +--------+ + + + + | Date | Type | Department | Care Team | Description | +--------+ + + + + | 11/22/ | Hospital | [facility] | Justine Samuel MD | Chest pain radiating | | 2016 - | Encounter | [facility] | [address] | to jaw | | | | CLINICAL DECISION | [place] [address] | | | 11/23/ | | [address] | [phone] | | | 2015 | | [place], [place] | | | | | | [address] | | | | | | [phone] | | | +--------+ + + + [...] Summaries by Ajit Hidalgo MD at 11/24/15 7958 Author: Ajit Hidalgo MD Service: Hospitalist Author Type: Physician Filed: 11/24/15 2300 Date of Service: 11/24/15 3721 Status: Signed Hand Marker: Ajit Hidalgo MD (Physician) Related Notes: Original Note by Ajit Hidalgo MD (Physician) filed at 11/24/15 1311 [facility] Service: Hospitalist Discharge Summary Date of Admission: [...] file. Follow up: Pepe Dash MD [address] [place] [id number] In 1 week Follow-up echocardiogram, nuclear medicine [...] follow-up and documentation of dis charge summary. Ajti Hidalgo MD 11/24/2015 documented in this encounter [...] 1428 Date of Service: 11/24/151424 Status: Signed Hand Marker: Shaniat Burch RN (Registered Nurse) Discharge instructions given [...] Date of Service: 11/24/15 1237 Status: Signed Hand Marker: Shanita Burch RN (Registered Nurse) Patient back [...] Date of Service: 11/24/15 1142 Status: Signed Hand Marker: Shanita Burch RN (Registered Nurse) Patient still down at stress test at this time. onver alberto Transaction, Provider Unknown - 11/24/2015 9:39 AM PDT Nurse Progress Note by Shanita Burch RN at 11/24/1539 Author: Shanita Burch RN Service: (none) Author Type: Registered Nurse Filed: 11/24/15939 Date of Service: 11/24/15938 Status: Signed Hand Marker: Shanita Burch RN (Registered Nurse) Patient resting in bed at this time, denies chest pain.Onlt complaining of his chronic back pain and a headache at this time. Will continue to monitor. onver alberto Transaction, Provider Unknown - 11/23/2015 3:45 PM PDT Nurse Progress Note by Sally Hester RN at 11/23/15 1544 Author: Sally Hester RN Service: (none) Author Type: Registered Nurse Filed: 11/23/15 1547 Date of Service: 11/23/151544 Status: Signed Hand Marker: Sally Hester RN (Registered Nurse) Dr Lizzie rubiod with return call. Informed him that the [employer] list was inaccurate and that pt takes 900mg of gabapentin 1x daily in the morning. He declined to increase dose to pt's norm al dose. Stated that he didn't feel that it was a good dose for pt. Pt aware. onver alberto Transaction, Provider Unknown - 11/23/2015 3:10 PM PDT Nurse Progress Note by Sally Hester RN at 11/23/15 7540 Author: Sally Hester RN Service: (none) Author Type: Registered Nurse Filed: 11/23/15 1516 Date of Service: 11/23/151509 Status: Signed Hand Marker: Sally Hester RN (Registered Nurse) Pt transferred [...] | + + + | JERO GLASS [place] MYOCARDIAL PERFUSION SPECT - STRESS AND | [...] TV A Jay[place]: 0.44 m/s TV Dec [place]: 2.25 m/s2 TV Dec | | | Time: 263.18 ms TV E Jaydon: 0.59 m/s TV E/A Ratio: 1.34 | | | Fiberglass Model Maker: Authenticated by: Abiodun Howell MD Report | [...] (A-L): 18.02 | | ml/m2LAAs A2C: 11.02 [id number] MOD A2C: 29.21 mlLALs A2C: 3.40 cmLAAs A4C: 13.71 | | sx1TQIID MOD A4C: 33.93 mlLALs A4C: 4.34 cmHR: 68 BPMAV maxP.89 mmHgAV | | meanP.15 mmHgAV Vmax: 1.10 m/Leo Vmean: 0.85 m/Leo VTI: 24.62 cmAVA Vmax: | | 2.66 cm2AVA (VTI): 2.45 ll6ELKQ Vmax: 0.00 cm2/m2AVAI (VTI): 0.00 cm2/m2LVCI Dopp: | | 1.84 l/alqw7AJNA Dopp: 3.84 l/minHR: 63.75 BPMLVOT maxP.60 mmHgLVOT [...] 2.18 m/sTV A Jaydon: 0.44 m/sTV Dec [place]: 2.25 m/s2TV Dec Time: 263.18 msTV | | E Jaydon: 0.59 m/sTV E/A Ratio: 1.34 Fiberglass Model Maker: Eulalioticated by: Abiodun | | Dante MDReport [...] A Jaydon: 0.44 m/s | |TV Dec [place]: 2.25 m/s2 | |TV Dec Time: 263.18 ms | |TV E Jaydno: 0.59 m/s | |TV E/A Ratio: 1.34 | | | |Fiberglass Model Maker: | |Authenticated by: Abiodun Howell MD | [...] | | | | | [place] [address] | | | | + + + + + + | RED CELL | 3.89 (L)Comment: Testing | 4.20 - 5.70 | EXTERNAL | | | COUNT | performed at [facility], [address] | M/uL | LAB | | | | [address], | | | | | | [place] [address] | | | | + + + + + + | Hgb | 13.7Comment: Testing | 13.2 - 17.0 | EXTERNAL | | | | performed at [facility], [address] | g/dL | LAB | | | | [address], | | | | | | [place] [address] | | | | + + + + + + | Hematocrit, | 40.8Comment: Testing | 39.0 - 50.0 % | EXTERNAL | | | POC | performed at [facility], [address] | | LAB | | | | [address], | | | | | | [place] [address] | | | | + + + + + + | MCV | 104.9 (H)Comment: | 80.0 - 100.0 fl | EXTERNAL | | | | Testing performed at | | LAB | | | | [facility], [address] | | | | | | [place] | | | | | | [address] | | | | + + + + + + | MCH | 35.3 (H)Comment: Testing | 27.0 - 34.0 pg | EXTERNAL | | | | performed at [facility], [address] | | LAB | | | | [address], | | | | | | [place] [address] | | | | + + + + + + | MCHC | 33.7Comment: Testing | 32.0 - 35.5 | EXTERNAL | | | | performed at [facility], [address] | g/dL | LAB | | | | [address], | | | | | | [place] [address] | | | | + + + + + + | RDW-CV | 49.0Comment: Testing | 37 - 53 fl | EXTERNAL | | | | performed at [facility], [address] | | LAB | | | | [address], | | | | | | [place] [address] | | | | + + + + + + | Platelet | 190Comment: Testing | 150 - 400 K/uL | EXTERNAL | | | Count | performed at [facility], [address] | | LAB | | | Plasma | [address], | | | | | | [place] [address] | | | | + + + + + + | MPV | 7.6Comment: Testing | fl | EXTERNAL | | | | performed at [facility], [address] | | LAB | | | | [address], | | | | | | [place] [address] | | | | + + + + + + | Differentia | AUTOMATEDComment: | | EXTERNAL | | | l Type | Testing performed at | | LAB | | | | [facility], [address] | | | | | | [place] | | | | | | [address] | | | | + + + + + + | % Segmented | 68.32Comment: Testing | % | EXTERNAL | | | | performed at [facility], [address] | | LAB | | | Neutrophils | [address], | | | | | | [place] [address] | | | | + + + + + + | % | 21.91Comment: Testing | % | EXTERNAL | | | Lymphocytes | performed at [facility], [address] | | LAB | | | | [address], | | | | | | [place] [address] | | | | + + + + + + | % Monocytes | 6.74Comment: Testing | % | EXTERNAL | | | | performed at [facility], [address] | | LAB | | | | [address], | | | | | | [place] [address] | | | | + + + + + + | % | 2.76Comment: Testing | % | EXTERNAL | | | Eosinophils | performed at [facility], [address] | | LAB | | | [address], | | | | | | [place] [address] | | | | + + + + + + | % Basophils | 0.27Comment: Testing | % | EXTERNAL | | | | performed at [facility], [address] | | LAB | | | | [address], | | | | | | [place] [address] | | | | + + + + + + | Absolute | 3.45Comment: Testing | 1.90 - 7.40 | EXTERNAL | | | Segmented | performed at [facility], [address] | K/uL | LAB | | | Neutrophils | [address], | | | | | | [place] [address] | | | | + + + + + + | Absolute | 1.11Comment: Testing | 1.00 - 3.90 | EXTERNAL | | | Lymphocytes | performed at [facility], [address] | K/uL | LAB | | | | [address], | | | | | | [place] [address] | | | | + + + + + + | Absolute | 0.34Comment: Testing | 0.00 - 0.80 | EXTERNAL | | | Monocytes | performed at [facility], [address] | K/uL | LAB | | | | [address], | | | | | | [place] [address] | | | | + + + + + + | Absolute | 0.14Comment: Testing | 0.00 - 0.50 | EXTERNAL | | | Eosinophils | performed at [facility], [address] | K/uL | LAB | | | | [address], | | | | | | [place] [address] | | | | + + + + + + | Absolute | 0.01Comment: Testing | 0.00 - 0.10 | EXTERNAL | | | Basophils | performed at [facility], [address] | K/uL | LAB | | | | [address], | | | | | | [place] [address] | | | | + + + [...] EXTERNAL | | | | performed at [facility], [address] | uIU/mL | LAB | | | | [facility], | | | | | | [place] [address] | | | | + + + [...] EXTERNAL | | | | performed at [facility], [address] | | LAB | | | | [address], | | | | | | [place] [address] | | | | + + + [...] | | | | | [place] [address] | | | | + + + [...] | | | | | [place] [address] | | | | + + + + + + | K | 3.9Comment: Testing | 3.5 - 4.9 | EXTERNAL | | | | performed at [facility], [address] | mmol/L | LAB | | | | [address], | | | | | | [place] [address] | | | | + + + + + + | Cl | 108Comment: Testing | 99 - 109 mmol/L | EXTERNAL | | | | performed at [facility], [address] | | LAB | | | | [address], | | | | | | [place] [address] | | | | + + + + + + | CO2 | 26Comment: Testing | 23 - 32 mmol/L | EXTERNAL | | | | performed at [facility], [address] | | LAB | | | | [address], | | | | | | [place] [address] | | | | + + + + + + | Anion Gap | 11Comment: Testing | 5 - 20 mmol/L | EXTERNAL | | | | performed at [facility], [address] | | LAB | | | | [address], | | | | | | [place] [address] | | | | + + + + + + | Glucose, | 94Comment: Testing | 65 - 99 mg/dL | EXTERNAL | | | Fasting | performed at [facility], [address] | | LAB | | | | [address], | | | | | | [place] [address] | | | | + + + + + + | BUN | 13Comment: Testing | 8 - 25 mg/dL | EXTERNAL | | | | performed at [facility], [address] | | LAB | | | | [address], | | | | | | [place] [address] | | | | + + + + + + | Creatinine | 0.7Comment: Testing | 0.70 - 1.30 | EXTERNAL | | | | performed at [facility], [address] | mg/dL | LAB | | | | [address], | | | | | | [place] [address] | | | | + + + + + + | BUN/Creatin | 19Comment: Testing | | EXTERNAL | | | ine Ratio | performed at [facility], [address] | | LAB | | | | [address], | | | | | | [place] [address] | | | | + + + + + + | Calcium | 9.3Comment: Testing | 8.5 - 10.5 | EXTERNAL | | | | performed at [facility], [address] | mg/dL | LAB | | | | [address], | | | | | | [place] [address] | | | | + + + [...] W | | | | | | [facility], | | | | | | [place] [address] | | | | + + + [...] EXTERNAL | | | | performed at [facility];[address] | | LAB | | | | [address];[place], [place] | | | | | | [address] | | | | + + + [...] | | | | | | ACUTE ME Testing | | | | | | performed at [facility];[address] | | | | | | [facility];[place], [place] | | | | | | [address] | | | | + + + [...] EXTERNAL | | | | performed at [facility];[address] | | LAB | | | | [address];[place], [place] | | | | | | [address] | | | | + + + [...] EXTERNAL | | | | performed at [facility];[address] | | LAB | | | | [address];[place], [place] | | | | | | [address] | | | | + + + [...] | | | | | | ACUTE ME Testing | | | | | | performed at [facility];[address] | | | | | | [address] [facility];[place], [place] | | | | | | [address] | | | | + + + [...] EXTERNAL | | | | performed at [facility];[address] | | LAB | | | | [address];[place], [place] | | | | | | [address] | | | | + + + [...] EXTERNAL | | | | performed at [facility];[address] | K/uL | LAB | | | | [address];[place] | | | | | | [address] | | | | + + + + + -+ | RED CELL | 3.81 (L)Comment: Testing | 4.20 - 5.70 | EXTERNAL | | | COUNT | performed at [facility];[address] | M/uL | LAB | | | | [address];[place] | | | | | | [address] | | | | + + + + + -+ | Hgb | 13.6Comment: Testing | 13.2 - 17.0 | EXTERNAL | | | | performed at [facility];[address] | g/dL | LAB | | | | [address];[place] | | | | | | [address] | | | | + + + + + -+ | Hematocrit, | 39.3Comment: Testing | 39.0 - 50.0 % | EXTERNAL | | | POC | performed at [facility];[address] | | LAB | | | | [address];[place] | | | | | | [address] | | | | + + + + + -+ | MCV | 103.0 (H)Comment: | 80.0 - 100.0 fl | EXTERNAL | | | | Testing performed at | | LAB | | | | [facility];[address] | | | | | | [address];[place] [address] | | | | + + + + + -+ | MCH | 35.6 (H)Comment: Testing | 27.0 - 34.0 pg | EXTERNAL | | | | performed at [facility];[address] | | LAB | | | | [address];[place] | | | | | | [address] | | | | + + + + + -+ | MCHC | 34.6Comment: Testing | 32.0 - 35.5 | EXTERNAL | | | | performed at [facility];[address] | g/dL | LAB | | | | [address];[place] | | | | | | [address] | | | | + + + + + -+ | RDW-CV | 49.0Comment: Testing | 37 - 53 fl | EXTERNAL | | | | performed at [facility];[address] | | LAB | | | | [address];[place] | | | | | | [address] | | | | + + + + + -+ | Platelet | 202Comment: Testing | 150 - 400 K/uL | EXTERNAL | | | Count | performed at [facility];[address] | | LAB | | | Plasma | [address];[place] | | | | | | [address] | | | | + + + + + -+ | MPV | 7.1Comment: Testing | fl | EXTERNAL | | | | performed at [facility];[address] | | LAB | | | | [address];[place] | | | | | | [address] | | | | + + + + + -+ | Differentia | AUTOMATEDComment: | | EXTERNAL | | | l Type | Testing performed at | | LAB | | | | [facility];[address];[place] [address] | | | | + + + + + -+ | % Segmented | 55.17Comment: Testing | % | EXTERNAL | | | | performed at [facility];[address] | | LAB | | | Neutrophils | [address];[place] | | | | | | [address] | | | | + + + + + -+ | % | 32.89Comment: Testing | % | EXTERNAL | | | Lymphocytes | performed at [facility];[address] | | LAB | | | | [address];[place] | | | | | | [address] | | | | + + + + + -+ | % Monocytes | 8.55Comment: Testing | % | EXTERNAL | | | | performed at [facility];[address] | | LAB | | | | [address];[place] | | | | | | [address] | | | | + + + + + -+ | % | 3.04Comment: Testing | % | EXTERNAL | | | Eosinophils | performed at [facility];[address] | | LAB | | | | [address];[place] | | | | | | [address] | | | | + + + + + -+ | % Basophils | 0.35Comment: Testing | % | EXTERNAL | | | | performed at [facility];[address] | | LAB | | | | [address];[place] | | | | | | [address] | | | | + + + + + -+ | Absolute | 3.30Comment: Testing | 1.90 - 7.40 | EXTERNAL | | | Segmented | performed at [facility];[address] | K/uL | LAB | | | Neutrophils | [address];[place] | | | | | | [address] | | | | + + + + + -+ | Absolute | 1.97Comment: Testing | 1.00 - 3.90 | EXTERNAL | | | Lymphocytes | performed at [facility];[address] | K/uL | LAB | | | | [address];[place] | | | | | | [address] | | | | + + + + + -+ | Absolute | 0.51Comment: Testing | 0.00 - 0.80 | EXTERNAL | | | Monocytes | performed at [facility];[address] | K/uL | LAB | | | | [address];[place] | | | | | | [address] | | | | + + + + + -+ | Absolute | 0.18Comment: Testing | 0.00 - 0.50 | EXTERNAL | | | Eosinophils | performed at [facility];[address] | K/uL | LAB | | | | [address];[place] | | | | | | [address] | | | | + + + + + -+ | Absolute | 0.02Comment: Testing | 0.00 - 0.10 | EXTERNAL | | | Basophils | performed at [facility];[address] | K/uL | LAB | | | | [address];[place] | | | | | | [address] | | | | + + + + + -+ | Na | 141Comment: Testing | 135 - 145 | EXTERNAL | | | | performed at [facility];[address] | mmol/L | LAB | | | | [address];[place] | | | | | | [address] | | | | + + + + + -+ | K | 3.8Comment: Testing | 3.5 - 4.9 | EXTERNAL | | | | performed at [facility];[address] | mmol/L | LAB | | | | [address];[place] | | | | | | [address] | | | | + + + + + -+ | Cl | 110 (H)Comment: Testing | 99 - 109 mmol/L | EXTERNAL | | | | performed at [facility];[address] | | LAB | | | | [address];[place] | | | | | | [address] | | | | + + + + + -+ | CO2 | 26Comment: Testing | 23 - 32 mmol/L | EXTERNAL | | | | performed at [facility];[address] | | LAB | | | | [address];[place] | | | | | | [address] | | | | + + + + + -+ | Anion Gap | 9Comment: Testing | 5 - 20 mmol/L | EXTERNAL | | | | performed at [facility];[address] | | LAB | | | | [address];[place] | | | | | | [address] | | | | + + + + + -+ | Glucose, | 120 (H)Comment: Testing | 65 - 99 mg/dL | EXTERNAL | | | Fasting | performed at [facility];[address] | | LAB | | | | [address];[place] | | | | | | [address] | | | | + + + + + -+ | BUN | 14Comment: Testing | 8 - 25 mg/dL | EXTERNAL | | | | performed at [facility];[address] | | LAB | | | | [address];[place] | | | | | | [address] | | | | + + + + + -+ | Creatinine | 0.79Comment: Testing | 0.70 - 1.30 | EXTERNAL | | | | performed at [facility];[address] | mg/dL | LAB | | | | [address];[place] | | | | | | [address] | | | | + + + + + -+ | BUN/Creatin | 18Comment: Testing | | EXTERNAL | | | ine Ratio | performed at [facility];[address] | | LAB | | | | [address];[place] | | | | | | [address] | | | | + + + + + -+ | Calcium | 8.5Comment: Testing | 8.5 - 10.5 | EXTERNAL | | | | performed at [facility];[address] | mg/dL | LAB | | | | [address];[place] | | | | | | [address] | | | | + + + + + -+ | Protein, | 6.6Comment: Testing | 6.3 - 8.2 g/dL | EXTERNAL | | | Total | performed at [facility];[address] | | LAB | | | | [address];[place] | | | | | | [address] | | | | + + + + + -+ | Albumin | 3.8Comment: Testing | 3.6 - 5.0 g/dL | EXTERNAL | | | | performed at [facility];[address] | | LAB | | | | [address];[place] | | | | | | [address] | | | | + + + + + -+ | Globulin | 2.8Comment: Testing | 1.3 - 4.9 g/dL | EXTERNAL | | | | performed at [facility];[address] | | LAB | | | | [address];[place] | | | | | | [address] | | | | + + + + + -+ | A/G Ratio | 1.4Comment: Testing | 1.0 - 2.4 | EXTERNAL | | | | performed at [facility];[address] | | LAB | | | | [address];[place] | | | | | | [address] | | | | + + + + + -+ | Bilirubin | 0.6Comment: Testing | 0.1 - 1.5 mg/dL | EXTERNAL | | | Total | performed at [facility];[address] | | LAB | | | | [address];[place] | | | | | | [address] | | | | + + + + + -+ | ALP, | 75Comment: Testing | 35 - 115 U/L | EXTERNAL | | | External | performed at [facility];[address] | | LAB | | | | [address];[place] | | | | | | [address] | | | | + + + + + -+ | AST | 10Comment: Testing | 10 - 45 U/L | EXTERNAL | | | | performed at [facility];[address] | | LAB | | | | [address];[place] | | | | | | [address] | | | | + + + + + -+ | ALT | 15Comment: Testing | 10 - 65 U/L | EXTERNAL | | | | performed at [facility];[address] | | LAB | | | | [address];[place] | | | | | | [address] | | | | + + + [...] | | | | | | at [facility];[address] | | | | | | [address];[place] [address] | | | | + + + + + -+ | CK, Total | 110Comment: Testing | 55 - 400 U/L | EXTERNAL | | | | performed at [facility];[address] | | LAB | | | | [address];[place] | | | | | | [address] | | | | + + + [...] | | | | | performed at [facility];[address] | | | | | | [address];[place] | | | | | | [address] | | | | + + + + + -+ | aPTT, | 27Comment: Testing | 23 - 32 seconds | EXTERNAL | | | Patient | performed at [facility];[address] | | LAB | | | | [address];[place] | | | | | | [address] | | | | + + + + + -+ | CK-MB | 0.8Comment: Testing | 0.5 - 3.6 ng/mL | EXTERNAL | | | | performed at [facility];[address] | | LAB | | | | [address];[place] | | | | | | [address] | | | | + + + [...]
--- OUTSIDE RECORDS SUMMARY | ~2019-03-21 | XMS | Clinical Summary ---
Demographics + + + | Address | [address] | | | [address] | | | [place] [address] | + + + | Home Phone | | + + + | Preferred Language | Unknown | + + + | Marital Status | | + + + | Restoration Affiliation | Unknown | + + + | Race | Unknown | + + + | Ethnic Group | Unknown | + + + Author + + + | Author | [facility] (Historical as of | | | 12-18-18) | + + + | Organization | [facility] [employer] (Historical as of | | | 12-18-18) | + + + | Address | Unknown | + + + | Phone | Unavailable | + + + Support + + + + + | Name | Relationship | Address | Phone | + + + + + | Maeve Glass | ECON | [place] | | | | | [address] | | + + + + + | Aquiles Miranda | ECON | Unknown | + | + + + + + | Maeve Glass | ECON | Unknown | + | + + + + + Care Team Providers + +------+ + | Care Document Restorer Name | Role | Phone | + [...] last visitHe | | was admitted to [facility] for chest pain- underwent echo, stress test [...] +------+-------+---------+ | [employer] | [employer] | [id number] | | | | | | WORK | | | | | + +--------+ +------+-------+---------+ | [employer] | [facility] | [id number] | | | | | | HEALTH [...] gian | | | [address] | [place] [address] | + +--------+ +--------+ + +
--- OUTSIDE RECORDS SUMMARY | ~2019-03-21 | XMS | Encounter Summary ---
Demographics + + + | Address | [address] | | | [place] [address] | + + + | Home Phone | | + + + | Preferred Language | Unknown | + + + | Marital Status | | + + + | Lutheran Affiliation | Unknown | + + + [...] [place] | | | | | [address] | | + + + + + Care Team Providers + +------+ + | Care Transfer Coordinator Name | Role | Phone | [...] | | | bowel | | [address] | | | | | obstruction) | | [place], | | | | | ([facility]) SBO | | [place] [address] | | | | | (small bowel | | Phone: | | | | | | | [phone] | | | | | obstruction) | | Fax: | | | | | ([facility]) | | [phone] | | | | | SBO (small [...] + + | 03/26/ | Surgery | [facility] | Cezar Salcido MD | EXPLORATORY | | 2013 | | MED CTR OR INTRA OP | [address] | LAPAROTOMY [[id number]] w | | | | [address] | [place], [place] | lysis of adhesions | | | | [place], [place] | [address] | | | | | [address] | [phone] | | | | | [phone] | | | +--------+---------+ + + + [...] Discharge Summary Patient ID: Jero Glass Jr. [id number] 54 y.o. 1960 Admit date: 03/25/2014 Discharge date and time: No discharge date for patient encounter. Admitting Physician: Cezar Saclido MD Discharge Physician: Same Admission Diagnoses: SBO [...] his stay. Pain controlled with a dilaudid SUPERINTENDENT AUTOMOTIVE then home MS Cuong gaona regimen. Consults: [...] Patient REFUSED to be recon nected to SUPERINTENDENT AUTOMOTIVE after shower, stating " I am going [...] Campbell MD - 014 7:25 AM PST [facility] General Surgery Hospital Day: 5 DATE/TIME: 03/29/2014 [...] Intake/Output Summary (Last 24 hours) at 03/29/14 0711 Last data filed at 03/29/14 0455 Gross [...] Signed by: Cezar Salcido MD, 03/29/2014 7:25 LOCATED WITHIN [facility] Katelyn Smith RN - 03/05 8:50 AM PSTDiet was changed to clear liquid diet. Ambulated in hallway with SB Mark. He also took shower. Back in bed and SUPERINTENDENT AUTOMOTIVE restarted. Electronically signed by: Katelyn Cardsoo RN 03/28/2014 14:26 Cezar Campbell MD - 03/05 8:[address] [facility] Surgery Hospital Day: 4 DATE/TIME: 03/28/2014 [...] by: Cezar Salcido MD, 03/28/2014 8:34 [facility] eid, Cezar Flores MD - 8:54 AM PST [facility] General Surgery Hospital Day: 3 POD #1 DATE/TIME: 03/27/2014 8:54 54 y.o. year old male hospitalized with SBO which is gradually improving ASSESSMENT AND PLAN: 1. Await return of bowel function 2. Pain control with SUPERINTENDENT AUTOMOTIVE 3. Ambulate 4. Pulmonary hygiene SUBJECTIVE/ROS: Jero Bullock Quan Pearce. is now POD #1. Pain is adequately controlled with a dilaudid SUPERINTENDENT AUTOMOTIVE. Patient is not passing flatus. He does not complain of nausea. CURRENT INFUSIONS HYDROmorphone in saline 0.4 mg (03/26/14 1237) sodium chloride 0.9% with KCl 20 mEq/L [...] Intake/Output Summary (Last 24 hours) at 03/27/14 9914 Last data filed at 03/27/14 0546 Gross [...] by: Cezar Salcido MD, 03/27/2014 8:54 [facility] eCezar coates MD - 9:30 AM PST [facility] General Surgery Hospital Day: 2 DATE/TIME: 03/26/2014 9:30 54 y.o. year old male hospitalized with SBO which is unchanged ASSESSMENT AND PLAN: 1. SBO. Pain persists and no flatus. No resolution of symptoms with trial bowel rest and NG T. Recommended Ex Lap with DARLIN. He agrees 2. Risks discussed: bleeding, infection, possible bowel resection, anastomotic leak, injury to other abdominal organs, [place], DVT or . 3. Surgery this morning. [...] Signed by: Cezar Salcido MD, 03/26/2014 9:30 [facility] Dawn Bernabe RN - 8:21 AM PSTPt [...] + | [facility] | [address] | [place], [place] | [phone] | | [facility] | | [address] | | | - LABORATORY | | | | + + + + + | [facility] | [address] | [place], [place] | | | [facility] | | [address] | | | - LABORATORY | | [...] mL/min/1.73m2 | [facility] | | | [place] | RATE,ESTIMATED | | MEDICAL | | | | mL/min/1.04p2Itrl than | | CENTER - | | [...] + | [facility] | [address] | [place] | [phone] | | [facility] | | [address] | | | - LABORATORY | | | | + + + + + | [facility] | [address] | [place], [place] | | | [facility] | | [address] | | | - LABORATORY | | [...] + | MISCELLANEOUS LAB | | | [phone] | + +---------+ + + | MISCELANIOUS LAB | | | [phone] | + +---------+ + + CT Abdomen [...] + | MISCELLANEOUS LAB | | | [phone] | + +---------+ + + | MISCELANIOUS LAB | | | [phone] | + +---------+ + + Lipase (03/25/2014 [...] + | [facility] | [address] | [place] | [phone] | | [facility] | | [address] | | | - LABORATORY | | | | + + + + + | [facility] | [address] | [place] | | | [facility] | | [address] | | | - LABORATORY | | [...] | | | FILTRATION | mL/min/1.73m2 | [facility] | | | [place] | RATE,ESTIMATED | | MEDICAL | | | | mL/min/1.70f2Xasp than | | CENTER - | | [...] | | | | | mg/dL | [facility] | | | | | | [...] + | [facility] | [address] | [place] | [phone] | | [facility] | | [address] | | | - LABORATORY | | | | + + + + + | [facility] | [address] | [place] | | | [facility] | | [address] | | | - LABORATORY | | [...] + | [facility] | [address] | [place] | [phone] | | [facility] | | [address] | | | - LABORATORY | | | | + + + + + | [facility] | [address] | [place] | | | [facility] | | [address] | | | - LABORATORY | | [...]
--- OUTSIDE RECORDS SUMMARY | ~2019-03-21 | XMS | Encounter Summary ---
Demographics + + + | Address | [address] | | | [place] [address] | + + + | Home Phone | | + + + | Preferred Language | Unknown | + + + | Marital Status | | + + + | Adventist Affiliation | Unknown | + + + | Race | Unknown | + + + | Ethnic Group | Unknown | + + + Author + + + | Author | [facility] | | | and [place] | + + + | Organization | [facility] | | [...] [place] | | | | | [address] | | + + + + + Care Team Providers + +------+ + | Care Sleeve Wheel Maker Name | Role | Phone | + +------+ + PCP | Unavailable | + +------+ + Encounter Details +--------+ + + + + | Date | Type | Department | Care Team | Description | +--------+ + + + + | 04/11/ | Hospital | [facility] | Jero Morales | | | 2005 | Encounter | MED CTR SLEEP | MD Layne [address] | | | | | [facility] [address] | [address] [place] | | | | | [place], [place] | [place] [address] | | | | | [address] | [phone] | | | | | [phone] | | | +--------+ + + + [...]
--- OUTSIDE RECORDS SUMMARY | ~2019-03-21 | XMS | Encounter Summary ---
Demographics + + + | Address | [address] | | | [place] [address] | + + + | Home Phone | | + + + | Preferred Language | Unknown | + + + | Marital Status | | + + + | Anglican Affiliation | Unknown | + + + | Race | Unknown | + + + | Ethnic Group | Unknown | + + + Author + + + | Author | [facility] | | | and [place] | + + + | Organization | [facility] | | [...] [place] | | | | | [address] | | + + + + + Care Team Providers + +------+ + | Care Job Specification Writer Name | Role | Phone | + [...] + + | 02/17/ | Hospital | [facility] | Sina Kraft MD | Abnormal CT of liver | | 2013 | Encounter | MED CTR OR PRE OP | [address] | | | | | [address] | [place] | | | | | [place] [address] | [address] | | | | | [phone] | [phone] | | | | | | | [...] your doctorw ill discuss them with you. 9250-2539 [facility], [address] [place] [address], [place] [address]. All rights reserve d. This information is [...] through | | the introducer with an 18-gaugeDynasilpince biopsy gun. Two specimens were placed in [...] + | MISCELLANEOUS LAB | | | [phone] | + +---------+ + + | MISCELANIOUS LAB | | | [phone] | + +---------+ + + Culture, Fungus, [...] | | | | | | | [id number] | | | | | | Source [...] Performed: | | | | | | [facility] | | | | | | [facility], [address] | | | | | | [address] [place] [address] | | | | + + + [...] [facility] | [address] | [place] [address] | [phone] | + + + + + Culture, [...] | | | [place] | | | [facility] | | | - LABORATORY | + + + + + + + + | Performing | Address | City/State/Zipcode | Phone Number | | Organization | | | | + + + + + | [facility] | [address] | [place] | [phone] | | [facility] | | [address] | | | - LABORATORY | | | | + + + + + | [facility] | [address] | [place] | | | [facility] | | [address] | | | - LABORATORY | | [...]
--- OUTSIDE RECORDS SUMMARY | ~2019-03-21 | XMS | Encounter Summary ---
Demographics + + + | Address | [address] | | | [place] [address] | + + + | Home Phone | | + + + | Preferred Language | Unknown | + + + | Marital Status | | + + + | Islam Affiliation | Unknown | + + + | Race | Unknown | + + + | Ethnic Group | Unknown | + + + Author + + + | Author | [facility] | | | and [place] | + + + | Organization | [facility] | | | [...] [place] | | | | | [address] | | + + + + + Care Team Providers + +------+ + | Care Math And Science Instructor Name | Role | Phone | [...] [place] | | | | | [place], [place] | [place], [place] | | | | | [address] | [address] | | | | | [phone] | [phone] | | | | | | | [...]
--- OUTSIDE RECORDS SUMMARY | ~2019-03-21 | XMS | Clinical Summary ---
Demographics + + + | Address | [address] | | | [place] [address] | + + + | Home Phone [...] #[place] | | | | | [address] | | + + + + + Care Team Providers + +------+ + | Care Petroleum Products District Supervisor Name | Role | Phone | + +------+ + | Mila Majano | PCP | | + +------+ + Source Comments JUANITA is fully live on both [facility] Ambulatory and [facility] InPatient.[facility] Allergies Not on File Medications [...] | + +--------+ +--------+ + +------+ | [facility] | PHP | [id number] | 05/04/19 | [phone] | [address] | P[address] | | | [address] | | 13-Pre | 0 | [address] | | | | [address] | | sent | | [place], | | | | [place] | | | | [place] [address] | | + +--------+ +--------+ + +------+ [...] | | al/Aramis | | 1960 | [phone] | #[place] | | | gian | | | 1 (Home) | [address] | | | | | | [phone] | | | | | | | 0 (Work) | | + +--------+ +--------+ + +"
--- OUTSIDE RECORDS SUMMARY | ~2019-03-21 | XMS | Encounter Summary ---
Demographics + + + | Address | [address] | | | [place] [address] | + + + | Home Phone | | + + + | Preferred Language | Unknown | + + + | Marital Status | | + + + | Scientologist Affiliation | Unknown | + + + | Race | Unknown | + + + | Ethnic Group | Unknown | + + + Author + + + | Author | [facility] | | | and [place] | + + + | Organization | [facility] | | | and [...] [place] | | | | | [address] | | + + + + + Care Team Providers + +------+ + | Care Vp Delivery Name | Role | Phone | + +------+ + | Mila Majano PA-C | PCP | | + +------+ + Encounter Details +--------+ + + + + | Date | Type | Department | Care Team | Description | +--------+ + + + + | 04/04/ | Hospital | [facility] | Cezar Salcido MD | Fever (Primary Dx) | | 2014 | Encounter | MED CTR LABORATORY | [address] [facility] | | | | | [address] [place] | [place], [place] | | | | | [place], [place] | [address] | | | | | [address] | [phone] | | | | | [phone] | | | +--------+ + + + [...] | + + + + + | [facility] | [address] | [place], [place] | [phone] | | [facility] | | [address] | | | - LABORATORY | | | | + + + + + | [facility] | [address] | [place], [place] | | | [facility] | | [address] | | | - LABORATORY | | | | + + + + + documented in this encounter Visit Diagnoses + + | Diagnosis | + + | Fever - Primary Fever, unspecified | + + documented in this encounter"
--- OUTSIDE RECORDS SUMMARY | ~2019-03-21 | XMS | Encounter Summary ---
Demographics + + + | Address | [address] | | | [place] [address] | + + + | Home Phone | | + + + | Preferred Language | Unknown | + + + | Marital Status | | + + + | Jew Affiliation | Unknown | + + + | Race | Unknown | + + + | Ethnic Group | Unknown | + + + Author + + + | Author | [facility] | | | and [place] | + + + | Organization | [facility] | | | [...] [place] | | | | | [address] | | + + + + + Care Team Providers + +------+ + | Care Marketing Clerk Name | Role | Phone | + [...] | | | bowel | | [address] | | | | | obstruction) | | [place], | | | | | ([facility]) SBO | | [place] [address] | | | | | (small bowel | | Phone: | | | | | | | [phone] | | | | | obstruction) | | Fax: | | | | | ([facility]) | | [phone] | | | | | SBO (small [...] + + | 03/25/ | Hospital | [facility] | Kenroy Anthony | SBO (small bowel | | 2014 - | Encounter | MED CTR SURGICAL | Jaya Alanis MD | obstruction) (HCC) | | | | [address] [place] | [address] | (Primary Dx) | | 03/29/ | | [place] [address] | [place] | | | 2013 | | [phone] | [address] | | | | | | | | | | | | Cezar Salcido MD | | | | | | [address] | | | | | | [place], [place] | | | | | | [address] | | | | | | [phone] | | | | | | | [...] Discharge Summary Patient ID: Jero Glass Jr. [id number] 54 y.o. 1960 Admit date: 03/25/2014 Discharge [...] his stay. Pain controlled with a dilaudid PLANT AND EQUIPMENT WORKER then home MS Cuong gaona regimen. Consults: [...] Patient REFUSED to be recon nected to PLANT AND EQUIPMENT WORKER after shower, stating " I am going [...] Campbell MD - 014 7:25 AM PST [facility] General Surgery Hospital Day: 5 [...] Intake/Output Summary (Last 24 hours) at 03/29/14 6557 Last data filed at 03/29/14 0455 Gross [...] Signed by: Cezar Salcido MD, 03/29/2014 7:25 [facility] Katelyn Smith RN - 03/05 8:50 AM PSTDiet was changed to clear liquid diet. Ambulated in hallway with SB Mark. He also took shower. Back in bed and PLANT AND EQUIPMENT WORKER restarted. Electronically signed by: Katelyn Cardoso RN 03/28/2014 14:26 Cezar Campbell MD - 03/05 8:34 AM PST [facility] General Surgery Hospital Day: 4 [...] by: Cezar Salcido MD, 03/28/2014 8:34 [facility] eidCezar MD - 8:54 AM PST [facility] General Surgery Hospital Day: 3 POD #1 DATE/TIME: 03/27/2014 8:54 54 y.o. year old male hospitalized with SBO which is gradually improving ASSESSMENT AND PLAN: 1. Await return of bowel function 2. Pain control with PLANT AND EQUIPMENT WORKER 3. Ambulate 4. Pulmonary hygiene SUBJECTIVE/ROS: Jero Glass Jr. is now POD #1. Pain is adequately controlled with a dilaudid PLANT AND EQUIPMENT WORKER. Patient is not passing flatus. He does [...] by: Cezar Salcido MD, 03/27/2014 8:54 [facility] eid, Cezar Flores MD - 9:30 AM PST [facility] General Surgery Hospital Day: 2 [...] anastomotic leak, injury to other abdominal organs, [place], DVT or . 3. Surgery this morning. [...] Signed by: Cezar Salcido MD, 03/26/2014 9:30 [facility] Dawn Bernabe RN - 8:21 [...] + | [facility] | [address] | [place] | [phone] | | [facility] | | [address] | | | - LABORATORY | | | | + + + + + | [facility] | [address] | [place] | | | [facility] | | [address] | | | - LABORATORY | | [...] | 0.62 | 0.60 - 1.30 | [facility] | | | | | mg/dL | [facility] | | | | | | MEDICAL | | | | | | CENTER - | | | | | | LABORATORY | | + + + + + + | eGFR if not | >60Comment: GLOMERULAR | >=60 | [facility] | | | | FILTRATION | mL/min/1.73m2 | [facility] | | | [place] | RATE,ESTIMATED | | MEDICAL | | | | mL/min/1.16x7Txaf than | | CENTER - | | [...] + | [facility] | [address] | [place], [place] | [phone] | | [facility] | | [address] | | | - LABORATORY | | | | + + + + + | [facility] | [address] | [place], [place] | | | [facility] | | [address] | | | - LABORATORY | | [...] + | MISCELLANEOUS LAB | | | [phone] | + +---------+ + + | MISCELANIOUS LAB | | | [phone] | + +---------+ + + CT Abdomen [...] + | MISCELLANEOUS LAB | | | [phone] | + +---------+ + + | MISCELANIOUS LAB | | | [phone] | + +---------+ + + Lipase (03/25/2014 [...] + | [facility] | [address] | [place], [place] | [phone] | | [facility] | | [address] | | | - LABORATORY | | | | + + + + + | [facility] | [address] | [place], [place] | | | [facility] | | [address] | | | - LABORATORY | | [...] 12 | 7 - 18 mg/dL | [facility] | | | | | | [facility] | | | | | | MEDICAL | | | | | | CENTER - | | | | | | LABORATORY | | + + + + + + | Creatinine | 0.64 | 0.60 - 1.30 | [facility] | | | | | mg/dL | [facility] | | | | | | MEDICAL | | | | | | CENTER - | | | | | | LABORATORY | | + + + + + + | eGFR if not | >60Comment: GLOMERULAR | >=60 | [facility] | | | | FILTRATION | mL/min/1.73m2 | [facility] | | | [place] | RATE,ESTIMATED | | MEDICAL | | | | mL/min/1.81z7Cuhi than | | CENTER - | | [...] + | [facility] | [address] | [place], [place] | [phone] | | [facility] | | [address] | | | - LABORATORY | | | | + + + + + | [facility] | [address] | [place], [place] | | | [facility] | | [address] | | | - LABORATORY | | [...] | Basophils | | K/uL | [facility] | | | | | | [...] + | [facility] | [address] | [place] | [phone] | | [facility] | | [address] | | | - LABORATORY | | | | + + + + + | [facility] | [address] | [place] | | | [facility] | | [address] | | | - LABORATORY | | [...] | | | | (DILAUDID) 1 mg/mL PLANT AND EQUIPMENT WORKER | | 14 7:44 | | | [...] | | | | | | Starting PLANT AND EQUIPMENT WORKER Dose(mg): 0.3, | | | | | | | Incremental Increase PLANT AND EQUIPMENT WORKER | | | | | | | Dose(mg): 0.1, Maximum PLANT AND EQUIPMENT WORKER | | | | | | | [...]
--- OUTSIDE RECORDS SUMMARY | ~2019-03-21 | XMS | Encounter Summary ---
Demographics + + + | Address | [address] | | | [place] [address] | + + + | Home Phone | | + + + | Preferred Language | Unknown | + + + | Marital Status | | + + + | Druze Affiliation | Unknown | + + + | Race | Unknown | + + + | Ethnic Group | Unknown | + + + Author + + + | Author | [facility] | | | and [place] | + + + | Organization | [facility] | | | and [...] [place] | | | | | [address] | | + + + + + Care Team Providers + +------+ + | Care Beauty Specialist Name | Role | Phone | + +------+ + | Toi Leung MD | PCP | | + +------+ + Encounter Details +--------+ + + + + | Date | Type | Department | Care Team | Description | +--------+ + + + + | 01/30/ | Abstract | [facility] [place] | [facility], | | | 2013 | | GASTROENTEROLOGY | [place]A [address] | | | | | [address] | [place], [address] | | | | | [address] [place], [place] | [place], [place] | | | | | [address] | [address] | | | | | [phone] | | | +--------+ + + + [...] - ANR | [facility] | | | [facility] | | | [facility] | | | - LABORATORY | + + + + + + + + | Performing | Address | City/State/Zipcode | Phone Number | | Organization | | | | + + + + + | [facility] | [address] | [place] | | | [facility] | | [address] | | | - LABORATORY | | [...] [address] | [place] | | | [facility] | | [address] | | | - LABORATORY | | [...] St | [place] | | | [facility] | | [address] | | | - LABORATORY | | [...] | | | LAB | | | Citizen [place], | | | | | | External [...]
[~2019-03-21 23:27] MED LIST changes: +BACLOFEN10 MG PO; +BUSPIRONE HCL5 MG PO
--- OUTSIDE RECORDS SUMMARY | 2019-03-21 23:30 | XMS ---
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 E.D. VISIT COUNT ([address] [facility] [address] [facility] TOTAL 3 NOTE: Visits indicate total known visits. ED/UCC VISIT TRACKING (12 MO.) 03/21/2019 23:28 [facility] TYPE: Emergency COMPLAINT: - FALL/HEAD LAC/NAUSEA/RIB PAIN 10/25/2018 09:45 [facility] TYPE: Emergency DIAGNOSES: - Chest pain, unspecified - Other specified diseases of blood and blood-forming organs - Chest pain 10/21/2018 07:19 [facility] TYPE: Emergency DIAGNOSES: - ABDOMINAL PAIN - Epigastric pain - Calculus of ureter INPATIENT VISIT TRACKING (12 MO.) No inpatient visits to display in this time frame [email or web address]
[2019-03-22] MEDS ORDERED: OMEPRAZOLE20 MG PO (00:04)
[2019-03-22] MEDS ORDERED: FOLIC ACID1 MG PO (00:04)
== END 2019-03-22 01:27 | disposition home or self-care (01) ==
LOC: ED 23:27
PROC: 0HQ1XZZ Repair Face Skin, External Approach (ICD-10-PCS; principal; 2019-03-21)
DX: S01.112A Laceration without foreign body of left eyelid and periocular area, initial encounter (principal); I10 Essential (primary) hypertension; Z86.73 Personal history of transient ischemic attack (TIA), and cerebral infarction without residual deficits; Z87.891 Personal history of nicotine dependence; Z91.040 Latex allergy status; Z88.0 Allergy status to penicillin; Z88.1 Allergy status to other antibiotic agents; Z79.899 Other long term (current) drug therapy; Z79.891 Long term (current) use of opiate analgesic; W01.198A Fall on same level from slipping, tripping and stumbling with subsequent striking against other object, initial encounter
CPT/HCPCS: 12013; 71101; 90471; 90715; 99283-25

== ENCOUNTER 2020-11-03 06:27 | Emergency (ER) | payer OTHER ==
[~2020-11-03] VITALS: Ht 175.3 cm; Wt 61.2 kg
[~2020-11-03 06:27] MED LIST changes: +FOLIC ACID1 MG PO
--- OUTSIDE RECORDS SUMMARY | 2020-11-03 06:30 | XMS ---
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 ECyndi VISIT COUNT (12 MO.) 1 KYLE Abbott TOTAL 1 NOTE: Visits indicate total known visits. ED/UCC VISIT TRACKING (12 MO.) 11/03/2020 06:28 KYLE Ellis [place] TYPE: Emergency COMPLAINT: - ABD PAIN, R L FLANK PAIN INPATIENT VISIT TRACKING (12 MO.) No inpatient visits to display in this time frame [email or web address]
[2020-11-03] MEDS ORDERED: FLAGYL500 MG PO (11:46)
[2020-11-03] MEDS ORDERED: CIPRO500 MG PO (11:46)
== END 2020-11-03 12:37 | disposition short-term general hospital (02) ==
LOC: ED 06:27
DX: N13.2 Hydronephrosis with renal and ureteral calculous obstruction (principal); K57.32 Diverticulitis of large intestine without perforation or abscess without bleeding; Z91.040 Latex allergy status; Z88.1 Allergy status to other antibiotic agents; Z88.0 Allergy status to penicillin; Z79.899 Other long term (current) drug therapy; Z79.891 Long term (current) use of opiate analgesic; Z20.822 Contact with and (suspected) exposure to COVID-19
CPT/HCPCS: 74177; 80053; 80500; 81001; 83690; 85025; 96366; 96368; 96375; 99285-25; C9803; J0744; J2270; J2405; J7030; Q9967; U0003

== ENCOUNTER 2020-11-04 10:39 | Emergency (ER) | payer OTHER ==
[~2020-11-04] VITALS: Ht 175.3 cm; Wt 61.2 kg
[~2020-11-04 10:39] MED LIST changes: +CIPRO500 MG PO; +FLAGYL500 MG PO
--- OUTSIDE RECORDS SUMMARY | 2020-11-04 10:40 | XMS ---
PreManage Notification: GUNNER TATE Security [address] Justice Events No recent Security Events currently on file CRITERIA MET - [facility] - [facility] in [facility] Days [facility] 03/22/2019-Current PHONE: [phone] Ayanna has no Care Guidelines for this patient. ECyndi VISIT COUNT (12 MO.) 2 [facility] TOTAL 2 NOTE: Visits indicate total known visits. ED/UCC VISIT TRACKING (12 MO.) 11/04/2020 10:39 KYLE Rosa TYPE: Emergency COMPLAINT: - URINE PROBLEM 11/03/2020 06:28 KYLE Rosa TYPE: Emergency COMPLAINT: - ABD PAIN, R L FLANK PAIN INPATIENT VISIT TRACKING (12 MO.) 11/03/2020 13:[address] [facility] Dawn MCCARTY TYPE: Surgery DIAGNOSES: - Diverticulitis, Bilater obstruction kidney stones [email or web address]
== END 2020-11-04 12:07 | disposition home or self-care (01) ==
LOC: ED 10:39
DX: R33.9 Retention of urine, unspecified (principal); Z91.040 Latex allergy status; Z88.0 Allergy status to penicillin; Z88.1 Allergy status to other antibiotic agents; Z79.899 Other long term (current) drug therapy
CPT/HCPCS: 51702; 51798; 81001; 99283-25

== ENCOUNTER 2020-11-17 03:36 | Inpatient (IN) | payer OTHER ==
[~2020-11-17] VITALS: Ht 175.3 cm; Wt 65.7 kg
--- OUTSIDE RECORDS SUMMARY | 2020-11-17 03:38 | XMS ---
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 ECyndi VISIT COUNT (12 MO.) [address] [place] [address] TOTAL 3 NOTE: Visits indicate total known visits. ED/UCC VISIT TRACKING (12 MO.) 11/17/2020 03:36 [facility] [place] TYPE: Emergency COMPLAINT: - SYNCOPE 11/04/2020 10:39 [facility] [address] [place] TYPE: Emergency COMPLAINT: - URINE PROBLEM DIAGNOSES: - Retention of urine, unspecified - Allergy status to other antibiotic agents - Allergy status to penicillin - Other termite control servicer (current) drug therapy - Latex allergy status 11/03/2020 06:28 KYLE Rosa TYPE: Emergency COMPLAINT: - ABD PAIN, R L FLANK PAIN DIAGNOSES: - Diverticulitis of large intestine without perforation or abscess without bleeding - Allergy status to other antibiotic agents - Latex allergy status - USP (current) use of opiate analgesic - Lower abdominal pain, unspecified - Other usp (current) drug therapy - Hydronephrosis with renal and ureteral calculous obstruction - Allergy status to penicillin INPATIENT VISIT TRACKING (12 MO.) 11/03/2020 13:24 [facility] Dawn MCCARTY TYPE: Surgery DIAGNOSES: - Diverticulitis, Bilater obstruction kidney stones [email or web address]
--- NOTE | 2020-11-17 07:29 | NUR ---
PATIENT ARRIVED VIA STRETCHER. TRANSFERED WITH MINIMAL ASSISTANCE TO THE BED. VS STABLE. PRBC INFUSING, NO SIGNS OF REACTION. IV FLUIDS STARTED PER ORDER. PRN PAIN MEDS FOR 10/10 ABD PAIN. PATIENT REPORTS ONGOING NAUSEA, RECEIVED ZOFRAN IN THE ED. PATIENT USED THE URNAL WITH 'S ASSISTANCE.
[2020-11-17] MEDS ORDERED: VITAMIN D21250 MCG PO (07:33)
[2020-11-17] MEDS ORDERED: OMEPRAZOLE40 MG PO (07:37)
[2020-11-17] MEDS ORDERED: LISINOPRIL20 MG PO (07:38)
--- NOTE | 2020-11-17 10:06 | CONS ---
[facility] [address], [place] [address] Signed DATE OF CONSULTATION: 11/17/2020 CHIEF COMPLAINT: Syncope. 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 He underwent a Raad-en-Y gastric bypass with Dr. Eugenia Escobar at [facility] in 2004. He has lost a significant amount of weight. Just last week, he underwent his TURP with Dr. Christie. He said his hemoglobin was 13 at that time. He had been feeling like his blood pressure was low and dizzy and nauseated. He said he has no appetite. He finally had a syncopal episode in the bathroom. He thinks his stool was quite dark if not black. We know that his gallbladder and his appendix have been removed previously. In addition, he had a colonoscopy in 2008 with hyperplastic polyp removed with Dr. Monreal. He then underwent followup colonoscopy in 2019 after a mild episode of diverticulitis. No polyps noted just diverticular disease in the left colon. He had an upper endoscopy back in [address] Monreal. To his knowledge, it showed the gastric pouch, but no other issues. I was not able to locate that specifically on the computer today. Just within the last 10 to 14 days, he had a mild episode of diverticulitis. He took Cipro and Flagyl and that is markedly improved. He came to the emergency room with his . His hemoglobin was down to 4.3 with a mean cell volume of 114. He uses folate, but does not use a multivitamin, does not take iron, does not take vitamin C nor vitamin B12. He does suffer with chronic pain issues and has to use morphine and hydrocodone on a daily basis. In that regard, he does use senna and docusate. 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 He has not had any noticeable upper GI complaints. He has had a little bit of anorexia and nausea. He said that is not new. In the emergency room, on digital rectal exam apparently his stool was dark. It sounds like it was guaiac positive. We know his AST and ALT are little elevated. Total bilirubin is fine. Albumin is low at 3.1. BUN is a little up at 45. In the meantime, he is now receiving his 2nd unit of blood. He said he feels much better. He still looks pale. Although, he is alert, awake and interactive and does not seem to be dizzy or nauseated at this point. His is with him currently in the ICU room. 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 PAST MEDICAL HISTORY: Nephrolithiasis, lumbago, TIA, diverticulosis. EGD in [address] Monreal. Colonoscopy [place] [address] Monreal with hyperplastic polyp and colon[place] [address] Monreal with diverticular disease. PAST SURGICAL HISTORY: Includes the upper and lower endoscopies and gastric bypass with Dr. Eugenia Escobar at [facility] in [place], [place] in 2004, tonsills, knee arthroscopy x2, Electronically Signed By: JESSICA LUNDBERG MD 11/17/20 1006 PATIENT NAME: GUNNER TATE JR CONSULTATION DATE OF : 60 REPORT #: [id number] PHYSICIAN: JESSICA LUNDBERG MD PCP: HARSHIL GUARDADO PAC REPORT IS CONFIDENTIAL AND NOT TO BE RELEASED WITHOUT AUTHORIZATION [address] [address] Signed cholecystectomy, appendectomy, shoulder surgery, lumbar back surgery with metal remaining, spinal cord stimulator was placed but had to be removed as it became dislodged and was infected. He had a lipoma removed of his right chest wall. He just had a TURP with Dr. Christie 1 week ago. A local surgeon here in [place] took him to surgery in 2013 to repair his internal hernia associated with his gastric bypass. SOCIAL HISTORY: He does not smoke or drink. 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 He is to Maeve at [phone]. Harshil Guardado is his physician's customer service assistant. He prefers the [facility]. He has two children. FAMILY HISTORY: Maternal grandmother and father both had MIs. Mom is still alive and seems to be healthy. REVIEW OF SYSTEMS: He had 10 systems reviewed and the pertinent positives are included in the above including the metal in the lumbar spine and the fact that his spinal cord stimulators been removed. ALLERGIES: Erythromycin base, penicillin, and latex. MEDICATIONS: 1. Tamsulosin. 2. Zolpidem. 3. Morphine sulfate. 4. [place] 10 mg. 5. Senna. 6. Docusate. 7. Gabapentin. 8. Folate. 9. Buspirone. 10. Baclofen. PHYSICAL EXAMINATION: VITAL SIGNS: His blood pressure is 104/56, heart rate is 85, respiratory rate 22, temperature is 98.4, he is 99% on room air, he is 5 feet 9 inches at 65 kg. GENERAL: Gunner is a 60-year-old gentleman, lying supine in his hospital bed. His is at the bedside. He is thin and still a bit pale. He is always a little anxious at his baseline, although he is a good historian. LUNGS: Clear to auscultation bilaterally. HEART: Regular rate and rhythm without murmurs. ABDOMEN: Soft, flat, nontender. I cannot appreciate any incisional hernias. Electronically Signed By: JESSICA LUNDBERG MD 11/17/20 1006 PATIENT NAME: GUNNER TATE JR CONSULTATION DATE OF : 60 REPORT #: [id number] PHYSICIAN: JESSICA LUNDBERG MD PCP: HARSHIL GUARDADO [facility] REPORT IS CONFIDENTIAL AND NOT TO BE RELEASED WITHOUT AUTHORIZATION [facility] [address], [place] [address] Signed LABORATORY DATA: His white blood count is 8, hemoglobin is 4.3. His mean cell volume is 114. His platelets were 259. His BUN is 45, creatinine is 0.87, glucose is 149. His COVID test is negative. INR is 1.2. Urinalysis was negative. His calcium was 8.5, total bilirubin normal at 0.2, AST up a little at 40, ALT up a little at 90, alkaline phosphatase 101. His troponin levels have been negative. His albumin is a little low at 3.1. RADIOGRAPHIC STUDIES: CT scan of the abdomen and pelvis is reviewed and he does have resolved minimal sigmoid diverticulitis. No other issues. ASSESSMENT AND PLAN: Gunner is a 60-year-old gentleman, who presents with significant anemia over the course of a week or so. He thinks his stool has been dark, but certainly no bright red blood and no vomiting of any blood. He said his upper GI symptoms are not new. He is on his 2nd unit of blood currently and feeling better. We are going to be doing some other surgery initially and we will get him down the hallway for his upper endoscopy here later this morning. With his current situation triggering the significant anemia, he is going to need monitored anesthesia care for the procedure. If that is negative, we will talk with his internal medicine service and see about whether or not he can tolerate the bowel prep for a colonoscopy. If that were all negative, he could have a small bowel follow-through or he might need push enteroscopy to evaluate his jejunal anastomosis. I have reviewed this with Gunner, his and Dr. Young. He has expressed understanding and would like to proceed as above. He understands there is risk with upper endoscopy including but not limited to gas, bloating, crampy abdominal pain, bleeding, perforation requiring surgery, and missed diagnosis. Jessica Lundberg MD ALB/MODL /[id number] cc: MD Dr. Harshil Yang MD Electronically Signed By: JESSICA LUNDBERG MD 11/17/20 1006 PATIENT NAME: UGNNER TATE JR CONSULTATION DATE OF : 60 REPORT #: [id number] PHYSICIAN: JESSICA LUNDBERG MD PCP: HARSHIL GUARDADO PAC REPORT IS CONFIDENTIAL AND NOT TO BE RELEASED WITHOUT AUTHORIZATION [address] [address] Signed Copies: JESSICA LUNDBERG MD, EMMA MD ~ Electronically Signed By: JESSICA LUNDBERG MD 11/17/20 1006 PATIENT NAME: GUNNER TATE JR CONSULTATION DATE OF : 60 REPORT #: [id number] PHYSICIAN: JESSICA LUNDBERG MD PCP: HARSHIL GUARDADO PAC REPORT IS CONFIDENTIAL AND NOT TO BE RELEASED WITHOUT AUTHORIZATION
--- NOTE | 2020-11-17 11:30 | NUR ---
PT IN ROOM LAYING IN BED WATCHING TV. CALL LIGHT IN REACH. BED RAILS IN UP POSITION D/T FALL RISK. PT WAITING FOR SURGERY.
--- NOTE | 2020-11-17 12:26 | NUR ---
PT TAKEN TO SURGERY ON STRETCHER BY [facility] AND [facility].
--- NOTE | 2020-11-17 12:38 | NUR ---
PT RETURNS FROM SURGERY SLEEPING. PT RETURNED TO CCU RM 128. DIRECT OBS AT THIS TIME.
--- NOTE | 2020-11-17 12:46 | NUR ---
PTS TEMP ON RETURN 98.8. 450ML LR INFUSED IN OR. PT CONTINUES TO SLEEP. PTS IN ROOM. RESP OBSERVERD.
--- NOTE | 2020-11-17 12:52 | NUR ---
11/17/20 1252 [facility] NO RECOVERY COMPLETED IN PACU. PT BACK TO CCU.
--- NOTE | 2020-11-17 13:25 | NUR ---
MED REC COMPLETE
--- NOTE | 2020-11-17 14:33 | NUR ---
LAB CALL FOR HCT LEVEL OF 18.[address] TAYLOR NOTIFIED.
--- NOTE | 2020-11-17 15:06 | NUR ---
DELAY IN BLOOD ADMINISTRATION D/T LAB "NOT BEING ABLE TO SEE THE ORDERS".
--- NOTE | 2020-11-17 17:00 | NUR ---
WARM BLANKETS PROVIDED. PT DENIES NEEDS AT THIS TIME. CALL LIGHT IN REACH. BED RAILS IN UP-RIGHT POSITION.
--- NOTE | 2020-11-17 17:52 | NUR ---
H/H TO BE TESTED AFTER PT BLOOD INFUSSION
--- NOTE | 2020-11-17 18:09 | NUR ---
PT CONTINUES TO DRINK BOWEL PREP AND IS GETTING UP TO BEDSIDE COMMODE WITH HELP OF HIS . PT CURRENTLY WATCHING TV WITH BLOOD INFUSING.
--- NOTE | 2020-11-17 18:57 | EKG ---
[facility] [address] [facility] [place], [place] [address] Signed Sinus tachycardia Cannot rule out Anterior infarct , age undetermined Abnormal ECG When compared with ECG of 19-MAY-2017 07:25, No significant change was found Confirmed by LATRELL TAYLOR MD ([id number]) on 11/17/2020 6:56:53 PM Electronically Signed By: LATRELL TAYOLR MD 11/17/20 185 PATIENT NAME: GUNNER TATE JR Electrocardiogram DATE OF : 60 PHYSICIAN: LATRELL TAYLOR MD REPORT #: [id number] REPORT IS CONFIDENTIAL AND NOT TO BE RELEASED WITHOUT AUTHORIZATION
--- NOTE | 2020-11-17 19:57 | NUR ---
PATIENT EXIT THE BED WITHOUT CALLING TO THE BSC. REMINDED PATIENT OF SAFETY REQUIRMENTS OF CALLING FOR ASSISTANCE. PATIENT AGREES NOT TO EXIT BED AGAIN WITHOUT CALLING. PATIENT VOIDED AND HAD LARGE FORMED BM, DARK BLACK IN COLOR. PATIENT HR UP TO 140'S WITH ACTIVITY. RECOVERED QUICKLY ONCE IN BED. LINENS CHANGED AND YULI CARE ASSIST PROVIDED. PATIENT REQUEST LIGHTS TO BE OFF. CALL LIGHT IN HAND. BED ALARM ACITVE.
--- NOTE | 2020-11-17 21:21 | NUR ---
PATIENT HAS BEEN UP TO THE BSC SEVERAL TIMES TO HAVE LIQUID STOOL. PATIENT IS ANXIOUS AND CRYING DUE TO PAIN AND FRUSTERATION OF NOT HAVING HIS AMBIEN. DISCUSSED CONSERNS WITH . MILDRED RUIZ ORDERED. PRN AND SCHEDULED PAIN MEDS PROVIDED. IV FLUIDS PER ORDER, SITE WNL. ABD SOFT, BOWEL SOUNDS ACTIVE. LUNGS CLEAR, TOLERATING ROOM AIR. ALL SCHEDULED MEDS PROVIDED. PATIENT RESTING. LIGHTS DIMMED. BED ALARM ACTIVE. CALL LIGHT IN REACH.
--- NOTE | 2020-11-17 21:45 | NUR ---
PATIENT UP TO THE BSC. PATIENT MUCH MORE CALM. MOVES EASILY. STATES " I FEEL GOOD THANK YOU". LARGE LIQUID BLACK BM. PATIENT RETURNED TO BED. IV FLUIDS TITRATED TO 75 ML/HR PER ORDER.
--- NOTE | 2020-11-17 22:13 | NUR ---
PATIENT UP AGAIN TO HAVE LIQUID BLACK BM. PATIENT TOLERATED WELL.
--- NOTE | 2020-11-18 00:45 | NUR ---
patient up to the bsc. patient is anxious and painful. prn morphine provided for 9/10 pain. patient having trouble relaxing and is crying. prn ativan provided for anxiety. warm blankets x2. patient resting in bed. discussed concerns with nurse for a several mins. patient able to calm down some. oral swab provided to keep mouth moist. call light in reach. iv site wnl, fluids per order.
--- NOTE | 2020-11-18 01:56 | NUR ---
PATIENT UP TO THE BSC TO VOID AND HAVE MORE LIQUID STOOL WHICH WAS MIXED.
--- NOTE | 2020-11-18 03:34 | NUR ---
PATIENT UP TO THE BSC. MORE DROWSY THIS TIME AND WEAK. ASSISTED WITH CLEANING AND BACK TO BED. WARM BLANKET PROVIDED.
--- NOTE | 2020-11-18 05:05 | NUR ---
patient up to the bsc with assistance from [facility]. patient reports nausea and provided with prn zofran.
--- NOTE | 2020-11-18 05:59 | OR ---
[facility] [address] [place], [place] [address] Signed DATE OF OPERATION: 11/17/2020 SURGEON: Jessica Lundberg MD PREOPERATIVE DIAGNOSES: 1. Anemia. 2. Melena. 3. Diverticulosis. POSTOPERATIVE DIAGNOSIS: Mild gastric pouch last anastomotic inflammation. PROCEDURES: Esophagogastroduodenoscopy with CLOtest and biopsies of anastomosis. ESTIMATED BLOOD LOSS: None. FINDINGS: No evidence of any bladder active bleeding, ulceration, or granulation tissue in his pouch or 30 cm down the Raad-en-Y limb. INDICATIONS: Gunner is a 60-year-old gentleman, who underwent a gastric bypass procedure in 2004 at [facility] in [place], [place]. He has lost a significant amount of weight. He said he at his baseline. He has some nausea and anorexia. He is down to 65 kg. He had upper endoscopy in 2018 and that was unremarkable. He had a colonoscopy in 2008, which showed hyperplastic polyp. His colonoscopy in 2019 showed some diverticular disease. About two weeks ago, he had some mild inflammatory changes in the sigmoid colon. He took Cipro and Flagyl and responded quite nicely. Just about a week ago, he underwent his TURP procedure with Dr. Christie, that seemed to go fine. He is confident that his hemoglobin was 13 preop. Currently, it is 4.3. He got 2 units of packed red blood cells and it is up over six. Of course, he was feeling hypotensive, and he finally had a syncopal episode in the bathroom. It is pretty certain his stool was dark. He was brought to the emergency room for evaluation. Again, his hemoglobin was low at 4.3, but his mean cell volume is quite high at 114. His BUN is up a little at 45. He does take a folate tablet, but no multivitamin, no iron, and no vitamin B12 or vitamin C. He was admitted to the Internal Medicine Service. He received 2 units packed red blood cells. 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 We therefore planned to bring him down for his upper endoscopy. I met with Electronically Signed By: JESSICA LUNDBERG MD 11/18/20 0559 PATIENT NAME: GUNNER TATE JR OPERATIVE REPORT DATE OF : 60 REPORT #: [id number] PHYSICIAN: JESSICA LUNDBERG MD PCP: HARSHIL GUARDADO PAC REPORT IS CONFIDENTIAL AND NOT TO BE RELEASED WITHOUT AUTHORIZATION [facility] [address] [place], [place] [address] Signed Gunner and his . We reviewed the above findings. He understands upper and lower endoscopy quite well. We did explain the risks including, but not limited to gas bloating, crampy abdominal pain, bleeding, perforation requiring surgery, and missed diagnosis. He also understands the need for sedation. Given his current situation, we asked that an anesthesia provider help us with increased monitoring sedation with propofol, that proved to be a ortiz decision as we did add some vasopressin to the propofol. He had expressed understanding and wished to proceed. DESCRIPTION OF PROCEDURE: Gunner was taken into our endoscopy suite and placed in the supine semi-recumbent position. The posterior oropharynx was anesthetized with lidocaine spray. A bite block was utilized for the case. The adult gastroscope was introduced and advanced under direct visualization into his gastric pouch. There was no evidence of any blood either new or old. There is no granulation tissue. No ulcerations. Just a little inflammation along his anastomosis, that is quite common. The scope was passed down the Raad limb about 30 cm and it was quite healthy and clean without any evidence of any blood or bleeding. The scope was withdrawn back into the gastric pouch. We took a biopsy along the edge of the anastomosis as well as the pouch for CLOtest. The GE junction is unremarkable. Very minimal disruption to the Z-line. No Wu mucosa and no distal esophagitis. The middle and upper esophagus were unremarkable. After this, the gas was suctioned out. The colonoscope was removed. Gunner tolerated his procedure quite well. RECOMMENDATIONS: Gunner will be returned to his ICU bed. Hopefully, he can tolerate the bowel prep today. We can repeat his colonoscopy tomorrow. In the end, this may all be related to his lack of vitamin B12. Jessica Lundberg MD ALB/MODL /[id number] cc: Jessica Lundberg MD Electronically Signed By: JESSICA LUNDBERG MD 11/18/20 0559 PATIENT NAME: GUNNER TATE JR OPERATIVE REPORT DATE OF : 60 REPORT #: [id number] PHYSICIAN: JESSICA LUNDBERG MD PCP: HARSHIL GUARDADO [facility] REPORT IS CONFIDENTIAL AND NOT TO BE RELEASED WITHOUT AUTHORIZATION [address] [address] Signed Copies: JESSICA LUNDBERG MD ~ Electronically Signed By: JESSICA LUNDBERG MD 11/18/20 0559 PATIENT NAME: DANIELLAJODY LOPEZGUNNER CAMPOS OPERATIVE REPORT DATE OF : 60 REPORT #: [id number] PHYSICIAN: JESSICA LUNDBERG MD PCP: HARSHIL GUARDADO PAC REPORT IS CONFIDENTIAL AND NOT TO BE RELEASED WITHOUT AUTHORIZATION
--- NOTE | 2020-11-18 07:20 | NUR ---
TOOK REPORT FROM [facility]. PT IN ROOM WITH . DENIES NEEDS AT THIS TIME.
--- NOTE | 2020-11-18 07:52 | NUR ---
0730, LAB CALLS FOR PTS H/H LEVEL 5.6/15.8. DR. TAYLOR NOTIFIED. 2 UNITS PRBC AND FFP ORDERED.
--- NOTE | 2020-11-18 09:34 | NUR ---
DR. TAYLOR HERE TO SEE PT.
--- NOTE | 2020-11-18 09:44 | NUR ---
PTS BLOOD INFUSSION RATE INCREASED AFTER INITIAL 15 MIN 120ML/HR TO 250ML/HR D/T LAB VALUES.
--- NOTE | 2020-11-18 10:45 | NUR ---
PT TAKEN TO CT FOR STAT ABD/PELVIS CT W/O TO R/U BLOOD POCKET AT 0945 ON MONITOR WITH THIS RN. PT RETURNED TO RM 128 AT 1000.
--- NOTE | 2020-11-18 13:30 | NUR ---
1230; PT DEMONSTRATING HYPOTENTION AND RAPID HR AT REST TO 120. [facility] RESPONCE CALLED. DR. TAYLOR CALLED. ED CALLED FOR RAPID INFUSER TO BE DELIVERED. A TOTAL OF 6 UNITS OF BLOOD WERE EMERGENCY RELEASED AND 2 UNITS OF FFP FOR A DAILY TOTAL OF 8 UNITS OF BLOOD AND 3 UNITS OF FFP TODAY. PT HAD 4 UNITS OF PRBC. 1300; DR. REYNA WORKING ON TRANSFER. [facility] HERE IN CASE A HOSPITAL IS ABLE TO ACCEPT PT. [facility] CALLED. 1345; [facility] LEAVES TO BRING PLATLETS FROM ANOTHER HOSPITAL. DR. REYNA CONTINUES AT ATTAIN A BED FOR TRANSFER.
--- NOTE | 2020-11-18 14:13 | NUR ---
CORRECTION ON [facility]; [facility] ATTAINING MORE BLOOD AND ANOTHER HELO ON THEIR WAY WITH PLATELETS.
--- NOTE | 2020-11-18 14:33 | NUR ---
[facility] [place], OR ACCEPTS PT.
--- NOTE | 2020-11-18 15:34 | NUR ---
REPORT CALLED TO [facility] AT [facility]. [facility] IN ROOM TO PACKAGE. DELAY IN TRANSPORT D/T WAITING ON LAB FOR BLOOD PRODUCTS. PT TO RECEIVE 2 UNITS PRBC, CRYOPRECIPITAYE, PLATELETS, AND FFP WITH TRANSPORT.
--- NOTE | 2020-11-18 16:14 | NUR ---
Called into CCU by Lokesh Goss at 1229 to support PT's . Sat with PT's and checked in with her. I was able to get her some water and she shared with me her situation. PT was to be transferred to another hospital but it took a couple hours to find a place that could receive him. In the mean time PT was feeling better and was able to talk with his and me. I offered support and prayer. After we prayed together the doctor came with news that they found a hospital that could receive the PT. I gave her the [facility] travel sheet and gathered the information of the receiving hospital. I checked in with the staff and doctor as well. When it was time for the PT to be tranferred we said our good-byes and I let them know that I would continue to be praying for them. PT thanked me for supporting his .
--- NOTE | 2020-11-18 16:18 | NUR ---
PT TRANSFERED VIA [facility] TO [facility]. SEE MEDICAL RECORDS FOR TRANSFER DETAILS.
--- NOTE | 2020-11-19 05:41 | DS ---
[facility] [address] [place], [place] [address] Signed ADMISSION DATE: 11/17/2020 DISCHARGE DATE: 11/18/2020 FINAL DIAGNOSIS: GI bleed. PROCEDURES: 1. EGD with CLOtest and biopsies of his gastric pouch. 2. CT scan x2. HISTORY OF PRESENT ILLNESS: Gunner is a 60-year-old gentleman who underwent Raad-en-Y gastric bypass with Dr. Eugenia Escobar at [facility] in [place], [place] in 2004. He has done well in that regard and lost his weight. 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 He was feeling like his blood pressure was low and he had a mild syncopal episode at home and was feeling nauseated. There was a question of whether or not he had some melena. He was brought to the emergency room for evaluation. HOSPITAL COURSE: Gunner was seen in the emergency room and had no evidence of any hematemesis or hematochezia. His hemoglobin was down to 4.3. He describes a TURP procedure little over a week ago and recalls his preop hemoglobin being 13. His BUN was up a little at 45. Liver function tests and so forth were generally unremarkable including his coags. He was COVID negative. CT scan of the abdomen pelvis was unremarkable. He was treated for a very mild case of diverticulitis about two weeks ago with Cipro and Flagyl. The mild inflammatory changes are resolved. He also had a colonoscopy in 2008 and had hyperplastic polyps removed here in [place], [place]. He then had a colonoscopy in 2018 and was seen to have diverticulosis. There were no polyps on that occasion. He had an upper endoscopy in 2018 here in [place] and it was unremarkable. I have been asked to see him as a general surgeon on-call. I took him for upper endoscopy yesterday and his gastric pouch and his Raad-en-Y limb was unremarkable. I ran the gastroscope down the Raad-en-Y limb as far as the handle without any evidence of blood or other stigmata of bleeding. We had put him through his bowel prep yesterday, anticipating a colonoscopy today. He generally tolerated that well with maroon and melanotic stool, which he cleared. He initially came with a hemoglobin of 4.3 and a mean cell volume of 114. He was given 4 units of red blood cells yesterday and responded nicely to that. His tachycardia and hypertension had resolved. We were operating this morning and he was in line to come down to the endoscopy suite. However, he once again looked pale, was tachycardic and hypotensive again. He then had a large amount of bright red blood per rectum. He had to be actively resuscitated with 8 units of packed red blood cells and 3 units of FFP. Unfortunately, we have no platelets in our 25 bed critical access Electronically Signed By: JESSICA REYNA MD 11/19/20 0541 PATIENT NAME: GUNNER TATE JR DISCHARGE SUMMARY DATE OF : 60 REPORT #: [id number] PHYSICIAN: JESSICA REYNA MD PCP: HARSHIL GUARDADO PAC REPORT IS CONFIDENTIAL AND NOT TO BE RELEASED WITHOUT AUTHORIZATION [facility] [address] [place] [id number] Signed hospital. He is also given some IV calcium. My anesthesia provider was here along with my OR crew. Initially he was not stable for any procedure. He is definitely much better now that his heart rate is around 100 and his systolic blood pressure is back up to about 110. His respiratory rate is about 12 and he is talkative and looks much better and his skin color. In the meantime we have called hospitals all over [place], [place], [place] in [place]. Everyone has been full due to the COVID pandemic. We called [facility] in [place], [place]. Dr. Davian Alex was kind enough to accept him in transfer. He is definitely in need of an angiogram to look for his source of bleeding. In the meantime, our [facility] has brought additional blood products to us and are in the process of getting him ready to fly down to [facility] in [place], [place]. Of course, I would be available to Gunner upon his return to [place], [place]. I reviewed this with Gunner and his , they have expressed understanding and agreed with the above plan. Jessica Reyna MD ALB/MODL /[id number] cc: MD Dr. Harshil Yang Copies: JESSICA REYNA MD ~ Electronically Signed By: JESSICA REYNA MD 11/19/20 0541 PATIENT NAME: GUNNER TATE JR DISCHARGE SUMMARY DATE OF : 60 REPORT #: [id number] PHYSICIAN: JESSICA REYNA MD PCP: HARSHIL GUARDADO PAC REPORT IS CONFIDENTIAL AND NOT TO BE RELEASED WITHOUT AUTHORIZATION
--- NOTE | 2020-11-21 09:50 | PATH ---
[facility] [address] [place], [place] [address] Signed SPECIMEN(S): A STOMACH BIOPSY SPECIMEN SOURCE: A. STOMACH BIOPSY CLINICAL HISTORY: Gastric sleeve, gastrointestinal bleed. Post: Post gastric sleeve bx. MICROSCOPIC DESCRIPTION: Histologic sections of all submitted blocks are examined by light microscopy. These findings, together with the gross examination, support the pathologic diagnosis. FINAL PATHOLOGIC DIAGNOSIS: Stomach, biopsy: - No significant histopathologic alterations. COMMENT: The sections through the gastric biopsies show fragments of histologically unremarkable antral mucosa. There is no evidence of acute or chronic inflammation. There is no evidence of H. pylori, intestinal metaplasia, abnormal infiltrates or neoplasia. TWK:caw:C2NR GROSS DESCRIPTION: The specimen, labeled "RB, 1," and designated on the requisition "stomach," is received in formalin and consists of one chen soft tissue fragment(s) that measure 0.5 cm in greatest dimension. The specimen is entirely submitted in cassette (A1). AT (under the direct supervision of a pathologist) The Gross Description was prepared using a voice recognition system. The report was reviewed for accuracy; however, sound-alike word errors, addition and/or deletions may occur. If there is any question about this report, please contact Client Services. PERFORMING LABORATORY: The technical component was performed by [facility] [employer] [facility], [address] [place] [id number] (French Comber: Helen Viveros MD; CLIA# [id number]). [facility] [address] [address] (CLIA# [id number]). PATIENT NAME: GUNNER TATE JR PATHOLOGY DATE OF : 60 REPORT #: [id number] PHYSICIAN: [facility] PCP: HARSHIL GUARDADO PAC REPORT IS CONFIDENTIAL AND NOT TO BE RELEASED WITHOUT AUTHORIZATION [facility] [address] [place], [place] [address] Signed Diagnostician: Casper Traore MD Pathologist Electronically Signed 11/21/2020 Copies: ~ PATIENT NAME: GUNNER TATE JR PATHOLOGY DATE OF : 60 REPORT #: [id number] PHYSICIAN: [facility] PCP: HARSHIL GUARDADO PAC REPORT IS CONFIDENTIAL AND NOT TO BE RELEASED WITHOUT AUTHORIZATION
== END 2020-11-18 16:15 | disposition short-term general hospital (02) | DRG 378 ==
LOC: ED 03:36 → CCU 06:33
PROVIDERS: Colon & Rectal Surgery; ADMIT Internal Medicine; ATTEND Internal Medicine
PROC: 30233N1 Transfusion of Nonautologous Red Blood Cells into Peripheral Vein, Percutaneous Approach (ICD-10-PCS; 2020-11-17)
PROC: 0DB68ZX Excision of Stomach, Via Natural or Artificial Opening Endoscopic, Diagnostic (ICD-10-PCS; principal; 2020-11-17 11:00)
DX: K92.1 Melena (principal); D62 Acute posthemorrhagic anemia; Z98.84 Bariatric surgery status; G89.4 Chronic pain syndrome; Z91.040 Latex allergy status; Z88.0 Allergy status to penicillin; Z88.1 Allergy status to other antibiotic agents; Z86.73 Personal history of transient ischemic attack (TIA), and cerebral infarction without residual deficits; Z98.890 Other specified postprocedural states; Z90.49 Acquired absence of other specified parts of digestive tract; Z88.5 Allergy status to narcotic agent; Z88.8 Allergy status to other drugs, medicaments and biological substances; Z79.899 Other long term (current) drug therapy
CPT/HCPCS: 36430; 74176; 74177; 80048; 80053; 81001; 83735; 84100; 84132; 84484; 85018; 85025; 85027; 85610; 93005; 93010; 99285-25; C9113; C9803; J0610; J2060; J2270; J2405; J2704; J3420; J3475; J7121; P9010; P9035; P9040; Q9967; U0003

== ENCOUNTER 2022-04-21 00:30 | Emergency (ER) | payer OTHER, MEDICARE ==
[~2022-04-21] VITALS: Ht 175.3 cm; Wt 65.3 kg
[~2022-04-21 00:30] MED LIST changes: +LISINOPRIL20 MG PO; +OMEPRAZOLE40 MG PO; +VITAMIN D21250 MCG PO
--- OUTSIDE RECORDS SUMMARY | 2022-04-21 00:33 | XMS ---
PreManage Notification: GUNNER TATE Security Speed Belt Sander Events No recent Security Events currently on file CRITERIA MET - [facility] HARSHIL GUARDADO Physician Holter Technician 11/07/2020-Current PHONE: Unknown [facility] 03/22/2019-Current PHONE: [phone] Ayanna has no Care Guidelines for this patient. ECyndi VISIT COUNT (12 MO.) Kaley Abbott TOTAL 1 NOTE: Visits indicate total known visits. ED/UCC VISIT TRACKING (12 MO.) 04/21/2022 00:[address] [facility] TYPE: Emergency COMPLAINT: - BACK PAIN INPATIENT VISIT TRACKING (12 MO.) No inpatient visits to display in this time frame [email or web address]
== END 2022-04-21 08:15 | disposition short-term general hospital (02) ==
LOC: ED 00:30
DX: S32.011A Stable burst fracture of first lumbar vertebra, initial encounter for closed fracture (principal); Z20.822 Contact with and (suspected) exposure to COVID-19; Z98.1 Arthrodesis status; Z87.442 Personal history of urinary calculi; Z86.73 Personal history of transient ischemic attack (TIA), and cerebral infarction without residual deficits; Z91.040 Latex allergy status; Z88.0 Allergy status to penicillin; Z88.1 Allergy status to other antibiotic agents; Z79.899 Other long term (current) drug therapy; W18.09XA Striking against other object with subsequent fall, initial encounter
CPT/HCPCS: 36415; 72131; 80053; 85025; 85610; 96374; 96375; 99285-25; J1170; J1885; J2270; J7121; U0003

== ENCOUNTER 2024-01-06 04:58 | Emergency (ER) | payer OTHER, MEDICARE ==
[~2024-01-06] VITALS: Ht 175.3 cm; Wt 64.0 kg
[2024-01-06] MEDS ORDERED: fentaNYL citrate 100 MCG/2 ML VIAL IV ONE (05:15)
[2024-01-06 05:32] LABS: BASOPHILS 0.3 % (0-2); EOSINOPHILS 0.7 % (0-6); HEMATOCRIT 35.4 % (35.0-50.0); HEMOGLOBIN 12.1 g/dL (12.0-18.0); LYMPHOCYTES 9.6 % (24-44); MCH 42.2 (27-36); MCHC 34.2 g/dl (30-36); MCV 123.5 fl (81-99); MONOCYTES 6.3 % (0-12); NEUTROPHILS 83.1 % (39-80); PLATELET COUNT 208 K/uL (140-440); RBC 2.87 M/ul (4.3-5.7); RDW 14.2 (10.5-15.0)
[2024-01-06 05:47] LABS: ALBUMIN 3.5 g/dL (3.4-5.0); ALBUMIN/GLOBULIN RATIO 1.21 (1.1-2.4); ANION GAP 12.7 (7-21); BILIRUBIN, TOTAL 0.7 ng/dL (0.2-1.0); BUN/CREATININE RATIO 15.31 (6.0-28.6); CALCIUM 9.4 mg/dL (8.5-10.1); CREATININE, SERUM 1.11 mg/dL (0.70-1.30); POTASSIUM 3.7 mmol/L (3.5-5.1); PROTEIN, TOTAL 6.4 g/dL (6.4-8.2)
[2024-01-06 06:30] VITALS: BP 126/82
== END 2024-01-06 06:30 | disposition home or self-care (01) ==
LOC: ED 04:58
PROVIDERS: Family Medicine
DX: S73.102A Unspecified sprain of left hip, initial encounter (principal); W18.30XA Fall on same level, unspecified, initial encounter; Z86.73 Personal history of transient ischemic attack (TIA), and cerebral infarction without residual deficits; Z88.0 Allergy status to penicillin; Z88.1 Allergy status to other antibiotic agents; Z91.040 Latex allergy status; Z79.899 Other long term (current) drug therapy
CPT/HCPCS: 36415; 73502; 80053; 85025; 85060; 96374; 99284-25; J3010

== ENCOUNTER 2024-06-01 06:55 | Inpatient (IN) | payer OTHER, MEDICARE ==
[2024-06-01] VITALS (7 sets, daily range): BP systolic 100–112; BP diastolic 60–71
[~2024-06-01] VITALS: Ht 175.3 cm; Wt 65.4 kg
--- NOTE | ~2024-06-01 | EKG ---
[facility] [address] [facility] [place], [place] [address] Draft EK completed, results pending confirmation PATIENT NAME: GUNNER TATE JR Electrocardiogram DATE OF : 60 PHYSICIAN: PRELIMINARY REPORT #: [id number] REPORT IS CONFIDENTIAL AND NOT TO BE RELEASED WITHOUT AUTHORIZATION
[2024-06-01] MEDS ORDERED: OMEPRAZOLE40 MG PO (07:10)
[2024-06-01] MEDS ORDERED: IRON159 MG PO (07:11)
[2024-06-01] MEDS ORDERED: SODIUM CHLORIDE 0.9% 1,000 ML IV PRN (07:45)
[2024-06-01] MEDS ORDERED: ondansetron HCL 4 MG/2 ML VIAL IV ONE (07:45)
[2024-06-01 08:00] LABS: BASOPHILS 0.1 % (0-2); EOSINOPHILS 0.2 % (0-6); HEMATOCRIT 39.7 % (35.0-50.0); HEMOGLOBIN 13.7 g/dL (12.0-18.0); LYMPHOCYTES 7.2 % (24-44); MCH 42.8 (27-36); MCHC 34.4 g/dl (30-36); MCV 124.3 fl (81-99); MONOCYTES 6.4 % (0-12); NEUTROPHILS 86.1 % (39-80); PLATELET COUNT 188 K/uL (140-440); RDW 14.4 (10.5-15.0)
[2024-06-01 08:14] LABS: ALBUMIN 3.8 g/dL (3.4-5.0); ALBUMIN/GLOBULIN RATIO 1.41 (1.1-2.4); ANION GAP 18.5 (7-21); BILIRUBIN, TOTAL 0.8 ng/dL (0.2-1.0); BUN/CREATININE RATIO 18.75 (6.0-28.6); CREATININE, SERUM 1.12 mg/dL (0.70-1.30); POTASSIUM 4.5 mmol/L (3.5-5.1); PROTEIN, TOTAL 6.5 g/dL (6.4-8.2)
[2024-06-01 09:08] LABS: BILIRUBIN, URINE POSITIVE (negative); BLOOD/HGB, URINE NEGATIVE (Negative); KETONE, URINE SMALL (Negative); LEUK ESTERASE, URINE NEGATIVE (negative); NITRITE, URINE NEGATIVE (negative); PH, URINE 5.5 (5-7)
[2024-06-01] MEDS ORDERED: ondansetron HCL 4 MG/2 ML VIAL IV PRN ×2 (11:00→13:45)
[2024-06-01] MEDS ORDERED: HYDROmorphone HCL 1 MG/ML SYR IV PRN ×2 (11:00→13:45)
[2024-06-01] MEDS ORDERED: LACTATED RINGER'S 1,000 ML IV SCH (11:00)
--- NOTE | 2024-06-01 11:54 | NUR ---
ADMISSION AND FULL ASSESSMENT COMPLETE. PATIENT IS SITTING ON THE COUCH. PATIENT IS ALERT AND ORIENTED TIMES FOUR. PATIENT IS ON ROOM AIR AND LUNG SOUNDS ARE CLEAR BILATERALLY. CARDIAC WITH NORMAL S1 AND S2 ON AUSCULTATION. RADIAL AND PEDAL PULSES ARE STRONG BILATERALLY. CAPILLARY REFILL IN THE UPPER AND LOWER EXTREMITIES IS LESS THAN 3 SECONDS BILATERALLY. SENSATION INTACT WITH PATIENT REPORT N/T IN THE HANDS AND FEET AT BASELINE. PATIENT IS NPO AND BOWEL TONES ARE ACTIVE IN ALL FOUR QUADRANTS. ABDOMEN IS TENDER TO PALPATION. LAST BM WAS 06/01/24. PATIENT WITH NO COMPLAINTS OF NAUSEA. URINAL IS AT THE BEDSIDE. IV WITH A 20 GAUGE IN THE LAC. IV FLUSHED WITH 10 ML NORMAL SALINE. IV DRESSING IS CLEAN, DRY, AND INTACT. LR IS INFUSING AT 125 ML/HR. SCD'S IN PLACE. PATIENT RATED PAIN 9/10 IN THE ABDOMEN AND BACK. PATIENT REPORTS STAYS AT 7/10 AT BASELINE. PATIENT IS REQUESTING SOMETHING FOR PAIN. PATIENT STATED NO FURTHER NEEDS AT THIS TIME. CALL LIGHT AND PERSONAL BELONGINGS ARE WITHIN REACH.
--- NOTE | 2024-06-01 13:31 | NUR ---
PATIENT IS LYING IN BED WITH HIS SITTING IN THE CHAIR AT BEDSIDE. PATIENT STATES "IT'S STILL THERE" IN REGARDS TO THE PAIN WHEN ASKED BY RN. PATIENT AND FAMILY STATED NO FURTHER NEEDS AT THIS TIME. CALL LIGHT AND PERSONAL BELONGINGS ARE WITHIN REACH.
[2024-06-01] MEDS ORDERED: PANTOPRAZOLE SODIUM 40 MG/10 ML VIAL IV SCH (13:42)
[2024-06-01] MEDS ORDERED: ENOXAPARIN SODIUM 40 MG/0.4 ML SYR SUB-Q SCH (13:42)
[2024-06-01] MEDS ORDERED: ACETAMINOPHEN 650 MG SUPP PR PRN (13:45)
[2024-06-01] MEDS ORDERED: PROCHLORPERAZINE EDISYLATE 10 MG/2 ML VIAL IV PRN (13:45)
[2024-06-01] MEDS ORDERED: DEXTROSE 5% - LACTATED RINGERS 1,000 ML IV SCH (13:45)
--- NOTE | 2024-06-01 13:45 | NUR ---
VISITED DURING SPIRITUAL CARE ROUNDS. PT SUPPORTED BY TRAFFIC CONTROL TECHNICIAN IN ROOM. BOTH IN OVERALL GOOD SPIRITS; DENIED IMMEDIATE NEEDS. ADVERTISING SALES CONSULTANT PROVIDED SUPPORTIVE PRESENCE, HOSPITALITY, PRAYER, FACILTIATED INTERACTION WITH THERPAY ANIMAL. PT EXPRESSED GRATITUDE.
--- NOTE | 2024-06-01 14:22 | NUR ---
1300 MEDICATIONS ADMINISTERED PER THE EMAR. IV SITE FLUSHED WITH 10 ML NORMAL SALINE. D5LR IS INFUSING AT 100 ML/HR. IV DRESSING IS CLEAN, DRY, AND INTACT. PATIENT RATED PAIN 9/10 IN THE ABDOMEN BUT IS NOT REQUESTING PAIN INTERVENTION AT THIS TIME. ABDOMEN IS TENDER. BOWEL TONES ARE ACTIVE IN ALL FOUR QUADRANTS. PATIENT WITH NO COMPLAINTS OF NAUSEA AT THIS TIME. PATIENT IS SITTING IN THE CHAIR AT BEDSIDE. PATIENT STATED NO FURTHER NEEDS AT THIS TIME. TV IS ON. CALL LIGHT AND PERSONAL BELONGINGS ARE WITHIN REACH.
--- NOTE | 2024-06-01 14:54 | NUR ---
UR CLINICAL REVIEW: [facility] INPT CRITERIA FOR [facility] INPT 06/01/24 @ 1344 ORDER MATCHES REG AUTH RECVD FROM [facility]. WILL FAX ONGOING CLINICALS FOR REVIEW. AUTH SCANNED TO CHART. DISCHARGE TO HOME WHEN STABLE 06/03/24
--- NOTE | 2024-06-01 15:16 | NUR ---
ALERT AND ORIENTED IN BED. SPOUSE IN ROOM. PATIENT LIVES IN SINGLE LEVEL APARTMENT, ONLY 2 STEPS TO GET INSIDE. HE HAS NO DME. PATIENT STATES HE RARELY DRIVES, SPOUSE PROVIDES TRANSPORTATION. PATIENT AND SPOUSE BOTH DENY DIFFICULTY PAYING UTILITIES, OBTAINING FOOD OR MEDICATIONS. BOTH STATE THEY PLAN ON PATIENT RETURNING HOME WHEN MEDICALLY STABLE, NO CM NEEDS AT THIS TIME.
--- NOTE | 2024-06-01 15:21 | NUR ---
PATIENT IS LYING IN BED WITH THE LIGHTS OFF AND HIM AND HIS ARE WATCHING TV. PATIENT WITH EYES OPEN AND RESPIRATIONS ARE EVEN AND UNLABORED. CPOX AT THE BEDSIDE. PATIENT STATED NO FURTHER NEEDS AT THIS TIME. CALL LIGHT AND PERSONAL BELONGINGS ARE WITHIN REACH.
--- NOTE | 2024-06-01 16:05 | NUR ---
PATIENT IS LYING ON HIS LEFT SIDE WITH EYES OPEN WATCHING TV. RESPIRATIONS ARE EVEN AND UNLABORED. PATIENT IS SITTING IN THE CHAIR AND BEDSIDE AND SCRATCHING THE PATIENTS BACK. URINAL DUMPED AT THIS TIME OF DARK YELLOW URINE. CPOX AT THE BEDSIDE. PATIENT AND FAMILY STATED NO FURTHER NEEDS AT THIS TIME. CALL LIGHT AND PERSONAL BELONGINGS ARE WITHIN REACH.
--- NOTE | 2024-06-01 17:42 | NUR ---
NOTIFIED OF PATIENT REQUESTING A FENTANYL PATCH. GAVE TELEPHONE ORDER FOR 25 MCG FENTANYL PATCH. RN TO PUT IN ORDER. CALL ENDED.
[2024-06-01] MEDS ORDERED: FENTANYL 25 MCG/HR 1 EA TDSY TD SCH (17:45)
--- NOTE | 2024-06-01 19:36 | NUR ---
REPORT RECIEVED FROM DAY SHIFT RN. PATIENT RESTING IN BED. FENTANYL PATCH IN PLACE ON PATIENT. NO FURTHER NEEDS. CALL LIGHT IN REACH.
--- NOTE | 2024-06-01 20:47 | NUR ---
SALES REPRESENTATIVE TRAINEE OBTAINED VITALS AND OUTPUT. PT STATES NO NEEDS AT THIS TIME. CALL LIGHT EITHIN REACH.
--- NOTE | 2024-06-01 21:17 | EKG ---
[facility] [address] [facility] [place] [address] Signed Normal sinus rhythm Left axis deviation Possible Anterior infarct (cited on or before 17-NOV-2020) Abnormal ECG When compared with ECG of 01-JUN-2024 16:12, (Unconfirmed) No significant change was found Confirmed by Pierre Modi DO ([id number]) on 06/01/2024 9:16:58 PM Electronically Signed By: PIERRE MODI DO 06/01/242116 PATIENT NAME: GUNNER TATE JR Electrocardiogram DATE OF : 60 PHYSICIAN: PIERRE MODI DO REPORT #: [id number] REPORT IS CONFIDENTIAL AND NOT TO BE RELEASED WITHOUT AUTHORIZATION
--- NOTE | 2024-06-01 22:25 | NUR ---
CALL LIGHT ANSWERED. PATIENT REQUESTING WARM PACKS. 2 WARM PACKS PROVIDED BY LICENSED OCCUPATIONAL THERAPY ASSISTANT. PATIENT REPORTS 9/10 ABD PAIN. PRN PAIN MEDICATIONS ADMINISTERED PER PATIENT REQUEST. ASSESSMENT COMPLETE. BOWEL TONES ACTIVE. PATIENT HAS NO FURTHER NEEDS. CALL LIGHT IN REACH.
--- NOTE | 2024-06-01 23:39 | NUR ---
PATIENT RESTING IN BED ON BACK. DENIES NEEDS AT THIS TIME. CALL LIGHT IN REACH.
[2024-06-02] VITALS (12 sets, daily range): BP systolic 107–129; BP diastolic 60–79
--- NOTE | 2024-06-02 00:22 | NUR ---
NEW BAG IV FLUID INFUSING PER ORDER. PATIENT REQUESTING BOTH A HOT PACK AND ICE PACK. BOTH PACKS PROVIDED. VS AND I&Os OBTAINED AND RECORDED. PATIENT HAS NO FURTHER NEEDS. CALL LIGHT IN REACH.
--- NOTE | 2024-06-02 02:34 | NUR ---
PRN PAIN MEDS ADMINISTERED. pt CALLED FOR PAIN MEDS. pt C/O 02/10 PAIN. NO OTHER NEEDS AT THIS TIME. CALL LIGHT WITHIN REACH.
--- NOTE | 2024-06-02 02:36 | NUR ---
ROUNDING ON PATIENT. PATIENT REPORTING 9/10 PAIN. PRN PAIN MEDICATION ADMINSITERED, TITRATED TO MAX DOSE. PATIENT REPORTS HAVING FLATUS THIS SHIFT. THIS RN EDUCATED PATIENT TO TELL THIS RN KNOW IF HE FEELS LIKE HIS ABD IS BECOMING MORE DISTENDED OR FIRM. PATIENT VERBILIZES UNDERSTANDING. PATIENT ABD SOFT AT THIS TIME. PATIENT STATES "THIS IS JUST PAIN. I AM CHRONICALLY IN PAIN". PATIENT HAS NO FURTHER NEEDS AT THIS TIME. CALL LIGHT IN REACH.
--- NOTE | 2024-06-02 03:15 | NUR ---
PATIENT RESTING IN BED ON LEFT SIDE. PATIENT STATES "I AM DOING BETTER". NO NEEDS AT THIS TIME. CALL LIGHT IN REACH.
--- NOTE | 2024-06-02 04:23 | NUR ---
ROUNDING ON PATIENT. PATIENT REPORTING 9/10 ABD PAIN. PRN PAIN MEDICATION ADMINISTERED. VS AND I&Os OBTAINED AND RECORDED. WARM PACK PROVIDED. PATIENT DENIES FURTHER NEEDS. CALL LIGHT IN REACH.
--- NOTE | 2024-06-02 05:16 | NUR ---
CALL LIGHT ANSWERED. PT STATES THE NEED TO USE BATHROOM. SLOT HOST ASSISTED WITH PT LINES TO BATHROOM. PT INSTRUCTED TO USE BATHROOM CALL LIGHT WHEN DONE. BATHROOM CALL LIGHT ANSWERED. PT BACK IN BED AND STATED HE HAD " ALOT OF DIARRHEA" AND HAD PASSED SOME GAS. RN NOTIFED AND PT SCDS AND CPOX RECONNECTED. PT STATES NO FURTHER NEEDS AT THIS TIME. CALL LIGHT WITHIN REACH.
[2024-06-02 05:42] LABS: BASOPHILS 0.3 % (0-2); EOSINOPHILS 0.9 % (0-6); HEMATOCRIT 33.5 % (35.0-50.0); HEMOGLOBIN 11.5 g/dL (12.0-18.0); LYMPHOCYTES 25.5 % (24-44); MCH 42.6 (27-36); MCHC 34.3 g/dl (30-36); MONOCYTES 10.9 % (0-12); NEUTROPHILS 62.4 % (39-80); PLATELET COUNT 142 K/uL (140-440); RDW 13.6 (10.5-15.0)
[2024-06-02 05:57] LABS: ANION GAP 15.8 (7-21); BUN/CREATININE RATIO 20.23 (6.0-28.6); CALCIUM 8.5 mg/dL (8.5-10.1); CREATININE, SERUM 0.84 mg/dL (0.70-1.30); MAGNESIUM 1.5 mg/dL (1.8-2.4); PHOSPHORUS, INORGANIC 2.6 mg/dL (2.5-4.9); POTASSIUM 3.8 mmol/L (3.5-5.1)
--- NOTE | 2024-06-02 05:58 | NUR ---
CALL LIGHT ANSWERED. PT NEEDED TO USE BATHROOM. PROCUREMENT ENGINEER ASSISTED PT TO BATHROOM WITH LINES. PT INSTRUCTED TO USE BATHROOM CALL LIGHT WHEN DONE. BATHROOM CALL LIGHT ANSWERED. PT BACK IN BED AND STATED THAT HE HAD A BM THAT WAS "MORE FIRM THAN LAST TIME." RN NOTIFED. PT SCDS AND CPOX RECONNECTED. PT STATES NO FURTHER NEEDS AT THIS TIME. CALL LIGHT WITHIN REACH.
[2024-06-02 06:06] LABS: SMEAR REVIEW BLOOD SEE COMMENTS
--- NOTE | 2024-06-02 06:08 | NUR ---
ROUNDING ON PATIENT. PRN PAIN MEDICATION ADMINISTERED FOR 8/10 PAIN. PATIENT STATES "I AM FEELING MUCH BETTER". BOWEL TONES ACTIVE. NO FURTHER NEEDS. CALL LIGHT IN REACH.
--- NOTE | 2024-06-02 06:23 | CONS ---
[facility] [address] [place], [place] [address] Signed DATE OF CONSULTATION: 06/01/2024 CHIEF COMPLAINT: Periumbilical abdominal pain. HISTORY OF PRESENT ILLNESS: Gunner is a 64-year-old gentleman, who underwent his gastric bypass surgery in 2004. He said he has lost over 100 pounds. He has also had a lot of trouble with his back with multiple back surgeries and a spinal cord stimulator. He has to use morphine and [place] on a daily basis. He also takes iron and folate and vitamin B12 and I think a vitamin B12 tablet as well. He came to our hospital several years ago with a rather significant GI bleed. Of course, we could not access the duodenum. He went down to [facility] in the [place], [place] area. It took a whole team and doctors to get into his antrum with the scope and find the bleeding and the surgeon had to follow the scope down and I believe the 3rd portion of the duodenum to fix the ulcer. It sounds like he had 33 units of blood products total. He is back home and actually got through that fairly well. A few years before that, it sounds like one of our locum surgeons had to take him to the OR when his bowel was twisted from the gastric bypass. He is able to untwist it without resecting any bowel and that worked out well. In the last two and a half days, he has had periumbilical abdominal pain with some nausea and vomiting and some diarrhea early this morning. He finally came to the ER for evaluation. He is in no acute distress. The white count is normal. CT scan shows the small bowel little bit dilated at 4.7 cm with some ingested material and probably a transition point in the mid abdomen. He has some air-fluid levels in the colon. I was asked to admit him as a general surgeon on-call. In the meantime, he seems to be doing fine. PAST MEDICAL HISTORY: Nephrolithiasis, chronic back pain, TIA, significant GI bleed requiring 33 units of blood products, BPH, diverticulosis, L1 compression fracture and T11 compression fracture. PAST SURGICAL HISTORY: Includes a gastric bypass surgery in 2004, tonsils, knee scope x2, cholecystectomy, appendectomy, shoulder surgery. There is metal in his back from his surgery along with a spinal cord stimulator. He has had his abdominal surgery to fix this bleeding duodenal ulcer as described above. SOCIAL HISTORY: He does not smoke or drink. He is to Maeve at [phone]. 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 Yoli Guardado is his primary care provider. He prefers the [facility]. Electronically Signed By: JESSICA REYNA MD 06/02/24 0623 PATIENT NAME: GUNNER TATE CONSULTATION DATE OF : 60 REPORT #: [id number] PHYSICIAN: JESSICA REYNA MD PCP: YOLI GUARDADO PAC REPORT IS CONFIDENTIAL AND NOT TO BE RELEASED WITHOUT AUTHORIZATION [facility] [address] [place], [place] [address] Signed FAMILY HISTORY: None. REVIEW OF SYSTEMS: He had 10 systems reviewed and he filled some of his past medical history. ALLERGIES: Erythromycin base cause diarrhea. Penicillin G and latex. MEDICATIONS: 1. Flomax. 2. Zolpidem. 3. Morphine. 4. [place]. 5. Gabapentin. 6. Omeprazole. 7. Iron sulfate. 8. Buspirone. 9. Baclofen. 10. Folate. 11. Vitamin D. PHYSICAL EXAMINATION: VITAL SIGNS: Blood pressure is 112/71, his heart rate is 75, respiratory rate is 14, temperature is 97.8. He is 98% on room air. He is 5 feet 9 inches tall at 65 kg with a body mass index of 21. GENERAL: Gunner is a 64-year-old gentleman lying supine in his hospital bed, watching TV. His is at the bedside. He is in no acute distress. LUNGS: Clear to auscultation bilaterally. HEART: Regular rate and rhythm without murmurs. ABDOMEN: Soft, flat, little tender just to the left of the umbilicus. LABORATORY DATA: His white blood count is 6.6, hemoglobin 13, mean cell volume is 124, neutrophils 86, platelets 188, creatinine 1.1. Urine specific gravity greater than 1.030. Liver function tests are negative. Albumin is 3.8, lipase 21. RADIOGRAPHIC STUDIES: CT scan of the abdomen and pelvis is reviewed, both images and the report. He does have dilated small bowel with some ingested material and probably a transition point in the mid abdomen. ASSESSMENT AND PLAN: Electronically Signed By: JESSICA REYNA MD 06/02/24 0623 PATIENT NAME: GUNNER TATE CONSULTATION DATE OF : 60 REPORT #: [id number] PHYSICIAN: JESSICA REYNA MD PCP: YOLI GUARDADO PAC REPORT IS CONFIDENTIAL AND NOT TO BE RELEASED WITHOUT AUTHORIZATION [address] [address] Signed Gunner is a 64-year-old gentleman, who presents with what appears to be a small-bowel obstruction in his mid abdomen. He has been admitted and started on IV fluids. No NG tube was placed at this time. Of course, he is worried about his pain control. I had explained to Gunner we will have our medical service see him as well. We will see how he does in the next few days. If he does not resolve this on his own, obviously he will need another laparotomy. He and his have expressed understanding and agreed with the above plan. Jessica Reyna MD ALB/MODL /[id number] cc: MD Yoli Yang PA Copies: JESSICA REYNA MD ~ Electronically Signed By: JESSICA REYNA MD 06/02/24 0623 PATIENT NAME: GUNNER TATE JR CONSULTATION DATE OF : 60 REPORT #: [id number] PHYSICIAN: JESSICA REYNA MD PCP: YOLI GURADADO [facility] REPORT IS CONFIDENTIAL AND NOT TO BE RELEASED WITHOUT AUTHORIZATION
[2024-06-02] MEDS ORDERED: MAGNESIUM SULFATE 2 GM/50 ML BAG IV ONE (06:45)
[2024-06-02] MEDS ORDERED: SODIUM PHOSPHATE 30 MMOL in DEXTROSE 5% 250 ML IV ONE (06:45)
--- NOTE | 2024-06-02 07:03 | NUR ---
SCHEDULED IV MEDICATION ADMINISTERED. NO FURTHER NEEDS. CALL LIGHT IN REACH.
--- NOTE | 2024-06-02 07:09 | NUR ---
REPORT RECEIVED FROM STOCK SHEETS CLEANER INSPECTOR RN COURTNEY. PATIENT IS LYING IN BED WITH THE LIGHTS AND TV ON. PATIENT IS SITTING IN THE CHAIR AT BEDSIDE. FENTANYL PATCH LOCATION VERIFIED. PATIENT WITH EYES OPEN AND RESPIRATIONS ARE EVEN AND UNLABORED. PATIENT STATED NO FURTHER NEEDS AT THIS TIME. CALL LIGHT AND PERSONAL BELONGINGS ARE WITHIN REACH.
[2024-06-02] MEDS ORDERED: FENTANYL 50 MCG/HR 1 EA TDSY TD SCH (09:00)
--- NOTE | 2024-06-02 10:30 | NUR ---
PATIENT IS LYING IN BED AND ON THE PHONE WHEN THIS RN ENTERS. PATIENT THEN ENDS HIS PHONE CALL. PATIENT IS SITTING IN THE RECLINER AT BEDSIDE. FULL ASSESSMENT COMPLETE AND DOCUMENTED IN THE CHART. PATIENT IS ALERT AND ORIENTED TIMES FOUR. PATIENT IS ON ROOM AIR WITH THE CPOX AT BEDSIDE. LUNG SOUNDS ARE CLEAR IN ALL LUNG GRAY BILATERALLY. CARDIAC WITH NORMAL S1 AND S2 ON AUSCULTATION. RADIAL AND PEDAL PULSES ARE STRONG BILATERALLY. SENSATION INTACT WITH NUMBNESS AND TINGLING AT BASELINE PER PATIENT REPORT. SCD'S ON THE BED BUT NOTE IN USE AT THIS TIME. PATIENT IS ON A CLEAR LIQUID DIET AND HAD A LARGE BM 06/02/24. BOWEL TONES ARE ACTIVE IN ALL FOUR QUADRANTS. PATIENT WITH NO COMPLAINTS OF NAUSEA. URINAL AT THE BEDSIDE. IV SITE IS CLEAN, DRY, AND INTACT. SODIUM PHOSPHATE IS INFUSING AT THIS TIME. PATIENT RATED PAIN A 7/10 IN THE ABDOMEN. FENTANYL IN PLACE ON THE LEFT SIDE OF THE ABDOMEN. PATIENT IS REQUESTING NO FURTHER INTERVENTIONS AT THIS TIME. SKIN INTACT WITH GENERALIZED WEAKNESS NOTED. PATIENT STATED NO FURTHER NEEDS AT THIS TIME. CALL LIGHT AND PERSONAL BELONGINGS ARE WITHIN REACH.
--- NOTE | 2024-06-02 11:05 | NUR ---
PATIENT IS LYING IN BED WITH EYES OPEN AND RESPIRATIONS ARE EVEN AND UNLABORED. TV IS ON. PATIENT IS SITTING IN THE RECLINER AT BEDSIDE. PATIENT STATED NO NEEDS AT THIS TIME. CALL LIGHT AND PERSONAL BELONGINGS ARE WITHIN REACH.
--- NOTE | 2024-06-02 11:45 | NUR ---
Spoke with Jero. He states he has been feeling much better. He had 2 BMS today. Pt plans on dc tomorrow after he sees Dr. Lundberg in the AM
--- NOTE | 2024-06-02 14:23 | NUR ---
PATIENT IS LYING IN BED WITH HEADPHONES IN. PATIENT WITH EYES CLOSED AND RESPIRATIONS ARE EVEN AND UNLABORED. CALL LIGHT AND PERSONAL BELONGINGS ARE WITHIN REACH.
--- NOTE | 2024-06-02 15:15 | NUR ---
PATIENT IS LYING IN BED WITH THE TV ON. PATIENT WITH EYES OPEN AND RESPIRATIONS ARE EVEN AND UNLABORED. PATIENT RATED PAIN 7/10 IN THE ABDOMEN. PATIENT IS NOT REQUESTING ANYTHING FOR PAIN AT THIS TIME. IV SITE FLUSHED WITH 10 ML NORMAL SALINE AND D5LR IS INFUSING AT 100 ML/HR. IV DRESSING IS CLEAN, DRY, AND INTACT. BOWEL TONES ARE ACTIVE IN ALL FOUR QUADRANTS. PATIENT WITH NO COMPLAINTS OF NAUSEA. PATIENT IS SITTING IN THE RECLINER AT BEDSIDE. PATIENT AND FAMILY STATED NO FURTHER NEEDS AT THIS TIME. CALL LIGHT AND PERSONAL BELONGINGS ARE WITHIN REACH.
--- NOTE | 2024-06-02 16:26 | NUR ---
PATIENT IS LYING IN BED WITH HIS SITTING IN THE CHAIR AT BEDSIDE. PATIENT REPORTS THAT HE HAS PASSED GAS. PATIENT REQUESTING BEEF BROTH AT THIS TIME. RN PROVIDED. PATIENT AND FAMILY STATED NO FURTHER NEEDS AT THIS TIME. CALL LIGHT AND PERSONAL BELONGINGS ARE WITHIN REACH.
--- NOTE | 2024-06-02 16:31 | NUR ---
ANSWERED PATIENT'S CALL LIGHT HE WAS ASKING FOR A HOT PACK. BROUGHT HIM ONE. ASKED HIM IS THERE ANYTHING ELSE HE NEEDS AND HE SAID NO NOT AT THIS TIME.
--- NOTE | 2024-06-02 17:19 | NUR ---
PATIENT IS LYING IN BED WITH HIS SITTING IN THE RECLINER AT BEDSIDE. CYNTHIA MELENDEZ RN IN THE ROOM AND TALKING WITH THE PATIENT. CALL LIGHT AND PERSONAL BELONGINGS ARE WITHIN REACH.
--- NOTE | 2024-06-02 18:13 | NUR ---
PATIENT IS LYING IN BED AND STATES THE URGE TO POOP. RN DISCONNECTED PATIENT FROM THE CPOX. IV POLE UNPLUGGED. PATIENT AMBULATED INTO THE BATHROOM. PATIENT EDUCATED ON LETTING RN KNOW IF HE WAS ANY BLACK TARRY STOOLS OR BLOOD NOTED. PATIENT EXPRESSED UNDERSTANDING. PATIENT PRIVACY PROVIDED.
--- NOTE | 2024-06-02 19:29 | NUR ---
REPORT RECIEVED FROM DAY SHIFT RN. PATIENT RESTING IN BED. DENIES NEEDS AT THIS TIME. CALL LIGHT IN REACH.
--- NOTE | 2024-06-02 20:20 | NUR ---
PATIENT RESTING IN BED, REQUESTING PRN PAIN MEDICATION. PRN PAIN MEDICATION ADMINISTERED PER PATIENT REQUEST. VS AND I&Os OBTAINED AND RECORDED. ASSESSMENT COMPELTE. BOWEL TONES ACTIVE. PATIENT HAS NO FURTHER NEEDS AT THIS TIME. CALL LIGHT IN REACH.
--- NOTE | 2024-06-02 22:32 | NUR ---
ROUNDING ON PATIENT. PRN PAIN MEDICATION ADMINISTERED PER PATIENT REQUEST. NO FURTHER NEEDS. CALL LIGHT IN REACH.
--- NOTE | 2024-06-03 00:08 | NUR ---
PATIENT REQUESTING PAIN MEDICATION. PRN PAIN MEDICATION ADMINSITERED. NO FURTHER NEEDS. CALL LIGHT IN REACH.
--- NOTE | 2024-06-03 02:15 | NUR ---
PATIENT RESTING IN BED ON BACK WITH EYES CLOSED. RESPIRATIONS EVEN AND UNLABORED. CALL LIGHT IN REACH.
--- NOTE | 2024-06-03 03:05 | NUR ---
CALL LIGHT ANSWERED. PATIENT REQUESTING PAIN MEDICATION. PRN PAIN MEDICATION ADMINISTERED. PATIENT HAS NO FURTHER NEEDS AT THIS TIME. CALL LIGHT IN REACH.
--- NOTE | 2024-06-03 05:13 | NUR ---
NEW FLUIDS AND WARM PACK GIVEN. PT WITH NO OTHER NEEDS.
[2024-06-03 05:32] LABS: BASOPHILS 0.5 % (0-2); EOSINOPHILS 0.9 % (0-6); HEMATOCRIT 31.5 % (35.0-50.0); HEMOGLOBIN 10.8 g/dL (12.0-18.0); LYMPHOCYTES 14.5 % (24-44); MCH 42.8 (27-36); MCHC 34.4 g/dl (30-36); MCV 124.2 fl (81-99); MONOCYTES 5.4 % (0-12); NEUTROPHILS 78.7 % (39-80); PLATELET COUNT 139 K/uL (140-440); RBC 2.53 M/ul (4.3-5.7); RDW 14.2 (10.5-15.0)
[2024-06-03 05:45] VITALS: BP 129/71
--- NOTE | 2024-06-03 05:49 | NUR ---
GRADES 1 THROUGH 6 TEACHER OBTAINED VITALS AND I&O. PT THEN UP TO USE BATHROOM. PT NOW BACK IN BED WITH CPOX RECONNECTED. PT STATES NO FURTHER NEEDS AT THIS TIME. CALL LIGHT WITHIN REACH.
[2024-06-03 05:50] LABS: SMEAR REVIEW BLOOD SEE COMMENTS
[2024-06-03 05:52] LABS: ANION GAP 10.3 (7-21); BUN/CREATININE RATIO 8.19 (6.0-28.6); CALCIUM 8.4 mg/dL (8.5-10.1); CREATININE, SERUM 0.61 mg/dL (0.70-1.30); MAGNESIUM 1.7 mg/dL (1.8-2.4); PHOSPHORUS, INORGANIC 2.9 mg/dL (2.5-4.9); POTASSIUM 3.3 mmol/L (3.5-5.1)
[2024-06-03 06:17] VITALS: BP 129/71
[2024-06-03] MEDS ORDERED: MAGNESIUM OXIDE 400 MG TABLET PO ONE (06:30)
[2024-06-03] MEDS ORDERED: POTASSIUM CHLORIDE 10 MEQ TABCR PO ONE (06:30)
--- NOTE | 2024-06-03 06:32 | NUR ---
SCHEDULED MEDICATION ADMINISTERED. NO FURTHER NEEDS. CALL LIGHT IN REACH.
[2024-06-03 06:42] VITALS: BP 136/71
--- NOTE | 2024-06-03 06:59 | NUR ---
PATIENT DISCHARGED WITH . IV DCd WNL WITH TIP INTACT. ALL PATIENT BELONGINGS HOME WITH PATIENT AND . DICHARGE EDUCATION PROVIDED BY PATIENT VIA VERBAL AND EDUCATION PACKETS TO TAKE HOME. ALL QUESTIONS ANSWERED. PATIENT AND VERILIZE UNDERSTANDING.
[2024-06-03] MEDS ORDERED: PANTOPRAZOLE SODIUM 40 MG TABEC PO SCH (09:00)
--- NOTE | 2024-06-03 09:26 | DS ---
[facility] [address], [place] [address] Signed ADMISSION DATE: 06/01/2024 DISCHARGE DATE: 06/03/2024 FINAL DIAGNOSIS: Partial small bowel obstruction. PROCEDURE: CT scan of abdomen and pelvis. HISTORY OF PRESENT ILLNESS: Gunner is a 64-year-old gentleman, who underwent gastric bypass back in 2004. He has lost a significant amount of weight. He tells me that his bowel was twisted a number years ago, one of our local surgeons took him to the OR and untwisted the bowel and fix what sounds like an internal hernia. I met him about two years ago when he had a rather profound GI bleed when what we thought was the third portion of the duodenum. He ended up at [facility] in [place], [place]. He had gone through 33 units of blood and nearly . They had an entire team at doctors working on him, and finally made their way to the ulcer through the gastric remnant. He is back in town and resides with his . 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 He now has a spinal cord stimulator. He has to use pain meds to include narcotics every day to control his pain. He came into our emergency room with two and half days of nausea, vomiting, and some diarrhea. In the ER, his vital signs were fine. He seemed to be tender in the mid abdomen. White count was normal. He was dehydrated. CT scan showed the small bowel was dilated to 4.7 cm with what looks like a transition point in his mid abdomen. He was admitted to me as a local general surgeon on-call. HOSPITAL COURSE: Gunner was admitted as above. He had declined an NG tube. He was given IV fluids and he did quite well. He finally passed multiple voluminous liquid bowel movements. His abdomen is quite soft and nontender. He has tolerated a liquid diet. We have been replacing his potassium, magnesium, and phosphorus. He normally takes vitamins at home after the gastric bypass. We had to provide him with a fentanyl patch on top of the Dilaudid to control his pain. He used to taking morphine and hydrocodone every day. This morning, he is doing quite well. I had a long discussion with him yesterday and today. His abdomen is completely soft, nontender. He feels comfortable going home with his . He should probably stay on a full liquid diet for a few days. DISCHARGE PLANS AND MEDICATIONS: Gunner is going to be discharged home without any new prescriptions. He will resume all his chronic medications including his Flomax, zolpidem, morphine, [place], gabapentin, Electronically Signed By: JESSICA REYNA MD 06/03/24 0926 PATIENT NAME: GUNNER TATE JR DISCHARGE SUMMARY DATE OF : 60 REPORT #: [id number] PHYSICIAN: JESSICA REYNA MD PCP: HARSHIL GUARDADO PAC REPORT IS CONFIDENTIAL AND NOT TO BE RELEASED WITHOUT AUTHORIZATION [address] [address] Signed buspirone, baclofen, folate, vitamin D, omeprazole, and iron sulfate. He should probably follow a full liquid diet at least for a day or two and then advance as tolerated. He is welcome to perform his usual activities of daily living with respect to his back issues. He can shower and bathe as usual. He can follow up my office as needed. He really should follow up with his primary care provider with respect to his potassium, magnesium, and phosphorus. His hemoglobin is normal, but his mean cell volume is at 124. I am sure it is all related to his gastric bypass. Of course, if he has any issues he is welcome to return to the emergency room. He has expressed understanding and agrees with the above plan. Jessica Reyna MD ALB/MODL /[id number] cc: MD Harshil Yang PA-C Patient Chart Copies: JESSICA REYNA MD ~ Electronically Signed By: JESSICA REYNA MD 06/03/24 0926 PATIENT NAME: GUNNER TATE DISCHARGE SUMMARY DATE OF : 60 REPORT #: [id number] PHYSICIAN: JESSICA REYNA MD PCP: HARSHIL GUARDADO PAC REPORT IS CONFIDENTIAL AND NOT TO BE RELEASED WITHOUT AUTHORIZATION
[2024-06-05] MEDS ORDERED: fentaNYL 1 EACH TDSY TD SCH (09:00)
== END 2024-06-03 07:00 | disposition home or self-care (01) | DRG 390 ==
LOC: ED 06:55 → MS 10:59
PROVIDERS: Internal Medicine; ADMIT Colon & Rectal Surgery; ATTEND Colon & Rectal Surgery
DX: K56.600 Partial intestinal obstruction, unspecified as to cause (principal); M54.9 Dorsalgia, unspecified; G89.29 Other chronic pain; N40.0 Benign prostatic hyperplasia without lower urinary tract symptoms; Z96.60 Presence of unspecified orthopedic joint implant; Z96.659 Presence of unspecified artificial knee joint; E83.42 Hypomagnesemia; E87.6 Hypokalemia; E83.39 Other disorders of phosphorus metabolism; Z90.89 Acquired absence of other organs; Z90.49 Acquired absence of other specified parts of digestive tract; Z98.1 Arthrodesis status; Z98.890 Other specified postprocedural states; Z88.0 Allergy status to penicillin; Z86.73 Personal history of transient ischemic attack (TIA), and cerebral infarction without residual deficits; Z88.1 Allergy status to other antibiotic agents; Z91.040 Latex allergy status; Z79.899 Other long term (current) drug therapy; Z87.19 Personal history of other diseases of the digestive system; Z98.84 Bariatric surgery status; Z79.891 Long term (current) use of opiate analgesic; Z87.442 Personal history of urinary calculi
CPT/HCPCS: 36415; 74177; 80048; 80053; 81003; 83605; 83690; 83735; 84100; 84134; 85025; 85060; 93005; 93010; 94762; A9270; J1171; J1650; J2405; J2470; J3475; J7030; J7060; J7121; Q9967